=== PATIENT | male | born 1975 | race Caucasian/White ===

== ENCOUNTER 2022-02-08 08:49 | Outpatient (CLI) | payer MEDICAID, SELFPAY ==
[2022-02-08 09:33] LABS: Erythrocyte Sedimentation Rate 15 mm/hr (0-20)
[2022-02-08 09:35] LABS: Absolute Lymphocyte Count 1.56 X10^3/uL (0.83-4.51); Absolute Neutrophil Count 4.5 X10^3/uL (2.0-7.7); Basophil# 0.03 X10^3/uL; Basophil% 0.5 % (0-1); Eosinophil# 0.05 X10^3/uL; Eosinophils% 0.8 % (0-5); Hematocrit 47.1 % (40-54); Hemoglobin 15.6 g/dL (13.0-16.5); Lymphocyte # 1.56 X10^3/ul (0.83-4.51); Lymphocyte % 23.6 % (19-41); Mean Corp Hgb Conc 33.1 g/dL (32-36); Mean Corpuscular Volume 93.6 fL (80-94); Mean Platelet Vol. 11.7 fl (6.2-12.0); Monocyte# 0.45 X10^3/uL; Monocyte% 6.8 % (0-10); NRBC Flagged by Analyzer 0 % (0-5); Neutrophil # 4.51 X10^3/uL (2.7-7.7); Platelet Count 218 K/mm3 (150-450); RBC Distribution Width CV 12.8 % (11.6-14.6); RBC Distribution Width SD 44.3 fl (35.1-43.9); Red Blood Count 5.03 M/mm3 (4.6-6.2); White Blood Count 6.6 K/mm3 (4.4-11.0)
[2022-02-08 09:55] LABS: Hemoglobin A1c 5.5 % (3.8-5.6)
[2022-02-08 10:21] LABS: AST(SGOT) 21 U/L (15-37); Alanine Aminotransfer ALT/SGPT 25 U/L (16-61); Albumin, Serum 3.8 g/dL (3.2-5.0); Alkaline Phosphatase 118 U/L (45-117); Amylase 53 U/L (25-115); Anion Gap 3 (5-15); BUN 17 mg/dL (7-18); BUN/Creat Ratio 17.2 RATIO (10-20); CRP 3.95 mg/L (0.0-3.0); Calcium,Total 8.5 mg/dL (8.5-10.1); Chloride 110 mmol/L (98-107); Creatinine, Serum 0.99 mg/dL (0.70-1.30); EST Glomerular Filtration Rate 86 mL/min (>60); Est Glom Filt Rate - Afr Amer 104 mL/min (>60); Globulin 3.7 g/dL (2.2-4.2); Glucose 96 mg/dL (74-106); Lipase 143 U/L (73-393); Potassium 4.3 mmol/L (3.5-5.1); Protein, Total 7.5 g/dL (6.4-8.2); Sodium Level 140 mmol/L (136-145); Thyroid Stim Hormone (TSH) 2.59 uIU/mL (0.358-3.74)
[2022-02-08 12:03] LABS: Hepatitis C Antibody Non-Reactive (Nonreactive)
[2022-02-09 16:09] LABS: Anti-Centromere B Ab <0.2 AI (0.0-0.9); Anti-Chromatin <0.2 AI (0.0-0.9); Anti-Jo <0.2 AI (0.0-0.9); Anti-Scleroderma-70 AB <0.2 AI (0.0-0.9); RNP Ab 0.3 AI (0.0-0.9); SJOGREN'S Anti-SS-A test < 0.2 AI (0.0-0.9); SJOGREN'S Anti-SS-B test < 0.2 AI (0.0-0.9); Smith Ab <0.2 AI (0.0-0.9)
[2022-02-10 09:39] LABS: Anti-dsDNA Ab 1 IU/mL (0-9)
[2022-02-14 10:09] LABS: Cytoplasmic Ab (C-ANCA) <1:20 titer (Neg:<1:20); Endomysial Antibody IgA Negative (Negative); Immunoglobulin A 155 mg/dL (90-386); Immunoglobulin E 22 IU/mL (6-495); Immunoglobulin G 799 mg/dL (603-1613)
[2022-02-14 18:31] LABS: Immunoglobulin M 216 mg/dL (20-172); Perinuclear Ab (P-ANCA) <1:20 titer (Neg:<1:20); t-Transglutaminase IgA <2 U/mL (0-3)
== END 2022-02-08 23:59 | disposition home or self-care (01) ==
LOC: LAB 08:52
PROVIDERS: PCP Internal Medicine Infectious Disease; Referring Provider Internal Medicine Gastroenterology; Visit Provider Internal Medicine Gastroenterology
DX: Z12.11 Encounter for screening for malignant neoplasm of colon (principal); R10.9 Unspecified abdominal pain; R19.7 Diarrhea, unspecified
CPT/HCPCS: 36415; 80053; 82150; 82784; 82785; 83036; 83516; 83690; 84443; 85025; 85652; 86140; 86225; 86235; 86255; 86256; 86803

== ENCOUNTER 2022-02-09 08:05 | Outpatient (CLI) | payer MEDICAID, SELFPAY ==
[2022-02-12 15:45] LABS: Calprotectin, Stool <16 ug/g (0-120)
== END 2022-02-09 23:59 | disposition home or self-care (01) ==
LOC: LABSPEC 08:06
PROVIDERS: PCP Internal Medicine Infectious Disease; Visit Provider Internal Medicine Gastroenterology
DX: Z12.11 Encounter for screening for malignant neoplasm of colon (principal); R10.9 Unspecified abdominal pain
CPT/HCPCS: 83993; 87329; 87493; 87506

== ENCOUNTER 2022-02-25 07:40 | Outpatient (CLI) | payer MEDICAID, SELFPAY ==
--- NOTE | 2022-02-25 07:43 | CT_ITS ---
STUDY: CT ABDOMEN AND PELVIS WITH CONTRAST REASON FOR EXAM: Male, 46 years old. Diarrhea abdominal pain RADIATION DOSAGE (If Supplied By Facility): CTDIvol = ( 15.76 ) mGy, DLP = ( 400.64 ) mGycm TECHNIQUE: Transaxial images were obtained from the dome of the diaphragm to the symphysis pubis with oral contrast. Oral and amp;amp; IV Readi-CAT and amp;amp; 100mL Isovue-370 was administered. Sagittal and coronal images were reconstructed. Individualized dose optimization techniques were used for this CT. COMPARISON: None. FINDINGS: The visualized lung bases are unremarkable. The visualized portions of the heart are within normal limits. Normal liver. Normal gallbladder and extrahepatic biliary system. Normal spleen. Normal pancreas. Normal bilateral adrenal glands. Normal right kidney. Normal left kidney. There is a small hiatal hernia. There is diffuse gastric wall thickening in the region of the fundal portion and body portion of the stomach. Correlation with the endoscopy is recommended. Normal small intestine. Large amount of fecal material is seen throughout the colon. The appendix is visualized and appears normal. There is scattered atherosclerotic calcification of the abdominal aorta, without a demonstrated aneurysm. Normal inferior vena cava. Normal retroperitoneum. The urinary bladder is not adequately distended although there is evidence of diffuse bladder wall thickening. Heterogeneous appearance of the prostate. Normal abdominal wall. There are mild degenerative changes of the visualized lumbar spine. CT/Abdomen/Pelvis WITH Contrast IMPRESSION: Gastric wall thickening as described. Correlation with endoscopy is recommended. Electronically Signed: Jayme Mejia MD at 12:48 EDT ,
== END 2022-02-25 23:59 | disposition home or self-care (01) ==
LOC: CT 07:41
PROVIDERS: PCP Internal Medicine Infectious Disease; Referring Provider Internal Medicine Gastroenterology; Visit Provider Internal Medicine Gastroenterology
DX: Z12.11 Encounter for screening for malignant neoplasm of colon (principal); R10.9 Unspecified abdominal pain
CPT/HCPCS: 74177; Q9967

== ENCOUNTER 2022-03-04 08:44 | Outpatient (CLI) | payer MEDICAID, SELFPAY ==
[2022-03-06 21:08] LABS: Carcinoembryonic Antigen 2139 14.7 ng/mL (0.0-4.7); Gastrin, Serum 12 pg/mL (0-115)
== END 2022-03-04 23:59 | disposition home or self-care (01) ==
LOC: LAB 08:45
PROVIDERS: PCP Internal Medicine Infectious Disease; Referring Provider Internal Medicine Gastroenterology; Visit Provider Internal Medicine Gastroenterology
DX: R93.5 Abnormal findings on diagnostic imaging of other abdominal regions, including retroperitoneum (principal)
CPT/HCPCS: 36415; 82378; 82941

== ENCOUNTER 2022-03-11 06:28 | Day surgery (SDC) | payer MEDICAID, SELFPAY ==
--- NOTE | 2022-03-11 07:01 | HP.PCM_ITS ---
History and Physical Date of Admission: 03/11/22 46 M who presents to the office today for Initial consultation. Joon established with this clinic 02.08.22 with a referral from his PCP for symptoms of: abdominal/epigastric pain/cramping, nausea and diarrhea. Symptoms occur on a daily basis without identified trigger. Sometimes eating helps pain/cramping PCP started on Carafate with reduction of diarrhea. Reports that he was previously told he has a small hiatal hernia and an ulcer about twenty years ago with some symptoms, but worsened currently symptoms started early 2019. Diet Breakfast: eggs, toast, chaney, pancakes, oatmeal. 2 cups coffee in the AM. Lunch: PB&J, burger, chicken sandwich. Attempts to avoid fast foods. Dinner: meat and vegetable with some bread. Milk. Drinks a couple cans of pop in a day. Water intake is minimal. Gastrointestinal history of GERD, hiatal hernia, IBS. Previously prescribed H2 receptor blockers and PPI, but these made him feel weird so he stopped. Current cigarette smoker of two packs a day. Marijuana intake is minimal. ROS Const Constitutional: No anorexia, fatigue, fever(s), weight change or sleep problems Eyes Eyes: No change in vision ENT ENT: No abnormal hearing, difficulty swallowing, mouth lesions, tongue swelling or throat swelling Resp Respiratory: No cough or shortness of breath Cardio Cardiology: No chest pain at rest, chest pain with exertion, shortness of breath or dyspnea on exertion Gastro GI: No difficulty swallowing Genitourinary Male: No difficulty urinating or burning urination Musc Musculoskeletal: No joint pain, joint swelling, muscle weakness or decreased muscle mass Skin Skin: No hair loss in leg, yellowing of the eye, itchy eyes, rash, skin ulcer or skin swelling Neuro Neurology: No abnormal hearing, abnormal movements, confusion, unsteady gait/balance or memory loss Psych Psychiatric: No anxiety, No confusion and No memory loss Endo Endocrine: No fatigue or weight change Aller/Imm Allergy/Immunologic: No itchy eyes, throat swelling or tongue swelling Lawson/Lymp Hematologic/Lymphatic: No easy bleeding, easy bruising or enlarged lymph nodes Exam Const General: cooperative and comfortable Nutritional Appearance: average body habitus and well nourished HENMT Head: normal to inspection Ears: hearing grossly normal bilaterally Nose: external nose normal Face and sinus: normal facial exam Mouth: oral mucosae normal Throat: posterior oropharynx normal Eyes General: appearance normal, both eyes and all related structures Neck Neck: normal visual inspection Chest Chest palpation & inspection: normal inspection of the chest and normal palpation of entire chest wall Resp Effort & Inspection: normal respiratory effort Auscultation: Bilateral: Clear to Auscultation Cardio Palpation: normal PMI Rate: regular rate Rhythm: regular rhythm GI Inspection: normal to inspection Auscultation: normal bowel sounds Percussion: normal to percussion Palpation: no hepatosplenomegaly Skin General: no rashes or lesions noted Neuro General: patient alert Extrem General: normal to inspection Psych Affect: normal affect Quality Reporting Tobacco Screening ([facility] 138) Smoking Status: Current every day smoker Assessment and Plan Assessment and Plan (1) Irritable bowel syndrome: (2) Abdominal pain: Status: Acute Orders: Orders: CBC W/Diff, Automated Today ANCA Today Celiac Disease Profile Today Hepatitis C Antibody Today Amylase Today Comprehensive Metabolic Profil Today CRP Today Lipase Today Hemoglobin A1c Today Erythrocyte Sed Rate Today Calprotectin, Stool Today Giardia Lamblia, Stool EIA Today Immunoglobulin A Today Immunoglobulin E Today Immunoglobulin G Today Immunoglobulin M Today CDIFF (PCR) Today ENTERIC PATHOGEN PANEL STOOL Today Thyroid Stim Hormone (TSH) Today CHALINO Comprehensive Panel Today Abdomen/Pelvis WITH Contrast Today Plan - Dr. Mauricio Friend, DO: Differential diagnosis for his abdominal pain does include H. pylori associated gastritis, celiac disease, pancreatitis, chronic mesenteric ischemia, peptic ulcer disease. He should undergo an upper endoscopy and also biochemical test celiac disease, hepatitis C, amylase, lipase, ANCA, CHALINO, TSH, hemoglobin A1c, ESR, CRP and he should undergo a CT scan abdomen pelvis. (3) Screening for colon cancer: Status: Acute Orders: Orders: CBC W/Diff, Automated Today ANCA Today Celiac Disease Profile Today Hepatitis C Antibody Today Amylase Today Comprehensive Metabolic Profil Today CRP Today Lipase Today Hemoglobin A1c Today Erythrocyte Sed Rate Today Calprotectin, Stool Today Giardia Lamblia, Stool EIA Today Immunoglobulin A Today Immunoglobulin E Today Immunoglobulin G Today Immunoglobulin M Today CDIFF (PCR) Today ENTERIC PATHOGEN PANEL STOOL Today Thyroid Stim Hormone (TSH) Today CHALINO Comprehensive Panel Today Abdomen/Pelvis WITH Contrast Today Plan - Dr. Hang Mccullough, DO: Colonoscopy should have a screening colonoscopy. He is at high risk due to smoking. He was explained alternatives, risk, benefits including outstanding bleeding, infection, sepsis, perforation, need for emergent surgery . He will have an ASA 2 I have re-examined the patient. There are no clinical changes since date of exam.
[2022-03-11 07:04] VITALS: BP 112/66; PULSE 56; RESP 16; TEMP 37.1; O2SAT 97; BMI 21.2
[2022-03-11] MEDS: Lactated Ringers 1,000 ML 100 ML IV (07:11)
--- NOTE | 2022-03-11 07:45 | EGD_PTH ---
PATIENT: MARIAH MURO LOC: [facility] U#:[id number] AGE/SX: 46/M ROOM: RE03/11/[address]: Dr. Hang Mccullough DO : 1975 BED: DIS: 03/11/2022 SPEC #: [id number] RECD: 03/11/22 13:34 STATUS: MICHAEL MARTHA #: [id number] TATY: 03/11/22 07:[address]: Hang Mccullough DEPT: SURGICAL PATHOLOGY RECD BY: Marcella Eason ENTERED: 03/11/22 14:06 SP TYPE: EGD BIOPSY OT DR: Dr. Olga Mcdaniel MD Tissues: A - Duodenum, NOS B - Esophagus, NOS C - Ileum, NOS D - Sigmoid colon biopsy Procedures: Special Stain Group II Surgery Specimen Level IV Alcian Blue/PAS (control) HEADER OPERATION: Colonoscopy, EGD ([facility] [place], [place]) with biopsies PRE-OP DIAGNOSIS: Irritable bowel syndrome, abdominal pain, screening TISSUE SUBMITTED: A ? Duodenum biopsy, B ? Distal esophagus biopsy, C ? Terminal ileum biopsy, D ? Sigmoid biopsy MICROSCOPIC DIAGNOSIS A. Duodenum, biopsy: Fragments of duodenal mucosa, no pathologic diagnosis. B. Distal esophagus, biopsy: Fragments of gastroesophageal mucosa with moderate chronic inflammation. Intestinal metaplasia (goblet cell metaplasia) not identified. See comment. C. Terminal ileum, biopsy: Fragments of small intestinal mucosa, no pathologic diagnosis. D. Sigmoid colon, biopsy: A fragment of colonic mucosa, no pathologic diagnosis. SJ:pk 03/12/2022 COMMENT B. Alcian blue/PAS stain with matched control is used in the evaluation of the specimen. MICROSCOPIC DESCRIPTION Slides are reviewed. GROSS DESCRIPTION A - Received in fixative is one container labeled with the patient's name and designated duodenum biopsy. The specimen consists of multiple irregular fragments of light pabon soft tissue that in aggregate measure 0.8 x 0.5 x 0.1 cm. The specimen is totally submitted in one cassette. B - Received in fixative is one container labeled with the patient's name and designated distal esophagus biopsy. The specimen consists of multiple irregular fragments of light pabon soft tissue that in aggregate measure 1 x 0.3 x 0.1 cm. The specimen is totally submitted in one cassette. C - Received in fixative is one container labeled with the patient's name and designated terminal ileum biopsy. The specimen consists of multiple irregular fragments of light pabon soft tissue that in aggregate measure 2 x 0.3 x 0.1 cm. The specimen is totally submitted in one cassette. D - Received in fixative is one container labeled with the patient's name and designated sigmoid biopsy. The specimen consists of one irregular fragment of light pabon soft tissue that measures 0.5 x 0.5 x 0.1 cm. The specimen is totally submitted in one cassette. / SJ:rg 03/11/2022 TC:3 CPT: 31067 x4, 33732
[2022-03-11 08:30] VITALS: BP 112/66; BP 91/58; PULSE 56; RESP 16; TEMP 36.2; O2SAT 98
[2022-03-11 08:35] VITALS: BP 112/66; BP 95/67; PULSE 79; RESP 16; O2SAT 98
--- NOTE | 2022-03-11 08:36 | OP.EGD_ITS ---
Patient Name: Joon Stahl Procedure Date: 03/11/2022 7:44 AM Date of : 1975 Age: 46 Procedure: Upper GI endoscopy Indications: Suspected gastritis, Gastro-esophageal reflux disease Providers: Hang Mccullough DO Medicines: See the Anesthesia note for documentation of the administered medications Patient Profile: This is a 46 year old male. Refer to note in patient chart for documentation of history and physical. Patient has symptoms of chronic global abdominal pain and chronic nausea. Complications: No immediate complications. Procedure: Pre-Anesthesia Assessment: - Prior to the procedure, a History and Physical was performed, and patient medications and allergies were reviewed. The patient is competent. The risks and benefits of the procedure and the sedation options and risks were discussed with the patient. All questions were answered and informed consent was obtained. Patient identification and proposed procedure were verified by the physician in the pre-procedure area. Mental Status Examination: alert and oriented. Airway Examination: normal oropharyngeal airway and neck mobility. Respiratory Examination: clear to auscultation. CV Examination: normal. Prophylactic Antibiotics: The patient does not require prophylactic antibiotics. Prior Anticoagulants: The patient has taken no previous anticoagulant or antiplatelet agents. After reviewing the risks and benefits, the patient was deemed in satisfactory condition to undergo the procedure. The anesthesia plan was to use moderate sedation / analgesia (conscious sedation). Immediately prior to administration of medications, the patient was re-assessed for adequacy to receive sedatives. The heart rate, respiratory rate, oxygen saturations, blood pressure, adequacy of pulmonary ventilation, and response to care were monitored throughout the procedure. The physical status of the patient was re-assessed after the procedure. After obtaining informed consent, the endoscope was passed under direct vision. Throughout the procedure, the patient's blood pressure, pulse, and oxygen saturations were monitored continuously. The pediatric colonoscope was introduced through the mouth, and advanced to the second part of duodenum. The upper GI endoscopy was accomplished without difficulty. The patient tolerated the procedure well. Moderate Sedation: Moderate (conscious) sedation was administered by the endoscopy nurse and supervised by the endoscopist. The patient's oxygen saturation, heart rate, blood pressure and response to care were monitored. Total physician intraservice time was 15 minutes. Scope In: 8:00:42 AM Scope Out: 8:06:11 AM Total Procedure Duration Time 0 hours 5 minutes 29 seconds Findings: LA Grade A (one or more mucosal breaks less than 5 mm, not extending between tops of 2 mucosal folds) esophagitis with no bleeding was found 38 to 40 cm from the incisors. Biopsies were taken with a cold forceps for histology. Verification of patient identification for the specimen was done. Estimated blood loss was minimal. A large hiatal hernia was present. A few localized, 5 mm non-bleeding erosions were found in the gastric body. There were no stigmata of recent bleeding. A few diffuse erosions without bleeding were found in the duodenal bulb, in the first portion of the duodenum and in the second portion of the duodenum. Biopsies were taken with a cold forceps for histology. Verification of patient identification for the specimen was done. Estimated blood loss was minimal. Impression: - LA Grade A reflux esophagitis. Biopsied. - Large hiatal hernia. - Non-bleeding erosive gastropathy. - Duodenal erosions without bleeding. Biopsied. Recommendation: - Discharge patient to home. - Resume previous diet. - Continue present medications. - Await pathology results. Procedure Code(s): --- Professional --- 35623, Esophagogastroduodenoscopy, flexible, transoral; with biopsy, single or multiple G0500, Moderate sedation services provided by the same physician or other qualified health spiritual care coordinator performing a gastrointestinal endoscopic service that sedation supports, requiring the presence of an independent trained observer to assist in the monitoring of the patient's level of consciousness and physiological status; initial 15 minutes of intra-service time; patient age 5 years or older (additional time may be reported with 75295, as appropriate) CPT copyright 2017 [employer]. All rights reserved. The codes documented in this report are preliminary and upon site damage prevention technician review may be revised to meet current compliance requirements. Hang Mccullough DO 03/11/2022 8:36:10 AM This report has been signed electronically. Number of Addenda: 1 Note Initiated On: 03/11/2022 7:44 AM Addendum Number: 1 Addendum Date: 08/15/2022 6:26:41 AM MAC was used as sedation for this procedure. Hang Mccullough DO 08/15/2022 6:26:45 AM This report has been signed electronically.
--- NOTE | 2022-03-11 08:37 | OP.CCLET_ITS ---
08/15/2022 Olga Mcdaniel [address] [id number] Re : Upper GI endoscopy procedure for Joon Twilajay Dear Dr. Mcdaniel This procedure was performed on Friday, March 11, 2022. My impressions and recommendations are as follows: Impressions : - LA Grade A reflux esophagitis. Biopsied. - Large hiatal hernia. - Non-bleeding erosive gastropathy. - Duodenal erosions without bleeding. Biopsied. Recommendations : - Discharge patient to home. - Resume previous diet. - Continue present medications. - Await pathology results. My findings are described in the full procedure note, which is enclosed. If I can be of further assistance, please feel free to contact me at . Sincerely, Hang Mccullough, 03/11/2022 8:36:10 AM This report has been signed electronically.
[2022-03-11 08:40] VITALS: BP 100/73; BP 112/66; PULSE 55; RESP 16; O2SAT 100
--- NOTE | 2022-03-11 08:42 | OP.COLON_ITS ---
Patient Name: Joon Stahl Procedure Date: 03/11/2022 8:06 AM Date of : 1975 Age: 46 Procedure: Colonoscopy Indications: Screening for colorectal malignant neoplasm Providers: Hang Mccullough DO Medicines: See the Anesthesia note for documentation of the administered medications Patient Profile: This is a 46 year old male. Refer to note in patient chart for documentation of history and physical. Patient has symptoms of chronic global abdominal pain and chronic nausea. Last Colonoscopy: none. The patient's first colonoscopy is today. Complications: No immediate complications. Procedure: Pre-Anesthesia Assessment: - Prior to the procedure, a History and Physical was performed, and patient medications and allergies were reviewed. The patient is competent. The risks and benefits of the procedure and the sedation options and risks were discussed with the patient. All questions were answered and informed consent was obtained. Patient identification and proposed procedure were verified by the physician in the pre-procedure area. Mental Status Examination: alert and oriented. Airway Examination: normal oropharyngeal airway and neck mobility. Respiratory Examination: clear to auscultation. CV Examination: normal. Prophylactic Antibiotics: The patient does not require prophylactic antibiotics. Prior Anticoagulants: The patient has taken no previous anticoagulant or antiplatelet agents. After reviewing the risks and benefits, the patient was deemed in satisfactory condition to undergo the procedure. The anesthesia plan was to use moderate sedation / analgesia (conscious sedation). Immediately prior to administration of medications, the patient was re-assessed for adequacy to receive sedatives. The heart rate, respiratory rate, oxygen saturations, blood pressure, adequacy of pulmonary ventilation, and response to care were monitored throughout the procedure. The physical status of the patient was re-assessed after the procedure. - Prior to the procedure, a History and Physical was performed, and patient medications and allergies were reviewed. The patient is competent. The risks and benefits of the procedure and the sedation options and risks were discussed with the patient. All questions were answered and informed consent was obtained. Patient identification and proposed procedure were verified by the physician in the pre-procedure area. Mental Status Examination: normal. Prophylactic Antibiotics: The patient does not require prophylactic antibiotics. Prior Anticoagulants: The patient has taken Plavix (clopidogrel), last dose was 1 day prior to procedure. ASA Grade Assessment: II - A patient with mild systemic disease. After reviewing the risks and benefits, the patient was deemed in satisfactory condition to undergo the procedure. The anesthesia plan was to use moderate sedation / analgesia (conscious sedation). Immediately prior to administration of medications, the patient was re-assessed for adequacy to receive sedatives. The heart rate, respiratory rate, oxygen saturations, blood pressure, adequacy of pulmonary ventilation, and response to care were monitored throughout the procedure. The physical status of the patient was re-assessed after the procedure. After I obtained informed consent, the scope was passed under direct vision. Throughout the procedure, the patient's blood pressure, pulse, and oxygen saturations were monitored continuously. The pediatric colonoscope was introduced through the anus and advanced to 9 cm into the ileum. The colonoscopy was performed without difficulty. The patient tolerated the procedure well. The quality of the bowel preparation was good. Moderate Sedation: Moderate (conscious) sedation was administered by the endoscopy nurse and supervised by the endoscopist. The patient's oxygen saturation, heart rate, blood pressure and response to care were monitored. Total physician intraservice time was 15 minutes. Scope In: 8:10:22 AM Scope Withdrawal Time 0 hours 12 minutes 12 seconds Scope Out: 8:26:56 AM Total Procedure Duration Time 0 hours 16 minutes 34 seconds Findings: The perianal and digital rectal examinations were normal. Multiple small-mouthed diverticula were found in the recto-sigmoid colon and sigmoid colon. Localized mild inflammation was found in the sigmoid colon. Biopsies were taken with a cold forceps for histology. Verification of patient identification for the specimen was done. Estimated blood loss was minimal. A patchy area of the distal ileum was congested. Biopsies were taken with a cold forceps for histology. Verification of patient identification for the specimen was done. Estimated blood loss was minimal. Impression: - Diverticulosis in the recto-sigmoid colon and in the sigmoid colon. - Localized mild inflammation was found in the sigmoid colon secondary to colitis. Biopsied. - Congested mucosa in the distal ileum. Biopsied. Recommendation: - Discharge patient to home. - Resume previous diet. - Continue present medications. - Await pathology results. - Repeat colonoscopy in 5 years for surveillance based on pathology results. - Return to GI office. Procedure Code(s): --- Professional --- 46556, Colonoscopy, flexible; with biopsy, single or multiple G0500, Moderate sedation services provided by the same physician or other qualified health career developer performing a gastrointestinal endoscopic service that sedation supports, requiring the presence of an independent trained observer to assist in the monitoring of the patient's level of consciousness and physiological status; initial 15 minutes of intra-service time; patient age 5 years or older (additional time may be reported with 72681, as appropriate) CPT copyright 2017 [employer]. All rights reserved. The codes documented in this report are preliminary and upon hereditary cancer program coordinator review may be revised to meet current compliance requirements. Hang Mccullouhg DO 03/11/2022 8:42:06 AM This report has been signed electronically. Number of Addenda: 1 Note Initiated On: 03/11/2022 8:06 AM Addendum Number: 1 Addendum Date: 08/15/2022 6:26:53 AM MAC was used as sedation for this procedure. Hang Mccullough DO 08/15/2022 6:26:57 AM This report has been signed electronically.
--- NOTE | 2022-03-11 08:43 | OP.CCLET_ITS ---
08/15/2022 Olga Mcdaniel [address] [place] [address] Re : Colonoscopy procedure for Joon Stahl Dear Dr. Mcdaniel This procedure was performed on Friday, March 11, 2022. My impressions and recommendations are as follows: Impressions : - Diverticulosis in the recto-sigmoid colon and in the sigmoid colon. - Localized mild inflammation was found in the sigmoid colon secondary to colitis. Biopsied. - Congested mucosa in the distal ileum. Biopsied. Recommendations : - Discharge patient to home. - Resume previous diet. - Continue present medications. - Await pathology results. - Repeat colonoscopy in 5 years for surveillance based on pathology results. - Return to GI office. My findings are described in the full procedure note, which is enclosed. If I can be of further assistance, please feel free to contact me at . Sincerely, Hang Mccullough, 03/11/2022 8:42:06 AM This report has been signed electronically.
[2022-03-11 08:45] VITALS: BP 112/66; BP 99/65; PULSE 55; RESP 16; TEMP 36.2; O2SAT 99
[2022-03-11 08:58] VITALS: BP 112/66
== END 2022-03-11 09:01 | disposition home or self-care (01) ==
LOC: EN 06:31 → AC 06:31
PROVIDERS: PCP Internal Medicine Infectious Disease; Referring Provider Internal Medicine Infectious Disease; Visit Provider Internal Medicine Gastroenterology
PROC: 0DJD8ZZ Inspection of Lower Intestinal Tract, Via Natural or Artificial Opening Endoscopic (ICD-10-PCS; CPT 45378; principal; 2022-03-11 07:40)
DX: Z12.11 Encounter for screening for malignant neoplasm of colon (principal); K57.30 Diverticulosis of large intestine without perforation or abscess without bleeding; F17.210 Nicotine dependence, cigarettes, uncomplicated; K58.9 Irritable bowel syndrome, unspecified; K44.9 Diaphragmatic hernia without obstruction or gangrene; K31.89 Other diseases of stomach and duodenum; K63.89 Other specified diseases of intestine; K29.70 Gastritis, unspecified, without bleeding; K21.00 Gastro-esophageal reflux disease with esophagitis, without bleeding
CPT/HCPCS: 45380; 43239; 87426; 88305; 88313; J7120; J2405

== ENCOUNTER → 2022-05-30 | Outpatient (CLI) | payer MEDICAID, SELFPAY ==
[2022-05-30 11:00] LABS: ALB/GLOB Ratio 1.1 RATIO (0.9-2.4); AST(SGOT) 16 U/L (15-37); Alanine Aminotransfer ALT/SGPT 19 U/L (16-61); Albumin, Serum 3.5 g/dL (3.2-5.0); Alkaline Phosphatase 103 U/L (45-117); Anion Gap 4 (5-15); BUN 19 mg/dL (7-18); BUN/Creat Ratio 21.2 RATIO (10-20); Calcium,Total 8.7 mg/dL (8.5-10.1); Chloride 111 mmol/L (98-107); EST Glomerular Filtration Rate 96 mL/min (>60); Est Glom Filt Rate - Afr Amer 116 mL/min (>60); Globulin 3.2 g/dL (2.2-4.2); Glucose 101 mg/dL (74-106); Potassium 4.4 mmol/L (3.5-5.1); Protein, Total 6.7 g/dL (6.4-8.2); Sodium Level 141 mmol/L (136-145)
[2022-06-02 09:07] LABS: Immunoglobulin A 137 mg/dL (90-386); Immunoglobulin E 18 IU/mL (6-495); Immunoglobulin G 699 mg/dL (603-1613); Immunoglobulin M 202 mg/dL (20-172)
[2022-06-02 10:35] LABS: Carcinoembryonic Antigen 15.8 ng/mL (0.0-4.7)
[2022-06-02 10:36] LABS: Gastrin, Serum < 10 pg/mL (0-115)
== END | disposition home or self-care (01) ==
LOC: LAB 09:40
PROVIDERS: PCP Internal Medicine Infectious Disease; Visit Provider Internal Medicine Gastroenterology
DX: R97.0 Elevated carcinoembryonic antigen [CEA] (principal); R93.5 Abnormal findings on diagnostic imaging of other abdominal regions, including retroperitoneum; R10.9 Unspecified abdominal pain; K31.9 Disease of stomach and duodenum, unspecified
CPT/HCPCS: 36415; 80053; 82378; 82784; 82785; 82941; 86140

== ENCOUNTER → 2022-08-07 | Outpatient (CLI) | payer MEDICAID, SELFPAY ==
[2022-08-07 09:17] LABS: Absolute Lymphocyte Count 1.78 X10^3/uL (0.83-4.51); Absolute Neutrophil Count 6.7 X10^3/uL (2.0-7.7); Basophil# 0.02 X10^3/uL; Basophil% 0.2 % (0-1); Eosinophils% 1.1 % (0-5); Hematocrit 50.9 % (40-54); Hemoglobin 17.1 g/dL (13.0-16.5); Lymphocyte # 1.78 X10^3/ul (0.83-4.51); Lymphocyte % 19.4 % (19-41); Mean Corp Hgb Conc 33.6 g/dL (32-36); Mean Corpuscular Volume 95.1 fL (80-94); Monocyte% 5.5 % (0-10); NRBC Flagged by Analyzer 0 % (0-5); Neutrophil # 6.73 X10^3/uL (2.7-7.7); Neutrophil % 73.5 % (47-70); Platelet Count 178 K/mm3 (150-450); RBC Distribution Width CV 13.2 % (11.6-14.6); RBC Distribution Width SD 46.8 fl (35.1-43.9); Red Blood Count 5.35 M/mm3 (4.6-6.2); White Blood Count 9.2 K/mm3 (4.4-11.0)
[2022-08-07 09:22] LABS: Erythrocyte Sedimentation Rate 22 mm/hr (0-20)
[2022-08-07 09:30] LABS: Vitamin B12 508 pg/mL (211-911)
[2022-08-07 09:41] LABS: AST(SGOT) 16 U/L (15-37); Alanine Aminotransfer ALT/SGPT 24 U/L (16-61); Albumin, Serum 3.8 g/dL (3.2-5.0); Alkaline Phosphatase 118 U/L (45-117); Amylase 49 U/L (25-115); Anion Gap 6 (5-15); BUN 16 mg/dL (7-18); BUN/Creat Ratio 17.9 RATIO (10-20); CRP 3.85 mg/L (0.0-3.0); Calcium,Total 8.9 mg/dL (8.5-10.1); Chloride 106 mmol/L (98-107); Creatinine, Serum 0.89 mg/dL (0.70-1.30); EST Glomerular Filtration Rate 96 mL/min (>60); Est Glom Filt Rate - Afr Amer 116 mL/min (>60); Globulin 3.8 g/dL (2.2-4.2); Glucose 106 mg/dL (74-106); LDH 197 U/L (87-241); Lipase 135 U/L (73-393); Potassium 4.3 mmol/L (3.5-5.1); Protein, Total 7.6 g/dL (6.4-8.2); Sodium Level 139 mmol/L (136-145); Thyroid Stim Hormone (TSH) 2.83 uIU/mL (0.358-3.74)
[2022-08-14 00:08] LABS: Albumin 3.8 g/dL (2.9-4.4); Alpha-1-Globulins 0.2 g/dL (0.0-0.4); Alpha-2-Globulins 0.8 g/dL (0.4-1.0); Gamma Globulin 0.9 g/dL (0.4-1.8); Immunoglobulin A 155 mg/dL (90-386); Immunoglobulin E 20 IU/mL (6-495); Immunoglobulin G 853 mg/dL (603-1613); Immunoglobulin M 239 mg/dL (20-172); PROEL- TOTAL PROTEIN 6.8 g/dL (6.0-8.5)
[2022-08-14 10:45] LABS: Carcinoembryonic Antigen 16.5 ng/mL (0.0-4.7); Gastrin, Serum 14 pg/mL (0-115)
== END | disposition home or self-care (01) ==
LOC: LAB 08:39
PROVIDERS: PCP Internal Medicine Infectious Disease; Referring Provider Nurse Practitioner Adult Health; Visit Provider Nurse Practitioner Adult Health
DX: R19.7 Diarrhea, unspecified (principal); R10.13 Epigastric pain; R97.0 Elevated carcinoembryonic antigen [CEA]; K31.9 Disease of stomach and duodenum, unspecified
CPT/HCPCS: 36415; 80053; 82150; 82378; 82607; 82746; 82784; 82785; 82941; 83615; 83690; 84165; 84443; 85025; 85652; 86140; 86334

== ENCOUNTER → 2022-08-12 | Outpatient (CLI) | payer MEDICAID, SELFPAY ==
[2022-08-18 09:07] LABS: Fats, Neutral Increased (.); Fats, Total Increased (.)
== END | disposition home or self-care (01) ==
LOC: LABSPEC 08:18
PROVIDERS: PCP Internal Medicine Infectious Disease; Referring Provider Nurse Practitioner Adult Health; Visit Provider Nurse Practitioner Adult Health
DX: R19.7 Diarrhea, unspecified (principal); R10.13 Epigastric pain
CPT/HCPCS: 82653; 82705; 87338

== ENCOUNTER → 2022-08-15 | Outpatient (CLI) | payer MEDICAID, SELFPAY ==
--- NOTE | 2022-08-15 07:48 | US_ITS ---
STUDY: ABDOMINAL ULTRASOUND REASON FOR EXAM: Male, 47 years old. Epigastric pain -- RUQ TECHNIQUE: Transabdominal ultrasound was performed with real-time and static gonzalez scale imaging. TECHNICAL QUALITY: Adequate. COMPARISON: None. FINDINGS: Liver: The liver measures 16 cm. There is normal echogenicity of the liver. The bile ducts are within normal limits. There is hepatic color flow. The direction of portal flow is hepatopetal. There is no demonstrated mass lesion. Gallbladder: Normal distended gallbladder. The gallbladder wall measures 2 mm. There is a negative sonographic Alcaraz''s sign. There is no pericholecystic fluid. There are no gallstones. Common Bile Duct (C.B.D.): The common bile duct measures 6 mm. Pancreas: Normal size of the head, body and tail of the pancreas. There is normal echogenicity of the pancreas. There is no demonstrated pancreatic mass or cyst. Spleen: Normal size of the spleen. The spleen measures 9.6 cm x 3.8 cm x 3.5 cm. Right Kidney: Normal size of the right kidney. The right kidney measures 10.2 cm x 6 cm x 5.1 cm. Normal renal cortex. The right cortex measures 1.1 cm. There is no demonstrated renal mass or cyst. There is no right hydronephrosis. Left Kidney: Normal size of the left kidney. The left kidney measures 10.8 cm x 5.6 cm x 6 cm. Normal renal cortex. The left cortex measures 1.4 cm. There is no demonstrated renal mass or cyst. There is no left hydronephrosis. Aorta: Unremarkable I.V.C.: The IVC is patent. There is no ascites. US/Abdomen Complete IMPRESSION: Normal abdominal ultrasound examination. Electronically Signed: Jayme Mejia MD at 10:18 EDT ,
== END | disposition home or self-care (01) ==
LOC: US 07:48
PROVIDERS: PCP Internal Medicine Infectious Disease; Referring Provider Nurse Practitioner Adult Health; Visit Provider Nurse Practitioner Adult Health
DX: R10.13 Epigastric pain (principal)
CPT/HCPCS: 76700

== ENCOUNTER → 2022-09-19 | Outpatient (CLI) | payer MEDICAID, SELFPAY ==
--- NOTE | 2022-09-19 06:22 | MRI_ITS ---
STUDY: MR MRCP WITHOUT CONTRAST REASON FOR EXAM: Male, 47 years old. chronic pancreatitis TECHNIQUE: Standard MRCP technique was utilized. Three-dimensional reconstruction images of the biliary tree performed. Exam quality diminished by patient motion. COMPARISON: None. FINDINGS: Gall Bladder: Normal with no distention or demonstrated fixed intraluminal filling defect. Cystic duct: Normal with no demonstrated fixed filling defect. Intrahepatic ducts: Normal visualized intrahepatic ducts with no demonstrated fixed filling defect, dilation or stricture. Common hepatic duct: Normal with no demonstrated fixed filling defect, dilation or stricture. Common bile duct: Normal (5.5 mm) with no demonstrated fixed filling defect, dilation or stricture, although the most inferior portion of the common duct is not clearly seen, at level of ampulla. Pancreatic duct: Normal with no demonstrated fixed filling defect, dilation or stricture. MRI/MRCP Abdomen without Contrast IMPRESSION: No demonstrable choledocholithiasis or intrahepatic/extrahepatic bile duct dilation. Electronically Signed: Enrique Gaming (Brooks), at 8:55 EDT ,
== END | disposition home or self-care (01) ==
LOC: MRI 06:22
PROVIDERS: PCP Internal Medicine Infectious Disease; Referring Provider Nurse Practitioner Adult Health; Visit Provider Nurse Practitioner Adult Health
DX: K86.1 Other chronic pancreatitis (principal); K86.81 Exocrine pancreatic insufficiency
CPT/HCPCS: 74181

== ENCOUNTER → 2023-04-01 | Outpatient (CLI) | payer MEDICAID, SELFPAY ==
--- NOTE | 2023-04-02 07:47 | PFT ---
INTRODUCTION: The patient is a 47-year-old male that presents for pulmonary function studies secondary to a diagnosis of lung nodule. Respiratory therapy reported good patient effort. Bronchodilators were used during testing. INTERPRETATION: Forced expiration spirometry demonstrates the presence of a mild large airways obstructive ventilatory defect. There was no significant response to aerosolized bronchodilators. Spirograms are of fair quality but do not plateau indicating slow emptying of the lungs. Body plethysmography was performed and revealed lung volumes to be within normal limits. Diffusing capacity by single breath CO was also within normal limits. IMPRESSION: Irreversible mild large airways obstructive ventilatory impairment with preserved lung volumes and diffusing capacity.
== END | disposition home or self-care (01) ==
LOC: PSN 08:01
PROVIDERS: PCP Internal Medicine Infectious Disease; Referring Provider Internal Medicine; Visit Provider Internal Medicine
DX: R91.1 Solitary pulmonary nodule (principal); J44.9 Chronic obstructive pulmonary disease, unspecified; F17.200 Nicotine dependence, unspecified, uncomplicated
CPT/HCPCS: 94060; 94726; 94729

== ENCOUNTER → 2023-04-07 | Outpatient (CLI) | payer MEDICAID, SELFPAY ==
[2023-04-07 09:23] LABS: Erythrocyte Sedimentation Rate 9 mm/hr (0-20)
[2023-04-07 09:26] LABS: Absolute Lymphocyte Count 1.62 X10^3/uL (0.83-4.51); Absolute Neutrophil Count 5.9 X10^3/uL (2.0-7.7); Basophil# 0.03 X10^3/uL; Basophil% 0.4 % (0-1); Eosinophils% 1.2 % (0-5); Hematocrit 49.2 % (40-54); Hemoglobin 15.8 g/dL (13.0-16.5); Lymphocyte # 1.62 X10^3/ul (0.83-4.51); Lymphocyte % 20.1 % (19-41); Mean Corp Hgb Conc 32.1 g/dL (32-36); Mean Corpuscular Hgb 31.1 pg (27.0-32.0); Mean Corpuscular Volume 96.9 fL (80-94); Mean Platelet Vol. 11.5 fl (6.2-12.0); Monocyte# 0.44 X10^3/uL; Monocyte% 5.5 % (0-10); NRBC Flagged by Analyzer 0 % (0-5); Neutrophil # 5.85 X10^3/uL (2.7-7.7); Neutrophil % 72.4 % (47-70); Platelet Count 215 K/mm3 (150-450); RBC Distribution Width CV 12.7 % (11.6-14.6); RBC Distribution Width SD 45.8 fl (35.1-43.9); Red Blood Count 5.08 M/mm3 (4.6-6.2); White Blood Count 8.1 K/mm3 (4.4-11.0)
[2023-04-07 09:49] LABS: AST(SGOT) 24 U/L (15-37); Alanine Aminotransfer ALT/SGPT 32 U/L (16-61); Albumin, Serum 3.5 g/dL (3.2-5.0); Alkaline Phosphatase 117 U/L (45-117); Anion Gap 4 (5-15); BUN 23 mg/dL (7-18); BUN/Creat Ratio 25.9 RATIO (10-20); Calcium,Total 8.7 mg/dL (8.5-10.1); Chloride 108 mmol/L (98-107); Creatinine, Serum 0.89 mg/dL (0.70-1.30); EST Glomerular Filtration Rate 96 mL/min (>60); Est Glom Filt Rate - Afr Amer 117 mL/min (>60); Globulin 3.5 g/dL (2.2-4.2); Glucose 95 mg/dL (74-106); Lipase 57 U/L (13-75); Potassium 4.5 mmol/L (3.5-5.1); Sodium Level 139 mmol/L (136-145)
[2023-04-08 13:08] LABS: Anti-Mitochondrial AB <20.0 Units (0.0-20.0)
[2023-04-08 14:09] LABS: Anti-Smooth Muscle ABS 4 Units (0-19); Carbohydrate AG 19-9 7 U/mL (0-35); IgG, Quant 740 mg/dL (603-1613); Immunoglobulin G, Subclass 1 312 mg/dL (248-810); Immunoglobulin G, Subclass 2 258 mg/dL (130-555); Immunoglobulin G, Subclass 3 33 mg/dL (15-102); Immunoglobulin G, Subclass 4 15 mg/dL (2-96)
== END | disposition home or self-care (01) ==
LOC: LAB 08:21
PROVIDERS: PCP Internal Medicine Infectious Disease; Referring Provider Nurse Practitioner Adult Health; Visit Provider Nurse Practitioner Adult Health
DX: R10.13 Epigastric pain (principal); K86.81 Exocrine pancreatic insufficiency
CPT/HCPCS: 36415; 80053; 82784; 82787; 83516; 83690; 85025; 85652; 86140; 86301

== ENCOUNTER → 2023-04-17 | Outpatient (CLI) | payer MEDICAID, SELFPAY | END | disposition home or self-care (01) | LOC: SL 11:05 | PROVIDERS: PCP Internal Medicine Infectious Disease; Visit Provider Internal Medicine | DX: R91.1 Solitary pulmonary nodule (principal); J44.9 Chronic obstructive pulmonary disease, unspecified; F17.200 Nicotine dependence, unspecified, uncomplicated | CPT/HCPCS: 94762 ==

== ENCOUNTER → 2023-07-31 | Outpatient (CLI) | payer MEDICAID, SELFPAY ==
--- NOTE | 2023-07-31 06:51 | CT_ITS ---
STUDY: CT CHEST WITHOUT CONTRAST REASON FOR EXAM: Male, 48 years old. Lung nodule -- 5 mm LUCINDA nodule RADIATION DOSAGE (If Supplied By Facility): CTDIvol = ( 3.02 ) mGy, DLP = ( 108.35 ) mGycm TECHNIQUE: Transaxial imaging was performed without the administration of intravenous contrast material. Multiplanar coronal and sagittal images were reformatted. Individualized dose optimization techniques were used for this CT. COMPARISON: Comparison is made with prior study of February 25, 2022. FINDINGS: CHEST Hyperinflation. Emphysematous changes more prominent within the upper lobes. There is a 5 minimal increase in markings in the anterior medial aspect of the lingular segment of the left upper lobe suggestive of atelectasis and/or scarring. Mm well-defined noncalcified nodule in the peripheral lateral aspect of the right upper lobe. There is no demonstrated pleural abnormality. There are minimal calcifications of the coronary arteries. There are small lymph nodes within the mediastinum, which are normal in size and morphology most compatible with reactive lymph hyperplasia. Normal hilar regions. Normal unenhanced pulmonary arteries. Normal aorta arch and descending thoracic aorta. There are degenerative changes of the thoracic spine. There is no demonstrated abnormality of the visualized upper abdomen. CT/Chest without Contrast IMPRESSION: Hyperinflation and emphysematous changes. 5 mm noncalcified nodule in the peripheral lateral aspect of the right upper lobe. Recommended follow-up in 12 months. Electronically Signed: Jayme Mejia MD at 13:59 EDT ,
== END | disposition home or self-care (01) ==
PROVIDERS: PCP Internal Medicine Infectious Disease; Referring Provider Internal Medicine; Visit Provider Internal Medicine
DX: R91.1 Solitary pulmonary nodule (principal); J44.9 Chronic obstructive pulmonary disease, unspecified; F17.200 Nicotine dependence, unspecified, uncomplicated
CPT/HCPCS: 71250

== ENCOUNTER → 2025-04-27 | Outpatient (CLI) | payer MEDICAID, SELFPAY ==
--- NOTE | 2025-04-27 12:32 | NEURO_ITS ---
NCS and/or EMG Patient Report Ordering Doctor: Beronica Cordova DATE OF SERVICE: 04/27/25 Joon presents with complaints of sharp and burning pain from the base of the neck radiating into the right arm. Electrodiagnostic findings: Right median motor nerve demonstrates normal distal latency, amplitude and conduction velocity. Ulnar motor response is within normal limits. Sensory responses are within normal limits. Normal median ulnar F?waves. Needle EMG testing was performed of the right upper limb. 1+ f ibrillations noted in the right triceps, right flexor carpi ulnaris and right lower cervical paraspinals. Motor unit action potentials with normal amplitude and duration. Electrodiagnostic impression: This an abnormal study in the right upper limb. 1. Electrodiagnostic findings suggestive of acute right C7 radiculopathy. Recommend cervical spine MRI to evaluate for underlying disc herniation or stenosis. 2. No electrodiagnostic evidence is noted for peripheral neuropathy, including carpal tunnel syndrome. Multi Select Codes Neurology Neurology Interp Codes: 32314-44 Musc test done w/n test comp (interp) and 31005-15 Nrv cndj test 7-8 studies (interp)
--- OUTSIDE RECORDS SUMMARY | 2025-04-27 19:22 | XMS RPT_ITS | CCD ---
Author Organization [facility] CliniSyfl Care Team Providers Care Fraud Prevention Analyst Name Role Phone Dr. Edis Mayo Primary Care Provider Dr. Edis Mayo Referring Provider Dr. Hang Mccullough Attending Provider [phone] Basilia Lozada Primary Care Provider Dr. Basilia Lozada Referring Provider Dr. Hang Mccullough Other Provider Dr. Edis Mayo Referring Provider Dr. Hang Mccullough Attending Provider Dr. Basilia Lozada Primary Care Provider Dr. Basilia Lozada Referring Provider Shiva DOSHI, GLENDA-Aury Hawthorne Attending Provider Dr. Basilia Lozada Primary Care Provider Dr. Basilia Lozada Referring Provider Dr. Percy Short Attending Provider Dr. Percy Short Referring Provider Dr. Percy Short Other Provider Dr. Manoj Valenzuela Attending Provider Shiva DOSHI, LENNIE Hawthorne Attending Provider Dr. Basilia Lozada Primary Care Provider Dr. Basilia Lozada Referring Provider Dr. Percy Short Attending Provider NEVILLE GREGORY, DR CUI Primary Care Physician MALINDA SANCHEZ Attending Unavailable DR BASILIA LOZADA MD Primary Care Unavailable Basilia Lozada Primary Care Unavailable Devin AESTHETICS INSTRUCTOR, Mary Attending Unavailable Basilia Lozada Referring Unavailable Basilia Lozada Referring Unavailable Basilia Lozada Primary Care Unavailable Devin AESTHETICS INSTRUCTOR, Mary Attending Unavailable Basilia Lozada Primary Care Unavailable Devin AESTHETICS INSTRUCTOR, Mary Referring Unavailable Devin AESTHETICS INSTRUCTOR, Mary Attending Unavailable BASILIA LOZADA MD Attending Unavailable BASILIA LOZADA MD Primary Care Unavailable BASILIA LOZADA MD Admitting Unavailable BASILIA LOZADA MD Attending Unavailable BASILIA LOZADA MD Primary Care Unavailable BASILIA LOZADA MD Admitting Unavailable BASILIA LOZADA MD Attending Unavailable BASILIA LOZADA MD Primary Care Unavailable BASILIA LOZADA MD Admitting Unavailable BASILIA LOZADA MD Attending Unavailable BASILIA LOZADA MD Primary Care Unavailable BASILIA LOZADA MD Admitting Unavailable Allergies Allergy Classification Reported Allergen(s) Allergy Type Date of Onset Reaction(s) Facility (10 sources) Omeprazole; Translations: [omeprazole] Drug Allergy 2 GI Upset, anxiety [facility] (1 source) Omeprazole Drug Allergy [address] [facility] Repository (1 source) Omeprazole Drug Allergy [facility] Repository Medications Current Medications Medication Drug Class(es) Dates Sig (Normalized) Sig (Original) amylase 850724 unt / lipase 71131 unt / protease [id number] unt delayed release oral capsule (1 source) Start: 02-19-2023 take 1 capsule by mouth three times daily at mealtime, then take 1 capsule by mouth once Zenpep 40,000 units-126,000 units-168,000 units oral delayed release capsule Dose = 2 cap(s), Oral, TID, with each meal and 1 with every snack, # 100 cap(s), 0 Refill(s) Start Date: 02/19/23 Status: Ordered Bcaawb-Widxpknh-Hpw lase (Zenpep) 40,000-126,000- 168,000 unit capsule,delayed release(DR/EC) (2 sources) Start: 08-30-2022 Dpicmn-Ycafxbsa-Up ylase (Zenpep) 40,000-126,000- 168,000 unit capsule,delayed release(DR/EC) Active 0 PO .COMPLEX 300 August 30, 2022 12:00am take 1 cap with snack, take 2 caps with meals nicotine 4 mg inhalation solution (2 sources) Cholinergic Nicotinic Agonist Start: 03-18-2023 take 10 mg by inhalation once Nicotine (Nicotrol) 10 mg cartridge Active 1 INH INHALATION ONCE 168 March 18, 2023 12:00am 28 actuat olodaterol 0.0025 mg/actuat / tiotropium 0.0025 mg/actuat inhalation spray (1 source) Anticholinergic, beta2-Adrenergic Agonist Start: 04-28-2023 Tiotropium-Olodate rol (Stiolto Respimat) 2.5-2.5 mcg/actuation mist Active 2 PUFF INHALATION DAILY April 28, 2023 12:00am rosuvastatin calcium 10 mg oral tablet (3 sources) HMG-CoA Reductase Inhibitor Start: 10-03-2023 rosuvastatin 10 mg oral tablet Dose : 10 mg = 1 tab(s), Oral, qDay, # 90 tab(s), 3 Refill(s), Pharmacy: [facility]/pharmacy #[id number], 177.8, cm, 10/03/23 12:51:00 EST, Height, kg, 10/03/23 12:51:00 EST, Dosing Weight Start Date: 10/03/23 Status: Ordered Start: 04-07-2023 take 10 mg by mouth once daily Rosuvastatin Active 10 MG PO DAILY April 07, 2023 12:00am Completed/Discontinued Medications Medication Drug Class(es) Dates Sig (Normalized) Sig (Original) sucralfate 1000 mg oral tablet (9 sources) Aluminum Complex Start: 02-06-2022 End: 08-07-2022 take 1 tablet by mouth twice daily Sucralfate (Carafate) 1 gram tablet Discontinued 1 GM PO TWICE A DAY February 06, 2022 12:00am August 07, 2022 8:16am Problems Active Problems Problem Classification Problem Date Documented Da te Episodic/Chronic Abdominal hernia (2 sources) Gastroesophageal reflux disease with hiatal hernia; Translations: [Diaphragmatic hernia without obstruction or gangrene] 09-04-2022 Episodic Abdominal pain (20 sources) Abdominal pain; Translations: [Unspecified abdominal pain] Episodic Chronic obstructive pulmonary disease and bronchiectasis (4 sources) Chronic obstructive lung disease; Translations: [Chronic obstructive pulmonary disease, unspecified] 03-18-2023 Chronic Disorders of lipid metabolism (4 sources) Dyslipidemia; Translations: [Pure hypercholesterolemia, unspecified] Onset: 4 03-28-2023 Chronic Diverticulosis and diverticulitis (2 sources) Diverticulosis of colon; Translations: [Diverticulosis of large intestine without perforation or abscess without bleeding] 09-04-2022 Chronic Nonspecific chest pain (1 source) Chest pain 03-28-2023 Episodic Other disorders of stomach and duodenum (5 sources) Disorder of stomach; Translations: [Disease of stomach and duodenum, unspecified] 05-27-2022 Episodic Other disorders of stomach and duodenum (2 sources) Disease of stomach and duodenum, unspecified; Translations: [Unspecified disorder of stomach and duodenum] Episodic Other gastrointestinal disorders (1 source) Irritable bowel syndrome without diarrhea; Translations: [Irritable bowel syndrome] Chronic Other gastrointestinal disorders (4 sources) Diarrhea; Translations: [Diarrhea, unspecified] 08-07-2022 Episodic Other gastrointestinal disorders (2 sources) Diarrhea, unspecified; Translations: [Diarrhea] Episodic Other lower respiratory disease (2 sources) Nodule of lung; Translations: [Solitary pulmonary nodule] 03-18-2023 Episodic Other lower respiratory disease (2 sources) Solitary pulmonary nodule; Translations: [Solitary pulmonary nodule] 03-18-2023 Episodic Other screening for suspected conditions (not mental disorders or infectious disease) (20 sources) Patient encounter status; Translations: [Encounter for screening for malignant neoplasm of colon] Episodic Pancreatic disorders (not diabetes) (2 sources) Chronic pancreatitis; Translations: [Other chronic pancreatitis] 08-30-2022 Chronic Pancreatic disorders (not diabetes) (5 sources) Exocrine pancreatic insufficiency; Translations: [Exocrine pancreatic insufficiency] 04-07-2023 Episodic Substance-related disorders (9 sources) Nicotine dependence; Translations: [Nicotine dependence, unspecified, uncomplicated] Onset: 4 03-18-2023 Chronic Past or Other Problems Problem Classification Problem Date Documented Da te Episodic/Chronic Other aftercare (1 source) Other shelter (current) drug therapy; Translations: [Other shelter (current) drug therapy] Onset: 12-24-2024 Episodic Results Test Name Value Interpretation Reference Range Facility CBC (NO DIFF)on 12-24-2024 CBC panel Auto (Bld) Normal [facility] Comment on above: Result Comment: CBC( WITHOUT DIFFERENTIAL) Performed By: #### 2 [id number] #### [facility],[address] [place] [address] 23084 Erythrocyte distribution width (RBC) [Ratio] 13.3 % Normal 12.0 - 15.6 [facility] Comment on above: Performed By: #### 2 69743 #### [facility],[address] [place] [address] 14224 Hematocrit (Bld) [Volume fraction] 49.6 % Normal 40.0 - 52.0 [facility] Comment on above: Performed By: #### 2 50717 #### [facility],[address] [place] [address] 90355 Hemoglobin (Bld) [Mass/Vol] 16.8 g/dL Normal 13.0 - 17.5 [facility] Comment on above: Performed By: #### 2 33712 #### [facility],[address] [place] [address] 05505 MCH (RBC) [Entitic mass] 32 pg Normal 27 - 33 [facility] Comment on above: Performed By: #### 2 83255 #### [facility],[address] [place] [address] 51418 MCHC 34 X10 3 Normal 32 - 36 [facility] Comment on above: Performed By: #### 2 53502 #### [facility],[address] [place] [address] 90581 MCV (RBC) [Entitic vol] 95 fL Normal 81 - 98 [facility] Comment on above: Performed By: #### 2 87409 #### [facility],[address] [place] [address] 06861 PLATELET 216 x10EE3/UL Normal 150 - 450 [facility] Comment on above: Performed By: #### 2 90500 #### [facility],[address] [place] [address] 12189 Platelet mean volume (Bld) [Entitic vol] 9.4 fL Normal 6.4 - 10.5 [facility] Comment on above: Performed By: #### 2 81995 #### [facility],[address] [place] [address] 15450 RBC 5.21 x 10EE6/UL Normal 4.50 - 6.00 [facility] Comment on above: Performed By: #### 2 68431 #### [facility],[address] [place] [address] 34971 WBC 8.2 x 10EE3/UL Normal 4.5 - 10.8 [facility] Comment on above: Performed By: #### 2 62374 #### [facility],[address] [place] [address] 52750 CMP with eGFRon 12-24-2024 AGE 49 years Normal [facility] Comment on above: Performed By: #### 2 80655 #### [facility],[address] [place] [address] 62614 Albumin [Mass/Vol] 3.8 g/dL Normal 3.4 - 5.0 [facility] Comment on above: Performed By: #### 2 98012 #### [facility],[address] [place] [address] 26920 Albumin/Globulin [Mass ratio] 1.2 {ratio} Normal 0.9 - 1.6 [facility] Comment on above: Performed By: #### 2 30682 #### [facility],[address] [place] [address] 13952 ALK PHOS 102 U/L Normal 46 - 116 [facility] Comment on above: Performed By: #### 2 24592 #### [facility],[address] [place] [address] 29097 ALT [Catalytic activity/Vol] 27 U/L Normal 16 - 63 [facility] Comment on above: Performed By: #### 2 34013 #### [facility],[address] [place] [address] 62096 Anion gap [Moles/Vol] 11 mmol/L Normal 10 - 20 [facility] Comment on above: Performed By: #### 2 09712 #### [facility],[address] [place] [address] 31028 AST [Catalytic activity/Vol] 21 U/L Normal 15 - 37 [facility] Comment on above: Performed By: #### 2 77156 #### [facility],[address] [place] [address] 65184 B/C RATIO 22 ratio Normal 0 - 30 [facility] Comment on above: Performed By: #### 2 06073 #### [facility],[address] [place] [address] 75802 Bilirubin [Mass/Vol] 0.4 mg/dL Normal 0.2 - 1.0 [facility] Comment on above: Performed By: #### 2 59770 #### [facility],[address] [place] [address] 17313 Calcium [Mass/Vol] 9.0 mg/dL Normal 8.5 - 10.1 [facility] Comment on above: Performed By: #### 2 13779 #### [facility],[address] [place] [address] 09840 Chloride [Moles/Vol] 105 mmol/L Normal 98 - 107 [facility] Comment on above: Performed By: #### 2 31608 #### [facility],[address] [place] [address] 06684 CMP with eGFR Normal [facility] Comment on above: Result Comment: COMP REHENSIVE METABOLIC PANEL Performed By: #### 2 26180 #### [facility],[address] [place] [address] 78852 CO2 [Moles/Vol] 29.1 mmol/L Normal 21.0 - 32.0 [facility] Comment on above: Performed By: #### 2 79102 #### [facility],[address] [place] [address] 42095 Creatinine [Mass/Vol] 0.86 mg/dL Normal 0.70 - 1.30 [facility] Comment on above: Performed By: #### 2 87249 #### [facility],[address] [place] [address] 18312 GFR/1.73 sq M.predicted among non-blacks MDRD (S/P/Bld) [Vol rate/Area] mL/min/{1.73_m2} Normal 60 - 999 [facility] Comment on above: Performed By: #### 2 39677 #### [facility],[address] [place] [address] 16536 Result Comment: ACCO RDING TO THE NATIONAL KIDNEY DISEASE EDUCATION PROGRAM(NKDE), A NORMAL eGFR IS A VALUE GREATER THAN OR EQUAL TO 60 ML/MIN/1.73 SQ METERS. CHRONIC KIDNEY DISEASE: <60mL/MIN/1.73 SQ METERS KIDNEY FAILURE: <15mL/MIN/1.73 SQ METERS THIS TEST SHOULD ONLY BE USED FOR PATIENTS 18 YEARS OF AGE AND OLDER. Globulin (S) [Mass/Vol] 3.2 g/dL Normal 1.5 - 3.8 [facility] Comment on above: Performed By: #### 2 18991 #### [facility],[address] [place] [address] 24765 Glucose [Mass/Vol] 100 mg/dL Normal 74 - 106 [facility] Comment on above: Performed By: #### 2 57115 #### [facility],[address] [place] [address] 58063 Potassium [Moles/Vol] 4.2 mmol/L Normal 3.5 - 5.1 [facility] Comment on above: Performed By: #### 2 57259 #### [facility],[address] [place] [address] 66522 Protein [Mass/Vol] 7.0 g/dL Normal 6.4 - 8.2 [facility] Comment on above: Performed By: #### 2 38355 #### [facility],[address] [place], [place] [id number] Sodium [Moles/Vol] 141 mmol/L Normal 136 - 145 [facility] Comment on above: Performed By: #### 2 17440 #### [facility],[address] [place], [place] [id number] Urea nitrogen [Mass/Vol] 19 mg/dL High 7 - 18 [facility] Comment on above: Performed By: #### 2 20415 #### [facility],[address] [place], [place] [address] HEMOGLOBIN A1C (POM)on 12-24 Glucose [Mass/Vol] 116.9 mg/dL High 0.0 - 0.0 [facility] Comment on above: Result Comment: BLDo HEMOGLOBIN A1C REFERENCE RANGESBLDo Suggested Diagnosis HbA1c(%) HbA1C (mmol/mol Diabetic >/=6.5 >/=48 Prediabetes 5.7 - 6.4 39 - 47 Normal <5.7 <39 Performed By: #### 2 94197 #### [facility],[address] [place], [place] [address] HbA1c (Bld) [Mass fraction] 5.7 % Normal 0.0 - 6.5 [facility] Comment on above: Performed By: #### 2 20432 #### [facility],[address] [place], [place] [id number] LIPID PROFILEon 12-24-2024 Cholesterol [Mass/Vol] 147 mg/dL Normal 0 - 240 [facility] Comment on above: Performed By: #### 2 40456 #### [facility],[address] [place], [place] [address] Cholesterol in HDL [Mass/Vol] 52 mg/dL Normal 40 - 60 [facility] Comment on above: Performed By: #### 2 78103 #### [facility],[address] [place] [address] Cholesterol in LDL [Mass/Vol] 85 mg/dL Normal 0 - 129 [facility] Comment on above: Performed By: #### 2 50920 #### [facility],[address] [place] [address] 95812 Cholesterol.total/Chol esterol in HDL [Mass ratio] 2.8 {ratio} Normal 0.0 - 5.0 [facility] Comment on above: Performed By: #### 2 25591 #### [facility],[address] [place] [address] 49544 Lipid 1996 panel Normal [facility] Comment on above: Result Comment: LIPI D PROFILE Performed By: #### 2 60776 #### [facility],[address] [place], [place] [address] Triglyceride [Mass/Vol] 51 mg/dL Normal 0 - 150 [facility] Comment on above: Performed By: #### 2 43834 #### [facility],[address] [place] [address] 74360 TSHon 12-24-2024 TSH Qn 2.81 m[IU]/L Normal 0.35 - 3.74 [facility] Comment on above: Performed By: #### 2 16327 #### [facility],[address] [place] [address] 70865 URINALYSISon 12-24-2024 Amorphous NONE Normal [facility] Comment on above: Performed By: #### 2 40659 #### [facility],[address] [place] [address] 06429 Bacteria 2+ Normal [facility] Comment on above: Performed By: #### 2 57957 #### [facility],[address] [place] [address] 60592 Bilirubin Ql (U) Negative Normal NORMAL: NEGATIVE [facility] Comment on above: Performed By: #### 2 83069 #### [facility],[address] [place] [address] 38932 Casts NONE Normal [facility] Comment on above: Performed By: #### 2 65479 #### [facility],[address] [place] [address] 01028 Clarity (U) clear Normal NORMAL: CLEAR [facility] Comment on above: Performed By: #### 2 71435 #### [facility],[address] [place], [place] [address] Color (U) yellow Normal NORMAL: YELLOW [facility] Comment on above: Performed By: #### 2 55818 #### [facility],[address] [place], [place] [address] Crystals LM Nom (Urine sed) NONE Normal [facility] Comment on above: Performed By: #### 2 11942 #### [facility],[address] [place] [address] 15434 Epi Cells NONE Normal [facility] Comment on above: Performed By: #### 2 19889 #### [facility],[address] [place] [address] 28133 Glucose Ql (U) NORM Normal NORMAL: NORMAL [facility] Comment on above: Performed By: #### 2 58367 #### [facility],[address] [place] [address] 28519 Hemoglobin Ql (U) 25 Abnormal NORMAL: NEGATIVE [facility] Comment on above: Performed By: #### 2 26342 #### [facility],[address] [place] [address] 11874 Ketone Negative Normal NORMAL: NEGATIVE [facility] Comment on above: Performed By: #### 2 58507 #### [facility],[address] [place] [address] 92550 Leukocytes Negative Normal NORMAL: NEGATIVE [facility] Comment on above: Performed By: #### 2 93032 #### [facility],[address] [place] [address] 41675 Mucous 1+ Normal [facility] Comment on above: Performed By: #### 2 35685 #### [facility],[address] [place] [address] Nitrite Ql (U) Negative Normal NORMAL: NEGATIVE [facility] Comment on above: Performed By: #### 2 66735 #### [facility],[address] [place] [address] pH (U) 5 [pH] Normal NORMAL: 5.0-8.0 [facility] Comment on above: Performed By: #### 2 89389 #### [facility],[address] [place] [address] Protein Ql (U) Negative Normal NORMAL: NEGATIVE [facility] Comment on above: Performed By: #### 2 02572 #### [facility],[address] [place] [address] Rbc NONE Normal 0-3/hpf [facility] Comment on above: Performed By: #### 2 67103 #### [facility],[address] [place] [address] Sp [place] 1.020 Normal NORMAL: 1.010-1.030 [facility] Comment on above: Performed By: #### 2 44239 #### [facility],[address] [place] [address] Specimen Type R Normal [facility] Comment on above: Performed By: #### 2 04208 #### [facility],[address] [place] [address] Urinalysis dipstick W Reflex Microscopic panel (U) SEE BELOW Normal [facility] Comment on above: Result Comment: MICR OSCOPIC Performed By: #### 2 35118 #### [facility],[address] [place] [address] Urobilinog NORM Normal NORMAL: NORMAL [facility] Comment on above: Performed By: #### 2 56588 #### [facility],[address] [place] [address] Wbc 1-5 Normal 0-5/hpf [facility] Comment on above: Performed By: #### 2 21631 #### [facility],[address] [place] [address] Yeast NONE Normal [facility] Comment on above: Performed By: #### 2 82030 #### [facility],[address] [place] [address] LIPID PROFILEon 10-06-2024 Lipid 1996 panel Normal [facility] Comment on above: Result Comment: LIPI D PROFILE SEE SCANNED REPORT Performed By: #### 2 87491 #### [facility],[address] [place] [address] CBC + DIFFon 10-05-2024 Baso # 0.03 x10EE3/UL Normal 0.00 - 0.10 [facility] Comment on above: Performed By: #### 2 59344 #### [facility],[address] [place] [address] Basophils/100 WBC (Bld) 0.4 % Normal 0.0 - 2.0 [facility] Comment on above: Performed By: #### 2 20111 #### [facility],[address] [place] [address] CBC + DIFF Normal [facility] Comment on above: Result Comment: CBC- COMPLETE BLOOD COUNT Performed By: #### 2 92234 #### [facility],[address] [place] [address] EO # 0.04 x10EE3/UL Normal 0.00 - 0.50 [facility] Comment on above: Performed By: #### 2 19776 #### [facility],[address] [place], [place] [id number] Eosinophils/100 WBC (Bld) 0.5 % Normal 0.0 - 7.0 [facility] Comment on above: Performed By: #### 2 24391 #### [facility],[address] [place], [place] [address] Erythrocyte distribution width (RBC) [Ratio] 13.4 % Normal 12.0 - 15.6 [facility] Comment on above: Performed By: #### 2 70694 #### [facility],[address] [place] [address] Hematocrit (Bld) [Volume fraction] 47.8 % Normal 40.0 - 52.0 [facility] Comment on above: Performed By: #### 2 71320 #### [facility],[address] [place] [address] Hemoglobin (Bld) [Mass/Vol] 16.0 g/dL Normal 13.0 - 17.5 [facility] Comment on above: Performed By: #### 2 41064 #### [facility],[address] [place] [address] Lymph # 1.87 x10EE3/UL Normal 0.80 - 2.80 [facility] Comment on above: Performed By: #### 2 24194 #### [facility],[address] [place] [address] Lymphocytes/100 WBC (Bld) 25.8 % Normal 20.0 - 45.0 [facility] Comment on above: Performed By: #### 2 66683 #### [facility],[address] [place] [address] MANUAL DIFF N/A Normal [facility] Comment on above: Performed By: #### 2 63518 #### [facility],[address] [place], [place] [id number] MCH (RBC) [Entitic mass] 32 pg Normal 27 - 33 [facility] Comment on above: Performed By: #### 2 36693 #### [facility],[address] [place] [address] MCHC 34 X10 3 Normal 32 - 36 [facility] Comment on above: Performed By: #### 2 99391 #### [facility],[address] [place] [address] MCV (RBC) [Entitic vol] 96 fL Normal 81 - 98 [facility] Comment on above: Performed By: #### 2 76764 #### [facility],[address] [place] [address] [place] # 0.48 x10EE3/UL Normal 0.20 - 1.00 [facility] Comment on above: Performed By: #### 2 29598 #### [facility],[address] [place] [address] MONOS % 6.7 % Normal 0.0 - 10.0 [facility] Comment on above: Performed By: #### 2 78390 #### [facility],[address] [place] [address] Morphology Ronaldo (Bld) [Interp] N/A Normal [facility] Comment on above: Performed By: #### 2 23382 #### [facility],[address] [place] [address] Neut # 4.84 x10EE3/UL Normal 1.50 - 7.10 [facility] Comment on above: Performed By: #### 2 42701 #### [facility] [facility] [place], [place] [address] Neutrophils/100 WBC (Bld) 66.7 % Normal 46.0 - 76.0 [facility] Comment on above: Performed By: #### 2 18193 #### [facility],[address] [place] [address] PLATELET 166 x10EE3/UL Normal 150 - 450 [facility] Comment on above: Performed By: #### 2 94736 #### [facility],[address] [place] [address] 06589 Platelet mean volume (Bld) [Entitic vol] 9.4 fL Normal 6.4 - 10.5 [facility] Comment on above: Result Comment: AUTO MATED DIFFERENTIAL Performed By: #### 2 18088 #### [facility],[address] [place] [address] 04001 RBC 4.96 x 10EE6/UL Normal 4.50 - 6.00 [facility] Comment on above: Performed By: #### 2 37581 #### [facility],[address] [place] [address] 44024 WBC 7.3 x 10EE3/UL Normal 4.5 - 10.8 [facility] Comment on above: Performed By: #### 2 53535 #### [facility],[address] [place] [address] 11129 CMP with eGFRon 10-05-2024 AGE 49 years Normal [facility] Comment on above: Performed By: #### 2 66329 #### [facility],[address] [place] [address] 81868 Albumin [Mass/Vol] 3.6 g/dL Normal 3.4 - 5.0 [facility] Comment on above: Performed By: #### 2 18556 #### [facility],[address] [place] [address] 69028 Albumin/Globulin [Mass ratio] 1.1 {ratio} Normal 0.9 - 1.6 [facility] Comment on above: Performed By: #### 2 62234 #### [facility],[address] [place] [address] 11543 ALK PHOS 101 U/L Normal 46 - 116 [facility] Comment on above: Performed By: #### 2 89671 #### [facility],[address] [place] [address] 52146 ALT [Catalytic activity/Vol] 27 U/L Normal 16 - 63 [facility] Comment on above: Performed By: #### 2 41602 #### [facility],[address] [place] [address] 90098 Anion gap [Moles/Vol] 12 mmol/L Normal 10 - 20 [facility] Comment on above: Performed By: #### 2 31809 #### [facility],[address] [place] [address] 02413 AST [Catalytic activity/Vol] 23 U/L Normal 15 - 37 [facility] Comment on above: Performed By: #### 2 68092 #### [facility],[address] [place] [address] 35495 B/C RATIO 17 ratio Normal 0 - 30 [facility] Comment on above: Performed By: #### 2 98293 #### [facility],[address] [place] [address] 82953 Bilirubin [Mass/Vol] 0.3 mg/dL Normal 0.2 - 1.0 [facility] Comment on above: Performed By: #### 2 12757 #### [facility],[address] [place] [address] 39225 Calcium [Mass/Vol] 8.9 mg/dL Normal 8.5 - 10.1 [facility] Comment on above: Performed By: #### 2 84180 #### [facility],[address] [place] [address] 75902 Chloride [Moles/Vol] 107 mmol/L Normal 98 - 107 [facility] Comment on above: Performed By: #### 2 74642 #### [facility],[address] [place] [address] 15128 CMP with eGFR Normal [facility] Comment on above: Result Comment: COMP REHENSIVE METABOLIC PANEL Performed By: #### 2 21759 #### [facility],[address] [place] [address] 88247 CO2 [Moles/Vol] 28.3 mmol/L Normal 21.0 - 32.0 [facility] Comment on above: Performed By: #### 2 49114 #### [facility],[address] [place] [address] 31381 Creatinine [Mass/Vol] 0.87 mg/dL Normal 0.70 - 1.30 [facility] Comment on above: Performed By: #### 2 82372 #### [facility],[address] [place] [address] 91959 GFR/1.73 sq M.predicted among non-blacks MDRD (S/P/Bld) [Vol rate/Area] mL/min/{1.73_m2} Normal 60 - 999 [facility] Comment on above: Performed By: #### 2 68168 #### [facility],[address] [place] [address] 39561 Result Comment: ACCO RDING TO THE NATIONAL KIDNEY DISEASE EDUCATION PROGRAM(NKDE), A NORMAL eGFR IS A VALUE GREATER THAN OR EQUAL TO 60 ML/MIN/1.73 SQ METERS. CHRONIC KIDNEY DISEASE: <60mL/MIN/1.73 SQ METERS KIDNEY FAILURE: <15mL/MIN/1.73 SQ METERS THIS TEST SHOULD ONLY BE USED FOR PATIENTS 18 YEARS OF AGE AND OLDER. Globulin (S) [Mass/Vol] 3.2 g/dL Normal 1.5 - 3.8 [facility] Comment on above: Performed By: #### 2 89396 #### [facility],[address] [place] [address] 79064 Glucose [Mass/Vol] 95 mg/dL Normal 74 - 106 [facility] Comment on above: Performed By: #### 2 80264 #### [facility],[address] [place] [address] 82879 Potassium [Moles/Vol] 4.3 mmol/L Normal 3.5 - 5.1 [facility] Comment on above: Performed By: #### 2 56056 #### [facility],[address] [place] [address] 20698 Protein [Mass/Vol] 6.8 g/dL Normal 6.4 - 8.2 [facility] Comment on above: Performed By: #### 2 50264 #### [facility],[address] [place] [address] 14409 Sodium [Moles/Vol] 143 mmol/L Normal 136 - 145 [facility] Comment on above: Performed By: #### 2 30553 #### [facility],[address] [place], [place] [address] Urea nitrogen [Mass/Vol] 15 mg/dL Normal 7 - 18 [facility] Comment on above: Performed By: #### 2 38747 #### [facility],[address] [place] [address] HEMOGLOBIN A1C (POM)on 10-05 Glucose [Mass/Vol] 102.5 mg/dL High 0.0 - 0.0 [facility] Comment on above: Result Comment: BLDo HEMOGLOBIN A1C REFERENCE RANGESBLDo Suggested Diagnosis HbA1c(%) HbA1C (mmol/mol Diabetic >/=6.5 >/=48 Prediabetes 5.7 - 6.4 39 - 47 Normal <5.7 <39 Performed By: #### 2 66762 #### [facility],[address] [place] [address] HbA1c (Bld) [Mass fraction] 5.2 % Normal 0.0 - 6.5 [facility] Comment on above: Performed By: #### 2 44967 #### [facility],[address] [place], [place] [address] URINALYSISon 10-05-2024 Bilirubin Ql (U) Negative Normal NORMAL: NEGATIVE [facility] Comment on above: Performed By: #### 2 44915 #### [facility],[address] [place], [place] [address] Clarity (U) clear Normal NORMAL: CLEAR [facility] Comment on above: Performed By: #### 2 12896 #### [facility],[address] [place], [place] [address] Color (U) yellow Normal NORMAL: YELLOW [facility] Comment on above: Performed By: #### 2 10184 #### [facility],[address] [place], [place] [address] Glucose Ql (U) NORM Normal NORMAL: NORMAL [facility] Comment on above: Performed By: #### 2 45420 #### [facility],[address] [place] [address] 60625 Hemoglobin Ql (U) Negative Normal NORMAL: NEGATIVE [facility] Comment on above: Performed By: #### 2 07039 #### [facility],[address] [place] [address] 94078 Ketone Negative Normal NORMAL: NEGATIVE [facility] Comment on above: Performed By: #### 2 51527 #### [facility],[address] [place] [address] 17071 Leukocytes Negative Normal NORMAL: NEGATIVE [facility] Comment on above: Performed By: #### 2 50862 #### [facility],[address] [place], [place] [address] Nitrite Ql (U) Negative Normal NORMAL: NEGATIVE [facility] Comment on above: Performed By: #### 2 65607 #### [facility],[address] [place] [address] pH (U) 6 [pH] Normal NORMAL: 5.0-8.0 [facility] Comment on above: Performed By: #### 2 20864 #### [facility],[address] [place], [place] [address] Protein Ql (U) Negative Normal NORMAL: NEGATIVE [facility] Comment on above: Performed By: #### 2 15001 #### [facility],[address] [place], [place] [address] Sp [place] 1.020 Normal NORMAL: 1.010-1.030 [facility] Comment on above: Performed By: #### 2 02731 #### [facility],[address] [place], [place] [address] Specimen Type R Normal [facility] Comment on above: Performed By: #### 2 26463 #### [facility],[address] [place], [place] [address] Urinalysis dipstick W Reflex Microscopic panel (U) NOT INDICATED Normal [facility] Comment on above: Performed By: #### 2 98202 #### [facility],[address] [place] [address] 54693 Urobilinog NORM Normal NORMAL: NORMAL [facility] Comment on above: Performed By: #### 2 23750 #### [facility],[address] [place] [address] 74847 Pulmonary Visit Reporton Pulmonary Visit Report [facility] [address] [place] [address] OFFICE VISIT Date of Service: 09/07/24 MR#: [id number] Acct: [id number] Name: MARIAH MURO Rep #: [id number] : 1975 Provider: LENNIE Beltran Age/Sex: 49/M Location: [facility] Status: Signed Assessment and Plan Assessment and Plan (1) COPD (chronic obstructive pulmonary disease): Status: Chronic Qualifiers: COPD type: emphysema Emphysema type: centrilobular Qualified Code(s): J43.2 - Centrilobular emphysema Plan: Remains asymptomatic at this time. He is not requiring any maintenance medications. He is agreeable to repeating a pulmonary function test before his 1 year follow-up. (2) Smoking greater than 20 pack years: Status: Chronic Comment: Repeat LDCT ordered for June 2025 Plan: Encourage complete smoking cessation. The patient remains appropriate for repeat LDCT in June 2025. Ordered accordingly. Follow-up July 2025 to discuss test results. Orders: Orders Low Dose CT Lung Screening 06/17/25 F17.200 - Nicotine dependence, unspecified, uncomplicated, F17.210 - Nicotine dependence, cigarettes, uncomplicated Pulmonary Function Test (Comp) 06/17/25 J43.2 - Centrilobular emphysema Plan Details Follow Up: 07/18/25 ([facility]) HPI 1 Y FU Chief Complaint: Test results HPI Comments Details: This patient presents to the office today for follow-up of his COPD and to discuss recent test results. He is ambulatory and currently on room air. He has not recently been seen in the ED or urgent care for any respiratory illness. He has not required any antibiotics or prednisone for any breathing problems. He is not currently on any maintenance inhalers. He does not require the use of albuterol. Currently continues to smoke cigarettes and occasionally marijuana. If you recall, he rolls his own cigarettes and likely smokes a couple packs a day. He reports shortness of breath on exertion. He reports a cough that is productive of clear to pale yellow-colored sputum but denies any hemoptysis. He denies any wheezing, chest pain or palpitations. He has not had any fever, chills or body aches. Test results personally viewed with patient: Chest without contrast completed on July 13, 2024. Impression multiple pulmonary nodules. No significant right solid pulmonary nodule within the upper lobe measuring 5 mm. Per Fleischner Society guidelines, a noncontrasted CT in 12 months is optional. There is also a small 2 mm nodule in the right upper lobe. 3 mm nodule in the right lower lobe. Intake Vital Signs 09/12/23 08:17 09/07/24 07:17 Height 5 ft 10 in 5 ft 10 in Weight: 145 lb BMI 20.7 BP 107/61 Blood Pressure Location Lt brachial Position Sitting Respiration 18 Pulse 51 L Pulse Source Monitor Temp 96.3 F L Temperature Source Temporal Artery Pulse Oximetry (%) 97 Oxygen Delivery Method room air Intake Visit Reasons: 1 Y FU Chief Complaint: SOB DME Vendor: N/A Accompanied by: Self Allergies omeprazole (From [employer]) Adverse Reaction (Intermediate, Verified 09/07/24 08:09) GI Upset Medications ???Medication ???Instructions ???Recorded ???Confirmed ???Type nicotine 10 mg inhalation 1 inh inhalation ONCE PRN nicotine 03/18/23 09/07/24 Rx cartridge (Nicotrol) cravings #168 ea rosuvastatin 10 mg tablet 10 mg PO DAILY 04/07/23 09/07/24 History xijvmt-tybhqfva-yoajtkr 2 cap PO TID #100 caps 07/02/24 09/07/24 Rx 40,000-126,000-168,000 unit capsule, delay rel (Zenpep) [facility] Medical History Marijuana abuse, continuous COPD (chronic obstructive pulmonary disease) Lung nodule seen on imaging study Nicotine addiction Diverticula, colon Marijuana use Essential tremor Insomnia Back pain History of ulceration Emphysema, unspecified Shortness of breath on exertion Leg cramps History of stress test Chest pain Hx of [place] spotted fever Injury of left clavicle Hypercholesterolemia Smoker Hiatal hernia with GERD Irritable bowel syndrome with diarrhea Osteoarthritis of spine Mucoid cyst of joint Body mass index [BMI] 23.0-23.9, adult Surgical History H/O inguinal hernia repair Family History Father Diabetes Heart disease Hypertension Kidney disease CVA (cerebral vascular accident) Grandfather Cancer Grandmother Cancer Social History Smoking Status: Current every day smoker tobacco type: cigarettes alcohol intake: current alcohol intake frequency: a few times a month substance use type: marijuana (more content not included)... Normal [facility] CT CORONARY ANGIOGRAPHY W+W/ O CONTRASTon 07-15-2024 CT CORONARY ANGIOGRAPHY W+W/O CONTRAST ORIGINAL CT CORONARY ANGIOGRAPHY W+W/O CONTRAST PATIENT NAME:MARIAH MURO : 1975 GENDER: Male ORDERING PROVIDER:MALINDA SANCHEZ CLINICAL STATEMENT: chest pain pt c/o left chest pain x few years smoker no heart surg no ca PATIENT NAME:MARIAH MURO : 1975 GENDER: Male ORDERING PROVIDER:MALINDA SANCHEZ CLINICAL STATEMENT: chest pain pt c/o left chest pain x few years smoker no heart surg no ca. TECHNIQUE: 1. Noncontrast CT of the heart was obtained for calcium scoring. 2. CTA with 105 c.c Omnipaque 350 IV contrast performed using prospective ECG gating about 1 cm above the AV to the diaphragm. FOV is very small to best evaluate the coronary arteries. Non-coronary chest anatomy is evaluated by Radiologist (Split read). Cumulative dose is mSv 3. 3D postprocessing: MPR, MIP, +/- CPR, and volume rendering were performed. 4. This exam was performed according to our departmental dose optimization program, and includes the following measures where applicable: automated exposure control, adjustment of the mAs and/or kVp according to patient size and/or exam, and an iterative reconstruction algorithm. 5. This report adheres to SCCT / ACR / NASCI 2016 expert consensus document entitled, CAD-RADS(TM) Coronary Artery Disease - Reporting and Data System. MEDS: PO metoprolol (mg): \X09\None IV metoprolol (mg): \X09\None Nitroglycerin (mg): \X09\0.4 SL COMPLICATIONS: None ACQUISITION HR (bpm): \X09\46, regular rhythm. TECHNICAL QUALITY: \X09\Good with minor artifact but good diagnostic quality. LIMITATIONS: \[id number]\None Abbreviations: LM: left main, RCA: right coronary artery, PDA: posterior descending artery, PLB: posterolateral branch, AM: acute marginal, LAD: left anterior descending, LCx: left circumflex artery, OM: obtuse marginal, Dx: diagonal, D1: first diagonal, D2: second diagonal, HR: heart rate, RI: ramus intermedius, PA: pulmonary artery FINDINGS: COMPARISON: None Most of the non-coronary chest anatomy is excluded in the FOV. CARDIAC FINDINGS: NON-CORONARY HEART: \X0909\Not enlarged. PERICARDIUM:\X09\Contour preserved. No effusion. No thickening. No calcifications. AV: \[id number]\Tricuspid. No thickening. No calcifications. MV: \[id number]\No thickening. No calcifications. CORONARY CALCIUM SCORING AGATSTON SCORE \X09\LM:\X09\0 \X09\LAD:\X09\0 \X09\LCx:\X09\0 \X09\RCA:\X09\0 \X09\TOTAL: 0 DOMINANCE:\X09\Right ANATOMY:\X09\Normal origin and course. LM originates from L coronary sinus and RCA originates from R coronary sinus. LM gives rise to the LAD and LCx. . Coronary CTA interpretation utilizes diagonal branches to segment the LAD (prox, mid, distal) rather than the septal branches (as used on conventional angiography) as the latter are too small to visualize on CTA consistently. Left main: Very short, almost two separate ostia for LAD/LCx. LAD and diagonal branches: Mild luminal irregularities of mid LAD, ~20% stenosis. Left circumflex and obtuse marginal branches: Normal. Right coronary artery, PDA, and posterior lateral branches: Normal. Ramus Intermedius: N/A NON-CARDIAC FINDINGS: See separate report from radiologist under CT coronary extracardiac. IMPRESSION: 1. Noncardiac findings were independently reported by Radiologist. See Radiologist interpretation under Noncardiac findings. 2. CAD-RADS 1. 3. Mild luminal irregularities of mid-LAD. 4. Agatston score: 0. CAD-RADS 1 Degree of Maximal Coronary Stenosis = 1-24% - Minimal Stenosis or plaque with no stenosis Interpretation = Minimal non-obstructive CAD Recommendation = None Interpreted By: Ismael Bernal Preliminary Report By: Ismael Bernal Electronically Signed By: Ismael Bernal Dictated Date: 07/15/2024 10:50:24 PM Prelim Date: 07/15/2024 10:50:24 PM Sign Date: 07/15/2024 10:57:20 PM Ordering Provider:Malinda Sanchez [facility] ([place]) CT CORONARY EXTRACARDIACon 0 07-13-2024 CT CORONARY EXTRACARDIAC ORIGINAL EXAMINATION: CT THORAX WITH CONTRAST EXTRACARDIAC 07/13/2024 10:43 am TECHNIQUE: CT of the chest with the administration of intravenous contrast. Multiplanar reformatted images are provided for review. Automated exposure control, iterative reconstruction, and/or weight based adjustment of the mA/kV was utilized to reduce the radiation dose to as low as reasonably achievable. Cardiac images were obtained and reported separately in a report from cardiology. COMPARISON: None. HISTORY: ORDERING SYSTEM PROVIDED HISTORY: Reason for Exam: chest pain pt c/o left chest pain x few years smoker no heart surg no ca FINDINGS: CT heart dictated separately by the cardiology service. Borderline right hilar lymph node on series 305, image 59, likely normal for location. Scattered degenerative changes the spine. No visualized pleural effusion or pneumothorax. No focal consolidation. Moderate emphysema. Slight bronchial wall thickening most pronounced the bilateral lower lobes. There is a 5 mm nodule in the right upper lobe on series 302, image 6. This may be partly calcified. Small 2 mm nodule the right upper lobe on series 302, image 7. There is a 3 mm nodule in the right lower lobe on series 302, image 29. Other scattered small nodules. Linear consolidation within the lingula favor subsegmental atelectasis versus scarring. Limited images of the upper abdomen are unremarkable. IMPRESSION: Please see separately dictated CT heart by the cardiology service for further information. Multiple pulmonary nodules. Most significant: Right solid pulmonary nodule within the upper lobe measuring 5 mm. Per Fleischner Society Guidelines, a non-contrast Chest CT at 12 months is optional. If performed and the nodule is stable at 12 months, no further follow-up is recommended. These guidelines do not apply to immunocompromised patients and patients with cancer. Follow up in patients with significant comorbidities as clinically warranted. For lung cancer screening, adhere to Lung-RADS guidelines. Reference: Radiology. 2017; 284(1):228-43. Moderate emphysema. Bronchial wall thickening, which can be seen in bronchitis. I have personally reviewed the images of this examination, agree with resident's findings and interpretation. Interpreted by: Vern Pereira DO Preliminary Report By: Adonis Becker Electronically signed By Vern Pereira DO Dictated Date: 07/13/2024 1:52:55 PM Prelim Date: 07/13/2024 3:39:59 PM Sign Date: 07/13/2024 3:39:59 PM Ordering Provider: MALINDA SANCHEZ [facility] ([place]) Pulmonary Visit Reporton Pulmonary Visit Report [facility] [address] [place] [address] OFFICE VISIT Date of Service: 09/12/23 MR#: [id number] Acct: [id number] Name: MARIAH MURO Rep #: [id number] : 1975 Provider: LENNIE Beltran Age/Sex: 48/M Location: [facility] Status: Signed Assessment and Plan Assessment and Plan (1) Smoking greater than 20 pack years: Status: Chronic Comment: Repeat LDCT ordered for July 2024 Plan: Encourage complete smoking cessation. The patient remains appropriate for repeat LDCT in July 2024. Ordered accordingly. Follow-up with Dr. Valenzuela in 1 year to discuss test results. (2) COPD (chronic obstructive pulmonary disease): Status: Chronic Qualifiers: COPD type: emphysema Emphysema type: centrilobular Qualified Code(s): J43.2 - Centrilobular emphysema Plan: The patient is fairly asymptomatic at this time. He has not seen me for the use of the Stiolto. I have encouraged him to discontinue the medication if he is not feeling benefit from it. Continue to encourage complete smoking cessation. No repeat testing at this time. Follow-up with Dr. Valenzuela in 1 year. Contact the office with new or worsening symptoms in the meantime. Reviewed sick policy. The patient conveys understanding. Orders: Orders Low Dose CT Lung Screening 07/18/24 F17.200 - Nicotine dependence, unspecified, uncomplicated, F17.210 - Nicotine dependence, cigarettes, uncomplicated Plan Details Follow Up: 1 Year ([facility]) HPI Test results- Prev LAB Chief Complaint: Routine follow-up HPI Comments Details: This patient presents to the office today for follow-up of his COPD and to discuss recent test results. He is ambulatory and currently on room air. He has not recently been seen in the ED or urgent care for any respiratory illness. He has not required any antibiotics or prednisone for any breathing problems. He is not currently compliant with use of Stiolto. He admits I really have not used it much. He reports that occasionally he would use 1 puff. Unfortunately, if he used 2 puffs it made him feel ill. He is not currently on an albuterol rescue inhaler. Currently continues to smoke cigarettes and occasionally marijuana. Believes he is smoking a couple packs a day as he rolls my own. He does have shortness of breath occasionally with exertion, not frequently. He denies any cough, sputum production or hemoptysis. He denies any wheezing, chest tightness, chest pain or palpitations. He has not had any fever, chills or body aches. Test results personally viewed with patient: Chest without contrast completed on July 31, 2023. Impression is hyperinflation with emphysematous changes. A 5 mm noncalcified nodule in the peripheral lateral aspect of the right upper lobe. Recommend follow-up in 12 months. Intake Vital Signs 04/28/23 07:50 09/12/23 08:12 09/12/23 08:17 Height 5 ft 10 in 5 ft 10 in 5 ft 10 in Weight: 147 lb BMI 21.1 BP 109/70 Blood Pressure Location Lt brachial Position Sitting Respiration 18 Pulse 53 L Pulse Source Monitor Temp 97.3 F L Temperature Source Temporal Artery Pulse Oximetry (%) 97 Oxygen Delivery Method room air Intake Visit Reasons: Test results- Prev LAB Chief Complaint: f/u Crm Campaign Manager Required: No DME Vendor: N/A Accompanied by: Self Is patient in pain?: No Allergies omeprazole [From Prilosec] Adverse Reaction (Intermediate, Verified 09/12/23 08:14) GI Upset Medications tcdlbk-mvfrbvlt-mizerwr 40,000-126,000-168,000 unit capsule, delay rel (Zenpep) See Rx Instructions PO .COMPLEX EPI #300 caps 08/30/22 [Rx Confirmed 09/12/23] nicotine 10 mg inhalation cartridge (Nicotrol) 1 inh inhalation ONCE PRN nicotine cravings #168 ea 03/18/23 [Rx Confirmed 09/12/23] rosuvastatin 10 mg tablet 10 mg PO DAILY 04/07/23 [History Confirmed 09/12/23] tiotropium 2.5 mcg-olodaterol 2.5 mcg/actuation mist for inhalation (Stiolto Respimat) 2 puff inhalation DAILY COPD, moderate #4 grams 04/28/23 [Rx Confirmed 09/12/23] PFSH Medical History Back pain Body mass index [BMI] 23.0-23.9, adult Chest pain COPD (chronic obstructive pulmonary disease) Diverticula, colon Emphysema, unspecified Essential tremor Hiatal hernia with GERD History of stress test History of ulceration Hx of [place] spotted fever Hypercholesterolemia Injury of left clavicle Insomnia Irritable bowel syndrome with diarrhea Leg cramps Lung nodule seen on imaging study Marijuana abuse, continuous Marijuana use Mucoid cyst of joint Nicotine addiction Osteoarthritis of spine Shortness of breath on exertion Smoker Surgical History H/O inguinal hernia repair Family History (Reviewed 08/18 (more content not included)... Normal [facility] HbA1c (Bld)on 09-08-2023 Average glucose Estimated from glycated hemoglobin (Bld) [Mass/Vol] 111 mg/dL Normal [facility] Comment on above: Order Comment: Speci men Type: BLOOD SPECIMEN Ordering Facility: [facility] Address: [address] [place] [address], [place] [phone] Result Comment: eAG: (Estimated average glucose) is a calculated value from HgbA1c and is customer assistance representative of the average blood glucose level in the last 2-3 month period. Performed By: #### 5 5454-3 #### [facility] CLIA [id number] [address] [place] [address] [place] HbA1c (Bld) [Mass fraction] 5.5 % Normal 4.3-5.6 [facility] Comment on above: Order Comment: Speci men Type: BLOOD SPECIMEN Ordering Facility: [facility] Address: [address] [place] [address] Result Comment: Amer [place] Diabetes Association guidelines indicate that patients with HgbA1c in the range 5.7-6.4% are at increased risk for development of diabetes, and intervention by lifestyle modification may be beneficial. HgbA1c greater or equal to 6.5% is considered diagnostic of diabetes. Performed By: #### 5 5454-3 #### [facility] CLIA [id number] [address] [place] Absolute lymphocyte countOrd ered By: Christiane Shannon on 04-07-2023 Lymphocytes Auto (Unsp spec) [#/Vol] 1.62 10*3/uL 0.83-4.[address] [facility] Basophil percentageOrdered B y: Christiane Shannon on 04-07-2023 Basophils/100 WBC (Bld) 0.4 % 0-[address] [facility] Bilirubin [Mass/Vol] 0.40 mg/dL 0.20-1.00 [facility] Comment on above: For patients on eltr ombopag therapy, use of Dimension Jewell TBIL is not recommended. Chloride [Moles/Vol] 108 mmol/L 98-107 [facility] Eosinophils/100 WBC (Bld) 1.2 % 0-[address] [facility] Glucose [Mass/Vol] 95 mg/dL 74-106 [facility] Neutrophils (Bld) [#/Vol] 5.9 10*3/uL 2.0-7.[address] [facility] Neutrophils/100 WBC (Bld) 72.4 % 47-[address] [facility] Potassium [Moles/Vol] 4.5 mmol/L 3.5-5.1 [facility] Protein [Mass/Vol] 7.0 g/dL 6.4-8.2 [facility] Sodium [Moles/Vol] 139 mmol/L 136-145 [facility] WBC (Bld) [#/Vol] 8.1 10*3/uL 4.4-11.0 [facility] Blood erythrocytes count (nu mber/volume)Ordered By: Christiane Shannon on 04-07-2023 RBC (Bld) [#/Vol] 5.08 10*6/uL 4.6-6.2 [facility] Blood hemoglobin measurement (mass/volume)Ordered By: Christiane Shannon on 04-07-2023 Hemoglobin (Bld) [Mass/Vol] 15.8 g/dL 13.0-16.[address] [facility] Blood lymphocytes/100 leukoc ytesOrdered By: Christiane Shannon on 04-07-2023 Lymphocytes/100 WBC (Bld) 20.1 % 19-[address] [facility] Blood monocytes/100 leukocyt esOrdered By: Christiane Shannon on 04-07-2023 Monocytes/100 WBC (Bld) 5.5 % 0-[address] [facility] Blood platelet mean volumeOr dered By: Christiane Shannon on 04-07-2023 Platelet mean volume (Bld) [Entitic vol] 11.5 fL 6.2-12.[address] [facility] Determination of erythrocyte mean corpuscular volume (MCV)Ordered By: Christiane Shannon on 04-07-2023 MCV (RBC) [Entitic vol] 96.9 fL 80-[address] [facility] Erythrocyte sedimentation ra teOrdered By: Christiane Shannon on 04-07-2023 ESR (Bld) [Velocity] 9 mm/h 0-20 [facility] Hematocrit Auto (Bld) [Volum e fraction]Ordered By: Christiane Shannon on 04-07-2023 Hematocrit (Bld) [Volume fraction] 49.2 % 40-[address] [facility] Laboratory - Chemistry and C hemistry - challengeOrdered By: Christiane Shannon on 04-07-2023 ALP [Catalytic activity/Vol] 117 U/L 45-[address] [facility] ALT [Catalytic activity/Vol] 32 U/L 16-[address] [facility] CO2 [Moles/Vol] 27.0 mmol/L 21.0-32.[address] [facility] Globulin (S) [Mass/Vol] 3.5 g/dL 2.2-4.[address] [facility] Lipase [Catalytic activity/Vol] 57 U/L 13-[address] [facility] Comment on above: Please note:LIPASE r evised reference range effective 23. New Lipase methodology. Expected to produce lower values than the previous assay method. NEW Reference Range: 13 - 75 U/L Urea nitrogen/Creatinine [Mass ratio] 25.9 mg/mg 10-[address] [facility] Laboratory - Hematology and Cell countsOrdered By: Christiane Shannon on 04-07-2023 Erythrocyte distribution width (RBC) [Entitic vol] 45.8 fL 35.1-43.[address] [facility] Erythrocyte distribution width (RBC) [Ratio] 12.7 % 11.6-14.[address] [facility] Immature granulocytes/100 WBC (Bld) 0.400 % 0.0-0.[address] [facility] Comment on above: IG% - Immature Granu locytes (promyelocytes, myelocytes and metamyelocytes) > 1% indicates that a LEFT SHIFT is Present. MCH (RBC) [Entitic mass] 31.1 pg 27.0-32.[address] [facility] Nucleated RBC/100 WBC (Bld) [Ratio] 0 % 0-[address] [facility] MCHC Auto (RBC) [Mass/Vol]Or dered By: Christiane Shannon on 04-07-2023 MCHC (RBC) [Mass/Vol] 32.1 g/dL 32-36 [facility] No Panel InformationOrdered By: Christiane Shannon on 04-07-2023 CA 19-9 Antigen 7 U/mL 0-[address] [facility] Comment on above: [employer] El ectrochemiluminescence Immunoassay(ECLIA)Values obtained with different assay methods or kits cannotbe used interchangeably. Results cannot be interpreted asabsolute evidence of the presence or absence of malignantdisease. Estimated GFR (MDRD) Amer 117 mL/min >[address] [facility] Comment on above: GFR Calc Estimated GFR (MDRD) Non-Af Amer 96 mL/min >[address] [facility] Comment on above: Non- GFR Calc Immunoglobulin G4 15 mg/dL 2-[address] [facility] Platelets bldOrdered By: Mary Shannon on 04-07-2023 Platelets (Bld) [#/Vol] 215 10*3/uL 150-[address] [facility] Serum IgG subclass 1 measure ment (mass/volume)Ordered By: Christiane Shannon on 04-07-2023 IgG subclass 1 (S) [Mass/Vol] 312 mg/dL 248-[address] [facility] Serum IgG subclass 2 measure ment (mass/volume)Ordered By: Christiane Shannon on 04-07-2023 IgG subclass 2 (S) [Mass/Vol] 258 mg/dL 130-[address] [facility] Serum IgG subclass 3 measure ment (mass/volume)Ordered By: Christiane Shannon on 04-07-2023 IgG subclass 3 (S) [Mass/Vol] 33 mg/dL 15-[address] [facility] Serum mitochondria antibody detectionOrdered By: Christiane Shannon on 04-07-2023 Mitochondria Ab Ql (S) <20.0 Units 0.0-20.0 [facility] Comment on above: Negative 0.0 - 20.0 Equivocal 20.1 - 24.9 Positive >24.9Mitochondrial (M2) Antibodies are found in 90-96% ofpatients with primary biliary cirrhosis.Performed at: [facility] [place] [id number] Director: Alin Ceron PhD, Phone: [phone] Serum or plasma C reactive p rotein measurement (mass/volume)Ordered By: Christiane Shannon on 04-07-2023 CRP [Mass/Vol] 10.90 mg/L 0.0-3.[address] [facility] Comment on above: C-Reactive Protein ( CRP) provides useful information for thediagnosis, therapy and monitoring of inflammatory processesand associated diseases. For the evaluation of Relative Riskfor Cardiovascular Disease, a High Sensitivity CRP (HSCRP)should be ordered. Serum or plasma IgG measurem ent (mass/volume)Ordered By: Christiane Shannon on 04-07-2023 IgG [Mass/Vol] 740 mg/dL 603-[address] [facility] Serum or plasma actin IgG an tibody assay (units/volume)Ordered By: Christiane Shannon on 04-07-2023 Actin IgG Qn 4 Units 0-[address] [facility] Comment on above: Negative 0 - 19 Weak positive 20 - 30 Moderate to strong positive >30 Actin Antibodies are found in 52-85% of patients with autoimmune hepatitis or chronic active hepatitis and in 22% of patients with primary biliary cirrhosis.Performed at: [facility] [id number] Director: Alin Ceron PhD, Phone: [phone] Serum or plasma albumin paige urement (mass/volume)Ordered By: Christiane Shannon on 04-07-2023 Albumin [Mass/Vol] 3.5 g/dL 3.2-5.0 [facility] Serum or plasma albumin/glob ulin mass ratioOrdered By: Christiane Shannon on 04-07-2023 Albumin/Globulin [Mass ratio] 1.0 {ratio} 0.9-2.[address] [facility] Serum or plasma calcium paige urement (mass/volume)Ordered By: Christiane Shannon on 04-07-2023 Calcium [Mass/Vol] 8.7 mg/dL 8.5-10.1 [facility] Serum or plasma creatinine m easurement (mass/volume)Ordered By: Christiane Shannon on 04-07-2023 Creatinine [Mass/Vol] 0.89 mg/dL 0.70-1.30 [facility] Comment on above: The validity of the calculated GFR & GFRAA in patients over 70 years has not been determined. Clinical correlation is essential. Serum or plasma urea nitroge n measurement (mass/volume)Ordered By: Christiane Shannon on 04-07-2023 Urea nitrogen [Mass/Vol] 23 mg/dL 7-[address] [facility] Thin prep Papanicolaou smear with manual screeningOrdered By: Christiane Shannon on 04-07-2023 Thin prep Papanicolaou smear with manual screening 24 U/L 15-[address] [facility] Thin prep Papanicolaou smear with manual screening 4 5-[address] [facility] No Panel Informationon 08-12 Stool Neutral Fats Increased . [facility] Work Phone: Comment on above: Normal (<60 Droplets /HPF) Qualitative fecal fat or lip idson 08-12-2022 Fat Ql (Stl) Increased . [facility] Work Phone: Comment on above: Normal (<100 Droplet s/HPF)Performed at: - [facility] [id number] Director: Alin Ceron PhD, Phone: [phone] Absolute lymphocyte counton 08-07-2022 Lymphocytes Auto (Unsp spec) [#/Vol] 1.78 10*3/uL 0.83-4.[address] [facility] Work Phone: Basophil percentageon 2021 Amylase [Catalytic activity/Vol] 49 U/L 25-[address] [facility] Work Phone: Basophils/100 WBC (Bld) 0.2 % 0-[address] [facility] Work Phone: Bilirubin [Mass/Vol] 0.50 mg/dL 0.20-1.00 [facility] Work Phone: Comment on above: For patients on eltr ombopag therapy, use of Dimension Jewell TBIL is not recommended. Chloride [Moles/Vol] 106 mmol/L 98-107 [facility] Work Phone: Eosinophils/100 WBC (Bld) 1.1 % 0-[address] [facility] Work Phone: Glucose [Mass/Vol] 106 mg/dL 74-106 [facility] Work Phone: Comment on above: Fasting Glucose resu lt from 100 to 125 mg/dL suggests IMPAIRED HOMEOSTASIS per A.D.A. criteria. Neutrophils (Bld) [#/Vol] 6.7 10*3/uL 2.0-7.[address] [facility] Work Phone: Neutrophils/100 WBC (Bld) 73.5 % 47-[address] [facility] Work Phone: Potassium [Moles/Vol] 4.3 mmol/L 3.5-5.1 [facility] Work Phone: Protein [Mass/Vol] 7.6 g/dL 6.4-8.2 [facility] Work Phone: [phone] Sodium [Moles/Vol] 139 mmol/L 136-145 [facility] Work Phone: WBC (Bld) [#/Vol] 9.2 10*3/uL 4.4-11.0 [facility] Work Phone: [phone] Blood erythrocytes count (nu mber/volume)on 08-07-2022 RBC (Bld) [#/Vol] 5.35 10*6/uL 4.6-6.2 [facility] Work Phone: Blood hemoglobin measurement (mass/volume)on 08-07-2022 Hemoglobin (Bld) [Mass/Vol] 17.1 g/dL 13.0-16.[address] [facility] Work Phone: Blood lymphocytes/100 leukoc yteson 08-07-2022 Lymphocytes/100 WBC (Bld) 19.4 % 19-[address] [facility] Work Phone: Blood monocytes/100 leukocyt eson 08-07-2022 Monocytes/100 WBC (Bld) 5.5 % 0-[address] [facility] Work Phone: Blood platelet mean volumeon 08-07-2022 Platelet mean volume (Bld) [Entitic vol] 11.0 fL 6.2-12.[address] [facility] Work Phone: Determination of erythrocyte mean corpuscular volume (MCV)on 08-07-2022 MCV (RBC) [Entitic vol] 95.1 fL 80-[address] [facility] Work Phone: Erythrocyte sedimentation ra lisa 08-07-2022 ESR (Bld) [Velocity] 22 mm/h 0-20 [facility] Work Phone: Hematocrit Auto (Bld) [Volum e fraction]on 08-07-2022 Hematocrit (Bld) [Volume fraction] 50.9 % 40-[address] [facility] Work Phone: Interpretation of serum or p lasma protein pattern by immunofixation (narrative resulton 08-07-2022 Protein Fractions Immunofixation Ronaldo [Interp] See comment [facility] Work Phone: Comment on above: Result: Not Observed Laboratory - Chemistry and C hemistry - challengeon 08-07-2022 ALP [Catalytic activity/Vol] 118 U/L 45-[address] [facility] Work Phone: ALT [Catalytic activity/Vol] 24 U/L 16-[address] [facility] Work Phone: CO2 [Moles/Vol] 27.0 mmol/L 21.0-32.[address] [facility] Work Phone: Cobalamin (Vitamin B12) [Mass/Vol] 508 pg/mL 211-[address] [facility] Work Phone: Lipase [Catalytic activity/Vol] 135 U/L 73-[address] [facility] Work Phone: Urea nitrogen/Creatinine [Mass ratio] 17.9 mg/mg 10-[address] [facility] Work Phone: Laboratory - Hematology and Cell countson 08-07-2022 Erythrocyte distribution width (RBC) [Entitic vol] 46.8 fL 35.1-43.[address] [facility] Work Phone: Erythrocyte distribution width (RBC) [Ratio] 13.2 % 11.6-14.[address] [facility] Work Phone: Immature granulocytes/100 WBC (Bld) 0.300 % 0.0-0.[address] [facility] Work Phone: Comment on above: IG% - Immature Granu locytes (promyelocytes, myelocytes and metamyelocytes) > 1% indicates that a LEFT SHIFT is Present. MCH (RBC) [Entitic mass] 32.0 pg 27.0-32.[address] [facility] Work Phone: Nucleated RBC/100 WBC (Bld) [Ratio] 0 % 0-[address] [facility] Work Phone: MCHC Auto (RBC) [Mass/Vol]on 08-07-2022 MCHC (RBC) [Mass/Vol] 33.6 g/dL 32-36 [facility] Work Phone: No Panel Informationon 08-07 Addendum Document Comment . [facility] Work Phone: Comment on above: Protein electrophore sis scan will follow via computer,mail, or airdrop systems technician delivery. Estimated GFR (MDRD) Amer 116 mL/min >[address] [facility] Work Phone: Comment on above: GFR Calc Estimated GFR (MDRD) Non-Af Amer 96 mL/min >[address] [facility] Work Phone: Comment on above: Non- GFR Calc Immunoglobulin E 20 IU/mL 6-[address] [facility] Work Phone: Thyroid Stimulating Hormone (TSH) 2.83 uIU/mL 0.358-3.[address] [facility] Work Phone: Platelets bldon 08-07-2022 Platelets (Bld) [#/Vol] 178 10*3/uL 150-[address] [facility] Work Phone: Serum fboql-0-gylixfnn measu rement by electrophoresison 08-07-2022 Alpha 1 globulin Elph [Mass/Vol] 0.2 g/dL 0.0-0.[address] [facility] Work Phone: Alpha 1 globulin Elph [Mass/Vol] 0.8 g/dL 0.4-1.[address] [facility] Work Phone: Serum globulin measurement ( mass/volume)on 08-07-2022 Globulin (S) [Mass/Vol] 3.0 g/dL 2.2-3.[address] [facility] Work Phone: Serum or plasma C reactive p rotein measurement (mass/volume)on 08-07-2022 CRP [Mass/Vol] 3.85 mg/L 0.0-3.[address] [facility] Work Phone: Comment on above: C-Reactive Protein ( CRP) provides useful information for thediagnosis, therapy and monitoring of inflammatory processesand associated diseases. For the evaluation of Relative Riskfor Cardiovascular Disease, a High Sensitivity CRP (HSCRP)should be ordered. Serum or plasma IgA measurem ent (mass/volume)on 08-07-2022 IgA [Mass/Vol] 155 mg/dL 90-[address] [facility] Work Phone: Serum or plasma IgG measurem ent (mass/volume)on 08-07-2022 IgG [Mass/Vol] 853 mg/dL 603-[address] [facility] Work Phone: Serum or plasma IgM measurem ent (mass/volume)on 08-07-2022 IgM [Mass/Vol] 239 mg/dL 20-[address] [facility] Work Phone: Serum or plasma albumin paige urement (mass/volume)on 08-07-2022 Albumin [Mass/Vol] 3.8 g/dL 2.9-4.4 [facility] Work Phone: Serum or plasma albumin/glob ulin mass ratioon 08-07-2022 Albumin/Globulin [Mass ratio] 1.0 {ratio} 0.9-2.[address] [facility] Work Phone: Serum or plasma beta globuli n measurement by electrophoresis (mass/volume)on 08-07-2022 Beta globulin Elph [Mass/Vol] 1.0 g/dL 0.7-1.[address] [facility] Work Phone: Serum or plasma calcium paige urement (mass/volume)on 08-07-2022 Calcium [Mass/Vol] 8.9 mg/dL 8.5-10.1 [facility] Work Phone: Serum or plasma carcinoembry onic antigen measurement (mass/volume)on 08-07-2022 Carcinoembryonic Ag [Mass/Vol] 16.5 ng/mL 0.0-4.[address] [facility] Work Phone: Comment on above: Nonsmokers <3.9 Smok ers <5.6[employer] Electrochemiluminescence Immunoassay(ECLIA)Values obtained with different assay methods or kitscannot be used interchangeably. Results cannot beinterpreted as absolute evidence of the presence orabsence of malignant disease. Serum or plasma creatinine m easurement (mass/volume)on 08-07-2022 Creatinine [Mass/Vol] 0.89 mg/dL 0.70-1.30 [facility] Work Phone: Comment on above: The validity of the calculated GFR & GFRAA in patients over 70 years has not been determined. Clinical correlation is essential. Serum or plasma folate measu rement (mass/volume)on 08-07-2022 Folate [Mass/Vol] 11.40 ng/mL 3.1-55.4 [facility] Work Phone: Serum or plasma gamma globul in measurement by electrophoresis (mass/volume)on 08-07-2022 Gamma globulin Elph [Mass/Vol] 0.9 g/dL 0.4-1.[address] [facility] Work Phone: Serum or plasma gastrin paige urement (mass/volume)on 08-07-2022 Gastrin [Mass/Vol] 14 pg/mL 0-115 [facility] Work Phone: Comment on above: Siemens Immulite 200 0 Immunochemiluminometric assay (ICMA)Values obtained with different assay methods or kits cannotbe used interchangeably. Results cannot be interpreted asabsolute evidence of the presence or absence of malignantdisease.Performed at: [facility] [id number] Director: Alin Ceron PhD, Phone: [phone] at: [facility] [id number] Director: Nino Shelton MD, Phone: [phone] Serum or plasma immunoelectr ophoresis interpretation (nominal result)on 08-07-2022 Interpretation IEP [Interp] Comment . [facility] Work Phone: Comment on above: No monoclonality det ected. Serum or plasma urea nitroge n measurement (mass/volume)on 08-07-2022 Urea nitrogen [Mass/Vol] 16 mg/dL 7-[address] [facility] Work Phone: Thin prep Papanicolaou smear with manual screeningon 08-07-2022 Thin prep Papanicolaou smear with manual screening 16 U/L 15-[address] [facility] Work Phone: Thin prep Papanicolaou smear with manual screening 6 5-[address] [facility] Work Phone: Thin prep Papanicolaou smear with manual screening 197 U/L 87-[address] [facility] Work Phone: Thin prep Papanicolaou smear with manual screening 1.3 0.7-1.[address] [facility] Work Phone: Total protein bloodon 2021 Protein [Mass/Vol] 6.8 g/dL 6.0-8.5 [facility] Work Phone: Basophil percentageon 2021 Bilirubin [Mass/Vol] 0.20 mg/dL 0.20-1.00 [facility] Work Phone: Comment on above: For patients on eltr ombopag therapy, use of Dimension [employer]ell TBIL is not recommended. Chloride [Moles/Vol] 111 mmol/L 98-107 [facility] Work Phone: Glucose [Mass/Vol] 101 mg/dL 74-106 [facility] Work Phone: Comment on above: Fasting Glucose resu lt from 100 to 125 mg/dL suggests IMPAIRED HOMEOSTASIS per A.D.A. criteria. Potassium [Moles/Vol] 4.4 mmol/L 3.5-5.1 [facility] Work Phone: Protein [Mass/Vol] 6.7 g/dL 6.4-8.2 [facility] Work Phone: Sodium [Moles/Vol] 141 mmol/L 136-145 [facility] Work Phone: Laboratory - Chemistry and C hemistry - challengeon 05-30-2022 ALP [Catalytic activity/Vol] 103 U/L 45-[address] [facility] Work Phone: ALT [Catalytic activity/Vol] 19 U/L 16-[address] [facility] Work Phone: CO2 [Moles/Vol] 26.0 mmol/L 21.0-32.[address] [facility] Work Phone: Globulin (S) [Mass/Vol] 3.2 g/dL 2.2-4.[address] [facility] Work Phone: Urea nitrogen/Creatinine [Mass ratio] 21.2 mg/mg 10-[address] [facility] Work Phone: No Panel Informationon 05-30 Estimated GFR (MDRD) Amer 116 mL/min >[address] [facility] Work Phone: Comment on above: GFR Calc Estimated GFR (MDRD) Non-Af Amer 96 mL/min >[address] [facility] Work Phone: Comment on above: Non- GFR Calc Immunoglobulin E 18 IU/mL 6-[address] [facility] Work Phone: Serum or plasma C reactive p rotein measurement (mass/volume)on 05-30-2022 CRP [Mass/Vol] 4.30 mg/L 0.0-3.[address] [facility] Work Phone: Comment on above: C-Reactive Protein ( CRP) provides useful information for thediagnosis, therapy and monitoring of inflammatory processesand associated diseases. For the evaluation of Relative Riskfor Cardiovascular Disease, a High Sensitivity CRP (HSCRP)should be ordered. Serum or plasma IgA measurem ent (mass/volume)on 05-30-2022 IgA [Mass/Vol] 137 mg/dL 90-[address] [facility] Work Phone: Serum or plasma IgG measurem ent (mass/volume)on 05-30-2022 IgG [Mass/Vol] 699 mg/dL 603-[address] [facility] Work Phone: Serum or plasma IgM measurem ent (mass/volume)on 05-30-2022 IgM [Mass/Vol] 202 mg/dL 20-[address] [facility] Work Phone: Serum or plasma albumin paige urement (mass/volume)on 05-30-2022 Albumin [Mass/Vol] 3.5 g/dL 3.2-5.0 [facility] Work Phone: Serum or plasma albumin/glob ulin mass ratioon 05-30-2022 Albumin/Globulin [Mass ratio] 1.1 {ratio} 0.9-2.[address] [facility] Work Phone: Serum or plasma calcium paige urement (mass/volume)on 05-30-2022 Calcium [Mass/Vol] 8.7 mg/dL 8.5-10.1 [facility] Work Phone: Serum or plasma carcinoembry onic antigen measurement (mass/volume)on 05-30-2022 Carcinoembryonic Ag [Mass/Vol] 15.8 ng/mL 0.0-4.[address] [facility] Work Phone: Comment on above: Nonsmokers <3.9 Smok ers <5.6[employer] Electrochemiluminescence Immunoassay(ECLIA)Values obtained with different assay methods or kitscannot be used interchangeably. Results cannot beinterpreted as absolute evidence of the presence orabsence of malignant disease. Serum or plasma creatinine m easurement (mass/volume)on 05-30-2022 Creatinine [Mass/Vol] 0.90 mg/dL 0.70-1.30 [facility] Work Phone: Comment on above: The validity of the calculated GFR & GFRAA in patients over 70 years has not been determined. Clinical correlation is essential. Serum or plasma gastrin paige urement (mass/volume)on 05-30-2022 Gastrin [Mass/Vol] < 10 pg/mL 0-115 [facility] Work Phone: Comment on above: Siemens xCloudulite 200 0 Immunochemiluminometric assay (ICMA)Values obtained with different assay methods or kits cannotbe used interchangeably. Results cannot be interpreted asabsolute evidence of the presence or absence of malignantdisease.Performed at: [employer] [id number] Director: Alin Ceron PhD, Phone: [phone] at: [facility] [employer] [id number] Director: Nino Shelton MD, Phone: [phone] Serum or plasma urea nitroge n measurement (mass/volume)on 05-30-2022 Urea nitrogen [Mass/Vol] 19 mg/dL 7-[address] [facility] Work Phone: Thin prep Papanicolaou smear with manual screeningon 05-30-2022 Thin prep Papanicolaou smear with manual screening 16 U/L 15-[address] [facility] Work Phone: Thin prep Papanicolaou smear with manual screening 4 5-[address] [facility] Work Phone: No Panel Informationon 03-04 Carcinoembryonic Ag Serial Monitor Not Reportable [facility] Work Phone: Serum or plasma carcinoembry onic antigen measurement (mass/volume)on 03-04-2022 Carcinoembryonic Ag [Mass/Vol] 14.7 ng/mL 0.0-4.[address] [facility] Work Phone: Comment on above: Nonsmokers <3.9 Smok ers <5.6[employer] Electrochemiluminescence Immunoassay(ECLIA)Values obtained with different assay methods or kitscannot be used interchangeably. Results cannot beinterpreted as absolute evidence of the presence orabsence of malignant disease. Serum or plasma gastrin paige urement (mass/volume)on 03-04-2022 Gastrin [Mass/Vol] 12 pg/mL 0-115 [facility] Work Phone: Comment on above: Siemens Immulite 200 0 Immunochemiluminometric assay (ICMA)Values obtained with different assay methods or kits cannotbe used interchangeably. Results cannot be interpreted asabsolute evidence of the presence or absence of malignantdisease.Performed at: [employer] [id number] Director: Alin Ceron PhD, Phone: [phone] at: [facility] [employer] [id number] Director: Nino Shelton MD, Phone: [phone] Giardia lamblia ag stool EIA on 02-09-2022 G. lamblia Ag IA Ql (Stl) See comment [facility] Work Phone: Comment on above: TEST RESULT LIMITSGi ardia lamblia Ag, EIA Negative Negative __ TESTING PERFORMED AT [facility]. ORIGINAL REPORT ON FILE IN LAB CONTAINS ADDITIONAL TEST SITE INFORMATION. No Panel Informationon 02-09 Enteric Bacteriology [facility] Work Phone: Stool Calprotectin <16 ug/g 0-120 [facility] Work Phone: Comment on above: Concentration Interp retation Follow-Up<16 - 50 ug/g Normal None>50 -120 ug/g Borderline Re-evaluate in 4-6 weeks >120 ug/g Abnormal Repeat as clinically indicatedPerformed at: [facility] Lab[address] [id number] Director: Nino Shelton MD, Phone: [phone] Absolute lymphocyte counton 02-08-2022 Lymphocytes Auto (Unsp spec) [#/Vol] 1.56 10*3/uL 0.83-4.[address] [facility] Work Phone: Atypical perinuclear antineu trophil cytoplasmic antibodies measurementon 02-08-2022 Neutrophil cytoplasmic Ab.perinuclear.atypica l IF (S) [Titer] <1:20 titer Neg:<1:[address] [facility] Work Phone: Comment on above: The atypical pANCA p attern has been observed in asignificant percentage of patients with ulcerative colitis,primary sclerosing cholangitis and autoimmune hepatitis. Basophil percentageon 2021 Amylase [Catalytic activity/Vol] 53 U/L 25-[address] [facility] Work Phone: Basophil percentage < 0.2 AI 0.0-0.9 [facility] Work Phone: [phone] Basophils/100 WBC (Bld) 0.5 % 0-[address] [facility] Work Phone: [phone] Bilirubin [Mass/Vol] 0.30 mg/dL 0.20-1.00 [facility] Work Phone: Comment on above: For patients on eltr ombopag therapy, use of Dimension Jewell TBIL is not recommended. Chloride [Moles/Vol] 110 mmol/L 98-107 [facility] Work Phone: Eosinophils/100 WBC (Bld) 0.8 % 0-[address] [facility] Work Phone: Glucose [Mass/Vol] 96 mg/dL 74-106 [facility] Work Phone: Neutrophils (Bld) [#/Vol] 4.5 10*3/uL 2.0-7.[address] [facility] Work Phone: Neutrophils/100 WBC (Bld) 68.0 % 47-[address] [facility] Work Phone: [phone] Potassium [Moles/Vol] 4.3 mmol/L 3.5-5.1 [facility] Work Phone: Protein [Mass/Vol] 7.5 g/dL 6.4-8.2 [facility] Work Phone: Sodium [Moles/Vol] 140 mmol/L 136-145 [facility] Work Phone: [phone] WBC (Bld) [#/Vol] 6.6 10*3/uL 4.4-11.0 [facility] Work Phone: [phone] Blood erythrocytes count (nu mber/volume)on 02-08-2022 RBC (Bld) [#/Vol] 5.03 10*6/uL 4.6-6.2 [facility] Work Phone: Blood hemoglobin measurement (mass/volume)on 02-08-2022 Hemoglobin (Bld) [Mass/Vol] 15.6 g/dL 13.0-16.[address] [facility] Work Phone: Blood lymphocytes/100 leukoc yteson 02-08-2022 Lymphocytes/100 WBC (Bld) 23.6 % 19-[address] [facility] Work Phone: Blood monocytes/100 leukocyt eson 02-08-2022 Monocytes/100 WBC (Bld) 6.8 % 0-[address] [facility] Work Phone: Blood platelet mean volumeon 02-08-2022 Platelet mean volume (Bld) [Entitic vol] 11.7 fL 6.2-12.[address] [facility] Work Phone: Determination of erythrocyte mean corpuscular volume (MCV)on 02-08-2022 MCV (RBC) [Entitic vol] 93.6 fL 80-[address] [facility] Work Phone: Erythrocyte sedimentation ra lisa 02-08-2022 ESR (Bld) [Velocity] 15 mm/h 0-20 [facility]: Hematocrit Auto (Bld) [Volum e fraction]on 02-08-2022 Hematocrit (Bld) [Volume fraction] 47.1 % 40-[address] [facility] Work Phone: Laboratory - Chemistry and C hemistry - challengeon 02-08-2022 ALP [Catalytic activity/Vol] 118 U/L 45-[address] [facility] Work Phone: ALT [Catalytic activity/Vol] 25 U/L 16-[address] [facility] Work Phone: CO2 [Moles/Vol] 27.0 mmol/L 21.0-32.[address] [facility] Work Phone: Globulin (S) [Mass/Vol] 3.7 g/dL 2.2-4.[address] [facility] Work Phone: Lipase [Catalytic activity/Vol] 143 U/L 73-[address] [facility] Work Phone: Urea nitrogen/Creatinine [Mass ratio] 17.2 mg/mg 10-[address] [facility] Work Phone: Laboratory - Hematology and Cell countson 02-08-2022 Erythrocyte distribution width (RBC) [Entitic vol] 44.3 fL 35.1-43.[address] [facility] Work Phone: Erythrocyte distribution width (RBC) [Ratio] 12.8 % 11.6-14.[address] [facility] Work Phone: Immature granulocytes/100 WBC (Bld) 0.300 % 0.0-0.[address] [facility] Work Phone: Comment on above: IG% - Immature Granu locytes (promyelocytes, myelocytes and metamyelocytes) > 1% indicates that a LEFT SHIFT is Present. MCH (RBC) [Entitic mass] 31.0 pg 27.0-32.[address] [facility] Work Phone: Nucleated RBC/100 WBC (Bld) [Ratio] 0 % 0-[address] [facility] Work Phone: MCHC Auto (RBC) [Mass/Vol]on 02-08-2022 MCHC (RBC) [Mass/Vol] 33.1 g/dL 32-36 [facility] Work Phone: No Panel Informationon 02-08 Centromere B Antibody <0.2 AI 0.0-0.9 [facility] Work Phone: Endomysial IgA Antibody Negative Negative [facility] Work Phone: Estimated GFR (MDRD) Amer 104 mL/min >[address] [facility] Work Phone: Comment on above: GFR Calc Estimated GFR (MDRD) Non-Af Amer 86 mL/min >[address] [facility] Work Phone: Comment on above: Non- GFR Calc Hepatitis C Antibody Non-Reactive Nonreactive [facility] Work Phone: Comment on above: Non Reactive: < 0.8 Equivocal: >/= 0.8 to < 1.0 Reactive: >/= 1.0The CDC recommends that a reactive/equivocal HCV antibody result be followed up by the HCV Nucleic Acid Amplificationtest (016113) Immunoglobulin E 22 IU/mL 6-[address] [facility] Work Phone: CIVIL ENGINEER Antibody 0.3 AI 0.0-0.[address] [facility] Work Phone: Thyroid Stimulating Hormone (TSH) 2.59 uIU/mL 0.358-3.[address] [facility] Work Phone: Platelets bldon 02-08-2022 Platelets (Bld) [#/Vol] 218 10*3/uL 150-[address] [facility] Work Phone: Serum DNA double strand anti body assay (units/volume)on 02-08-2022 DNA double strand Ab Qn (S) 1 [IU]/mL 0-[address] [facility] Work Phone: Comment on above: Negative <5 Equivoca l 5 - 9 Positive >9 Serum Amber-1 antibody assay (u nits/volume)on 02-08-2022 Amber-1 extractable nuclear Ab Qn (S) <0.2 AI 0.0-0.[address] [facility] Work Phone: Serum Scl-70 extractable nuc lear antibody assay (units/volume)on 02-08-2022 SCL-70 extractable nuclear Ab Qn (S) <0.2 AI 0.0-0.[address] [facility] Work Phone: Serum Becker extractable nucl ear antibody detectionon 02-08-2022 Becker extractable nuclear Ab Ql (S) <0.2 AI 0.0-0.[address] [facility] Work Phone: Serum classic neutrophil cyt oplasmic antibody assay (units/volume)on 02-08-2022 Neutrophil cytoplasmic Ab.classic Qn (S) <1:20 titer Neg:<1:[address] [facility] Work Phone: Serum or plasma C reactive p rotein measurement (mass/volume)on 02-08-2022 CRP [Mass/Vol] 3.95 mg/L 0.0-3.[address] [facility] Work Phone: Comment on above: C-Reactive Protein ( CRP) provides useful information for thediagnosis, therapy and monitoring of inflammatory processesand associated diseases. For the evaluation of Relative Riskfor Cardiovascular Disease, a High Sensitivity CRP (HSCRP)should be ordered. Serum or plasma IgA measurem ent (mass/volume)on 02-08-2022 IgA [Mass/Vol] 155 mg/dL 90-[address] [facility] Work Phone: Serum or plasma IgG measurem ent (mass/volume)on 02-08-2022 IgG [Mass/Vol] 799 mg/dL 603-[address] [facility] Work Phone: Serum or plasma IgM measurem ent (mass/volume)on 02-08-2022 IgM [Mass/Vol] 216 mg/dL 20-[address] [facility] Work Phone: Comment on above: Performed at: [email or web address] [address] [id number] Director: Alin Ceron PhD, Phone: [phone] at: - Lab[address] [id number] Director: Nino Shelton MD, Phone: [phone] Serum or plasma albumin paige urement (mass/volume)on 02-08-2022 Albumin [Mass/Vol] 3.8 g/dL 3.2-5.0 [facility] Work Phone: Serum or plasma albumin/glob ulin mass ratioon 02-08-2022 Albumin/Globulin [Mass ratio] 1.0 {ratio} 0.9-2.[address] [facility] Work Phone: Serum or plasma calcium paige urement (mass/volume)on 02-08-2022 Calcium [Mass/Vol] 8.5 mg/dL 8.5-10.1 [facility] Work Phone: Serum or plasma creatinine m easurement (mass/volume)on 02-08-2022 Creatinine [Mass/Vol] 0.99 mg/dL 0.70-1.30 [facility] Work Phone: Comment on above: The validity of the calculated GFR & GFRAA in patients over 70 years has not been determined. Clinical correlation is essential. Serum or plasma urea nitroge n measurement (mass/volume)on 02-08-2022 Urea nitrogen [Mass/Vol] 17 mg/dL 7-[address] [facility] Work Phone: Serum perinuclear neutrophil cytoplasmic antibody titer by immunofluorescenceon 02-08-2022 Neutrophil cytoplasmic Ab.perinuclear IF (S) [Titer] <1:20 titer Neg:<1:[address] [facility] Work Phone: Comment on above: The presence of posi tive fluorescence exhibiting P-ANCA orC-ANCA patterns alone is not specific for the diagnosis ofWegener's Granulomatosis (WG) or microscopic polyangiitis.Decisions about treatment should not be based solely onANCA IFA results. The [employer] ANCA Group Consensusrecommends follow up testing of positive sera with both WV-3 and MPO-ANCA enzyme immunoassays. As many as 5% serumsamples are positive only by EIA. Ref. AM J Clin Gdjcjv1185;111:507-513. Serum tissue transglutaminas e IgA antibody assay (units/volume)on 02-08-2022 tTG IgA Qn (S) <2 U/mL 0-[address] [facility] Work Phone: Comment on above: Negative 0 - 3 Weak Positive 4 - 10 Positive >10 Tissue Transglutaminase (tTG) has been identified as the endomysial antigen. Studies have demonstr- ated that endomysial IgA antibodies have over 99% specificity for gluten sensitive enteropathy. Thin prep Papanicolaou smear with manual screeningon 02-08-2022 Thin prep Papanicolaou smear with manual screening 21 U/L 15-[address] [facility] Work Phone: Thin prep Papanicolaou smear with manual screening 3 5-[address] [facility] Work Phone: Whole blood hemoglobin A1c/t otal hemoglobin ratio (mass fraction)on 02-08-2022 HbA1c (Bld) [Mass fraction] 5.5 % 3.8-5.[address] [facility] Work Phone: Comment on above: Normal < 5.7 % Predi abetic 5.7 - 6.4 % Diabetic >or= 6.5 % Please note range changes. No Panel Information Enteric Bacteriology [facility] Work Phone: Vital Signs Date Time Vital Sign Value Performing Clinician Facility 07-13-2024 10:38-0400 Diastolic Blood Pressure Non-Invasive 74 mm[Hg] MALINDA SANCHEZ MD [address] 07-13-2024 10:38-0400 Heart rate 50 /min MALINDA SANCHEZ MD [address] 07-13-2024 10:38-0400 Systolic Blood Pressure Non-Invasive 115 mm[Hg] MALINDA SANCHEZ MD [address] 07-13-2024 10:34-0400 Diastolic Blood Pressure Non-Invasive 70 mm[Hg] MALINDA SANCHEZ MD [address] 07-13-2024 10:34-0400 Heart rate 54 /min MALINDA SANCHEZ MD [address] 07-13-2024 10:34-0400 Systolic Blood Pressure Non-Invasive 111 mm[Hg] MALINDA SANCHEZ MD [address] 07-13-2024 10:28-0400 Diastolic Blood Pressure Non-Invasive 70 mm[Hg] MALINDA SANCHEZ MD [address] 07-13-2024 10:28-0400 Heart rate 46 /min MALINDA SANCHEZ MD [address] 07-13-2024 10:28-0400 Systolic Blood Pressure Non-Invasive 119 mm[Hg] MALINDA SANCHEZ MD [address] 07-13-2024 08:22-0400 Body temperature 97.52 [degF] MALINDA SANCHEZ MD [address] 07-13-2024 08:22-0400 Respiratory rate 16 /min MALINDA SANCHEZ MD [facility] 04-21-2024 12:58-0400 Body height 177.8 cm MALINDA SANCHEZ MD [facility] 04-21-2024 12:58-0400 Body weight 65.9 kg MALINDA SANCHEZ MD [facility] 04-21-2024 12:58-0400 Body weight 20.85 kg/m2 MALINDA SANCHEZ MD [facility] 04-28-2023 07:50-0400 Body height 177.[address] Basilia Lozada Work Phone: [facility] 04-28-2023 07:42-0400 Body mass index (BMI) [Ratio] 22.3 kg/m2 Dr. Basilia Lozada Work Phone: [facility] 04-28-2023 07:42-0400 Body temperature 97.7 [degF] Dr. Basilia Lozada Work Phone: [facility] 04-28-2023 07:42-0400 Body weight 68.[address] Basilia Lozada Work Phone: [facility] 04-28-2023 07:42-0400 Diastolic blood pressure 66 mm[Hg] Dr. Basilia Lozada Work Phone: [facility] 04-28-2023 07:42-0400 Heart rate 75 /min Dr. Basilia Lozada Work Phone: [facility] 04-28-2023 07:42-0400 Respiratory rate 18 /min Dr. Basilia Lozada Work Phone: [facility] 04-28-2023 07:42-0400 SaO2% (BldA) [Mass fraction] 96 % Dr. Basilia Lozada Work Phone: [facility] 04-28-2023 07:42-0400 Systolic blood pressure 94 mm[Hg] Dr. Basilia Lozada Work Phone: [facility] 04-07-2023 07:56-0400 Body height 177.[address] Basilia Lozada Work Phone: [facility] 04-07-2023 07:56-0400 Body mass index (BMI) [Ratio] 22.5 kg/m2 Dr. Basilia Lozada Work Phone: [facility] 04-07-2023 07:56-0400 Body weight 71.[address] Basilia Lozada Work Phone: [facility] 04-07-2023 07:56-0400 Diastolic blood pressure 79 mm[Hg] Dr. Basilia Lozada Work Phone: [facility] 04-07-2023 07:56-0400 Heart rate 51 /min Dr. Basilia Lozada Work Phone: [facility] 04-07-2023 07:56-0400 SaO2% (BldA) [Mass fraction] 97 % Dr. Basilia Lozada Work Phone: [facility] 04-07-2023 07:56-0400 Systolic blood pressure 122 mm[Hg] Dr. Basilia Lozada Work Phone: [facility] 03-18-2023 07:19-0400 Body mass index (BMI) [Ratio] 22.8 kg/m2 Dr. Basilia Lozada Work Phone: [facility] 03-18-2023 07:19-0400 Body temperature 97.4 [degF] Dr. Basilia Lozada Work Phone: [facility] 03-18-2023 07:19-0400 Body weight 72.[address] Basilia Lozada Work Phone: [facility] 03-18-2023 07:19-0400 Diastolic blood pressure 54 mm[Hg] Dr. Basilia Lozada Work Phone: [facility] 03-18-2023 07:19-0400 Heart rate 64 /min Dr. Basilia Lozada Work Phone: [facility] 03-18-2023 07:19-0400 Respiratory rate 18 /min Dr. Basilia Lozada Work Phone: [facility] 03-18-2023 07:19-0400 SaO2% (BldA) [Mass fraction] 96 % Dr. Basilia Lozada Work Phone: [facility] 03-18-2023 07:19-0400 Systolic blood pressure 95 mm[Hg] Dr. Basilia Lozada Work Phone: [facility] 08-07-2022 07:45-0400 Body height 177.[address] Edis Mayo Work Phone: [facility] Work Phone: 08-07-2022 07:45-0400 Body mass index (BMI) [Ratio] 21.4 kg/m2 Dr. Edis Mayo Work Phone: [facility] Work Phone: 08-07-2022 07:45-0400 Body weight 67.[address] Edis Mayo Work Phone: [facility] Work Phone: 08-07-2022 07:45-0400 Diastolic blood pressure 82 mm[Hg] Dr. Edis Mayo Work Phone: [facility] Work Phone: 08-07-2022 07:45-0400 Heart rate 58 /min Dr. Edis Mayo Work Phone: [facility] Work Phone: 08-07-2022 07:45-0400 SaO2% (BldA) [Mass fraction] 97 % Dr. Edis Mayo Work Phone: [facility] Work Phone: 08-07-2022 07:45-0400 Systolic blood pressure 127 mm[Hg] Dr. Edis Mayo Work Phone: [facility] Work Phone: 03-11-2022 08:45-0400 Body temperature 97.1 [degF] Dr. Edis Mayo Work Phone: [facility] Work Phone: 03-11-2022 08:45-0400 Diastolic blood pressure 65 mm[Hg] Dr. Edis Mayo Work Phone: [facility] Work Phone: 03-11-2022 08:45-0400 Heart rate 55 /min Dr. Edis Mayo Work Phone: [facility] Work Phone: 03-11-2022 08:45-0400 Respiratory rate 16 /min Dr. Edis Mayo Work Phone: [facility] Work Phone: 03-11-2022 08:45-0400 SaO2% (BldA) [Mass fraction] 99 % Dr. Edis Mayo Work Phone: [facility] Work Phone: 03-11-2022 08:45-0400 Systolic blood pressure 99 mm[Hg] Dr. Edis Mayo Work Phone: [facility] Work Phone: 03-11-2022 07:04-0400 Body height 177.[address] Edis Mayo Work Phone: [facility] Work Phone: 03-11-2022 07:04-0400 Body mass index (BMI) [Ratio] 21.2 kg/m2 Dr. Edis Mayo Work Phone: [facility] Work Phone: 03-11-2022 07:04-0400 Body weight [address] Edis Mayo Work Phone: [facility] Work Phone: Encounters Encounter Date Encounter Type Care Provider Facility Start: 04-13-2025 ambulatory BASILIA LOZADA [facility] Start: 12-24-2024 End: 12-24-2024 ambulatory BASILIA GREGORY SHAREE [facility] Start: 12-21-2024 ambulatory BASILIA LOZADA [facility] Start: 10-05-2024 End: 10-05-2024 ambulatory BASILIA GREGORY [facility] Start: 09-07-2024 End: 09-07-2024 ambulatory Lauren Neville Facility:[facility] Start: 08-02-2024 ambulatory Lauren Neville Facility:[facility] Start: 07-13-2024 End: 07-13-2024 ambulatory MALINDA SANCHEZ [facility] Start: 07-13-2024 End: 07-13-2024 Patient encounter procedure MALINDA SANCHEZ [facility] Start: 09-12-2023 End: 09-12-2023 ambulatory Basilia Lozada Facility:[facility] Start: 07-31-2023 End: 07-31-[address] Basilia Lozada Work Phone: [facility] Work Phone: Start: 07-31-2023 End: 07-31-[address] Basilia Lozada Work Phone: [facility] Work Phone: Start: 04-28-2023 End: 04-28-[address] Basilia Lozada Work Phone: [facility]-P[facility] Work Phone: Start: 04-17-2023 End: 04-17-[address] Basilia Lozada Work Phone: [facility] Work Phone: Start: 04-17-2023 End: 04-17-[address] Basilia Lozada Work Phone: [facility]-Sleep Lab Start: 04-07-2023 End: 04-07-[address] Basilia Lozada Work Phone: [facility] Start: 04-02-2023 Non-patient / Non-visit Dr. Basilia Lozada Work Phone: [facility] Start: 04-01-2023 End: 04-01-[address] Basilia Lozada Work Phone: [facility]-Pulmonary Services/Neurology Start: 03-18-2023 End: 03-18-[address] Basilia Lozada Work Phone: [facility]-Pulmonary Medicine [facility] Start: 08-15-2022 End: 08-15-[address] Edis Mayo Work Phone: [facility] Work Phone: Start: 08-15-2022 End: 08-15-[address] Edis Mayo Work Phone: [facility], [facility] Start: 08-12-2022 End: 08-12-[address] Edis Mayo Work Phone: [facility] Work Phone: Start: 08-12-2022 End: 08-12-[address] Edis Mayo Work Phone: [facility]-Laboratory, Specimen Start: 08-07-2022 End: 08-07-[address] Edis Mayo Work Phone: [facility] Start: 05-30-2022 End: 05-30-[address] Edis Mayo Work Phone: [facility]-Laboratory Start: 05-23-2022 End: 05-23-[address] Edis Mayo Work Phone: [facility] Start: 05-07-2022 End: 05-07-[address] Edis Mayo Work Phone: [facility] Start: 03-11-2022 Non-patient / Non-visit Dr. Edis Mayo Work Phone: [facility] Start: 03-11-2022 End: 03-11-2022 Admission to same day surgery center Dr. Edis Mayo Work Phone: [facility]-Endoscopy Start: 03-04-2022 End: 03-04-[address] Edis Mayo Work Phone: [facility]-Laboratory Start: 02-25-2022 End: 02-25-[address] Edis Mayo Work Phone: [facility]-Cat Scan, [facility] Start: 02-09-2022 End: 02-09-[address] Edis Mayo Work Phone: [facility]-Laboratory, Specimen Start: 02-08-2022 End: 02-08-[address] Edis Mayo Work Phone: [facility] Procedures Date Procedure Procedure Detail Performing Clinician Start: 12-24-2024 Urinalysis BASILIA BAR AN Comment on above: Result Comment: URIN ALYSIS Performed By: #### [id number] #### [place] [id number] Start: 10-05-2024 Urinalysis YASSER OMR AN Comment on above: Result Comment: URIN ALYSIS Performed By: #### [id number] #### [place] [id number] Start: 07-31-2023 CT of chest without contrast Dr. Basilia Lozada Work Phone: Start: 02-12-2023 Cardiovascular stres s testing MALINDA SANCHEZ MD Start: 08-15-[address] Edis Mayo Work Phone: Start: 03-11-2022 End: 03-11-[address] Edis Mayo Work Phone: Start: 03-11-[address] Edis Mayo Work Phone: Start: 02-25-2022 Computed tomography of abdomen and pelvis with contrast Dr. Edis Mayo Work Phone: Start: 02-09-2022 End: 02-09-[address] Edis Mayo Work Phone: Start: 02-09-[address] Bryan Mayo Work Phone: Start: 02-08-[address] Edis Mayo Work Phone: Start: 02-08-[address] Bryan Mayo Work Phone: Clostridium difficil e detection Dr. Edis Mayo Work Phone: Enteric Bacteriology Dr. Cordell Graynan Work Phone: Hernia repair MALINDA QUEZADA MD Viral antigen assay Dr. Wally Mayo Work Phone: Plan of Treatment Date Care Activity Detail Author Start: 08-12-2022 Elastase, pancreatic (el-1), fecal; quantitative [facility] Work Phone: Start: 08-12-2022 Fat [Presence] in Stool [facility] Work Phone: Start: 08-12-2022 Helicobacter pylori Ag [Presence] in Stool by Immunoassay [facility] Work Phone: Start: 03-11-2022 Colonoscopy w/biopsy single/multiple COLONOSCOPY AND BIOPSY [facility] Work Phone: Start: 2022 Egd transoral biopsy single/multiple EGD BIOPSY SINGLE/MULTIPLE [facility] Work Phone: CT Chest WO contrast [facility] Fat [Mass/mass] in Stool [facility] Work Phone: Fat.neutral [Presenc e] in Stool [facility] Work Phone: Helicobacter pylori Ag [Presence] in Stool by Immunoassay [facility] Work Phone: Patient referral [facility] Work Phone: Tobacco use cessatio n education [facility] Payers Date Payer Category Payer Self-pay [id number] 2023 Medicaid [id number] 1975 Unknown [id number] 1975 Unknown [id number] [id number] 1975 Unknown [id number] [id number] [id number] Private Health Insurance [id number] Unknown [id number] Unknown [id number] [id number] [id number] Unknown [id number] [id number] [id number] Unknown [id number] [id number] Social History Date Type Detail Facility Start: 02-08-2022 End: 04-28-2023 Tobacco smoking status NHIS Unknown if ever smoked [facility] Start: 1975 Sex Assigned At Male [facility] Start: 03-27-2023 Tobacco smoking status Heavy t obacco smoker (finding) [facility] [place] Goals Date Patient Goal Desired Activity /State Functional Status Date Assessment Result Facility 07-13-2024 Functional Status Assistive Device None A [facility] 07-13-2024 Functional Status Standard Safet y ID band on, Allergy Band on, Bed in low position, Wheels locked, Upper/Half-Length side-rails up, Safety level maintained [facility] 04-21-2024 Functional Status Sensory Deficits None A [facility] Mental Status Date Assessment Result Facility 07-13-2024 Mental Status Orientation Oriented x 4 [facility] 07-13-2024 Mental Status [facility] 03-11-2022 Cognitive function Touch/Shaking [facility] Work Phone: 03-11-2022 Cognitive function Patient Orien tation Person;Place;Time [facility] Work Phone: Clinical Note 07-13-2024 Note Date & Type Note Facility 07-13-2024 Note ORIGINAL EXAMINATION: CT THORAX WITH CONTRAST EXTRACARDIAC 07/13/2024 10:43 am TECHNIQUE: CT of the chest with the administration of intravenous contrast. Multiplanar reformatted images are provided for review. Automated exposure control, iterative reconstruction, and/or weight based adjustment of the mA/kV was utilized to reduce the radiation dose to as low as reasonably achievable. Cardiac images were obtained and reported separately in a report from cardiology. COMPARISON: None. HISTORY: ORDERING SYSTEM PROVIDED HISTORY: Reason for Exam: chest pain pt c/o left chest pain x few years smoker no heart surg no ca FINDINGS: CT heart dictated separately by the cardiology service. Borderline right hilar lymph node on series 305, image 59, likely normal for location. Scattered degenerative changes the spine. No visualized pleural effusion or pneumothorax. No focal consolidation. Moderate emphysema. Slight bronchial wall thickening most pronounced the bilateral lower lobes. There is a 5 mm nodule in the right upper lobe on series 302, image 6. This may be partly calcified. Small 2 mm nodule the right upper lobe on series 302, image 7. There is a 3 mm nodule in the right lower lobe on series 302, image 29. Other scattered small nodules. Linear consolidation within the lingula favor subsegmental atelectasis versus scarring. Limited images of the upper abdomen are unremarkable. IMPRESSION: Please see separately dictated CT heart by the cardiology service for further information. Multiple pulmonary nodules. Most significant: Right solid pulmonary nodule within the upper lobe measuring 5 mm. Per Fleischner Society Guidelines, a non-contrast Chest CT at 12 months is optional. If performed and the nodule is stable at 12 months, no further follow-up is recommended. These guidelines do not apply to immunocompromised patients and patients with cancer. Follow up in patients with significant comorbidities as clinically warranted. For lung cancer screening, adhere to Lung-RADS guidelines. Reference: Radiology. 2017; 284(1):228-43. Moderate emphysema. Bronchial wall thickening, which can be seen in bronchitis. I have personally reviewed the images of this examination, agree with resident's findings and interpretation. Interpreted by: Vern Pereira DO Preliminary Report By: Adonis Becker Electronically signed By Vern Pereira DO Dictated Date: 07/13/2024 1:52:55 PM Prelim Date: 07/13/2024 3:39:59 PM Sign Date: 07/13/2024 3:39:59 PM Ordering Provider: MALINDA SANCHEZ [facility] Discharge instructions 07-13-2024 Note Date & Type Note Facility 07-13-2024 Hospital Discharg e instructions Patient Education 07/13/2024 08:43:02 Radiology- CT Coronary Angiogram(CUSTOM) VALPARAISO Coronary CT Angiogram (Coronary CTA or Cardiac CTA) Discharge Instructions [facility] [address] [place] [address] Today, you had a Coronary CT Angiogram. This procedure was done to look at the anatomy of your heart and the surrounding vessels. The images obtained are to help evaluate the presence of coronary heart disease. These instructions should be followed after your procedure to reduce the chance of experiencing complications. Please follow the instructions below to reduce the chance of experiencing complications. Activity: Rest for the remainder of the day. You may resume your normal activity tomorrow. Avoid alcoholic beverages for 24 hours after your procedure. Do not drive or operate heavy machinery for 24 hours after your procedure. Do not make any legal decisions for 24 hours after your procedure. Diet: Resume your normal diet as tolerated. Medication: Please resume medications today as scheduled . When to seek medical help: Arm, neck or jaw pain Angina (chest pain) or chest discomfort Shortness of breath Dizziness or lightheaded Hives or itching If you experience any of these issues during the first 24 hours, please follow the instruction below or go to the Emergency Department: For the first 24 hours call [phone] After 24 hours, contact the physician who ordered this procedure for you. Obtaining test results: Please make an appointment with your doctor to obtain your test results. They are usually available within 4 to 5 business days. Do not assume everything is normal if you have not heard from your doctor or medical facility. It is important for you to follow up on all of your test results. Follow Up Care 02/16/2024 16:29:04 With:Go to emergency room if symptoms worsen Address:Unknown When: Unknown With:MALINDA SANCHEZ MD Address: [address] [facility] [address] [place] [address] [phone] When: Unknown Comments:Follow-up as scheduled [facility] Summary of episode note 07-13-2024 Note Date & Type Note Facility 07-13-2024 Summary of episod e note Discharge Instructions Thank you for allowing [facility] to assist you with your healthcare needs. The following is important discharge information regarding your hospital visit. Your Care Team BASILIA LOZADA MD What to do next Scheduled Follow-Up Appointments Appointment Type When Where Contact Information StatusyyCT Coronary Extracardiac 07/13/2024 10:[address] Confirmed Follow Up Appointments Follow Up with Go to emergency room if symptoms worsen Follow Up with MALINDA SANCHEZ MD Where:[address] [facility] [address] [place] [address]- [phone] Additional Information: Follow-up as scheduled Allergies PriLOSEC anxiety Medications Please ask your primary doctor or pharmacist before taking any other medication not listed, including over the counter drugs, herbal medications, vitamins and or supplements as they may interact with your home medications. What How Much When Instructions Last Dose Changed pancrelipase (Zenpep 40,000 units-126,000 units-168,000 units oral delayed release capsule) 2 cap by mouth Three (3) times a day with each meal and 1 with every snack Unchanged rosuvastatin (rosuvastatin 10 mg oral tablet) 1 tab(s) by mouth Once a day Please take this list to your next doctor s visit. Bring all medications you take, including over the counter medications, herbals and other supplements with you to your doctor s visit. Patients and families are reminded to discard old lists and to update any records with all medication providers or retail pharmacies. Education Materials VALPARAISO Coronary CT Angiogram (Coronary CTA or Cardiac CTA) Discharge Instructions [facility] [address] [address] Today, you had a Coronary CT Angiogram. This procedure was done to look at the anatomy of your heart and the surrounding vessels. The images obtained are to help evaluate the presence of coronary heart disease. These instructions should be followed after your procedure to reduce the chance of experiencing complications. Please follow the instructions below to reduce the chance of experiencing complications. Activity: Rest for the remainder of the day. You may resume your normal activity tomorrow. Avoid alcoholic beverages for 24 hours after your procedure. Do not drive or operate heavy machinery for 24 hours after your procedure. Do not make any legal decisions for 24 hours after your procedure. Diet: Resume your normal diet as tolerated. Medication: Please resume medications today as scheduled . When to seek medical help: Arm, neck or jaw pain Angina (chest pain) or chest discomfort Shortness of breath Dizziness or lightheaded Hives or itching If you experience any of these issues during the first 24 hours, please follow the instruction below or go to the Emergency Department: For the first 24 hours call [phone] After 24 hours, contact the physician who ordered this procedure for you. Obtaining test results: Please make an appointment with your doctor to obtain your test results. They are usually available within 4 to 5 business days. Do not assume everything is normal if you have not heard from your doctor or medical facility. It is important for you to follow up on all of your test results. Additional Information VACCINATE! IT SAVES LIVES! Members of the community who have not yet received the COVID-19 vaccine and would like to receive it can visit one of [facility] vaccine clinics. There are many vaccine clinic locations within the [facility]. For locations and available times, please visit [email or web address] It is important to note that some COVID mobile vaccine clinics are held outdoors and may be canceled in rainy or stormy conditions. To learn more about pediatric vaccinations (ages 5-11), we invite you to visit the [facility] webpage. [email or web address]/[email or web address]-[email or web address]-Frequently-[email or web address] -Questions.html To learn more about the COVID-19 vaccine, we invite you to visit the CDC website for a list of frequently asked questions.https://www.cdc.gov/coronavi chuy/2019-ncov/vaccines/faq.html [facility] Patient Portal Access Instructions: Stay connected with your healthcare team and access your personal medical information anytime with the [facility] Patient Portal. Please follow the directions below to create your [facility] account: 1.Access the email account you provided upon registration to the hospital/physician office.2.Look for an invitation email from [facility].3.Open the email and access the invitation link: Accept Invitation to [facility].4.Fill in the required velarde to create your account. To access your account, visit [email or web address]. Click the blue button labeled Access Patient Portal and then log in with the username and password that you created in the steps above. You will be able to view your test results, lab results, a summary of your visits, upcoming appointments and more. There is also a convenient messaging option where you can send secure messages to your provider. In addition, you will have the ability to download any documents or summaries to your computer and/or send the information securely to a physician. Remember that your healthcare information is confidential, so carefully consider who you will allow to register on the [facility] Patient Portal for access to your information. You can also access the [facility] Patient Portal on the [facility] ed. Simply click on Patient Portal and then log into your account. If you would like to receive a full copy of your medical records, please contact the [facility] Medical Records Department by calling [phone], Friday through Friday between 8 a.m. and 4:30 p.m. HOW TO SAFELY DISPOSE OF PRESCRIPTION MEDICATIONS Please use one of the following methods to safely dispose of your unused medications. 1.Use a drug disposal kit: the drug disposal pouch allows you to safely discard your old and unused drugs. Ask your nurse to give you one when you are discharged.2.Visit a local take-back location: Many local pharmacies and police departments have programs that collect old and unwanted prescription drugs. Call your local pharmacy or go to http://Rock'n Rover.Sure Chill/5Z4Ys0i to find one close to you.3.Make use of household items: Use cat litter or old coffee grounds to dispose medications if other options are not available. Mix your drugs with these household products, seal them in an airtight container and throw it into the garbage. Call [facility]: [phone] to be sure your drugs can be disposed of in this way. Some medicines may require a different approach.4.Never flush your medications down the toilet. IF YOU HAVE BEEN PRESCRIBED AN OPIOID FOR PAIN If you have been prescribed an opioid (such as hydrocodone, oxycodone or morphine), it is critical to understand the possible side effects and risks of opioid pain medications. Even when taken as directed, opioids can have several side effects including: Tolerance, meaning you might need to take more of a medication for the same pain relief. Nausea, vomiting and/or constipation. Sleepiness, dizziness, dry mouth, confusion, depression or itching. Physical dependence, meaning you have withdrawal symptoms when a medication is stopped, can develop within a few days. KNOW YOUR RESPONSIBILITIES It is important to know exactly how much and how often to take the opioid pain medications you are prescribed. Never take opioids in higher amounts or more often than prescribed. Do not combine opioids with alcohol or other drugs that cause drowsiness, such as benzodiazepines, also known as benzos, including diazepam and alprazolam, muscle relaxants or sleep aids. Never sell or share prescription opioids. This is illegal. Store opioids in a secure place and out of reach of others (including children, family, friends and visitors). The last page of this document has been signed and retained as a CHART COPY. Signatures Patient Education Materials Radiology- CT Coronary Angiogram(CUSTOM) Medication Leaflets My discharge plan and instructions have been reviewed and explained to me and IBHASKAR CARL E understand my current condition and have read and understand these discharge instructions. I have received a written copy of the plan/instructions. If I have questions, I am aware that I should contact my doctor. 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 Work Phone: Evaluation note Note Date & Type Note Facility Evaluation note Diagnosis Onset Date Abdominal pain acute Scre[facility] Irritable bowel syndrome non eactive Abdominal pain acute Elevated CEA acute [facility] Work Phone: Evaluation note Note Date & Type Note Facility Evaluation note Diagnosis Onset Date Abdominal pain acute Elevated CEA acute Abdominal pain acute Diarrhea acute Elevated CEA acute Epigastric pain acute Gastropathy acute [facility] Work Phone: Evaluation note Note Date & Type Note Facility Evaluation note Diagnosis Onset Date Abnormal CT of the abdomen a cute Lung nodule seen on imaging study acute Marijuana abuse, continuous acute Nicotine addiction acute COPD (chronic obstructive pulmonary disease) chronic Exocrine pancreatic insufficiency chronic Epigastric pain chronic Exocrine pancreatic insufficiency [facility] Work Phone: Evaluation note Note Date & Type Note Facility Evaluation note Diagnosis Onset Date Epigastric pain chronic Exocrine pancreatic insufficiency chronic Lung nodule seen on imaging study acute Marijuana abuse, continuous acute Nicotine addiction acute COPD (chronic obstructive pulmonary disease) [facility] Work Phone: Hospital course Narrative Note Date & Type Note Facility Hospital course Narrative No data available for this section [facility] Chief Complaint and Reason for Visit Chief Complaint Irritable bowel synd barbara INT LABS STOOL SAMPLE Reason for Visit Abdominal pain Screening for colon cancer Chief Complaint Irritable bowel synd barbara INT LABS STOOL SAMPLE ABD PAIN CALLED TO DO MORE LABS- EORDER Reason for Visit Abdominal pain Screening for colon cancer Chief Complaint Irritable bowel synd barbara INT LABS STOOL SAMPLE ABD PAIN CALLED TO DO MORE LABS- EORDER 2 WK FU CAP ENDO EORDERS Reason for Visit Abdominal pain Screening for colon cancer Irritable bowel syndrome Abdominal pain Elevated CEA Chief Complaint 2 WK FU CAP ENDO EORDERS 3 MO FU INT LABS INT LABSPEC RUQ Reason for Visit Abdominal pain Elevated CEA Abdominal pain Diarrhea Elevated CEA Epigastric pain Gastropathy Chief Complaint Lung Nodule LUNG NODULE LUNG NODULE 6 M FU INT LAB COPD; NB APPROVED Reason for Visit Abnormal CT of the a bdomen Lung nodule seen on imaging study Marijuana abuse, continuous Nicotine addiction COPD (chronic obstructive pulmonary disease) Exocrine pancreatic insufficiency Epigastric pain Exocrine pancreatic insufficiency Chief Complaint 6 M FU INT LAB COPD; NB APPROVED 1 M FU 5MM LUCINDA LUNG NODULE Reason for Visit Epigastric pain Exocrine pancreatic insufficiency Lung nodule seen on imaging study Marijuana abuse, continuous Nicotine addiction COPD (chronic obstructive pulmonary disease) Family History No Family History Records Found Relationship Condition Age at Onset Recorded Date/T rl father Diabetes mellitus Unknown Cardiac disease Unknown Hypertension Unknown Kidney disorder Unknown grandfather Malignant neoplasm Unknown grandmother Malignant neoplasm Unknown Relationship Condition Age at Onset Recorded Date/T rl father Diabetes mellitus Unknown Cardiac disease Unknown Hypertension Unknown Kidney disorder Unknown Cerebrovascular accident (CVA) Unknown grandfather Malignant neoplasm Unknown grandmother Malignant neoplasm Unknown Advance Directives No Advanced Directives Records Found Advance Directive Response Recorded Date/ Time Living Will No March 08, 2022 10:34am Power of Research Attorney No March 08 10:34am Summary Purpose Additional Source Comments Goals (unrecognized section and content) Goals may be documented in a n alternate sectionGoals may be documented in an alternate sectionGoals may be documented in an alternate sectionGoals may be documented in an alternate sectionGoals may be documented in an alternate sectionGoals may be documented in an alternate sectionGoals may be documented in an alternate sectionGoals may be documented in an alternate section No data available for this section Care Teams (unrecognized sec tion and content) Team Status: Active Member Role Status Dates Dr. Edis Mayo MD Family Provider Active Dr. Basilia Lozada MD Primary Care Provider Active Team Status: Inactive Member Role Status Dates Dr. Basilia Lozada MD Primary Care Provider, Referring Provider Active Christiane Shannon AESTHETICS INSTRUCTOR, AESTHETICS INSTRUCTOR-C Attending Provider Active Team Status: Inactive Member Role Status Dates Dr. Basilia Lozada MD Primary Care Provider, Referring Provider Active Dr. Percy Short MD Attending Provider Active Team Status: Active Member Role Status Dates Dr. Basilia Lozada MD Primary Care Provider Active Dr. Percy Short MD Referring Provider, Other Pro vider Active Dr. Manoj Valenzuela DO Attending Provider Active Team Status: Inactive Member Role Status Dates Dr. Basilia Lozada MD Primary Care Provider Active Dr. Percy Short MD Attending Provider, Referring Provider Active Team Status: Inactive Member Role Status Dates Dr. Basilia Lozada MD Primary Care Provider Active Dr. Percy Short MD Attending Provider Active Team Status: Active Member Role Status Dates Dr. Basilia Lozada MD Primary Care Provider Active Christiane Shannon AESTHETICS INSTRUCTOR, AESTHETICS INSTRUCTOR-C Attending Provider, Referrin g Provider Active Team Status: Inactive Member Role Status Dates Dr. Basilia Lozada MD Primary Care Provider Active Christiane Shannon AESTHETICS INSTRUCTOR, AESTHETICS INSTRUCTOR-C Attending Provider, Referrin g Provider Active Team Status: Inactive Member Role Status Dates Dr. Basilia Lozada MD Primary Care Provider Active Dr. Percy Short MD Attending Provider, Referring Provider Active Dr. Manoj Valenzuela DO Other Provider Active (unrecognized sect ion and content) No Status Records FoundNo Status Records FoundNo Status Records FoundNo Status Records Found INFORMATION SOURCE (unrecogn ized section and content) DATE CREATED AUTHOR 09/10/2023 [facility] DATE CREATED AUTHOR AUTHOR'S ORGANIZ ATION 07/16/2024 [facility] DATE CREATED AUTHOR AUTHOR'S ORGANIZ ATION 09/09/2024 [facility] DATE CREATED AUTHOR AUTHOR'S ORGANIZ ATION 04/15/2025 [facility] FOR RECORDS PERTAINING TO PATIENTS WHO ARE OR HAVE BEEN ENROLLED IN A CHEMICAL DEPENDENCY/SUBSTANCEABUSE PROGRAM, SOME INFORMATION MAY BE OMITTED. This clinical summary was aggregated from multiple sources. Caution should be exercised in using it in the provision of clinical care. This summary normalizes information from multiple sources, and as a consequence, information in this document may materially change the coding, format and clinical context of patient data. In addition, data may be omitted in some cases. CLINICAL DECISIONS SHOULD BE BASED ON THE PRIMARY CLINICAL RECORDS. [facility] [employer] [facility]. provides no warranty or guarantee of the accuracy or completeness of information in this document.
== END | disposition home or self-care (01) ==
LOC: PSN 09:41
PROVIDERS: PCP Internal Medicine Infectious Disease; Referring Provider Physician Assistant; Visit Provider Physician Assistant
DX: M54.12 Radiculopathy, cervical region (principal); R20.2 Paresthesia of skin
CPT/HCPCS: 95886; 95910

== ENCOUNTER → 2025-06-09 | Outpatient (CLI) | payer MEDICAID, SELFPAY ==
--- OUTSIDE RECORDS SUMMARY | 2025-06-09 06:30 | XMS RPT_ITS | CCD ---
Author Organization [facility] CliniSyil Care Team Providers Care Rn Labor And Delivery Name Role Phone Dr. Edis Mayo Primary Care Provider Dr. Edis Mayo Referring Provider Dr. Hang Mccullough Attending Provider [phone] Basilia Lozada Primary Care Provider Neville, Dr. Cui Referring Provider Dr. Hang Mccullough Other Provider Dr. Edis Mayo Referring Provider Dr. Hang Mccullough Attending Provider [phone] Basilia Lozada Primary Care Provider Dr. Basilia Lozada Referring Provider Shiva DOSHI, GLENDA-Aury Hawthorne Attending Provider Dr. Basilia Lozada Primary Care Provider Dr. Basilia Lozada Referring Provider Dr. ePrcy Short Attending Provider Dr. Percy Short Referring Provider Dr. Percy Short Other Provider Dr. Manoj Valenzuela Attending Provider LENNIE Shannon NP Attending Provider Dr. Basilia Lozada Primary Care Provider Dr. Basilia Lozada Referring Provider Dr. Percy Short Attending Provider NEVILLE GREGORY, DR CUI Primary Care Physician MALINDA SANCHEZ Attending Unavailable NEVILLE GREGORY, DR CUI Primary Care Unavailable Neville GREGORY, Dr. Cui Primary Care Provider [phone] Tasha PA, Beronica Attending Provider Tasha PA, Beronica Referring Provider Tasha PA, Beronica Referring Provider [phone] Tasha PA, Beronica Other Provider Jennifer GREGORY, Dr. Huddleston Attending Provider Neville GREGORY, Dr. Cui Referring Provider Telma Lomas Attending Provider Karma GREGORY, Dr. Back Attending Provider BASILIA LOZADA MD Attending Unavailable BASILIA LOZADA MD Primary Care Unavailable BASILIA LOZADA MD Admitting Unavailable BASILIA LOZADA MD Attending Unavailable BASILIA LOZADA MD Primary Care Unavailable BASILIA LOZADA MD Admitting Unavailable BASILIA LOZADA MD Attending Unavailable BASILIA LOZADA MD Primary Care Unavailable BASILIA LOZADA MD Admitting Unavailable PRO, TELMA PA Attending Unavailable PRO, TELMA PA Primary Care Unavailable PRO, TELMA PA Admitting Unavailable BASILIA LOZADA MD Attending Unavailable BASILIA LOZADA MD Primary Care Unavailable BASILIA LOZADA MD Admitting Unavailable Omran, Yasser Primary Care Unavailable Omran, Yasser Referring Unavailable Pro Telma Attending Unavailable Tasha PA, Beronica Referring Unavailable Omran, Yasser Primary Care Unavailable Flaquito Rodriguez Attending Unavailable Tasha PA Beronica Consulting Unavailable Wong Parada Attending Unavailable Omran, Yasser Primary Care Unavailable Omran, Yasser Primary Care Unavailable Pro Telma Attending Unavailable Pro, Telma Referring Unavailable Tasha Cindi VERAe Attending Unavailable Tasha PA, Beronica Referring Unavailable Omran, Yasser Primary Care Unavailable Mary Beltran Attending Unavailable Mary Beltran Referring Unavailable Basilia Lozada Primary Care Unavailable Mary Beltran Attending Unavailable Basilia Lozada Primary Care Unavailable Basilia Lozada Referring Unavailable Allergies Allergy Classification Reported Allergen(s) Allergy Type Date of Onset Reaction(s) Facility (13 sources) Omeprazole; Translations: [omeprazole] Drug Allergy 2 GI Upset, anxiety [facility] (1 source) Omeprazole Drug Allergy [facility] (1 source) Omeprazole Drug Allergy 5 [facility] Medications Current Medications Medication Drug Class(es) Dates Sig (Normalized) Sig (Original) amylase 861898 unt / lipase 24926 unt / protease 985347 unt delayed release oral capsule (1 source) Start: 02-19-2023 take 1 capsule by mouth three times daily at mealtime, then take 1 capsule by mouth once Zenpep 40,000 units-126,000 units-168,000 units oral delayed release capsule Dose = 2 cap(s), Oral, TID, with each meal and 1 with every snack, # 100 cap(s), 0 Refill(s) Start Date: 02/19/23 Status: Ordered Raljuk-Rjhpzdgi-Khk lase (Zenpep) 40,000-126,000- 168,000 unit capsule,delayed release(DR/EC) (14 sources) Start: 07-02-2024 take 59403-562016 capsules by mouth three times daily Srazjn-Gytcenmg-Io ylase (Zenpep) 40,000-126,000- 168,000 unit capsule,delayed release(DR/EC) Active 2 NMA PO THREE TIMES A DAY July 02, 2024 4:01pm Start: 03-30-2024 End: 07-02-2024 Vjfwzt-Ssfvufxe-Softccc (Manpreet pep) 40,000-126,000- 168,000 unit capsule,delayed release(DR/EC) Discontinued 0 PO .COMPLEX March 30, 2024 7:59am July 02, 2024 4:02pm take 1 cap with snack, take 2 caps with meals Start: 01-26-2024 End: 03-30-2024 Scdxdv-Lfenepal-Ruwhedp (Manpreet pep) 40,000-126,000- 168,000 unit capsule,delayed release(DR/EC) Discontinued 0 PO .COMPLEX 100 January 26, 2024 9:49am March 30, 2024 7:59am take 1 cap with snack, take 2 caps with meals Start: 08-30-2022 End: 01-26-2024 Cleqyd-Qlqnsisj-Xuawdfj (Manpreet pep) 40,000-126,000- 168,000 unit capsule,delayed release(DR/EC) Discontinued 0 PO .COMPLEX 300 August 30, 2022 12:00am January 26, 2024 9:49am take 1 cap with snack, take 2 caps with meals Start: 08-30-2022 Lipase-Proteas e-Amylase (Zenpep) 40,000-126,000- 168,000 unit capsule,delayed release(DR/EC) Active 0 PO .COMPLEX 300 August 30, 2022 12:00am take 1 cap with snack, take 2 caps with meals nicotine 4 mg inhalation solution (5 sources) Cholinergic Nicotinic Agonist Start: 03-18-2023 take 10 mg by inhalation once as needed Nicotine (Nicotrol) 10 mg cartridge Active 1 NMA INHALATION ONCE as needed for nicotine cravings March 18, 2023 12:00am Start: 03-18-2023 take 10 mg by inhalation once Nicotine (Nicotrol) 10 mg cartridge Active 1 INH INHALATION ONCE March 18, 2023 12:00am rosuvastatin calcium 10 mg oral tablet (6 sources) HMG-CoA Reductase Inhibitor Start: 04-07-2023 take 1 tablet by mouth once daily Rosuvastatin 10 mg tablet Active 10 mg PO DAILY April 07, 2023 12:00am Completed/Discontinued Medications Medication Drug Class(es) Dates Sig (Normalized) Sig (Original) Tiotropium-Olodate rol (4 sources) Anticholinergic, beta2-Adrenergic Agonist Start: 04-28-2023 End: 09-07-2024 Tiotropium-Olodatero l (Stiolto Respimat) 2.5-2.5 mcg/actuation mist Discontinued 2 NMA INHALATION DAILY April 28, 2023 12:00am September 07, 2024 8:11am Start: 04-28-2023 Tiotropium-Olo daterol (Stiolto Respimat) 2.5-2.5 mcg/actuation mist Active 2 PUFF INHALATION DAILY April 28, 2023 12:00am sucralfate 1000 mg oral tablet (12 sources) Aluminum Complex Start: 02-06-2022 End: 08-07-2022 take 1 tablet by mouth twice daily Sucralfate (Carafate) 1 gram tablet Discontinued 1 g PO TWICE A DAY February 06, 2022 12:00am August 07, 2022 8:16am Problems Active Problems Problem Classification Problem Date Documented Da te Episodic/Chronic Abdominal hernia (5 sources) Gastroesophageal reflux disease with hiatal hernia; Translations: [Diaphragmatic hernia without obstruction or gangrene] 09-04-2022 Episodic Abdominal pain (20 sources) Abdominal pain; Translations: [Unspecified abdominal pain] Episodic Chronic obstructive pulmonary disease and bronchiectasis (7 sources) Chronic obstructive lung disease; Translations: [Chronic obstructive pulmonary disease, unspecified] 03-18-2023 Chronic Disorders of lipid metabolism (4 sources) Dyslipidemia; Translations: [Pure hypercholesterolemia, unspecified] Onset: 4 03-28-2023 Chronic Diverticulosis and diverticulitis (5 sources) Diverticulosis of colon; Translations: [Diverticulosis of large intestine without perforation or abscess without bleeding] 09-04-2022 Chronic Nonspecific chest pain (1 source) Chest pain 03-28-2023 Episodic Other disorders of stomach and duodenum (8 sources) Disorder of stomach; Translations: [Disease of stomach and duodenum, unspecified] 05-27-2022 Episodic Other disorders of stomach and duodenum (2 sources) Disease of stomach and duodenum, unspecified; Translations: [Unspecified disorder of stomach and duodenum] Episodic Other gastrointestinal disorders (1 source) Irritable bowel syndrome without diarrhea; Translations: [Irritable bowel syndrome] Chronic Other gastrointestinal disorders (7 sources) Diarrhea; Translations: [Diarrhea, unspecified] 08-07-2022 Episodic Other gastrointestinal disorders (2 sources) Diarrhea, unspecified; Translations: [Diarrhea] Episodic Other lower respiratory disease (5 sources) Nodule of lung; Translations: [Solitary pulmonary nodule] 03-18-2023 Episodic Other lower respiratory disease (2 sources) Solitary pulmonary nodule; Translations: [Solitary pulmonary nodule] 03-18-2023 Episodic Other nervous system disorders (1 source) Paresthesia of skin; Translations: [Paresthesia of skin] Onset: Episodic Other screening for suspected conditions (not mental disorders or infectious disease) (20 sources) Patient encounter status; Translations: [Encounter for screening for malignant neoplasm of colon] Episodic Comment on above: Patient has severe r eflux, is followed by Hang Mccullough MD of gastroenterology with recent EGD.Medications as noted in EMR Pancreatic disorders (not diabetes) (5 sources) Chronic pancreatitis; Translations: [Other chronic pancreatitis] 08-30-2022 Chronic Pancreatic disorders (not diabetes) (8 sources) Exocrine pancreatic insufficiency; Translations: [Exocrine pancreatic insufficiency] 04-07-2023 Episodic Spondylosis; intervertebral disc disorders; other back problems (3 sources) Radiculopathy, cervical region; Translations: [Cervicalgia] Onset: Episodic Substance-related disorders (18 sources) Nicotine dependence; Translations: [Nicotine dependence, unspecified, uncomplicated] Onset: 4 03-18-2023 Chronic Comment on above: Repeat LDCT ordered for June 2025 Past or Other Problems Problem Classification Problem Date Documented Da te Episodic/Chronic Other aftercare (1 source) Other longterm (current) drug therapy; Translations: [Other longterm (current) drug therapy] Onset: 12-24-2024 Episodic Results Test Name Value Interpretation Reference Range Facility Cerv Spine 4 or 5 Viewson Cerv Spine 4 or 5 Views [facility] Services [address] [place] [id number] Cerv Spine 4 or 5 Views MR#: [id number] Acct: [id number] Name: JOON MURO Rep #: [id number] : 1975 M 50 From: Freeman Polk MD PCP: Dr. Basilia Lozada MD Status: DEP AMB Study: Cerv Spine 4 or 5 Views Date of Exam: 05/09/25 Exam# [id number] Ordering Dr: Telma Mast PROCEDURE: CERV SPINE 4 OR 5 VIEWS 05/09/2025 REASON FOR EXAM: PAIN, NKI, PAIN INTO RIGHT ARM TECHNIQUE: CERV SPINE 4 OR 5 VIEWS COMPARISON: None FINDINGS: Vertebral body heights and alignment are maintained, without significant change in positioning on flexion-extension imaging. Mild multilevel disc height loss and endplate osteophyte formation, worst at C5-6. Prevertebral soft tissues are unremarkable. RAD/Cerv Spine 4 or 5 Views IMPRESSION: Mild multilevel degenerative changes are worst at C5-6. Reading Location: [facility] CC: CHUY Grady; Dr. Basilia Lozada MD [employer] Core Feeder: Signed Normal [facility] Orthopedic Visit Reporton Orthopedic Visit Report [facility] [address] [place] [address] [address] [place] [address] OFFICE VISIT Date of Service: 05/09/25 MR#: [id number] Acct: [id number] Name: JOON MURO Rep #: [id number] : 1975 Provider: CHUY Grady Age/Sex: 50/M Location: [facility] Status: Signed Intake Vital Signs 09/07/24 07:17 05/02/25 08:23 05/09/25 09:03 Height 5 ft 10 in 5 ft 10 in 5 ft 10 in Weight: 144 lb BMI 20.6 Intake Visit Reasons: CERVICAL SPINE Chief Complaint: Cervical spine pain Accompanied by: Self Is patient in pain?: Yes Pain scale (1-10): 6 Allergies omeprazole (From Prilosec) Adverse Reaction (Intermediate, Verified 05/09/25 09:06) GI Upset Medications ???Medication ???Instructions ???Recorded ???Confirmed ???Type nicotine 10 mg inhalation 1 inh inhalation ONCE PRN nicotine 03/18/23 05/09/25 Rx cartridge (Nicotrol) cravings #168 ea rosuvastatin 10 mg tablet 10 mg PO DAILY 04/07/23 05/09/25 H istory ghwgly-pwuoiigl-ekhqaxp 2 cap PO TID #100 caps 07/02/24 Rx 40,000-126,000-168,000 unit capsule, delay rel (Zenpep) Have you fallen in the past year?: No [facility] Medical History Marijuana abuse, continuous COPD (chronic obstructive pulmonary disease) Lung nodule seen on imaging study Nicotine addiction Diverticula, colon Marijuana use Essential tremor Insomnia Back pain History of ulceration Emphysema, unspecified Shortness of breath on exertion Leg cramps History of stress test Chest pain Hx of [place] spotted fever Injury of left clavicle Hypercholesterolemia [...] times a month substance use type: marijuana HPI CERVICAL SPINE Details: This documentation accurately reflects the service provided and the decisions made by me, CHUY Grady 05/09/25 0903. Part of today???s visit was documented by Reg Jeffers MA, acting as scribe. JOON MURO is a 50 year old M here today for cervical spine. Patient is having pain in the back of the neck. This has been going on for the last several months. Patient says that it is worsening. The pain in the back of the neck feels like something is popping. The pain goes down the right arm. He states that he has numbness and tingling down arm and the hands and fingers. He feels like this pain extends down the back of his right arm to the thumb, index, middle finger. This has been going on for a couple months. Patient states that he doesn't really know what he did. He states that he woke up with the pain. Patient denies any surgeries on the neck, or the back. Sitting for a long period of time makes the pain worse. Patient denies any injections in the back. He denies any physical therapy for his back. Patient denies any diabetes, or blood thinners. No heart issues, has emphysema and COPD, sees pulmonary. Patient smokes a couple packs of cigarettes a day, he does smoke marijuana. Patient denies any worsening dexterity or balance. He states that he gets tremors once in a while. Ortho Exam General General: Yes no acute distress Neurologic: Yes alert and Yes oriented x3 Spine SPINE TESTING CERVICAL THORACIC LUMBAR Musculoskeletal Strength 0=absent - 5=normal Details: Neurological exam of the upper extremities shows 5X5 power. Normal sensation across all dermatomes. No hyperreflexia. There is midline and mild right paraspinal tenderness. Meena's negative. Coding Level of Care Code Off vis,new,level 4 Diagnoses Cervical radiculopathy M54.12 Assessment and Plan Assessment and Plan (1) Cervical radiculopathy: Status: Acute Orders: Orders Cerv Spine 4 or 5 Views Today M54.2 - Cervicalgia Spine Cervical (Routine) Today M54.12 - Radiculopathy, cervical region Referrals Physical Therapy Referral M54.12 - Radiculopathy, cervical region Plan Obtained reviewed cervical x-rays today in the clinic. Independent rotation of the x-rays was performed. X-rays show a straightening of the normal cervical lordosis, mild degenerative changes seen at C5-6, no instab (more content not included)... Normal [facility] NCS and/or EMG Patienton NCS and/or EMG Patient [facility] Pulmonary Services/Neurology [address] [place] [address] MR#: [id number] Acct: [id number] Name: JOON MURO Rep #: [id number] : 1975 50 From: Flaquito Rodriguez MD Referring Dr: Beronica Cordova Status: REG CLI Location: [facility] Date: 04/27/25 Sex: M C NCS and/or EMG Patient Report Ordering Doctor: Beronica Cordova DATE OF SERVICE: 04/27/25 Joon presents with complaints of sharp and burning pain from the base of the neck radiating into the right arm. Electrodiagnostic findings: Right median motor nerve demonstrates normal distal latency, amplitude and conduction velocity. Ulnar motor response is within normal limits. Sensory responses are within normal limits. Normal median ulnar F???waves. Needle EMG testing was performed of the right upper limb. 1+ fibrillations noted in the right triceps, right flexor carpi ulnaris and right lower cervical paraspinals. Motor unit action potentials with normal amplitude and duration. Electrodiagnostic impression: This an abnormal study in the right upper limb. 1. Electrodiagnostic findings suggestive of acute right C7 radiculopathy. Recommend cervical spine MRI to evaluate for underlying disc herniation or stenosis. 2. No electrodiagnostic evidence is noted for peripheral neuropathy, including carpal tunnel syndrome. Multi Select Codes Neurology Neurology Interp Codes: 98698-23 Musc test done w/n test comp (interp) and 31148-26 Nrv cndj test 7- 8 studies (interp) 04/27/25 1235 Date Flaquito Rodriguez MD CC: CHUY Hernandez; Dr. Flaquito Rodriguez MD; Dr. Basilia Lozada MD Date Dictated: 04/27/25 1232 Date Transcribed: 04/27/25 123 [employer] Core Feeder: AA Signed Normal [facility] CBC (NO DIFF)on 12-24-2024 CBC panel Auto (Bld) Normal [facility] Comment on above: Result Comment: CBC( WITHOUT DIFFERENTIAL) Performed By: #### 2 99347 #### [place] [address] Erythrocyte distribution width (RBC) [Ratio] 13.3 % Normal 12.0 - 15.6 [facility] Comment on above: Performed By: #### 2 85608 #### [place] [id number] Hematocrit (Bld) [Volume fraction] 49.6 % Normal 40.0 - 52.0 [facility] Comment on above: Performed By: #### 2 23067 #### [place] [id number] Hemoglobin (Bld) [Mass/Vol] 16.8 g/dL Normal 13.0 - 17.5 [facility] Comment on above: Performed By: #### 2 54756 #### [address] [place] [address] MCH (RBC) [Entitic mass] 32 pg Normal 27 - 33 [facility] Comment on above: Performed By: #### 2 01247 #### [facility],[address] [place] [address] MCHC 34 X10 3 Normal 32 - 36 [facility] Comment on above: Performed By: #### 2 82750 #### [facility],[address] [place], [place] [address] MCV (RBC) [Entitic vol] 95 fL Normal 81 - 98 [facility] Comment on above: Performed By: #### 2 02906 #### [facility],[address] [place] [address] PLATELET 216 x10EE3/UL Normal 150 - 450 [facility] Comment on above: Performed By: #### 2 81543 #### [facility],[address] [place] [address] Platelet mean volume (Bld) [Entitic vol] 9.4 fL Normal 6.4 - 10.5 [facility] Comment on above: Performed By: #### 2 78033 #### [facility],[address] [place], [place] [id number] RBC 5.21 x 10EE6/UL Normal 4.50 - 6.00 [facility] Comment on above: Performed By: #### 2 00467 #### [facility],[address] [place] [address] WBC 8.2 x 10EE3/UL Normal 4.5 - 10.8 [facility] Comment on above: Performed By: #### 2 83589 #### [facility],[address] [place], [place] [id number] CMP with eGFRon 12-24-2024 AGE 49 years Normal [facility] Comment on above: Performed By: #### 2 05640 #### [facility],[address] [place] [address]153 Albumin [Mass/Vol] 3.8 g/dL Normal 3.4 - 5.0 [facility] Comment on above: Performed By: #### 2 82805 #### [facility],[address] [place] [address] 19135 Albumin/Globulin [Mass ratio] 1.2 {ratio} Normal 0.9 - 1.6 [facility] Comment on above: Performed By: #### 2 32495 #### [facility],[address] [place] [address] 83400 ALK PHOS 102 U/L Normal 46 - 116 [facility] Comment on above: Performed By: #### 2 31029 #### [facility],[address] [place] [address] 37065 ALT [Catalytic activity/Vol] 27 U/L Normal 16 - 63 [facility] Comment on above: Performed By: #### 2 34345 #### [facility],[address] [place] [address] 34590 Anion gap [Moles/Vol] 11 mmol/L Normal 10 - 20 [facility] Comment on above: Performed By: #### 2 30059 #### [facility],[address] [place] [address] 06254 AST [Catalytic activity/Vol] 21 U/L Normal 15 - 37 [facility] Comment on above: Performed By: #### 2 64486 #### [facility],[address] [place] [address] 59901 B/C RATIO 22 ratio Normal 0 - 30 [facility] Comment on above: Performed By: #### 2 74399 #### [facility],[address] [place] [address] 04824 Bilirubin [Mass/Vol] 0.4 mg/dL Normal 0.2 - 1.0 [facility] Comment on above: Performed By: #### 2 78421 #### [facility],[address] [place] [address] 09970 Calcium [Mass/Vol] 9.0 mg/dL Normal 8.5 - 10.1 [facility] Comment on above: Performed By: #### 2 29221 #### [facility],[address] [place] [address] 50138 Chloride [Moles/Vol] 105 mmol/L Normal 98 - 107 [facility] Comment on above: Performed By: #### 2 20332 #### [facility],[address] [place] [address] 52697 CMP with eGFR Normal [facility] Comment on above: Result Comment: COMP REHENSIVE METABOLIC PANEL Performed By: #### 2 51137 #### [facility],[address] [place] [address] 81551 CO2 [Moles/Vol] 29.1 mmol/L Normal 21.0 - 32.0 [facility] Comment on above: Performed By: #### 2 75032 #### [facility],[address] [place] [address] 10034 Creatinine [Mass/Vol] 0.86 mg/dL Normal 0.70 - 1.30 [facility] Comment on above: Performed By: #### 2 32380 #### [facility],[address] [place] [address] 43964 GFR/1.73 sq M.predicted among non-blacks MDRD (S/P/Bld) [Vol rate/Area] mL/min/{1.73_m2} Normal 60 - 999 [facility] Comment on above: Performed By: #### 2 03419 #### [facility],[address] [place] [address] 21880 Result Comment: ACCO RDING TO THE NATIONAL KIDNEY DISEASE EDUCATION PROGRAM(NKDE), A NORMAL eGFR IS A VALUE GREATER THAN OR EQUAL TO 60 ML/MIN/1.73 SQ METERS. CHRONIC KIDNEY DISEASE: <60mL/MIN/1.73 SQ METERS KIDNEY FAILURE: <15mL/MIN/1.73 SQ METERS THIS TEST SHOULD ONLY BE USED FOR PATIENTS 18 YEARS OF AGE AND OLDER. Globulin (S) [Mass/Vol] 3.2 g/dL Normal 1.5 - 3.8 [facility] Comment on above: Performed By: #### 2 16147 #### [facility],[address] [place] [address]309 Glucose [Mass/Vol] 100 mg/dL Normal 74 - 106 [facility] Comment on above: Performed By: #### 2 86419 #### [facility],[address] [place] [address] 54957 Potassium [Moles/Vol] 4.2 mmol/L Normal 3.5 - 5.1 [facility] Comment on above: Performed By: #### 2 52436 #### [facility],[address] [place] [address] 72761 Protein [Mass/Vol] 7.0 g/dL Normal 6.4 - 8.2 [facility] Comment on above: Performed By: #### 2 96143 #### [facility],[address] [place] [address] 98286 Sodium [Moles/Vol] 141 mmol/L Normal 136 - 145 [facility] Comment on above: Performed By: #### 2 37573 #### [facility],[address] [place] [address] 96436 Urea nitrogen [Mass/Vol] 19 mg/dL High 7 - 18 [facility] Comment on above: Performed By: #### 2 71891 #### [facility],[address] [place] [address] 67659 HEMOGLOBIN A1C (POM)on 12-24 Glucose [Mass/Vol] 116.9 mg/dL High 0.0 - 0.0 [facility] Comment on above: Result Comment: BLDo HEMOGLOBIN A1C REFERENCE RANGESBLDo Suggested Diagnosis HbA1c(%) HbA1C (mmol/mol Diabetic >/=6.5 >/=48 Prediabetes 5.7 - 6.4 39 - 47 Normal <5.7 <39 Performed By: #### 2 50162 #### [facility],[address] [place] [address] 37337 HbA1c (Bld) [Mass fraction] 5.7 % Normal 0.0 - 6.5 [facility] Comment on above: Performed By: #### 2 75097 #### [facility],[address] [place] [address] 46869 LIPID PROFILEon 12-24-2024 Cholesterol [Mass/Vol] 147 mg/dL Normal 0 - 240 [facility] Comment on above: Performed By: #### 2 95296 #### [facility],[address] [place] [address] 53542 Cholesterol in HDL [Mass/Vol] 52 mg/dL Normal 40 - 60 [facility] Comment on above: Performed By: #### 2 81110 #### [facility],[address] [place] [address] 16958 Cholesterol in LDL [Mass/Vol] 85 mg/dL Normal 0 - 129 [facility] Comment on above: Performed By: #### 2 11092 #### [facility],[address] [place] [address] 17576 Cholesterol.total/Chol esterol in HDL [Mass ratio] 2.8 {ratio} Normal 0.0 - 5.0 [facility] Comment on above: Performed By: #### 2 37185 #### [facility] [facility],[address] [place] [address] 06497 Lipid 1996 panel Normal [facility] Comment on above: Result Comment: LIPI D PROFILE Performed By: #### 2 91546 #### [facility],[address] [place] [address] 27996 Triglyceride [Mass/Vol] 51 mg/dL Normal 0 - 150 [facility] Comment on above: Performed By: #### 2 55445 #### [facility],[address] [place] [address] 00151 TSHon 12-24-2024 TSH Qn 2.81 m[IU]/L Normal 0.35 - 3.74 [facility] Comment on above: Performed By: #### 2 43541 #### [facility],[address] [place] [address] 06852 URINALYSISon 12-24-2024 Amorphous NONE Normal [facility] Comment on above: Performed By: #### 2 63680 #### [facility],[address] [place] [address] Bacteria 2+ Normal [facility] Comment on above: Performed By: #### 2 12906 #### [facility],[address] [place] [address] Bilirubin Ql (U) Negative Normal NORMAL: NEGATIVE [facility] Comment on above: Performed By: #### 2 85645 #### [facility],[address] [place] [address] Casts NONE Normal [facility] Comment on above: Performed By: #### 2 57917 #### [facility],[address] [place], [place] [phone] Clarity (U) clear Normal NORMAL: CLEAR [facility] Comment on above: Performed By: #### 2 57496 #### [facility],[address] [place] [address] 37905 Color (U) yellow Normal NORMAL: YELLOW [facility] Comment on above: Performed By: #### 2 64356 #### [facility],[address] [place] [address] 42710 Crystals LM Nom (Urine sed) NONE Normal [facility] Comment on above: Performed By: #### 2 27685 #### [facility],[address] [place] [address] 58614 Epi Cells NONE Normal [facility] Comment on above: Performed By: #### 2 45512 #### [facility],[address] [place], [place] [phone] Glucose Ql (U) NORM Normal NORMAL: NORMAL [facility] Comment on above: Performed By: #### 2 09821 #### [facility],[address] [place] [address] 81087 Hemoglobin Ql (U) 25 Abnormal NORMAL: NEGATIVE [facility] Comment on above: Performed By: #### 2 74849 #### [facility],[address] [place] [address] 85209 Ketone Negative Normal NORMAL: NEGATIVE [facility] Comment on above: Performed By: #### 2 07762 #### [facility],[address] [place] [address] 23047 Leukocytes Negative Normal NORMAL: NEGATIVE [facility] Comment on above: Performed By: #### 2 53114 #### [facility],[address] [place] [address] Mucous 1+ Normal [facility] Comment on above: Performed By: #### 2 55081 #### [facility],[address] [place] [address] 19592 Nitrite Ql (U) Negative Normal NORMAL: NEGATIVE [facility] Comment on above: Performed By: #### 2 63481 #### [facility],[address] [place] [address] 13162 pH (U) 5 [pH] Normal NORMAL: 5.0-8.0 [facility] Comment on above: Performed By: #### 2 17514 #### [facility],[address] [place] [address] 37226 Protein Ql (U) Negative Normal NORMAL: NEGATIVE [facility] Comment on above: Performed By: #### 2 93436 #### [facility],[address] [place] [address] 34773 Rbc NONE Normal 0-3/hpf [facility] Comment on above: Performed By: #### 2 72776 #### [facility],[address] [place] [address] 34716 Sp Dannemora 1.020 Normal NORMAL: 1.010-1.030 [facility] Comment on above: Performed By: #### 2 93878 #### [facility],[address] [place] [address] Specimen Type R Normal [facility] Comment on above: Performed By: #### 2 63650 #### [facility],[address] [place] [address] 02474 Urinalysis dipstick W Reflex Microscopic panel (U) SEE BELOW Normal [facility] Comment on above: Result Comment: MICR OSCOPIC Performed By: #### 2 90099 #### [facility],[address] [place] [address] Urobilinog NORM Normal NORMAL: NORMAL [facility] Comment on above: Performed By: #### 2 06241 #### [facility],[address] [place], [place] [phone] Wbc 1-5 Normal 0-5/hpf [facility] Comment on above: Performed By: #### 2 68464 #### [facility],[address] [place], [place] [phone] Yeast NONE Normal [facility] Comment on above: Performed By: #### 2 35196 #### [facility],[address] [place] [address] 82753 LIPID PROFILEon 10-06-2024 Lipid 1996 panel Normal [facility] Comment on above: Result Comment: LIPI D PROFILE SEE SCANNED REPORT Performed By: #### 2 48855 #### [facility],[address] [place], [place] [phone] CBC + DIFFon 10-05-2024 Baso # 0.03 x10EE3/UL Normal 0.00 - 0.10 [facility] Comment on above: Performed By: #### 2 87291 #### [facility],[address] [place] [address] 97341 Basophils/100 WBC (Bld) 0.4 % Normal 0.0 - 2.0 [facility] Comment on above: Performed By: #### 2 32612 #### [facility],[address] [place], [place] [phone] CBC + DIFF Normal [facility] Comment on above: Result Comment: CBC- COMPLETE BLOOD COUNT Performed By: #### 2 72273 #### [facility],[address] [place] [address] 13937 EO # 0.04 x10EE3/UL Normal 0.00 - 0.50 [facility] Comment on above: Performed By: #### 2 84642 #### [facility],[address] [place], [place] [phone] Eosinophils/100 WBC (Bld) 0.5 % Normal 0.0 - 7.0 [facility] Comment on above: Performed By: #### 2 17449 #### [facility],[address] [place] [address] Erythrocyte distribution width (RBC) [Ratio] 13.4 % Normal 12.0 - 15.6 [facility] Comment on above: Performed By: #### 2 00831 #### [facility],[address] [place] [address] Hematocrit (Bld) [Volume fraction] 47.8 % Normal 40.0 - 52.0 [facility] Comment on above: Performed By: #### 2 63848 #### [facility],[address] [place], [place] [phone] Hemoglobin (Bld) [Mass/Vol] 16.0 g/dL Normal 13.0 - 17.5 [facility] Comment on above: Performed By: #### 2 56326 #### [facility],[address] [place] [address] 79650 Lymph # 1.87 x10EE3/UL Normal 0.80 - 2.80 [facility] Comment on above: Performed By: #### 2 26312 #### [facility],[address],[place] [address] Lymphocytes/100 WBC (Bld) 25.8 % Normal 20.0 - 45.0 [facility] Comment on above: Performed By: #### 2 74950 #### [facility],[address] [place] [address] MANUAL DIFF N/A Normal [facility] Comment on above: Performed By: #### 2 58067 #### [facility],[address] [place] [address] MCH (RBC) [Entitic mass] 32 pg Normal 27 - 33 [facility] Comment on above: Performed By: #### 2 38344 #### [facility],[address] [place] [address] MCHC 34 X10 3 Normal 32 - 36 [facility] Comment on above: Performed By: #### 2 91826 #### [place] [address] MCV (RBC) [Entitic vol] 96 fL Normal 81 - 98 [facility] Comment on above: Performed By: #### 2 41758 #### [facility],[address] [place] [address] [place] # 0.48 x10EE3/UL Normal 0.20 - 1.00 [facility] Comment on above: Performed By: #### 2 70932 #### [facility],[address] [place] [address] MONOS % 6.7 % Normal 0.0 - 10.0 [facility] Comment on above: Performed By: #### 2 05886 #### [facility],[address] [place], [place] [phone] Morphology Ronaldo (Bld) [Interp] N/A Normal [facility] Comment on above: Performed By: #### 2 22287 #### [facility],[address] [place] [address] Neut # 4.84 x10EE3/UL Normal 1.50 - 7.10 [facility] Comment on above: Performed By: #### 2 13864 #### [address] [address] Neutrophils/100 WBC (Bld) 66.7 % Normal 46.0 - 76.0 [facility] Comment on above: Performed By: #### 2 13011 #### [facility],[address] [place], [place] [phone] PLATELET 166 x10EE3/UL Normal 150 - 450 [facility] Comment on above: Performed By: #### 2 26636 #### [place] [address] Platelet mean volume (Bld) [Entitic vol] 9.4 fL Normal 6.4 - 10.5 [facility] Comment on above: Result Comment: AUTO MATED DIFFERENTIAL Performed By: #### 2 99090 #### [place] [address] RBC 4.96 x 10EE6/UL Normal 4.50 - 6.00 [facility] Comment on above: Performed By: #### 2 47934 #### [place] [id number] WBC 7.3 x 10EE3/UL Normal 4.5 - 10.8 [facility] Comment on above: Performed By: #### 2 39685 #### [place] [id number] CMP with eGFRon 10-05-2024 AGE 49 years Normal [facility] Comment on above: Performed By: #### 2 60199 #### [place] [id number] Albumin [Mass/Vol] 3.6 g/dL Normal 3.4 - 5.0 [facility] Comment on above: Performed By: #### 2 95791 #### [place] [id number] Albumin/Globulin [Mass ratio] 1.1 {ratio} Normal 0.9 - 1.6 [facility] Comment on above: Performed By: #### 2 01350 #### [facility],[address] [place] [address] 17598 ALK PHOS 101 U/L Normal 46 - 116 [facility] Comment on above: Performed By: #### 2 89600 #### [facility],[address] [place] [address] 40986 ALT [Catalytic activity/Vol] 27 U/L Normal 16 - 63 [facility] Comment on above: Performed By: #### 2 37572 #### [facility],[address] [place] [address] 18214 Anion gap [Moles/Vol] 12 mmol/L Normal 10 - 20 [facility] Comment on above: Performed By: #### 2 12677 #### [facility],[address] [place] [address] AST [Catalytic activity/Vol] 23 U/L Normal 15 - 37 [facility] Comment on above: Performed By: #### 2 18504 #### [facility],[address] [place] [address] 05901 B/C RATIO 17 ratio Normal 0 - 30 [facility] Comment on above: Performed By: #### 2 88959 #### [facility],[address] [place] [address] 24973 Bilirubin [Mass/Vol] 0.3 mg/dL Normal 0.2 - 1.0 [facility] Comment on above: Performed By: #### 2 25590 #### [address] [address] Calcium [Mass/Vol] 8.9 mg/dL Normal 8.5 - 10.1 [facility] Comment on above: Performed By: #### 2 70743 #### [facility],[address] [place] [address] 10358 Chloride [Moles/Vol] 107 mmol/L Normal 98 - 107 [facility] Comment on above: Performed By: #### 2 41660 #### [facility],[address] [place] [address] CMP with eGFR Normal [facility] Comment on above: Result Comment: COMP REHENSIVE METABOLIC PANEL Performed By: #### 2 95231 #### [facility],[address] [place] [address] CO2 [Moles/Vol] 28.3 mmol/L Normal 21.0 - 32.0 [facility] Comment on above: Performed By: #### 2 88695 #### [facility],[address] [place] [address] Creatinine [Mass/Vol] 0.87 mg/dL Normal 0.70 - 1.30 [facility] Comment on above: Performed By: #### 2 74179 #### [facility],[address] [place] [address] GFR/1.73 sq M.predicted among non-blacks MDRD (S/P/Bld) [Vol rate/Area] mL/min/{1.73_m2} Normal 60 - 999 [facility] Comment on above: Performed By: #### 2 73953 #### [facility],[address] [place] [address] Result Comment: ACCO RDING TO THE NATIONAL KIDNEY DISEASE EDUCATION PROGRAM(NKDE), A NORMAL eGFR IS A VALUE GREATER THAN OR EQUAL TO 60 ML/MIN/1.73 SQ METERS. CHRONIC KIDNEY DISEASE: <60mL/MIN/1.73 SQ METERS KIDNEY FAILURE: <15mL/MIN/1.73 SQ METERS THIS TEST SHOULD ONLY BE USED FOR PATIENTS 18 YEARS OF AGE AND OLDER. Globulin (S) [Mass/Vol] 3.2 g/dL Normal 1.5 - 3.8 [facility] Comment on above: Performed By: #### 2 12137 #### [facility],[address],[place] [address] Glucose [Mass/Vol] 95 mg/dL Normal 74 - 106 [facility] Comment on above: Performed By: #### 2 40450 #### [facility],[address] [place] [address] 74589 Potassium [Moles/Vol] 4.3 mmol/L Normal 3.5 - 5.1 [facility] Comment on above: Performed By: #### 2 77480 #### [facility],[address] [place] [address] 90509 Protein [Mass/Vol] 6.8 g/dL Normal 6.4 - 8.2 [facility] Comment on above: Performed By: #### 2 26820 #### [facility],[address] [place] [address] 23665 Sodium [Moles/Vol] 143 mmol/L Normal 136 - 145 [facility] Comment on above: Performed By: #### 2 53517 #### [facility],[address] [place] [address] 32112 Urea nitrogen [Mass/Vol] 15 mg/dL Normal 7 - 18 [facility] Comment on above: Performed By: #### 2 75714 #### [facility],[address] [place] [address] 44755 HEMOGLOBIN A1C (POM)on 10-05 Glucose [Mass/Vol] 102.5 mg/dL High 0.0 - 0.0 [facility] Comment on above: Result Comment: BLDo HEMOGLOBIN A1C REFERENCE RANGESBLDo Suggested Diagnosis HbA1c(%) HbA1C (mmol/mol Diabetic >/=6.5 >/=48 Prediabetes 5.7 - 6.4 39 - 47 Normal <5.7 <39 Performed By: #### 2 91912 #### [facility],[address] [place] [address] 23245 HbA1c (Bld) [Mass fraction] 5.2 % Normal 0.0 - 6.5 [facility] Comment on above: Performed By: #### 2 00994 #### [facility],[address] [place] [address] 98769 URINALYSISon 10-05-2024 Bilirubin Ql (U) Negative Normal NORMAL: NEGATIVE [facility] Comment on above: Performed By: #### 2 03182 #### [facility],[address] [place] [address] 19250 Clarity (U) clear Normal NORMAL: CLEAR [facility] Comment on above: Performed By: #### 2 85823 #### [facility],[address] [place] [address] 40874 Color (U) yellow Normal NORMAL: YELLOW [facility] Comment on above: Performed By: #### 2 51044 #### [facility],[address] [place] [address] 11295 Glucose Ql (U) NORM Normal NORMAL: NORMAL [facility] Comment on above: Performed By: #### 2 55442 #### [facility],[address] [place] [address] 31714 Hemoglobin Ql (U) Negative Normal NORMAL: NEGATIVE [facility] Comment on above: Performed By: #### 2 74534 #### [facility],[address] [place] [address] 23704 Ketone Negative Normal NORMAL: NEGATIVE [facility] Comment on above: Performed By: #### 2 72392 #### [facility],[address] [place] [address] 26385 Leukocytes Negative Normal NORMAL: NEGATIVE [facility] Comment on above: Performed By: #### 2 74133 #### [facility],[address] [place] [address] 66744 Nitrite Ql (U) Negative Normal NORMAL: NEGATIVE [facility] Comment on above: Performed By: #### 2 26647 #### [facility],[address] [place] [address] 43402 pH (U) 6 [pH] Normal NORMAL: 5.0-8.0 [facility] Comment on above: Performed By: #### 2 44114 #### [facility],[address] [place] [address] 01331 Protein Ql (U) Negative Normal NORMAL: NEGATIVE [facility] Comment on above: Performed By: #### 2 44821 #### [facility],[address] [place] [address] 27142 Sp Dann[place]ora 1.020 Normal NORMAL: 1.010-1.030 [facility] Comment on above: Performed By: #### 2 34253 #### [facility],[address] [place] [address] Specimen Type R Normal [facility] Comment on above: Performed By: #### 2 74210 #### [facility],[address] [place], [place] [phone] Urinalysis dipstick W Reflex Microscopic panel (U) NOT INDICATED Normal [facility] Comment on above: Performed By: #### 2 63080 #### [facility],[address] [place], [place] [phone] Urobilinog NORM Normal NORMAL: NORMAL [facility] Comment on above: Performed By: #### 2 98304 #### [facility],[address] [place], [place] [phone] Pulmonary Visit Reporton Pulmonary Visit Report [facility] [address] [place] [address] OFFICE VISIT Date of Service: 09/07/24 MR#: [id number] Acct: [id number] Name: BHASKARJOON Murali Rep #: [id number] : 1975 Provider: LENNIE Beltran Age/Sex: 49/M Location: [facility] Status: Signed Assessment and Plan Assessment and [...] Centrilobular emphysema Plan Details Follow Up: 07/18/25 ([facility]) HPI 1 Y FU Chief Complaint: Test [...] and occasionally marijuana. If you recall, he "rolls his own" cigarettes and likely smokes "a couple packs a day". He reports shortness of breath on exertion. [...] N/A Accompanied by: Self Allergies omeprazole (From Codexis) Adverse Reaction (Intermediate, Verified 09/07/24 08:09) GI Upset Medications ???Medication ???Instructions ???Recorded ???Confirmed ???Type nicotine 10 mg inhalation 1 inh inhalation ONCE PRN nicotine 03/18/23 09/07/24 Rx cartridge (Nicotrol) cravings #168 ea rosuvastatin 10 mg tablet 10 mg PO DAILY 04/07/23 09/07/24 History oeheql-hldmrzwq-qobnxxr 2 cap PO TID #100 caps 07/02/24 09/07/24 Rx 40,000-126,000-168,000 unit capsule, delay rel (Zenpep) [facility] Medical History Marijuana abuse, continuous COPD (chronic obstructive pulmonary disease) Lung nodule seen on imaging study Nicotine addiction Diverticula, colon Marijuana use Essential tremor Insomnia Back pain History of ulceration Emphysema, unspecified Shortness of breath on exertion Leg cramps History of stress test Chest pain Hx of Washta spotted fever Injury of left clavicle Hypercholesterolemia [...] type: marijuana (more content not included)... Normal [facility] CT CORONARY ANGIOGRAPHY W+W/ O CONTRASTon 07-15-2024 CT CORONARY ANGIOGRAPHY W+W/O CONTRAST ORIGINAL CT CORONARY ANGIOGRAPHY W+W/O CONTRAST PATIENT NAME:JOON MURO : 1975 GENDER: Male ORDERING PROVIDER:MALINDA SANCHEZ CLINICAL STATEMENT: chest pain pt c/o left chest pain x few years smoker no heart surg no ca PATIENT NAME:JOON MURO : 1975 GENDER: Male ORDERING PROVIDER:MALINDA [...] / NASCI 2016 expert consensus document entitled, "CAD-RADS(TM) Coronary Artery Disease - Reporting and Data System." MEDS: PO metoprolol (mg): \\X09\\None IV metoprolol (mg): \\X09\\None Nitroglycerin (mg): \\X09\\0.4 SL COMPLICATIONS: None ACQUISITION HR (bpm): \\X09\\46, regular rhythm. TECHNICAL QUALITY: \\X09\\Good with minor artifact but good diagnostic quality. LIMITATIONS: \\[id number]\\None Abbreviations: LM: left main, RCA: right coronary [...] in the FOV. CARDIAC FINDINGS: NON-CORONARY HEART: \\X0909\\Not enlarged. PERICARDIUM:\\X09\\Contour preserved. No effusion. No thickening. No calcifications. AV: \\[id number]\\Tricuspid. No thickening. No calcifications. MV: \\[id number]\\No thickening. No calcifications. CORONARY CALCIUM SCORING AGATSTON SCORE \\X09\\LM:\\X09\\0 \\X09\\LAD:\\X09\\0 \\X09\\LCx:\\X09\\0 \\X09\\RCA:\\X09\\0 \\X09\\TOTAL: 0 DOMINANCE:\\X09\\Right ANATOMY:\\X09\\Normal origin and course. LM originates from L [...] FINDINGS: See separate report from radiologist under "CT coronary extracardiac." IMPRESSION: 1. Noncardiac findings were independently reported by Radiologist. See Radiologist interpretation under Noncardiac findings. 2. CAD-RADS 1. 3. Mild luminal irregularities of mid-LAD. 4. Agatston score: 0. CAD-RADS 1 Degree of Maximal Coronary Stenosis = 1-24% - Minimal Stenosis or plaque with no stenosis Interpretation = Minimal non-obstructive CAD Recommendation = None Interpreted By: Ismael eBrnal Preliminary Report By: Ismael Bernal Electronically Signed By: Ismael Bernal Dictated Date: 07/15/2024 10:50:24 PM Prelim Date: 07/15/2024 10:50:24 PM Sign Date: 07/15/2024 10:57:20 PM Ordering Provider:Malinda Sanchez [facility] ([place]) CT CORONARY EXTRACARDIACon 0 07-13-2024 CT CORONARY [...] Date: 07/13/2024 3:39:59 PM Ordering Provider: MALINDA Rice [facility] ([place]) HbA1c (Bld)on 09-08-2023 Average glucose Estimated from glycated hemoglobin (Bld) [Mass/Vol] 111 mg/dL Normal [facility] Comment on above: Order Comment: Speci men Type: BLOOD SPECIMEN Ordering Facility: [facility] Address: [address] [place] [id number] Result Comment: eAG: (Estimated average glucose) is a calculated value from HgbA1c and is community health program representative of the average blood glucose level in the last 2-3 month period. Performed By: #### 5 5454-3 #### [facility] CLIA [id number] [address] [place] [address] [place] HbA1c (Bld) [Mass fraction] 5.5 % Normal 4.3-5.6 [facility] Comment on above: Order Comment: Soy sana Type: BLOOD SPECIMEN Ordering Facility: [facility] Address: [facility] [place] [address] Result Comment: Joaquin ican Diabetes Association guidelines indicate that patients with HgbA1c in the range 5.7-6.4% are at increased risk for development of diabetes, and intervention by lifestyle modification may be beneficial. HgbA1c greater or equal to 6.5% is considered diagnostic of diabetes. Performed By: #### 5 5454-3 #### [facility] CLIA [id number] [address] [place] [address] [place] Absolute lymphocyte countOrd ered By: Christiane Shannon on 04-07-2023 Lymphocytes Auto (Unsp spec) [#/Vol] 1.62 10*3/uL 0.83-4.51 [facility] Basophil percentageOrdered B y: Christiane Shannon on 04-07-2023 Basophils/100 WBC (Bld) 0.4 % 0-1 [facility] Bilirubin [Mass/Vol] 0.40 mg/dL 0.20-1.00 [facility] Comment on above: For patients on eltr ombopag therapy, use of Dimension [place] TBIL is not recommended. Chloride [Moles/Vol] 108 mmol/L 98-107 [facility] Eosinophils/100 WBC (Bld) 1.2 % 0-5 [facility] Glucose [Mass/Vol] 95 mg/dL 74-106 [facility] Neutrophils (Bld) [#/Vol] 5.9 10*3/uL 2.0-7.7 [facility] Neutrophils/100 WBC (Bld) 72.4 % 47-70 [facility] Potassium [Moles/Vol] 4.5 mmol/L 3.5-5.1 [facility] Protein [Mass/Vol] 7.0 g/dL 6.4-8.2 [facility] Sodium [Moles/Vol] 139 mmol/L 136-145 [facility] WBC (Bld) [#/Vol] 8.1 10*3/uL 4.4-11.0 [facility] Blood erythrocytes count (nu mber/volume)Ordered By: Christiane Shannon on 04-07-2023 RBC (Bld) [#/Vol] 5.08 10*6/uL 4.6-6.2 [facility] Blood hemoglobin measurement (mass/volume)Ordered By: Christiane Shannon on 04-07-2023 Hemoglobin (Bld) [Mass/Vol] 15.8 g/dL 13.0-16.5 [facility] Blood lymphocytes/100 leukoc ytesOrdered By: Christiane Shannon on 04-07-2023 Lymphocytes/100 WBC (Bld) 20.1 % 19-41 [facility] Blood monocytes/100 leukocyt esOrdered By: Christiane Shannon on 04-07-2023 Monocytes/100 WBC (Bld) 5.5 % 0-10 [facility] Blood platelet mean volumeOr dered By: Christiane Shannon on 04-07-2023 Platelet mean volume (Bld) [Entitic vol] 11.5 fL 6.2-12.0 [facility] Determination of erythrocyte mean corpuscular volume (MCV)Ordered By: Christiane Shannon on 04-07-2023 MCV (RBC) [Entitic vol] 96.9 fL 80-94 [facility] Erythrocyte sedimentation ra teOrdered By: Christiane Shannon on 04-07-2023 ESR (Bld) [Velocity] 9 mm/h 0-20 [facility] Hematocrit Auto (Bld) [Volum e fraction]Ordered By: Christiane Shannon on 04-07-2023 Hematocrit (Bld) [Volume fraction] 49.2 % 40-54 [facility] - Chemistry and C hemistry - challengeOrdered By: Christiane Shannon on 04-07-2023 ALP [Catalytic activity/Vol] 117 U/L 45-117 [facility] ALT [Catalytic activity/Vol] 32 U/L 16-61 [facility] CO2 [Moles/Vol] 27.0 mmol/L 21.0-32.0 [facility] Globulin (S) [Mass/Vol] 3.5 g/dL 2.2-4.2 [facility] Lipase [Catalytic activity/Vol] 57 U/L 13-75 [facility] Comment on above: Please note:LIPASE r evised reference range effective 23. New Lipase methodology. Expected to produce lower values than the previous assay method. NEW Reference Range: 13 - 75 U/L Urea nitrogen/Creatinine [Mass ratio] 25.9 mg/mg 10-20 [facility] Laboratory - Hematology and Cell countsOrdered By: Christiane Shannon on 04-07-2023 Erythrocyte distribution width (RBC) [Entitic vol] 45.8 fL 35.1-43.9 [facility] Erythrocyte distribution width (RBC) [Ratio] 12.7 % 11.6-14.6 [facility] Immature granulocytes/100 WBC (Bld) 0.400 % 0.0-0.9 [facility] Comment on above: IG% - Immature Granu locytes (promyelocytes, myelocytes and metamyelocytes) > 1% indicates that a LEFT SHIFT is Present. MCH (RBC) [Entitic mass] 31.1 pg 27.0-32.0 [facility] Nucleated RBC/100 WBC (Bld) [Ratio] 0 % 0-5 [facility] MCHC Auto (RBC) [Mass/Vol]Or dered By: Christiane Shannon on 04-07-2023 MCHC (RBC) [Mass/Vol] 32.1 g/dL 32-36 [facility] No Panel InformationOrdered By: Christiane Shannon on 04-07-2023 CA 19-9 Antigen 7 U/mL 0-35 [facility] Comment on above: [employer] El ectrochemiluminescence Immunoassay(ECLIA)Values obtained with different assay methods or kits cannotbe used interchangeably. Results cannot be interpreted asabsolute evidence of the presence or absence of malignantdisease. Estimated GFR (MDRD) Amer 117 mL/min >60 [facility] Comment on above: GFR Calc Estimated GFR (MDRD) Non-Af Amer 96 mL/min >60 [facility] Comment on above: Non- GFR Calc Immunoglobulin G4 15 mg/dL 2-96 [facility] Platelets bldOrdered By: Mary Shannon on 04-07-2023 Platelets (Bld) [#/Vol] 215 10*3/uL 150-450 [facility] Serum IgG subclass 1 measure ment (mass/volume)Ordered By: Christiane Shannon on 04-07-2023 IgG subclass 1 (S) [Mass/Vol] 312 mg/dL 248-810 [facility] Serum IgG subclass 2 measure ment (mass/volume)Ordered By: Christiane Shannon on 04-07-2023 IgG subclass 2 (S) [Mass/Vol] 258 mg/dL 130-555 [facility] Serum IgG subclass 3 measure ment (mass/volume)Ordered By: Christiane Shannon on 04-07-2023 IgG subclass 3 (S) [Mass/Vol] 33 mg/dL 15-102 [facility] Serum mitochondria antibody detectionOrdered By: Christiane Shannon on 04-07-2023 Mitochondria Ab Ql (S) <20.0 Units 0.0-20.0 [facility] Comment on above: Negative 0.0 - 20.0 Equivocal 20.1 - 24.9 Positive >24.9Mitochondrial (M2) Antibodies are found in 90-96% ofpatients with primary biliary cirrhosis.Performed at: [facility] [address] [id number] Director: Alin Ceron PhD, Phone: [phone] Serum or plasma C reactive p rotein measurement (mass/volume)Ordered By: Christiane Shannon on 04-07-2023 CRP [Mass/Vol] 10.90 mg/L 0.0-3.0 [facility] Comment on above: C-Reactive Protein ( CRP) provides useful information for thediagnosis, therapy and monitoring of inflammatory processesand associated diseases. For the evaluation of Relative Riskfor Cardiovascular Disease, a High Sensitivity CRP (HSCRP)should be ordered. Serum or plasma IgG measurem ent (mass/volume)Ordered By: Christiane Sahnnon on 04-07-2023 IgG [Mass/Vol] 740 mg/dL [id number] [facility] Serum or plasma actin IgG an tibody assay (units/volume)Ordered By: Christiane Shannon on 04-07-2023 Actin IgG Qn 4 Units 0-19 [facility] Comment on above: Negative 0 - 19 Weak positive 20 - 30 Moderate to strong positive >30 Actin Antibodies are found in 52-85% of patients with autoimmune hepatitis or chronic active hepatitis and in 22% of patients with primary biliary cirrhosis.Performed at: [facility] [address] [id number] Director: Alin Ceron PhD, Phone: [phone] Serum or plasma albumin paige urement (mass/volume)Ordered By: Christiane Shannon on 04-07-2023 Albumin [Mass/Vol] 3.5 g/dL 3.2-5.0 [facility] Serum or plasma albumin/glob ulin mass ratioOrdered By: Christiane Shannon on 04-07-2023 Albumin/Globulin [Mass ratio] 1.0 {ratio} 0.9-2.4 [facility] Serum or plasma calcium paige urement (mass/volume)Ordered By: Christiane Shannon on 04-07-2023 Calcium [Mass/Vol] 8.7 mg/dL 8.5-10.1 [facility] Serum or plasma creatinine m easurement (mass/volume)Ordered By: Christiane Shannon on 04-07-2023 Creatinine [Mass/Vol] 0.89 mg/dL 0.70-1.30 [facility] Comment on above: The validity of the calculated GFR & GFRAA in patients over 70 years has not been determined. Clinical correlation is essential. Serum or plasma urea nitroge n measurement (mass/volume)Ordered By: Christiane Shannon on 04-07-2023 Urea nitrogen [Mass/Vol] 23 mg/dL 7-18 [facility] Thin prep Papanicolaou smear with manual screeningOrdered By: Christiane Shannon on 04-07-2023 Thin prep Papanicolaou smear with manual screening 24 U/L 15-37 [facility] Thin prep Papanicolaou smear with manual screening 4 5-15 [facility] No Panel Informationon 08-12 Stool Neutral Fats Increased . [facility] Work Phone: Comment on above: Normal (<60 Droplets /HPF) Qualitative fecal fat or lip idson 08-12-2022 Fat Ql (Stl) Increased . [facility] Work Phone: Comment on above: Normal (<100 Droplet s/HPF)Performed at: [facility] [address] [id number] Director: Alin Ceron PhD, Phone: [phone] Absolute lymphocyte counton 08-07-2022 Lymphocytes Auto (Unsp spec) [#/Vol] 1.78 10*3/uL 0.83-4.51 [facility] Work Phone: Basophil percentageon 2021 Amylase [Catalytic activity/Vol] 49 U/L 25-115 [facility] Work Phone: Basophils/100 WBC (Bld) 0.2 % 0-1 [facility] Work Phone: Bilirubin [Mass/Vol] 0.50 mg/dL 0.20-1.00 [facility] Work Phone: Comment on above: For patients on eltr ombopag therapy, use of Dimension [place] TBIL is not recommended. Chloride [Moles/Vol] 106 mmol/L 98-107 [facility] Work Phone: Eosinophils/100 WBC (Bld) 1.1 % 0-5 [facility] Work Phone: Glucose [Mass/Vol] 106 mg/dL 74-106 [facility] Work Phone: Comment on above: Fasting Glucose resu lt from 100 to 125 mg/dL suggests IMPAIRED HOMEOSTASIS per A.D.A. criteria. Neutrophils (Bld) [#/Vol] 6.7 10*3/uL 2.0-7.7 [facility] Work Phone: Neutrophils/100 WBC (Bld) 73.5 % 47-70 [facility] Work Phone: Potassium [Moles/Vol] 4.3 mmol/L 3.5-5.1 [facility] Work Phone: Protein [Mass/Vol] 7.6 g/dL 6.4-8.2 [facility] Work Phone: [phone] Sodium [Moles/Vol] 139 mmol/L 136-145 [facility] Work Phone: [phone] WBC (Bld) [#/Vol] 9.2 10*3/uL 4.4-11.0 [facility] Work Phone: Blood erythrocytes count (nu mber/volume)on 08-07-2022 RBC (Bld) [#/Vol] 5.35 10*6/uL 4.6-6.2 [facility] Work Phone: Blood hemoglobin measurement (mass/volume)on 08-07-2022 Hemoglobin (Bld) [Mass/Vol] 17.1 g/dL 13.0-16.5 [facility] Work Phone: [phone] Blood lymphocytes/100 leukoc yteson 08-07-2022 Lymphocytes/100 WBC (Bld) 19.4 % 19-41 [facility] Work Phone: [phone] Blood monocytes/100 leukocyt eson 08-07-2022 Monocytes/100 WBC (Bld) 5.5 % 0-10 [facility] Work Phone: Blood platelet mean volumeon 08-07-2022 Platelet mean volume (Bld) [Entitic vol] 11.0 fL 6.2-12.0 [facility] Work Phone: [phone] Determination of erythrocyte mean corpuscular volume (MCV)on 08-07-2022 MCV (RBC) [Entitic vol] 95.1 fL 80-94 [facility] Work Phone: [phone] Erythrocyte sedimentation ra lisa 08-07-2022 ESR (Bld) [Velocity] 22 mm/h 0-20 [facility] Work Phone: [phone] Hematocrit Auto (Bld) [Volum e fraction]on 08-07-2022 Hematocrit (Bld) [Volume fraction] 50.9 % 40-54 [facility] Work Phone: Interpretation of serum or p lasma protein pattern by immunofixation (narrative resulton 08-07-2022 Protein Fractions Immunofixation Ronaldo [Interp] See comment [facility] Work Phone: Comment on above: Result: Not Observed Laboratory - Chemistry and C hemistry - challengeon 08-07-2022 ALP [Catalytic activity/Vol] 118 U/L 45-117 [facility] Work Phone: ALT [Catalytic activity/Vol] 24 U/L 16-61 [facility] Work Phone: CO2 [Moles/Vol] 27.0 mmol/L 21.0-32.0 [facility] Work Phone: Cobalamin (Vitamin B12) [Mass/Vol] 508 pg/mL 211-911 [facility] Work Phone: Lipase [Catalytic activity/Vol] 135 U/L 73-393 [facility] Work Phone: Urea nitrogen/Creatinine [Mass ratio] 17.9 mg/mg 10-20 [facility] Work Phone: Laboratory - Hematology and Cell countson 08-07-2022 Erythrocyte distribution width (RBC) [Entitic vol] 46.8 fL 35.1-43.9 [facility] Work Phone: Erythrocyte distribution width (RBC) [Ratio] 13.2 % 11.6-14.6 [facility] Work Phone: Immature granulocytes/100 WBC (Bld) 0.300 % 0.0-0.9 [facility] Work Phone: Comment on above: IG% - Immature Granu locytes (promyelocytes, myelocytes and metamyelocytes) > 1% indicates that a LEFT SHIFT is Present. MCH (RBC) [Entitic mass] 32.0 pg 27.0-32.0 [facility] Work Phone: Nucleated RBC/100 WBC (Bld) [Ratio] 0 % 0-5 [facility] Work Phone: MCHC Auto (RBC) [Mass/Vol]on 08-07-2022 MCHC (RBC) [Mass/Vol] 33.6 g/dL 32-36 [facility] Work Phone: No Panel Informationon 08-07 Addendum Document Comment . [facility] Work Phone: Comment on above: Protein electrophore sis scan will follow via computer,mail, or bean snapper delivery. Estimated GFR (MDRD) Amer 116 mL/min >60 [facility] Work Phone: Comment on above: GFR Calc Estimated GFR (MDRD) Non-Af Amer 96 mL/min >60 [facility] Work Phone: Comment on above: Non- GFR Calc Immunoglobulin E 20 IU/mL 6-495 [facility] Work Phone: Thyroid Stimulating Hormone (TSH) 2.83 uIU/mL 0.358-3.74 [facility] Work Phone: Platelets bldon 08-07-2022 Platelets (Bld) [#/Vol] 178 10*3/uL 150-450 [facility] Work Phone: Serum [id number] measu rement by electrophoresison 08-07-2022 Alpha 1 globulin Elph [Mass/Vol] 0.2 g/dL 0.0-0.4 [facility] Work Phone: Alpha 1 globulin Elph [Mass/Vol] 0.8 g/dL 0.4-1.0 [facility] Work Phone: Serum globulin measurement ( mass/volume)on 08-07-2022 Globulin (S) [Mass/Vol] 3.0 g/dL 2.2-3.9 [facility] Work Phone: Serum or plasma C reactive p rotein measurement (mass/volume)on 08-07-2022 CRP [Mass/Vol] 3.85 mg/L 0.0-3.0 [facility] Work Phone: Comment on above: C-Reactive Protein ( CRP) provides useful information for thediagnosis, therapy and monitoring of inflammatory processesand associated diseases. For the evaluation of Relative Riskfor Cardiovascular Disease, a High Sensitivity CRP (HSCRP)should be ordered. Serum or plasma IgA measurem ent (mass/volume)on 08-07-2022 IgA [Mass/Vol] 155 mg/dL 90-386 [facility] Work Phone: Serum or plasma IgG measurem ent (mass/volume)on 08-07-2022 IgG [Mass/Vol] 853 mg/dL [phone] [facility] Work Phone: Serum or plasma IgM measurem ent (mass/volume)on 08-07-2022 IgM [Mass/Vol] 239 mg/dL 20-172 [facility] Work Phone: Serum or plasma albumin paige urement (mass/volume)on 08-07-2022 Albumin [Mass/Vol] 3.8 g/dL 2.9-4.4 [facility] Work Phone: Serum or plasma albumin/glob ulin mass ratioon 08-07-2022 Albumin/Globulin [Mass ratio] 1.0 {ratio} 0.9-2.4 [facility] Work Phone: Serum or plasma beta globuli n measurement by electrophoresis (mass/volume)on 08-07-2022 Beta globulin Elph [Mass/Vol] 1.0 g/dL 0.7-1.3 [facility] Work Phone: Serum or plasma calcium paige urement (mass/volume)on 08-07-2022 Calcium [Mass/Vol] 8.9 mg/dL 8.5-10.1 [facility] Work Phone: Serum or plasma carcinoembry onic antigen measurement (mass/volume)on 08-07-2022 Carcinoembryonic Ag [Mass/Vol] 16.5 ng/mL 0.0-4.7 [facility] Work Phone: Comment on above: Nonsmokers <3.9 Smok ers <5.6[employer] Electrochemiluminescence Immunoassay(ECLIA)Values obtained with different assay methods or kitscannot be used interchangeably. Results cannot beinterpreted as absolute evidence of the presence orabsence of malignant disease. Serum or plasma creatinine m easurement (mass/volume)on 08-07-2022 Creatinine [Mass/Vol] 0.89 mg/dL 0.70-1.30 [facility] Work Phone: Comment on above: The validity of the calculated GFR & GFRAA in patients over 70 years has not been determined. Clinical correlation is essential. Serum or plasma folate measu rement (mass/volume)on 08-07-2022 Folate [Mass/Vol] 11.40 ng/mL 3.1-55.4 [facility] Work Phone: Serum or plasma gamma globul in measurement by electrophoresis (mass/volume)on 08-07-2022 Gamma globulin Elph [Mass/Vol] 0.9 g/dL 0.4-1.8 [facility] Work Phone: Serum or plasma gastrin paige urement (mass/volume)on 08-07-2022 Gastrin [Mass/Vol] 14 pg/mL 0-115 [facility] Work Phone: Comment on above: Siemens Immulite 200 0 Immunochemiluminometric assay (ICMA)Values obtained with different assay methods or kits cannotbe used interchangeably. Results cannot be interpreted asabsolute evidence of the presence or absence of malignantdisease.Performed at: [facility] [id number] Director: Alin Ceron PhD, Phone: [phone] at: [facility] [id number] Director: Nino Shelton MD, Phone: [phone] Serum or plasma immunoelectr ophoresis interpretation (nominal result)on 08-07-2022 Interpretation IEP [Interp] Comment . [facility] Work Phone: Comment on above: No monoclonality det ected. Serum or plasma urea nitroge n measurement (mass/volume)on 08-07-2022 Urea nitrogen [Mass/Vol] 16 mg/dL 7-18 [facility] Work Phone: Thin prep Papanicolaou smear with manual screeningon 08-07-2022 Thin prep Papanicolaou smear with manual screening 16 U/L 15-37 [facility] Work Phone: Thin prep Papanicolaou smear with manual screening 6 5-15 [facility] Work Phone: Thin prep Papanicolaou smear with manual screening 197 U/L 87-241 [facility] Work Phone: Thin prep Papanicolaou smear with manual screening 1.3 0.7-1.7 [facility] Work Phone: Total protein bloodon 2021 Protein [Mass/Vol] 6.8 g/dL 6.0-8.5 [facility] Work Phone: Basophil percentageon 2021 Bilirubin [Mass/Vol] 0.20 mg/dL 0.20-1.00 [facility] Work Phone: Comment on above: For patients on eltr ombopag therapy, use of Dimension [place] TBIL is not recommended. Chloride [Moles/Vol] 111 mmol/L 98-107 [facility] Work Phone: Glucose [Mass/Vol] 101 mg/dL 74-106 [facility] Work Phone: Comment on above: Fasting Glucose resu lt from 100 to 125 mg/dL suggests IMPAIRED HOMEOSTASIS per A.D.A. criteria. Potassium [Moles/Vol] 4.4 mmol/L 3.5-5.1 [facility] Work Phone: Protein [Mass/Vol] 6.7 g/dL 6.4-8.2 [facility] Work Phone: Sodium [Moles/Vol] 141 mmol/L 136-145 [facility] Work Phone: Laboratory - Chemistry and C hemistry - challengeon 05-30-2022 ALP [Catalytic activity/Vol] 103 U/L 45-117 [facility] Work Phone: ALT [Catalytic activity/Vol] 19 U/L 16-61 [facility] Work Phone: CO2 [Moles/Vol] 26.0 mmol/L 21.0-32.0 [facility] Work Phone: Globulin (S) [Mass/Vol] 3.2 g/dL 2.2-4.2 [facility] Work Phone: Urea nitrogen/Creatinine [Mass ratio] 21.2 mg/mg 10-20 [facility] Work Phone: No Panel Informationon 05-30 Estimated GFR (MDRD) Amer 116 mL/min >60 [facility] Work Phone: Comment on above: GFR Calc Estimated GFR (MDRD) Non-Af Amer 96 mL/min >60 [facility] Work Phone: Comment on above: Non- GFR Calc Immunoglobulin E 18 IU/mL 6-495 [facility] Work Phone: Serum or plasma C reactive p rotein measurement (mass/volume)on 05-30-2022 CRP [Mass/Vol] 4.30 mg/L 0.0-3.0 [facility] Work Phone: Comment on above: C-Reactive Protein ( CRP) provides useful information for thediagnosis, therapy and monitoring of inflammatory processesand associated diseases. For the evaluation of Relative Riskfor Cardiovascular Disease, a High Sensitivity CRP (HSCRP)should be ordered. Serum or plasma IgA measurem ent (mass/volume)on 05-30-2022 IgA [Mass/Vol] 137 mg/dL 90-386 [facility] Work Phone: Serum or plasma IgG measurem ent (mass/volume)on 05-30-2022 IgG [Mass/Vol] 699 mg/dL [phone] [facility] Work Phone: Serum or plasma IgM measurem ent (mass/volume)on 05-30-2022 IgM [Mass/Vol] 202 mg/dL 20-172 [facility] Work Phone: Serum or plasma albumin paige urement (mass/volume)on 05-30-2022 Albumin [Mass/Vol] 3.5 g/dL 3.2-5.0 [facility] Work Phone: Serum or plasma albumin/glob ulin mass ratioon 05-30-2022 Albumin/Globulin [Mass ratio] 1.1 {ratio} 0.9-2.4 [facility] Work Phone: Serum or plasma calcium paige urement (mass/volume)on 05-30-2022 Calcium [Mass/Vol] 8.7 mg/dL 8.5-10.1 [facility] Work Phone: Serum or plasma carcinoembry onic antigen measurement (mass/volume)on 05-30-2022 Carcinoembryonic Ag [Mass/Vol] 15.8 ng/mL 0.0-4.7 [facility] Work Phone: Comment on above: Nonsmokers <3.9 Smok ers <5.6[employer] Electrochemiluminescence Immunoassay(ECLIA)Values obtained with different assay methods or kitscannot be used interchangeably. Results cannot beinterpreted as absolute evidence of the presence orabsence of malignant disease. Serum or plasma creatinine m easurement (mass/volume)on 05-30-2022 Creatinine [Mass/Vol] 0.90 mg/dL 0.70-1.30 [facility] Work Phone: Comment on above: The validity of the calculated GFR & GFRAA in patients over 70 years has not been determined. Clinical correlation is essential. Serum or plasma gastrin paige urement (mass/volume)on 05-30-2022 Gastrin [Mass/Vol] < 10 pg/mL 0-115 [facility] Work Phone: Comment on above: Siemens Pepperdataulite 200 0 Immunochemiluminometric assay (ICMA)Values obtained with different assay methods or kits cannotbe used interchangeably. Results cannot be interpreted asabsolute evidence of the presence or absence of malignantdisease.Performed at: [facility] [id number] [place], [place] [id number] Director: Alin Ceron PhD, Phone: [phone] at: [facility] [employer] [id number] Director: Nino Shelton MD, Phone: [phone] Serum or plasma urea nitroge n measurement (mass/volume)on 05-30-2022 Urea nitrogen [Mass/Vol] 19 mg/dL -18 [facility] Work Phone: Thin prep Papanicolaou smear with manual screeningon 05-30-2022 Thin prep Papanicolaou smear with manual screening 16 U/L 15-37 [facility] Work Phone: Thin prep Papanicolaou smear with manual screening 4 5-15 [facility] Work Phone: No Panel Informationon 03-04 Carcinoembryonic Ag Serial Monitor Not Reportable [facility] Work Phone: Serum or plasma carcinoembry onic antigen measurement (mass/volume)on 03-04-2022 Carcinoembryonic Ag [Mass/Vol] 14.7 ng/mL 0.0-4.7 [facility] Work Phone: Comment on above: Nonsmokers <3.9 Smok ers <5.6[facility] Electrochemiluminescence Immunoassay(ECLIA)Values obtained with different assay methods or kitscannot be used interchangeably. Results cannot beinterpreted as absolute evidence of the presence orabsence of malignant disease. Serum or plasma gastrin paige urement (mass/volume)on 03-04-2022 Gastrin [Mass/Vol] 12 pg/mL 0-115 [facility] Work Phone: Comment on above: Siemens Pepperdataulite 200 0 Immunochemiluminometric assay (ICMA)Values obtained with different assay methods or kits cannotbe used interchangeably. Results cannot be interpreted asabsolute evidence of the presence or absence of malignantdisease.Performed at: [facility] [id number] [place], [place] [id number] Director: Alin Ceron PhD, Phone: [phone] at: [employer] [id number] Director: Nino Shelton MD, Phone: [phone] Giardia lamblia ag stool EIA on 02-09-2022 G. lamblia Ag IA Ql (Stl) See comment [facility] Work Phone: Comment on above: TEST RESULT LIMITSGi ardia lamblia Ag, EIA Negative Negative __ TESTING PERFORMED AT [facility]. ORIGINAL REPORT ON FILE IN LAB CONTAINS ADDITIONAL TEST SITE INFORMATION. No Panel Informationon 02-09 Enteric Bacteriology [facility] Work Phone: Stool Calprotectin <16 ug/g 0-120 [facility] Work Phone: Comment on above: Concentration Interp retation Follow-Up<16 - 50 ug/g Normal None>50 -120 ug/g Borderline Re-evaluate in 4-6 weeks >120 ug/g Abnormal Repeat as clinically indicatedPerformed at: [facility] [employer] [id number] Director: Nino Shelton MD, Phone: [phone] Absolute lymphocyte counton 02-08-2022 Lymphocytes Auto (Unsp spec) [#/Vol] 1.56 10*3/uL 0.83-4.51 [facility] Work Phone: Atypical perinuclear antineu trophil cytoplasmic antibodies measurementon 02-08-2022 Neutrophil cytoplasmic Ab.perinuclear.atypica l IF (S) [Titer] <1:20 titer Neg:<1:20 [facility] Work Phone: Comment on above: The atypical pANCA p attern has been observed in asignificant percentage of patients with ulcerative colitis,primary sclerosing cholangitis and autoimmune hepatitis. Basophil percentageon 2021 Amylase [Catalytic activity/Vol] 53 U/L 25-115 [facility] Work Phone: Basophil percentage < 0.2 AI 0.0-0.9 [facility] Work Phone: Basophils/100 WBC (Bld) 0.5 % 0-1 [facility] Work Phone: Bilirubin [Mass/Vol] 0.30 mg/dL 0.20-1.00 [facility] Work Phone: Comment on above: For patients on eltr ombopag therapy, use of Dimension [place] TBIL is not recommended. Chloride [Moles/Vol] 110 mmol/L 98-107 [facility] Work Phone: Eosinophils/100 WBC (Bld) 0.8 % 0-5 [facility] Work Phone: Glucose [Mass/Vol] 96 mg/dL 74-106 [facility] Work Phone: Neutrophils (Bld) [#/Vol] 4.5 10*3/uL 2.0-7.7 [facility] Work Phone: Neutrophils/100 WBC (Bld) 68.0 % 47-70 [facility] Work Phone: Potassium [Moles/Vol] 4.3 mmol/L 3.5-5.1 [facility] Work Phone: Protein [Mass/Vol] 7.5 g/dL 6.4-8.2 [facility] Work Phone: Sodium [Moles/Vol] 140 mmol/L 136-145 [facility] Work Phone: WBC (Bld) [#/Vol] 6.6 10*3/uL 4.4-11.0 [facility] Work Phone: Blood erythrocytes count (nu mber/volume)on 02-08-2022 RBC (Bld) [#/Vol] 5.03 10*6/uL 4.6-6.2 [facility] Work Phone: Blood hemoglobin measurement (mass/volume)on 02-08-2022 Hemoglobin (Bld) [Mass/Vol] 15.6 g/dL 13.0-16.5 [facility] Work Phone: Blood lymphocytes/100 leukoc yteson 02-08-2022 Lymphocytes/100 WBC (Bld) 23.6 % 19-41 [facility] Work Phone: Blood monocytes/100 leukocyt eson 02-08-2022 Monocytes/100 WBC (Bld) 6.8 % 0-10 [facility] Work Phone: Blood platelet mean volumeon 02-08-2022 Platelet mean volume (Bld) [Entitic vol] 11.7 fL 6.2-12.0 [facility] Work Phone: Determination of erythrocyte mean corpuscular volume (MCV)on 02-08-2022 MCV (RBC) [Entitic vol] 93.6 fL 80-94 [facility] Work Phone: Erythrocyte sedimentation ra lisa 02-08-2022 ESR (Bld) [Velocity] 15 mm/h 0-20 [facility] Work Phone: Hematocrit Auto (Bld) [Volum e fraction]on 02-08-2022 Hematocrit (Bld) [Volume fraction] 47.1 % 40-54 [facility] Work Phone: Laboratory - Chemistry and C hemistry - challengeon 02-08-2022 ALP [Catalytic activity/Vol] 118 U/L 45-117 [facility] Work Phone: [phone] ALT [Catalytic activity/Vol] 25 U/L 16-61 [facility] Work Phone: CO2 [Moles/Vol] 27.0 mmol/L 21.0-32.0 [facility] Work Phone: Globulin (S) [Mass/Vol] 3.7 g/dL 2.2-4.2 [facility] Work Phone: Lipase [Catalytic activity/Vol] 143 U/L 73-393 [facility] Work Phone: Urea nitrogen/Creatinine [Mass ratio] 17.2 mg/mg 10-20 [facility] Work Phone: Laboratory - Hematology and Cell countson 02-08-2022 Erythrocyte distribution width (RBC) [Entitic vol] 44.3 fL 35.1-43.9 [facility] Work Phone: Erythrocyte distribution width (RBC) [Ratio] 12.8 % 11.6-14.6 [facility] Work Phone: Immature granulocytes/100 WBC (Bld) 0.300 % 0.0-0.9 [facility] Work Phone: Comment on above: IG% - Immature Granu locytes (promyelocytes, myelocytes and metamyelocytes) > 1% indicates that a LEFT SHIFT is Present. MCH (RBC) [Entitic mass] 31.0 pg 27.0-32.0 [facility] Work Phone: Nucleated RBC/100 WBC (Bld) [Ratio] 0 % 0-5 [facility] Work Phone: MCHC Auto (RBC) [Mass/Vol]on 02-08-2022 MCHC (RBC) [Mass/Vol] 33.1 g/dL 32-36 [facility] Work Phone: No Panel Informationon 02-08 Centromere B Antibody <0.2 AI 0.0-0.9 [facility] Work Phone: Endomysial IgA Antibody Negative Negative [facility] Work Phone: Estimated GFR (MDRD) Amer 104 mL/min >60 [facility] Work Phone: [phone] Comment on above: GFR Calc Estimated GFR (MDRD) Non-Af Amer 86 mL/min >60 [facility] Work Phone: Comment on above: Non- GFR Calc Hepatitis C Antibody Non-Reactive Nonreactive [facility] Work Phone: Comment on above: Non Reactive: < 0.8 Equivocal: >/= 0.8 to < 1.0 Reactive: >/= 1.0The [facility] recommends that a reactive/equivocal HCV antibody result be followed up by the HCV Nucleic Acid Amplificationtest (119899) Immunoglobulin E 22 IU/mL 6-495 [facility] Work Phone: ALLERGIST Antibody 0.3 AI 0.0-0.9 [facility] Work Phone: Thyroid Stimulating Hormone (TSH) 2.59 uIU/mL 0.358-3.74 [facility] Work Phone: Platelets bldon 02-08-2022 Platelets (Bld) [#/Vol] 218 10*3/uL 150-450 [facility] Work Phone: Serum DNA double strand anti body assay (units/volume)on 02-08-2022 DNA double strand Ab Qn (S) 1 [IU]/mL 0-9 [facility] Work Phone: Comment on above: Negative <5 Equivoca l 5 - 9 Positive >9 Serum Amber-1 antibody assay (u nits/volume)on 02-08-2022 Amber-1 extractable nuclear Ab Qn (S) <0.2 AI 0.0-0.9 [facility] Work Phone: Serum Scl-70 extractable nuc lear antibody assay (units/volume)on 02-08-2022 SCL-70 extractable nuclear Ab Qn (S) <0.2 AI 0.0-0.9 [facility] Work Phone: Serum Becker extractable nucl ear antibody detectionon 02-08-2022 Becker extractable nuclear Ab Ql (S) <0.2 AI 0.0-0.9 [facility] Work Phone: Serum classic neutrophil cyt oplasmic antibody assay (units/volume)on 02-08-2022 Neutrophil cytoplasmic Ab.classic Qn (S) <1:20 titer Neg:<1:20 [facility] Work Phone: Serum or plasma C reactive p rotein measurement (mass/volume)on 02-08-2022 CRP [Mass/Vol] 3.95 mg/L 0.0-3.0 [facility] Work Phone: Comment on above: C-Reactive Protein ( CRP) provides useful information for thediagnosis, therapy and monitoring of inflammatory processesand associated diseases. For the evaluation of Relative Riskfor Cardiovascular Disease, a High Sensitivity CRP (HSCRP)should be ordered. Serum or plasma IgA measurem ent (mass/volume)on 02-08-2022 IgA [Mass/Vol] 155 mg/dL 90-386 [facility] Work Phone: Serum or plasma IgG measurem ent (mass/volume)on 02-08-2022 IgG [Mass/Vol] 799 mg/dL 603-1613 [facility] Work Phone: Serum or plasma IgM measurem ent (mass/volume)on 02-08-2022 IgM [Mass/Vol] 216 mg/dL 20-172 [facility] Work Phone: Comment on above: Performed at: [address] [id number] Director: Alin Ceron PhD, Phone: [phone] at: - [facility] [id number] Director: Nino Shelton MD, Phone: [phone] Serum or plasma albumin paige urement (mass/volume)on 02-08-2022 Albumin [Mass/Vol] 3.8 g/dL 3.2-5.0 [facility] Work Phone: Serum or plasma albumin/glob ulin mass ratioon 02-08-2022 Albumin/Globulin [Mass ratio] 1.0 {ratio} 0.9-2.4 [facility] Work Phone: Serum or plasma calcium paige urement (mass/volume)on 02-08-2022 Calcium [Mass/Vol] 8.5 mg/dL 8.5-10.1 [facility] Work Phone: Serum or plasma creatinine m easurement (mass/volume)on 02-08-2022 Creatinine [Mass/Vol] 0.99 mg/dL 0.70-1.30 [facility] Work Phone: Comment on above: The validity of the calculated GFR & GFRAA in patients over 70 years has not been determined. Clinical correlation is essential. Serum or plasma urea nitroge n measurement (mass/volume)on 02-08-2022 Urea nitrogen [Mass/Vol] 17 mg/dL 7-18 [facility] Work Phone: Serum perinuclear neutrophil cytoplasmic antibody titer by immunofluorescenceon 02-08-2022 Neutrophil cytoplasmic Ab.perinuclear IF (S) [Titer] <1:20 titer Neg:<1:20 [facility] Work Phone: Comment on above: The presence of posi tive fluorescence exhibiting P-ANCA orC-ANCA patterns alone is not specific for the diagnosis ofWegener's Granulomatosis (WG) or microscopic polyangiitis.Decisions about treatment should not be based solely onANCA IFA results. The International ANCA Group Consensusrecommends follow up testing of positive sera with both RI-3 and MPO-ANCA enzyme immunoassays. As many as 5% serumsamples are positive only by EIA. Ref. AM J Clin [id number];111:507-513. Serum tissue transglutaminas e IgA antibody assay (units/volume)on 02-08-2022 tTG IgA Qn (S) <2 U/mL 0-3 [facility] Work Phone: Comment on above: Negative 0 - 3 Weak Positive 4 - 10 Positive >10 Tissue Transglutaminase (tTG) has been identified as the endomysial antigen. Studies have demonstr- ated that endomysial IgA antibodies have over 99% specificity for gluten sensitive enteropathy. Thin prep Papanicolaou smear with manual screeningon 02-08-2022 Thin prep Papanicolaou smear with manual screening 21 U/L 15-37 [facility] Work Phone: Thin prep Papanicolaou smear with manual screening 3 5-15 [facility] Work Phone: Whole blood hemoglobin A1c/t otal hemoglobin ratio (mass fraction)on 02-08-2022 HbA1c (Bld) [Mass fraction] 5.5 % 3.8-5.6 [facility] Work Phone: Comment on above: Normal < 5.7 % Predi abetic 5.7 - 6.4 % Diabetic >or= 6.5 % Please note range changes. No Panel Information Enteric Bacteriology [facility] Work Phone: Vital Signs Date Time Vital Sign Value Performing Clinician Facility 05-09-2025 09:03-0400 Body height 177.[address] Basilia Lozada MD Work Phone: [facility] 05-09-2025 09:03-0400 Body mass index (BMI) [Ratio] 20.6 kg/m2 Dr. Basilia Lozada MD Work Phone: [facility] 05-09-2025 09:03-0400 Body weight 65.[address] Basilia Lozada MD Work Phone: [facility] 07-13-2024 10:38-0400 Diastolic Blood Pressure Non-Invasive 74 mm[Hg] MALINDA SANCHEZ MD [facility] 07-13-2024 10:38-0400 Heart rate 50 /min MALINDA SANCHEZ MD [facility] 07-13-2024 10:38-0400 Systolic Blood Pressure Non-Invasive 115 mm[Hg] MALINDA SANCHEZ MD [facility] 07-13-2024 10:34-0400 Diastolic Blood Pressure Non-Invasive 70 mm[Hg] MALINDA SANCHEZ MD [facility] 07-13-2024 10:34-0400 Heart rate 54 /min MALINDA SANCHEZ MD [facility] 07-13-2024 10:34-0400 Systolic Blood Pressure Non-Invasive 111 mm[Hg] MALINDA SANCHEZ MD [address] [place] [address] 07-13-2024 10:28-0400 Diastolic Blood Pressure Non-Invasive 70 mm[Hg] MALINDA SANCHEZ MD [address] [place] [address] 07-13-2024 10:28-0400 Heart rate 46 /min MALINDA SANCHEZ MD [address] [place] [address] 07-13-2024 10:28-0400 Systolic Blood Pressure Non-Invasive 119 mm[Hg] MALINDA SANCHEZ MD [address] [place] [address] 07-13-2024 08:22-0400 Body temperature 97.52 [degF] MALINDA SANCHEZ MD [address] [place] [address] 07-13-2024 08:22-0400 Respiratory rate 16 /min MALINDA SANCHEZ MD [address] [place] [address] 04-21-2024 12:58-0400 Body height 177.8 cm MALINDA SANCHEZ MD [address] [place] [address] 04-21-2024 12:58-0400 Body weight 65.9 kg MALINDA SANCHEZ MD [address] [place] [address] 04-21-2024 12:58-0400 Body weight 20.85 kg/m2 MALINDA SANCHEZ MD [address] [place] [address] 04-28-2023 07:50-0400 Body height 177.[address] Basilia Lozada Work Phone: [facility] 04-28-2023 07:42-0400 Body mass index (BMI) [Ratio] 22.3 kg/m2 Dr. Basilia Lozada Work Phone: [facility] 04-28-2023 07:42-0400 Body temperature 97.7 [degF] Dr. Basilia Lozada Work Phone: [facility] 04-28-2023 07:42-0400 Body weight 68.[address] Basilia Lozada Work Phone: [facility] 04-28-2023 07:42-0400 Diastolic blood pressure 66 mm[Hg] Dr. Basilia Lozada Work Phone: [facility] 04-28-2023 07:42-0400 Heart rate 75 /min Dr. Basilia Lozada Work Phone: [facility] 04-28-2023 07:42-0400 Respiratory rate 18 /min Dr. Basilia Lozada Work Phone: [facility] 04-28-2023 07:42-0400 SaO2% (BldA) [Mass fraction] 96 % Dr. Basilia Lozada Work Phone: [facility] 04-28-2023 07:42-0400 Systolic blood pressure 94 mm[Hg] Dr. Basilia Lozada Work Phone: [facility] 04-07-2023 07:56-0400 Body height 177.[address] Basilia Lozada Work Phone: [facility] 04-07-2023 07:56-0400 Body mass index (BMI) [Ratio] 22.5 kg/m2 Dr. Basilia Lozada Work Phone: [facility] 04-07-2023 07:56-0400 Body weight 71.[address] Basilia Lozada Work Phone: [facility] 04-07-2023 07:56-0400 Diastolic blood pressure 79 mm[Hg] Dr. Basilia Lozada Work Phone: [facility] 04-07-2023 07:56-0400 Heart rate 51 /min Dr. Basilia Lozada Work Phone: [facility] 04-07-2023 07:56-0400 SaO2% (BldA) [Mass fraction] 97 % Dr. Basilia Lozada Work Phone: [facility] 04-07-2023 07:56-0400 Systolic blood pressure 122 mm[Hg] Dr. Basilia Lozada Work Phone: [facility] 03-18-2023 07:19-0400 Body mass index (BMI) [Ratio] 22.8 kg/m2 Dr. Basilia Lozada Work Phone: [facility] 03-18-2023 07:19-0400 Body temperature 97.4 [degF] Dr. Basilia Lozada Work Phone: [facility] 03-18-2023 07:19-0400 Body weight 72.[address] Basilia Lozada Work Phone: [facility] 03-18-2023 07:19-0400 Diastolic blood pressure 54 mm[Hg] Dr. Basilia Lozada Work Phone: [facility] 03-18-2023 07:19-0400 Heart rate 64 /min Dr. Basilia Lozada Work Phone: [facility] 03-18-2023 07:19-0400 Respiratory rate 18 /min Dr. Basilia Lozada Work Phone: [facility] 03-18-2023 07:19-0400 SaO2% (BldA) [Mass fraction] 96 % Dr. Basilia Lozada Work Phone: [facility] 03-18-2023 07:19-0400 Systolic blood pressure 95 mm[Hg] Dr. Basilia Lozada Work Phone: [facility] 08-07-2022 07:45-0400 Body height 177.[address] Edis Mayo Work Phone: [facility] Work Phone: 08-07-2022 07:45-0400 Body mass index (BMI) [Ratio] 21.4 kg/m2 Dr. Edis Mayo Work Phone: [facility] Work Phone: 08-07-2022 07:45-0400 Body weight 67.[address] Edis Mayo Work Phone: [facility] Work Phone: 08-07-2022 07:45-0400 Diastolic blood pressure 82 mm[Hg] Dr. Edis Mayo Work Phone: [facility] Work Phone: 08-07-2022 07:45-0400 Heart rate 58 /min Dr. Edis Mayo Work Phone: [facility] Work Phone: 08-07-2022 07:45-0400 SaO2% (BldA) [Mass fraction] 97 % Dr. Edis Mayo Work Phone: [facility] Work Phone: 08-07-2022 07:45-0400 Systolic blood pressure 127 mm[Hg] Dr. Edis Mayo Work Phone: [facility] Work Phone: 03-11-2022 08:45-0400 Body temperature 97.1 [degF] Dr. Edis Mayo Work Phone: [facility] Work Phone: 03-11-2022 08:45-0400 Diastolic blood pressure 65 mm[Hg] Dr. Edis Mayo Work Phone: [facility] Work Phone: 03-11-2022 08:45-0400 Heart rate 55 /min Dr. Edis Mayo Work Phone: [facility] Work Phone: 03-11-2022 08:45-0400 Respiratory rate 16 /min Dr. Edis Mayo Work Phone: [facility] Work Phone: 03-11-2022 08:45-0400 SaO2% (BldA) [Mass fraction] 99 % Dr. Edis Mayo Work Phone: [facility] Work Phone: 03-11-2022 08:45-0400 Systolic blood pressure 99 mm[Hg] Dr. Edis Mayo Work Phone: [facility] Work Phone: 03-11-2022 07:04-0400 Body height 177.[address] Edis Mayo Work Phone: [facility] Work Phone: 03-11-2022 07:04-0400 Body mass index (BMI) [Ratio] 21.2 kg/m2 Dr. Edis Mayo Work Phone: [facility] Work Phone: 03-11-2022 07:04-0400 Body weight [address] Edis Mayo Work Phone: [facility] Work Phone: Encounters Encounter Date Encounter Type Care Provider Facility Start: 06-09-2025 ambulatory Basilia Lozada Facility:[facility] Start: 05-11-2025 ambulatory TELMA VERA PRO [facility] Start: 05-09-2025 End: 05-09-[address] Wong Parada MD -[facility] Start: 05-09-2025 End: 05-09-[address] Basilia Lozada MD Work Phone: [facility] Work Phone: Start: 04-27-2025 ambulatory Beronica VERA Facil ity:[facility] Start: 04-27-2025 Non-patient / Non-visit Dr. Flaquito Rodriguze MD -[facility]- Start: 04-27-2025 End: 04-27-[address] Basilia Lozada MD Work Phone: [facility] Work Phone: Start: 04-27-2025 End: 04-27-2025 Patient encounter procedure Beronica VERA -Pulmonary Services/Neurology Work Phone: Start: 04-27-2025 End: 04-27-2025 ambulatory Beronica VERA Facility:[facility] Start: 04-13-2025 ambulatory BASILIA GREGORY SHAREE [facility] Start: 12-24-2024 End: 12-24-2024 ambulatory BASILIA GREGORY [facility] Start: 12-21-2024 ambulatory BASILIA GREGORY SHAREE [facility] Start: 10-05-2024 End: 10-05-2024 ambulatory BASILIA GREGORY SHAREE [facility] Start: 09-07-2024 End: 09-07-2024 ambulatory Mary Beltran Facility:[facility] Start: 08-02-2024 ambulatory Mary Beltran Facili ty:[facility] Start: 07-13-2024 End: 07-13-2024 ambulatory MALINDA SANCHEZ Facility[facility] Start: 07-13-2024 End: 07-13-2024 Patient encounter procedure MALINDA SANCHEZ MD [facility] Start: 07-31-2023 End: 07-31-[address] Basilia Lozada Work Phone: [facility] Work Phone: Start: 07-31-2023 End: 07-31-[address] Basilia Lozada Work Phone: [facility] Work Phone: Start: 04-28-2023 End: 04-28-[address] Basilia Lozada Work Phone: [facility] Work Phone: Start: 04-17-2023 End: 04-17-[address] Basilia Lozada Work Phone: [facility] Work Phone: Start: 04-17-2023 End: 04-17-[address] Basilia Lozada Work Phone: [facility]-Sleep Lab Start: 04-07-2023 End: 04-07-[address] Basilia Lozada Work Phone: [facility] Gastroenterology Start: 04-02-2023 Non-patient / Non-visit Dr. Basilia Lozada Work Phone: [facility] Start: 04-01-2023 End: 04-01-[address] Basilia Lozada Work Phone: [facility]-Pulmonary Services/Neurology Start: 03-18-2023 End: 03-18-[address] Basilia Lozada Work Phone: [facility]-Pulmonary Medicine [facility] Start: 08-15-2022 End: 08-15-[address] Edis Mayo Work Phone: [facility] Work Phone: Start: 08-15-2022 End: 08-15-[address] Edis Mayo Work Phone: [facility] Start: 08-12-2022 End: 08-12-[address] Edis Mayo Work Phone: [facility] Work Phone: Start: 08-12-2022 End: 08-12-[address] Edis Mayo Work Phone: [facility]-Laboratory, Specimen Start: 08-07-2022 End: 08-07-[address] Edis Mayo Work Phone: [facility] Gastroenter[facility] Start: 05-30-2022 End: 05-30-[address] Edis Mayo Work Phone: [facility]-Laboratory Start: 05-23-2022 End: 05-23-[address] Edis Mayo Work Phone: [facility] Start: 05-07-2022 End: 05-07-[address] Edsi Mayo Work Phone: [facility] Start: 03-11-2022 Non-patient / Non-visit Dr. Edis Mayo Work Phone: [facility] Start: 03-11-2022 End: 03-11-2022 Admission to same day surgery center Dr. Edis Mayo Work Phone: [facility]-Endoscopy Start: 03-04-2022 End: 03-04-[address] Edis Mayo Work Phone: [facility]-Laboratory Start: 02-25-2022 End: 02-25-[address] Edis Mayo Work Phone: [facility]-Cat Scan, [facility] Start: 02-09-2022 End: 02-09-[address] Edis Mayo Work Phone: [facility]-Laboratory, Specimen Start: 02-08-2022 End: 02-08-[address] Edis Mayo Work Phone: [facility] Gastroenterology Procedures Date Procedure Procedure Detail Performing Clinician Start: 12-24-2024 Urinalysis YASSER OMR AN Comment on above: Result Comment: URIN ALYSIS Performed By: #### [id number] #### [facility],[address] [place] [address] Start: 10-05-2024 Urinalysis YASSER OMR AN Comment on above: Result Comment: URIN ALYSIS Performed By: #### [id number] #### [facility],[address] [place] [address] Start: 07-31-2023 CT of chest without contrast [...] Mayo Work Phone: Enteric Bacteriology Dr. Cordell Mayo Work Phone: Hernia repair MALINDA QUEZADA MD Viral antigen assay Dr. Wally Mayo Work Phone: Plan of Treatment Date Care Activity Detail Author Start: 05-09-2025 X-ray of cervical spine Cerv Spine 4 or 5 Views [facility] Start: 05-09-2025 XR Cervical spine 4 or 5 Views [facility] Start: 08-12-2022 Elastase, pancreatic (el-1), fecal; quantitative [facility] Work Phone: Start: 08-12-2022 Fat [Presence] in Stool [facility] Work Phone: Start: 08-12-2022 Helicobacter pylori Ag [Presence] in Stool by Immunoassay [facility] Work Phone: Start: 03-11-2022 Colonoscopy w/biopsy single/multiple COLONOSCOPY AND BIOPSY [facility] Work Phone: Start: 03-11-2022 Egd transoral biopsy single/multiple EGD BIOPSY SINGLE/MULTIPLE [facility] Work Phone: CT Chest WO contrast [facility] Fat [Mass/mass] in Stool [facility] Work Phone: Fat.neutral [Presenc e] in Stool [facility] Work Phone: Helicobacter pylori Ag [Presence] in Stool by Immunoassay [facility] Work Phone: Patient referral [facility] Work Phone: Tobacco use cessatio n education [facility] Payers Date Payer Category Payer Self-pay [id number] 2023 Medicaid [id number] 1975 Unknown [id number] 2.16.8 [id number] 1973 Unknown [id number] 2.16.8 [id number] 1973 Unknown [id number] 2.16.8 [id number] 1975 Unknown [id number] 2.16.8 [id number] Private Health Insurance [id number] Unknown [id number] Unknown [id number] 2.16.8 [id number] Unknown [id number] 2.16.8 [id number] Unknown [id number] 2.16.8 [id number] Unknown [id number] 2.16.8 [id number] Unknown [id number] 2.16.8 [id number] Unknown [id number] 2.16.8 [id number] Unknown [id number] 2.16.8 [id number] Social History Date Type Detail Facility Start: 02-08-2022 End: 04-28-2023 Tobacco smoking status CTIS Unknown if ever smoked [facility] Start: 1975 Sex Assigned At Male [facility] Start: 03-27-2023 Tobacco smoking status Heavy t obacco smoker (finding) [facility] Start: 05-02-2025 [facility] Goals Date Patient Goal Desired Activity /State Functional Status Date Assessment Result Facility 07-13-2024 Functional Status Assistive Device None A [facility] 07-13-2024 Functional Status Standard Safet y ID band on, Allergy Band on, Bed in low position, Wheels locked, Upper/Half-Length side-rails up, Safety level maintained [facility] 04-21-2024 Functional Status Sensory Deficits None A [facility] Mental Status Date Assessment Result Facility 07-13-2024 Mental Status Orientation Oriented x 4 [facility] 07-13-2024 Mental Status [facility] 03-11-2022 Cognitive function Touch/Shaking [facility] Work Phone: 03-11-2022 Cognitive function Patient Orien tation Person;Place;Time [facility] Work Phone: Clinical Notes 02-06-2024 to 04-27-2025 LaboratoryRadiology Note Date & Type Note Facility 04-27-2025 Procedure note [facility] 07-13-2024 Note ORIGINAL EXAMINATION: CT THORAX WITH [...] Sign Date: 07/13/2024 3:39:59 PM Ordering Provider: [facility] 08-27-2024 Hospital Discharge instructions Patient Education 07/13/2024 08:43:02 Radiology- CT Coronary Angiogram(CUSTOM) RAINELLE Coronary CT Angiogram (Coronary CTA or Cardiac CTA) Discharge Instructions [facility] [address] [facility] [address] Today, you had a Coronary CT Angiogram. [...] Department: For the first 24 hours call [phone] After 24 hours, contact the physician who [...] Address:Unknown When: Unknown With:MALINDA SANCHEZ MD Address: [address] [place] [address] [address] [facility] [place] [address] [phone] When: Unknown Comments:Follow-up as scheduled [facility] 07-13-2024 Summary of episode note Discharge Instructions Thank you for allowing [facility] to assist you with your healthcare needs. [...] worsen Follow Up with MALINDA SANCHEZ MD Where:[facility] [address] [place] [address] [address] [facility] [place] [address] [phone] Additional Information: Follow-up as scheduled Allergies PriLOSEC [...] medication providers or retail pharmacies. Education Materials RAINELLE Coronary CT Angiogram (Coronary CTA or Cardiac CTA) Discharge Instructions [facility] [address] [facility] [address] Today, you had a Coronary CT Angiogram. [...] Department: For the first 24 hours call [phone] After 24 hours, contact the physician who [...] to receive it can visit one of [facility] vaccine clinics. There are many vaccine clinic locations within the [facility]. For locations and available times, please visit [email or web address].[place].gov/. It is important to note that some COVID mobile vaccine clinics are held outdoors and may be canceled in rainy or stormy conditions. To learn more about pediatric vaccinations (ages 5-11), we invite you to visit the [facility] webpage. [email or web address] To learn more about the COVID-19 vaccine, we invite you to visit the CDC website for a list of frequently asked questions.https://www.cdc.gov/cor onavirus/2019-ncov/vaccines/faq.h tml [email or web address] Patient Portal Access Instructions: Stay connected with your healthcare team and access your personal medical information anytime with the [email or web address] Patient Portal. Please follow the directions below to create your [email or web address] account: 1.Access the email account you provided upon registration to the hospital/physician office.2.Look for an invitation email from [facility].3.Open the email and access the invitation link: Accept Invitation to [email or web address].4.Fill in the required velarde to create your account. To access your account, visit [employer]. Click the blue button labeled "Access Patient Portal" and then log in with the username [...] you will allow to register on the [facility] Patient Portal for access to your information. You can also access the [facility] on the [facility] ed. Simply click on "Patient Portal" and then log into your account. If you would like to receive a full copy of your medical records, please contact the [facility] Medical Records Department by calling [phone], Friday through Friday between 8 a.m. and [...] Call your local pharmacy or go to [email or web address] to find one close to you.3.Make use of household items: Use cat litter or old coffee grounds to dispose medications if other options are not available. Mix your drugs with these household products, seal them in an airtight container and throw it into the garbage. Call [facility]: [phone] to be sure your drugs can be [...] aware that I should contact my doctor. 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 Signature: Date/Time: Relationship to Patient: ____ Witness Name/Signature: Date/Time: [facility] 02-06-2024 Evaluation + Plan note Future Scheduled TestsBasic Metabolic Panel 02/06/24Thyroid Stimulating Hormone 02/06/24Lipid Profile 10/28/23CT Coronary Extracardiac 07/13/24 [facility] Evaluation note Diagnosis Onset Date Abdominal pain acute Screening for colon cancer a [facility] Work Phone: Evaluation note* Diagnosis Onset Date Resolution Status Abdominal pain acute Screening for colon cancer a [facility] Irritable bowel syndrome non eactive Abdominal pain acute Elevated CEA acute [facility] Work Phone: Evaluation note* Diagnosis Onset Date Resolution Status Abdominal pain acute Elevated CEA acute Abdominal pain acute Diarrhea acute Elevated CEA acute Epigastric pain acute Gastropathy acute [facility] Work Phone: Evaluation note* Diagnosis Onset Date Resolution Status Abnormal CT of the abdomen a cute Lung nodule seen on imaging study acute Marijuana abuse, continuous acute Nicotine addiction acute COPD (chronic obstructive pulmonary disease) chronic Exocrine pancreatic insufficiency chronic Epigastric pain chronic Exocrine pancreatic insufficiency chronic [facility] Work Phone: Evaluation note* Diagnosis Onset Date Resolution Status Epigastric pain chronic Exocrine pancreatic insufficiency chronic Lung nodule seen on imaging study acute Marijuana abuse, continuous acute Nicotine addiction acute COPD (chronic obstructive pulmonary disease) chronic [facility] Work Phone: Evaluation noteNo assessment information available [facility] Work Phone: Hospital course Narrative No data available for this section [facility] Reason for referral (narrative)No reason for referral [facility] Work Phone: Chief Complaint and Reason for Visit Chief [...] Nicotine addiction COPD (chronic obstructive pulmonary disease) Chief Complaint Admit Date Paresthesia of skin rt arm April 27 9:40am Paresthesia of skin rt arm April 27 12:32pm Chief Complaint Admit Date Paresthesia of skin rt arm April 27 9:40am Paresthesia of skin rt arm April 27 12:32pm CERVICAL SPINE May 09, 2025 8:47 am Room 2 May 09, 2025 9:14 am Family History No Family History Records Found Relationship Condition Age at Onset Recorded Date/T rl father Diabetes mellitus Unknown Cardiac disease Unknown Hypertension Unknown Kidney disorder Unknown grandfather Malignant neoplasm Unknown grandmother Malignant neoplasm Unknown Relationship Condition Age at Onset Recorded Date/T lr father Diabetes mellitus Unknown Cardiac disease Unknown Hypertension Unknown Kidney disorder Unknown Cerebrovascular accident (CVA) Unknown grandfather Malignant neoplasm Unknown grandmother Malignant neoplasm Unknown Advance Directives No Advanced Directives Records Found Advance Directive Response Recorded Date/ Time Living Will No March 08, 2022 10:34am Power of Surveillance Agent No March 08 10:34am Summary Purpose Additional [...] alternate section No data available for this sectionGoals may be documented in an alternate sectionGoals may be documented in an alternate sectionGoals may be documented in an alternate section Care Teams (unrecognized sec tion and content) Team Status: Active Member Role Status Dates Dr. Edis Mayo MD Family Provider Active Dr. Basilia Lozada MD Primary Care Provider Active Team Status: Inactive Member Role Status Dates Dr. Baislia Lozada MD Primary Care Provider, Referring Provider Active Christiane Shannon ACCOUNT ASSISTANT, ACCOUNT ASSISTANT-C Attending Provider Active Team Status: Inactive Member [...] MD Primary Care Provider Active Christiane Shannon ACCOUNT ASSISTANT, ACCOUNT ASSISTANT-C Attending Provider, Referrin g Provider Active Team Status: Inactive Member Role Status Dates Dr. Basilia Lozada MD Primary Care Provider Active Christiane Shannon ACCOUNT ASSISTANT, ACCOUNT ASSISTANT-C Attending Provider, Referrin g Provider Active Team Status: Inactive Member Role Status Dates Dr. Basilia Lozada MD Primary Care Provider Active Dr. Percy Short MD Attending Provider, Referring Provider Active Dr. Manoj Valenzuela DO Other Provider Active Team Status: Active Member Role Status Dates Dr. Basilia Lozada MD Primary Care Provider Active Team Status: Inactive Member Role Status Dates Dr. Basilia Lozada MD Primary Care Provider Active Start: April 27, 2025 End: April 27, 2025 Beronica VERA PA Attending Provider Active Start: April 27, 2025 End: April 27, 2025 Beronica VERA PA Referring Provider Active Start: April 27, 2025 End: April 27, 2025 Team Status: Active Member Role Status Dates Dr. Basilia Lozada MD Primary Care Provider Active Start: April 27, 2025 Beronica VERA PA Referring Provider Active Start: April 27, 2025 Beronica VERA PA Other Provider Active Star t: April 27, 2025 Dr. Flaquito Rodriguez MD Attending Provider Active S tart: April 27, 2025 Team Status: Active Member Role Status Dates Dr. Basilia Lozada MD Primary Care Provider Active Start: May 09, 2025 Dr. Basilia Lozada MD Referring Provider Active Start: May 09, 2025 CHUY Grady Attending Provider Active Star t: May 09, 2025 Team Status: Inactive Member Role Status Dates Dr. Basilia Lozada MD Primary Care Provider Active Start: May 09, 2025 End: May 09, 2025 Dr. Wong Parada MD Attending Provider Active S tart: May 09, 2025 End: May 09, 2025 Team Status: Inactive Member Role Status Dates Dr. Basilia Lozada MD Primary Care Provider Active Start: May 09, 2025 End: May 09, 2025 Dr. Basilia Lozada MD Referring Provider Active Start: May 09, 2025 End: May 09, 2025 CHUY Grady Attending Provider Active Star t: May 09, 2025 End: May 09, 2025 (unrecognized sect ion and content) No Status Records FoundNo Status Records FoundNo Status Records FoundNo Status Records Found INFORMATION SOURCE (unrecogn ized section and content) DATE CREATED AUTHOR 09/10/2023 [facility] DATE CREATED AUTHOR AUTHOR'S ORGANIZ ATION 07/16/2024 [facility] [place] DATE CREATED AUTHOR AUTHOR'S ORGANIZ ATION 06/04/2025 [facility] DATE CREATED AUTHOR AUTHOR'S ORGANIZ ATION 06/08/2025 [facility] FOR RECORDS PERTAINING TO PATIENTS WHO [...] BE BASED ON THE PRIMARY CLINICAL RECORDS. [employer] [facility]. provides no warranty or guarantee of the accuracy or completeness of information in this document.
--- NOTE | 2025-06-09 06:54 | MRI_ITS ---
PROCEDURE: SPINE CERVICAL (ROUTINE) 06/09/2025 REASON FOR EXAM: PAIN, RADICULOPATHY TECHNIQUE: SPINE CERVICAL (ROUTINE) Multiplanar and multisequence images were obtained without IV contrast administration. FINDINGS: Normal vertebral body height and alignment. Normal signal within the cervical spinal cord. No compression deformity. C2-3 is unremarkable. Subtle annular bulging and uncinate spurs at C3-4 produce moderate right C4 foraminal stenosis. At C4-5 no significant central canal narrowing. [id number] Left C5 foraminal narrowing from bony uncinate spur. At C5-6, no central spinal canal narrowing. [id number]-left uncinate spurring producing severe right C6 foraminal stenosis. At C6-7 , No significant central spinal cord encroachment. Mild canal narrowing from degenerative bulge. At C7-T1, mild canal narrowing from degenerative annular bulging. Mild foraminal narrowing. MRI/Spine Cervical (Routine) IMPRESSION: Multilevel foraminal stenosis most significant on the right at C5-6. No spinal cord compression or encroachment. Moderate right C4 foraminal narrowing as well Reading [facility]
== END | disposition home or self-care (01) ==
PROVIDERS: PCP Internal Medicine Infectious Disease; Referring Provider Student in an Organized Health Care Education/Training Program; Visit Provider Student in an Organized Health Care Education/Training Program
DX: M54.12 Radiculopathy, cervical region (principal)
CPT/HCPCS: 72141

== ENCOUNTER → 2025-06-24 | Outpatient (CLI) | payer MEDICAID, SELFPAY ==
--- OUTSIDE RECORDS SUMMARY | 2025-06-24 06:46 | XMS RPT_ITS | CCD ---
Author Organization [facility] Care Team Providers Care Biophysics Scientist Name Role Phone Dr. Edis Mayo Primary [...] GREGORY, DR CUI Primary Care Physician MALINDA GALLAGHER Attending Unavailable DR BASILIA LOZADA MD Primary Care Unavailable Neville GREGORY, Dr. Cui Primary Care Provider TashaBeronica Chavarria Attending Provider Tasha PA, Beronica Referring Provider Tasha PA, Beronica Referring Provider Tasha PA, Beronica Other Provider Jennifer GREGORY, Dr. Huddleston Attending Provider [phone] Neville GREGORY, Dr. Cui Referring Provider Telma Lomas Attending Provider Karma GREGORY, Dr. Back Attending Provider [phone] BASILIA LOZADA MD Attending Unavailable BASILIA LOZADA MD Primary Care Unavailable BASILIA LOZADA MD Admitting Unavailable BASILIA LOZADA MD Attending Unavailable BASILIA LOZADA MD Primary Care Unavailable BASILIA LOZADA MD Admitting Unavailable BASILIA LOZADA MD Attending Unavailable BASILIA LOZADA MD Primary Care Unavailable BASILIA LOZADA MD Admitting Unavailable TELMA MAST Attending Unavailable TELMA MAST Primary Care Unavailable TELMA MAST Admitting Unavailable BASILIA LOZADA MD Attending Unavailable BASILIA LOZADA MD Primary Care Unavailable BASILIA LOZADA MD Admitting Unavailable ProTelma Patel Referring Provider OmranBarbyssslim Primary Care Unavailable Devin CAR SALESMAN, Mary Referring Unavailable Devin CAR SALESMAN, Mary Attending Unavailable Omran, Yasser Primary Care Unavailable Flaquito Rodriguez Attending Unavailable Beronica Coulter Consulting Unavailable Tasha PA, Beronica Referring Unavailable Omran, Yasser Primary Care Unavailable Yajaira Mastyn Attending Unavailable Omran, Yasser Referring Unavailable Wong Parada Attending Unavailable Omran, Yasser Primary Care Unavailable Omran, Yasser Primary Care Unavailable Yajaira Mastyn Attending Unavailable Omran, Yasser Referring Unavailable Devin CAR SALESMANMary Attending Unavailable Omran, Yasser Primary Care Unavailable Omran, Yasser Referring Unavailable Omran, Yasser Primary Care Unavailable Telma Mast Attending Unavailable Telma Mast Referring Unavailable Beronica Coulter Attending Unavailable Beronica Coulter Referring Unavailable Omran, Yasser Primary Care Unavailable Omran, Yasser Primary Care Unavailable Devin CAR SALESMAN, Mary Attending Unavailable Omran, Yasser Referring Unavailable Devin CAR SALESMAN, Mary Attending Unavailable Devin CAR SALESMAN, Mary Referring Unavailable Omran, Yasser Primary Care Unavailable Allergies Allergy Classification Reported Allergen(s) Allergy Type Date of Onset Reaction(s) Facility (15 sources) Omeprazole; Translations: [omeprazole] Drug Allergy 2 GI Upset, anxiety [facility] (1 source) Omeprazole Drug Allergy [facility] (1 source) Omeprazole Drug Allergy 5 [facility] Medications Current Medications Medication Drug Class(es) Dates Sig (Normalized) Sig (Original) amylase 571001 unt / lipase 60751 unt / protease 763937 unt delayed release oral capsule (1 source) Start: 02-19-2023 take 1 capsule by mouth three times daily at mealtime, then take 1 capsule by mouth once Zenpep 40,000 units-126,000 units-168,000 units oral delayed release capsule Dose = 2 cap(s), Oral, TID, with each meal and 1 with every snack, # 100 cap(s), 0 Refill(s) Start Date: 02/19/23 Status: Ordered Wildrose (Nk) (1 source) Start: 06-20-2025 Wildrose (Nk) Active June 20, 2025 12:00am Completed/Discontinued Medications Medication Drug Class(es) Dates Sig (Normalized) Sig (Original) Pmthft-Oekthybs-It ylase (Zenpep) 40,000-126,000- 168,000 unit capsule,delayed release(DR/EC) (20 sources) Start: 07-02-2024 End: 06-20-2025 take 25935-576986 capsules by mouth three times daily Hrnika-Zabkpyrl-Xze lase (Zenpep) 40,000-126,000- 168,000 unit capsule,delayed release(DR/EC) Discontinued 2 NMA PO THREE TIMES A DAY 100 July 02, 2024 4:01pm June 20, 2025 8:27am Start: 07-02-2024 take 47550-447519 ca psules by mouth three times daily Acudpo-Hhygbvlw-Udmboqd (Zenpep) 40,000-126,000- 168,000 unit capsule,delayed release(DR/EC) Active 2 NMA PO THREE TIMES A DAY July 02, 2024 4:01pm Start: 07-02-2024 take 06257-274363 ca psules by mouth three times daily Ymsszz-Yeqsqjbw-Irquhzs (Zenpep) 40,000-126,000- 168,000 unit capsule,delayed release(DR/EC) Active 2 NMA PO THREE TIMES A DAY July 02, 2024 4:01pm Start: 03-30-2024 End: 07-02-2024 Javdft-Tcjquwri-Tayggpx (Manpreet pep) 40,000-126,000- 168,000 unit capsule,delayed release(DR/EC) Discontinued 0 PO .COMPLEX 100 March 30, 2024 7:59am July 02, 2024 4:02pm EPI take 1 cap with snack, take 2 caps with meals Start: 03-30-2024 End: 07-02-2024 Vaeasy-Fnuthqfm-Jitobqb (Manpreet pep) 40,000-126,000- 168,000 unit capsule,delayed release(DR/EC) Discontinued 0 PO .COMPLEX March 30, 2024 7:59am July 02, 2024 4:02pm take 1 cap with snack, take 2 caps with meals Start: 01-26-2024 End: 03-30-2024 Zjckrh-Xmwmzaab-Lomldtx (Manpreet pep) 40,000-126,000- 168,000 unit capsule,delayed release(DR/EC) Discontinued 0 PO .COMPLEX 100 January 26, 2024 9:49am March 30, 2024 7:59am EPI take 1 cap with snack, take 2 caps with meals Start: 01-26-2024 End: 03-30-2024 Tclvaf-Pcjjsiee-Jngbnrp (Manpreet pep) 40,000-126,000- 168,000 unit capsule,delayed release(DR/EC) Discontinued 0 PO .COMPLEX [facility] January 26, 2024 9:49am March 30, 2024 7:59am take 1 cap with snack, take 2 caps with meals Start: 08-30-2022 End: 01-26-2024 Xttcab-Irrphgwi-Dgynaiw (Manpreet pep) 40,000-126,000- 168,000 unit capsule,delayed release(DR/EC) Discontinued 0 PO .COMPLEX 300 2 August 30, 2022 12:00am January 26, 2024 9:49am EPI take 1 cap with snack, take 2 caps with meals Start: 08-30-2022 End: 01-26-2024 Qpmiwg-Ahbslakg-Ftcyjiq (Manpreet pep) 40,000-126,000- 168,000 unit capsule,delayed release(DR/EC) [...] with meals nicotine 4 mg inhalation solution (7 sources) Cholinergic Nicotinic Agonist Start: 03-18-2023 End: 06-20-2025 take 10 mg by inhalation once as needed Nicotine (Nicotrol) 10 mg cartridge Discontinued 1 NMA INHALATION ONCE as needed for nicotine cravings March 18, 2023 12:00am June 20, 2025 8:27am Start: 03-18-2023 take 10 mg by inhalation once Nicotine (Nicotrol) 10 mg cartridge Active 1 INH INHALATION ONCE March 18, 2023 12:00am Tiotropium-Olodaterol (6 sources) Anticholinergic, beta2-Adrenergic Agonist Start: 04-28-2023 End: 09-07-2024 Tiotropium-Olodaterol (Stiolto Respimat) 2.5-2.5 mcg/actuation mist Discontinued 2 NMA INHALATION DAILY 4 April 28, 2023 12:00am September 07, 2024 8:11am Chronic obstructive pulmonary disease Lung nodule seen on imaging study Nicotine dependence Nondependent cannabis abuse, continuous Chronic obstructive pulmonary disease, unspecified Solitary pulmonary nodule Nicotine dependence, unspecified, uncomplicated Cannabis abuse, uncomplicated COPD, moderate Start: 04-28-2023 End: 09-07-2024 Tiotropium-Olodaterol (Stiol to Respimat) 2.5-2.5 mcg/actuation mist Discontinued 2 NMA INHALATION DAILY April 28, 2023 12:00am September 07, 2024 8:11am Start: 04-28-2023 Tiotropium-Olo daterol (Stiolto Respimat) 2.5-2.5 mcg/actuation mist Active 2 PUFF INHALATION DAILY April 28, 2023 12:00am rosuvastatin calcium 10 mg oral tablet (8 sources) HMG-CoA Reductase Inhibitor Start: 04-07-2023 End: 06-20-2025 take 1 tablet by mouth once daily Rosuvastatin 10 mg tablet Discontinued 10 mg PO DAILY April 07, 2023 12:00am June 20, 2025 8:27am sucralfate 1000 mg oral tablet (14 sources) Aluminum Complex Start: 02-06-2022 End: 08-07-2022 take 1 tablet by mouth twice daily Sucralfate (Carafate) 1 gram tablet Discontinued 1 g PO TWICE A DAY February 06, 2022 12:00am August 07, 2022 8:16am Problems Active Problems Problem Classification Problem Date Documented Da te Episodic/Chronic Abdominal hernia (7 sources) Gastroesophageal reflux disease with hiatal hernia; Translations: [Diaphragmatic hernia without obstruction or gangrene] 09-04-2022 Episodic Abdominal pain (20 sources) Abdominal pain; Translations: [Unspecified abdominal pain] Episodic Chronic obstructive pulmonary disease and bronchiectasis (10 sources) Chronic obstructive lung disease; Translations: [Chronic obstructive pulmonary disease, unspecified] Onset: 5 03-18-2023 Chronic Disorders of lipid metabolism (4 sources) Dyslipidemia; Translations: [Pure hypercholesterolemia, unspecified] Onset: 4 03-28-2023 Chronic Diverticulosis and diverticulitis (7 sources) Diverticulosis of colon; Translations: [Diverticulosis of large intestine without perforation or abscess without bleeding] 09-04-2022 Chronic Nonspecific chest pain (1 source) Chest pain 03-28-2023 Episodic Other disorders of stomach and duodenum (10 sources) Disorder of stomach; Translations: [Disease of stomach and duodenum, unspecified] 05-27-2022 Episodic Other disorders of stomach and duodenum (2 sources) Disease of stomach and duodenum, unspecified; Translations: [Unspecified disorder of stomach and duodenum] Episodic Other gastrointestinal disorders (1 source) Irritable bowel syndrome without diarrhea; Translations: [Irritable bowel syndrome] Chronic Other gastrointestinal disorders (9 sources) Diarrhea; Translations: [Diarrhea, unspecified] 08-07-2022 Episodic Other gastrointestinal disorders (2 sources) Diarrhea, unspecified; Translations: [Diarrhea] Episodic Other lower respiratory disease (7 sources) Nodule of lung; Translations: [Solitary pulmonary nodule] 03-18-2023 Episodic Other lower respiratory disease (2 sources) Solitary pulmonary nodule; Translations: [Solitary pulmonary nodule] 03-18-2023 Episodic Other nervous system disorders (1 source) Paresthesia of skin; Translations: [Paresthesia of skin] Onset: 5 Episodic Other screening for suspected conditions (not mental disorders or infectious disease) (20 sources) Patient encounter status; Translations: [Encounter for screening for malignant neoplasm of colon] Episodic Comment on above: Patient has severe r eflux, is followed by Hang Mccullough MD of gastroenterology with recent EGD.Medications as noted in EMR Pancreatic disorders (not diabetes) (7 sources) Chronic pancreatitis; Translations: [Other chronic pancreatitis] 08-30-2022 Chronic Pancreatic disorders (not diabetes) (10 sources) Exocrine pancreatic insufficiency; Translations: [Exocrine pancreatic insufficiency] 04-07-2023 Episodic Spondylosis; intervertebral disc disorders; other back problems (8 sources) Cervical radiculopathy; Translations: [Radiculopathy, cervical region] Onset: 5 Episodic Substance-related disorders (20 sources) Nicotine dependence; Translations: [Nicotine dependence, unspecified, uncomplicated] Onset: 5 03-18-2023 Chronic Comment on above: Repeat LDCT ordered for June 2025 Unclassified (4 sources) M54.12 - Radiculopathy, cervical region Past or Other Problems Problem Classification Problem Date Documented Da te Episodic/Chronic Other aftercare (1 source) 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; Translations: [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] Onset: 12-24-2024 Episodic Results Test Name Value Interpretation Reference Range Facility Orthopedic Visit Reporton Orthopedic Visit Report [facility] [address] [place] [address] OFFICE VISIT Date of Service: 06/20/25 MR#: [id number] Acct: [id number] Name: JOON MURO Rep #: [id number] : 1975 Provider: CHUY Grady Age/Sex: 50/M Location: [facility] [place].FRANCINE Status: Signed Intake Vital Signs 05/09/25 09:03 06/20/25 08:24 Height 5 ft 10 in 5 ft 10 in Weight: 144 lb 145 lb BMI 20.6 20.7 Intake Visit Reasons: CERVICAL SPINE Chief Complaint: Cervical spine MRI review Accompanied by: Self Is patient in pain?: Yes Pain scale (1-10): 7 Allergies omeprazole (From Prilosec) Adverse Reaction (Intermediate, Verified 06/20/25 08:27) GI Upset Medications ???Medication ???Instructions ???Recorded ???Confirmed ???Type NK 06/20/25 06/20/25 History Have you fallen in the past year?: No PFSH Medical History Marijuana abuse, continuous COPD (chronic obstructive pulmonary disease) Lung nodule seen on imaging study Nicotine addiction Diverticula, colon Marijuana use Essential tremor Insomnia Back pain History of ulceration Emphysema, unspecified Shortness of breath on exertion Leg cramps History of stress test Chest pain Hx of Delway spotted fever Injury of left clavicle Hypercholesterolemia [...] the decisions made by me, CHUY Grady 06/20/25 0824. Part of today???s visit was documented by Reg Jeffers MA, acting as scribe. JOON MURO is a 50 year old M here today for cervical spine MRI review. Patient would like to go over the MRI results to discuss what the next step is. He states that the pain in the neck is getting worse. Patient states that when he turns his head from left to right he can feel a crack and a crunch. He states that when he cracks his neck it feels better for about a minute, and then the sharpness comes back. Patient has numbness and tingling in his right arm constant. His finger tips get really numb, and he has noticed that the right hand arm feel colder then the left arm. Patient did physical therapy at [facility] and he did 4 sessions. He states that the physical therapy didn't help the neck pain. Patient states that the exercises didn't improve anything in the neck. He states that he never got any injections in his neck. Patient states that he has gotten injections in other joint areas, but they didn't help. Patient is right hand dominant. He denies any left- sided involvement. HPI from 05/09/25: JOON MURO is a 50 year old [...] all dermatomes. No hyperreflexia. There is midline (more content not included)... Normal [facility] Magnetic resonance imaging r eportOrdered By: Elliott Clancy on 06-11-2025 Study report [facility] [address] [place], [place] [id number] Spine Cervical (Routine) MR#: [id number] Acct: [id number] Name: JOON MURO Rep #: [id number] : 1975 M 50 From: Harry Clancy MD PCP: Dr. Basilia Lozada MD Status: REG C GONZALO Study:Spine Cervical (Routine) Date of Exam: 06/09/25 Exam# [id number] Ordering Dr: Wei Msat PA PROCEDURE: SPINE CERVICAL (ROUTINE) 06/09/2025 REASON FOR EXAM: PAIN, RADICULOPATHY TECHNIQUE: SPINE CERVICAL (ROUTINE) Multiplanar and multisequence images were obtained without IV contrast administration. FINDINGS: Normal vertebral body height and alignment. Normal signal within the cervical spinal cord. No compression deformity. C2-3 is unremarkable. Subtle annular bulging and uncinate spurs at C3-4 produce moderate right C4 foraminal stenosis. At C4-5 no significant central canal narrowing. Ijnz-ew-jvmyobqt Left C5 foraminal narrowing from bony uncinate spur. At C5-6, no central spinal canal narrowing. Iqaav-drayakj-menl-left uncinate spurring producing severe right C6 foraminal stenosis. At C6-7 , No significant central spinal cord encroachment. Mild canal narrowing from degenerative bulge. At C7-T1, mild canal narrowing from degenerative annular bulging. Mild foraminal narrowing. MRI/Spine Cervical (Routine) IMPRESSION: Multilevel foraminal stenosis most significant on the right at C5-6. No spinal cord compression or encroachment. Moderate right C4 foraminal narrowing as well Reading Location: [facility] CC: CHUY Grady; Dr. Basilia Lozada MD ~ Mail Courier: Signed [facility] Spine Cervical (Routine)on 0 06-09-2025 Spine Cervical (Routine) [facility] [address] [place] [address] Spine Cervical (Routine) MR#: [id number] Acct: [id number] Name: JOON MURO Rep #: [id number] : 1975 M 50 From: Elliott Clancy MD PCP: Dr. Basilia Lozada MD Status: REG CLI Study: Spine Cervical (Routine) Date of Exam: Exam# [id number] Ordering Dr: Telma Mast PROCEDURE: SPINE CERVICAL (ROUTINE) 06/09/2025 REASON FOR EXAM: PAIN, RADICULOPATHY TECHNIQUE: SPINE CERVICAL (ROUTINE) Multiplanar and multisequence images were obtained without IV contrast administration. FINDINGS: Normal vertebral body height and alignment. Normal signal within the cervical spinal cord. No compression deformity. C2-3 is unremarkable. Subtle annular bulging and uncinate spurs at C3-4 produce moderate right C4 foraminal stenosis. At C4-5 no significant central canal narrowing. Oyyi-og-hulsrvut Left C5 foraminal narrowing from bony uncinate spur. At C5-6, no central spinal canal narrowing. Demmv-uojbpaq-atqi-left uncinate spurring producing severe right C6 foraminal stenosis. At C6-7 , No significant central spinal cord encroachment. Mild canal narrowing from degenerative bulge. At C7-T1, mild canal narrowing from degenerative annular bulging. Mild foraminal narrowing. MRI/Spine Cervical (Routine) IMPRESSION: Multilevel foraminal stenosis most significant on the right at C5-6. No spinal cord compression or encroachment. Moderate right C4 foraminal narrowing as well Reading Location: [facility] CC: CHUY Grady; Dr. Basilia Lozada MD Mail Courier: Signed Normal [facility] Cerv Spine 4 or 5 Viewson Cerv Spine 4 or 5 Views [facility] [address] [place], [place] [id number] Cerv Spine 4 or 5 Views MR#: [id number] Acct: [id number] Name: JOON MURO Rep #: [id number] : 1975 M 50 From: Freeman Polk MD PCP: Dr. Basilia Lozada MD Status: DEP AMB Study: Cerv Spine 4 or 5 Views Date of Exam: 05/09/25 Exam# [id number] Ordering Dr: Telma Mast PROCEDURE: CERV SPINE [...] changes are worst at C5-6. Reading Location: [facility] CC: CHUY Grady; Dr. Basilia Lozada MD Mail Courier: Signed Normal [facility] Orthopedic Visit Reporton Orthopedic Visit Report [facility] [address] [place] [address] [address] [place], [place] [id number] OFFICE VISIT Date of Service: 05/09/25 MR#: [id number] Acct: [id number] Name: JOON MURO Rep #: [id number] : 1975 Provider: CHUY Grady Age/Sex: 50/M Location: [facility] [place].[facility] Status: Signed Intake Vital Signs 09/07/24 07:17 [...] mg PO DAILY 04/07/23 05/09/25 H istory iktbea-malyieqv-avmmzuv 2 cap PO TID #100 caps 07/02/24 Rx 40,000-126,000-168,000 unit capsule, delay rel (Zenpep) Have you fallen in the past year?: No PFSH Medical History Marijuana abuse, continuous COPD (chronic obstructive pulmonary disease) Lung nodule seen on imaging study Nicotine addiction Diverticula, colon Marijuana use Essential tremor Insomnia Back pain History of ulceration Emphysema, unspecified Shortness of breath on exertion Leg cramps History of stress test Chest pain Hx of Delway spotted fever Injury of left clavicle Hypercholesterolemia [...] service provided and the decisions made by , CHUY Grady 05/09/25 0903. Part of today???s [...] no instab (more content not included)... Normal [facility] NCS and/or EMG Patienton NCS and/or EMG Patient [facility] [address] [place] [address] MR#: [id number] Acct: [id number] Name: JOON MURO Rep #: [id number] : 1975 50 From: Flaquito Rodriguez MD Referring Dr: Beronica Cordova Status: REG CLI Location: [facility] Date: 04/27/25 Sex: M C NCS and/or [...] Multi Select Codes Neurology Neurology Interp Codes: 77423-13 Musc test done w/n test comp (interp) and 90138-30 Nrv cndj test 7- 8 studies (interp) 04/27/25 1235 Date Flaquito Rodriguez MD CC: CHUY Hernandez; Dr. Flaquito Rodriguez MD; Dr. Basilia Lozada MD Date Dictated: 04/27/25 1232 Date Transcribed: 04/27/25 1232 Mail Courier: AA Signed Normal [facility] CBC (NO DIFF)on 12-24-2024 CBC panel Auto (Bld) Normal [facility] Comment on above: Result Comment: CBC( WITHOUT DIFFERENTIAL) Performed By: #### 2 [id number] #### [facility],[address] [place] [address] 94474 Erythrocyte distribution width (RBC) [Ratio] 13.3 % Normal 12.0 - 15.6 [facility] Comment on above: Performed By: #### 2 80990 #### [facility],[address] [place] [address] 94142 Hematocrit (Bld) [Volume fraction] 49.6 % Normal 40.0 - 52.0 [facility] Comment on above: Performed By: #### 2 74736 #### [facility],[address] [place] [address] 38563 Hemoglobin (Bld) [Mass/Vol] 16.8 g/dL Normal 13.0 - 17.5 [facility] Comment on above: Performed By: #### 2 84098 #### [facility],[address] [place] [address] 65872 MCH (RBC) [Entitic mass] 32 pg Normal 27 - 33 [facility] Comment on above: Performed By: #### 2 91435 #### [facility],[address] [place] [address] 49468 MCHC 34 X10 3 Normal 32 - 36 [facility] Comment on above: Performed By: #### 2 09838 #### [facility],[address] [place] [address] 53657 MCV (RBC) [Entitic vol] 95 fL Normal 81 - 98 [facility] Comment on above: Performed By: #### 2 85351 #### [facility],[address] [place] [address] 44443 PLATELET 216 x10EE3/UL Normal 150 - 450 [facility] Comment on above: Performed By: #### 2 75148 #### [facility],[address] [place] [address] 19470 Platelet mean volume (Bld) [Entitic vol] 9.4 fL Normal 6.4 - 10.5 [facility] Comment on above: Performed By: #### 2 73040 #### [facility],[address] [place] [address] 31208 RBC 5.21 x 10EE6/UL Normal 4.50 - 6.00 [facility] Comment on above: Performed By: #### 2 15944 #### [facility],[address] [place] [address] 13964 WBC 8.2 x 10EE3/UL Normal 4.5 - 10.8 [facility] Comment on above: Performed By: #### 2 24670 #### [facility],[address] [place] [address] 52081 CMP with eGFRon 12-24-2024 AGE 49 years Normal [facility] Comment on above: Performed By: #### 2 81237 #### [facility],[address] [place] [address] 94991 Albumin [Mass/Vol] 3.8 g/dL Normal 3.4 - 5.0 [facility] Comment on above: Performed By: #### 2 62494 #### [facility],[address] [place] [address] 97466 Albumin/Globulin [Mass ratio] 1.2 {ratio} Normal 0.9 - 1.6 [facility] Comment on above: Performed By: #### 2 75180 #### [facility],[address] [place] [address] 67106 ALK PHOS 102 U/L Normal 46 - 116 [facility] Comment on above: Performed By: #### 2 09808 #### [facility],[address] [place] [address] 87487 ALT [Catalytic activity/Vol] 27 U/L Normal 16 - 63 [facility] Comment on above: Performed By: #### 2 81501 #### [facility],[address] [place] [address] 66637 Anion gap [Moles/Vol] 11 mmol/L Normal 10 - 20 [facility] Comment on above: Performed By: #### 2 54356 #### [facility],[address] [place] [address] 33216 AST [Catalytic activity/Vol] 21 U/L Normal 15 - 37 [facility] Comment on above: Performed By: #### 2 98102 #### [facility],[address] [place] [address] 28681 B/C RATIO 22 ratio Normal 0 - 30 [facility] Comment on above: Performed By: #### 2 29520 #### [facility],[address] [place] [address] 22807 Bilirubin [Mass/Vol] 0.4 mg/dL Normal 0.2 - 1.0 [facility] Comment on above: Performed By: #### 2 71995 #### [facility],[address] [place] [address] 52421 Calcium [Mass/Vol] 9.0 mg/dL Normal 8.5 - 10.1 [facility] Comment on above: Performed By: #### 2 13846 #### [facility],[address] [place] [address] 85199 Chloride [Moles/Vol] 105 mmol/L Normal 98 - 107 [facility] Comment on above: Performed By: #### 2 17807 #### [facility],[address] [place] [address] 42060 CMP with eGFR Normal [facility] Comment on above: Result Comment: COMP REHENSIVE METABOLIC PANEL Performed By: #### 2 42797 #### [facility],[address] [place] [address] 57303 CO2 [Moles/Vol] 29.1 mmol/L Normal 21.0 - 32.0 [facility] Comment on above: Performed By: #### 2 03583 #### [facility],[address] [place] [address] 44580 Creatinine [Mass/Vol] 0.86 mg/dL Normal 0.70 - 1.30 [facility] Comment on above: Performed By: #### 2 99917 #### [facility],[address] [place] [address] 76537 GFR/1.73 sq M.predicted among non-blacks MDRD (S/P/Bld) [Vol rate/Area] mL/min/{1.73_m2} Normal 60 - 999 [facility] Comment on above: Performed By: #### 2 99060 #### [facility],[address] [place] [address] 91115 Result Comment: ACCO RDING TO THE NATIONAL KIDNEY DISEASE EDUCATION PROGRAM(NKDE), A NORMAL eGFR IS A VALUE GREATER THAN OR EQUAL TO 60 ML/MIN/1.73 SQ METERS. CHRONIC KIDNEY DISEASE: <60mL/MIN/1.73 SQ METERS KIDNEY FAILURE: <15mL/MIN/1.73 SQ METERS THIS TEST SHOULD ONLY BE USED FOR PATIENTS 18 YEARS OF AGE AND OLDER. Globulin (S) [Mass/Vol] 3.2 g/dL Normal 1.5 - 3.8 [facility] Comment on above: Performed By: #### 2 13933 #### [facility],[address] [place] [address] 19583 Glucose [Mass/Vol] 100 mg/dL Normal 74 - 106 [facility] Comment on above: Performed By: #### 2 11535 #### [facility],[address] [place] [address] 89268 Potassium [Moles/Vol] 4.2 mmol/L Normal 3.5 - 5.1 [facility] Comment on above: Performed By: #### 2 06865 #### [address] [address] Protein [Mass/Vol] 7.0 g/dL Normal 6.4 - 8.2 [facility] Comment on above: Performed By: #### 2 87388 #### [facility],[address] [place] [address] 13117 Sodium [Moles/Vol] 141 mmol/L Normal 136 - 145 [facility] Comment on above: Performed By: #### 2 52043 #### [facility],[address] [place] [address] 24869 Urea nitrogen [Mass/Vol] 19 mg/dL High 7 - 18 [facility] Comment on above: Performed By: #### 2 69372 #### [facility],[address] [place] [address] 77032 HEMOGLOBIN A1C (POM)on 12-24 Glucose [Mass/Vol] 116.9 mg/dL High 0.0 - 0.0 [facility] Comment on above: Result Comment: BLDo HEMOGLOBIN A1C REFERENCE RANGESBLDo Suggested Diagnosis HbA1c(%) HbA1C (mmol/mol Diabetic >/=6.5 >/=48 Prediabetes 5.7 - 6.4 39 - 47 Normal <5.7 <39 Performed By: #### 2 80719 #### [facility],[address] [place] [address] 51472 HbA1c (Bld) [Mass fraction] 5.7 % Normal 0.0 - 6.5 [facility] Comment on above: Performed By: #### 2 66396 #### [facility],[address] [place] [address] 31181 LIPID PROFILEon 12-24-2024 Cholesterol [Mass/Vol] 147 mg/dL Normal 0 - 240 [facility] Comment on above: Performed By: #### 2 43262 #### [facility],[address] [place] [address] 86048 Cholesterol in HDL [Mass/Vol] 52 mg/dL Normal 40 - 60 [facility] Comment on above: Performed By: #### 2 85605 #### [facility],[address] [place] [address] 27604 Cholesterol in LDL [Mass/Vol] 85 mg/dL Normal 0 - 129 [facility] Comment on above: Performed By: #### 2 55739 #### [facility],[address] [place] [address] 58583 Cholesterol.total/Chol esterol in HDL [Mass ratio] 2.8 {ratio} Normal 0.0 - 5.0 [facility] Comment on above: Performed By: #### 2 68518 #### [facility],[address] [place] [address] 84522 Lipid 1996 panel Normal [facility] Comment on above: Result Comment: LIPI D PROFILE Performed By: #### 2 61509 #### [facility],[address] [place], [place] [address] Triglyceride [Mass/Vol] 51 mg/dL Normal 0 - 150 [facility] Comment on above: Performed By: #### 2 65349 #### [facility],[address] [place] [address] 05502 TSHon 12-24-2024 TSH Qn 2.81 m[IU]/L Normal 0.35 - 3.74 [facility] Comment on above: Performed By: #### 2 89866 #### [facility],[address] [place] [address] 42388 URINALYSISon 12-24-2024 Amorphous NONE Normal [facility] Comment on above: Performed By: #### 2 69563 #### [facility],[address] [place] [address] 04067 Bacteria 2+ Normal [facility] Comment on above: Performed By: #### 2 53570 #### [facility],[address] [place] [address] 68869 Bilirubin Ql (U) Negative Normal NORMAL: NEGATIVE [facility] Comment on above: Performed By: #### 2 61504 #### [facility],[address] [place] [address] 51759 Casts NONE Normal [facility] Comment on above: Performed By: #### 2 66862 #### [facility],[address] [place] [address] 14826 Clarity (U) clear Normal NORMAL: CLEAR [facility] Comment on above: Performed By: #### 2 89798 #### [facility],[address] [place] [address] 15217 Color (U) yellow Normal NORMAL: YELLOW [facility] Comment on above: Performed By: #### 2 43651 #### [facility],[address] [place] [address] 97930 Crystals LM Nom (Urine sed) NONE Normal [facility] Comment on above: Performed By: #### 2 24060 #### [facility],[address] [place] [address] 55922 Epi Cells NONE Normal [facility] Comment on above: Performed By: #### 2 99740 #### [facility],[address] [place] [address] 85173 Glucose Ql (U) NORM Normal NORMAL: NORMAL [facility] Comment on above: Performed By: #### 2 50516 #### [facility],[address] [place] [address] 39155 Hemoglobin Ql (U) 25 Abnormal NORMAL: NEGATIVE [facility] Comment on above: Performed By: #### 2 89939 #### [facility],[address] [place] [address] 01954 Ketone Negative Normal NORMAL: NEGATIVE [facility] Comment on above: Performed By: #### 2 27060 #### [facility],[address] [place] [address] 91297 Leukocytes Negative Normal NORMAL: NEGATIVE [facility] Comment on above: Performed By: #### 2 25062 #### [facility],[address] [place] [address] 32231 Mucous 1+ Normal [facility] Comment on above: Performed By: #### 2 90999 #### [facility],[address] [place] [address] Nitrite Ql (U) Negative Normal NORMAL: NEGATIVE [facility] Comment on above: Performed By: #### 2 58757 #### [facility],[address] [place] [address] pH (U) 5 [pH] Normal NORMAL: 5.0-8.0 [facility] Comment on above: Performed By: #### 2 70914 #### [facility],[address] [place] [address] Protein Ql (U) Negative Normal NORMAL: NEGATIVE [facility] Comment on above: Performed By: #### 2 17035 #### [facility],[address] [place] [address] Rbc NONE Normal 0-3/hpf [facility] Comment on above: Performed By: #### 2 91930 #### [facility],[address] [place] [address] Sp Bunnlevel 1.020 Normal NORMAL: 1.010-1.030 [facility] Comment on above: Performed By: #### 2 24775 #### [facility],[address] [place] [address] Specimen Type R Normal [facility] Comment on above: Performed By: #### 2 60891 #### [facility],[address] [place] [address] Urinalysis dipstick W Reflex Microscopic panel (U) SEE BELOW Normal [facility] Comment on above: Result Comment: MICR OSCOPIC Performed By: #### 2 43941 #### [facility],[address] [place] [address] Urobilinog NORM Normal NORMAL: NORMAL [facility] Comment on above: Performed By: #### 2 24537 #### [facility],[address] [place] [address] Wbc 1-5 Normal 0-5/hpf [facility] Comment on above: Performed By: #### 2 34907 #### [facility],[address] [place] [address] 20891 Yeast NONE Normal [facility] Comment on above: Performed By: #### 2 63094 #### [facility],[address] [place] [address] 68404 LIPID PROFILEon 10-06-2024 Lipid 1996 panel Normal [facility] Comment on above: Result Comment: LIPI D PROFILE SEE SCANNED REPORT Performed By: #### 2 99675 #### [facility],[address] [place] [address] 24022 CBC + DIFFon 10-05-2024 Baso # 0.03 x10EE3/UL Normal 0.00 - 0.10 [facility] Comment on above: Performed By: #### 2 31264 #### [facility],[address] [place] [address] 29566 Basophils/100 WBC (Bld) 0.4 % Normal 0.0 - 2.0 [facility] Comment on above: Performed By: #### 2 70325 #### [facility],[address] [place], [place] [address] CBC + DIFF Normal [facility] Comment on above: Result Comment: CBC- COMPLETE BLOOD COUNT Performed By: #### 2 88833 #### [facility],[address] [place] [address] 13175 EO # 0.04 x10EE3/UL Normal 0.00 - 0.50 [facility] Comment on above: Performed By: #### 2 52817 #### [facility],[address] [place] [address] 90188 Eosinophils/100 WBC (Bld) 0.5 % Normal 0.0 - 7.0 [facility] Comment on above: Performed By: #### 2 06316 #### [facility],[address] [place], [place] [address] Erythrocyte distribution width (RBC) [Ratio] 13.4 % Normal 12.0 - 15.6 [facility] Comment on above: Performed By: #### 2 36794 #### [facility],[address] [place] [address] Hematocrit (Bld) [Volume fraction] 47.8 % Normal 40.0 - 52.0 [facility] Comment on above: Performed By: #### 2 27075 #### [facility],[address] [place] [address] Hemoglobin (Bld) [Mass/Vol] 16.0 g/dL Normal 13.0 - 17.5 [facility] Comment on above: Performed By: #### 2 50008 #### [facility],[address] [place] [address] Lymph # 1.87 x10EE3/UL Normal 0.80 - 2.80 [facility] Comment on above: Performed By: #### 2 58750 #### [place] [address] Lymphocytes/100 WBC (Bld) 25.8 % Normal 20.0 - 45.0 [facility] Comment on above: Performed By: #### 2 78174 #### [facility],[address] [place] [address] MANUAL DIFF N/A Normal [facility] Comment on above: Performed By: #### 2 46829 #### [facility],[address] [place] [address] MCH (RBC) [Entitic mass] 32 pg Normal 27 - 33 [facility] Comment on above: Performed By: #### 2 93183 #### [place] [address] MCHC 34 X10 3 Normal 32 - 36 [facility] Comment on above: Performed By: #### 2 84590 #### [place] [address] MCV (RBC) [Entitic vol] 96 fL Normal 81 - 98 [facility] Comment on above: Performed By: #### 2 89255 #### [place] [address] Phelps # 0.48 x10EE3/UL Normal 0.20 - 1.00 [facility] Comment on above: Performed By: #### 2 95388 #### [address] [address] MONOS % 6.7 % Normal 0.0 - 10.0 [facility] Comment on above: Performed By: #### 2 23260 #### [place] [id number] Morphology Ronaldo (Bld) [Interp] N/A Normal [facility] Comment on above: Performed By: #### 2 22443 #### [place] [address] Neut # 4.84 x10EE3/UL Normal 1.50 - 7.10 [facility] Comment on above: Performed By: #### 2 65372 #### [place] [id number] Neutrophils/100 WBC (Bld) 66.7 % Normal 46.0 - 76.0 [facility] Comment on above: Performed By: #### 2 58031 #### [place] [address] PLATELET 166 x10EE3/UL Normal 150 - 450 [facility] Comment on above: Performed By: #### 2 36210 #### [address] [address] Platelet mean volume (Bld) [Entitic vol] 9.4 fL Normal 6.4 - 10.5 [facility] Comment on above: Result Comment: AUTO MATED DIFFERENTIAL Performed By: #### 2 53071 #### [facility],[address] [place] [address] 71431 RBC 4.96 x 10EE6/UL Normal 4.50 - 6.00 [facility] Comment on above: Performed By: #### 2 60849 #### [facility],[address] [place] [address] 81763 WBC 7.3 x 10EE3/UL Normal 4.5 - 10.8 [facility] Comment on above: Performed By: #### 2 61913 #### [facility],[address] [place] [address] 70662 CMP with eGFRon 10-05-2024 AGE 49 years Normal [facility] Comment on above: Performed By: #### 2 98404 #### [facility],[address] [place] [address] 71077 Albumin [Mass/Vol] 3.6 g/dL Normal 3.4 - 5.0 [facility] Comment on above: Performed By: #### 2 49606 #### [facility],[address] [place] [address] 80511 Albumin/Globulin [Mass ratio] 1.1 {ratio} Normal 0.9 - 1.6 [facility] Comment on above: Performed By: #### 2 91957 #### [facility],[address] [place] [address] 48712 ALK PHOS 101 U/L Normal 46 - 116 [facility] Comment on above: Performed By: #### 2 33404 #### [facility],[address] [place] [address] 97090 ALT [Catalytic activity/Vol] 27 U/L Normal 16 - 63 [facility] Comment on above: Performed By: #### 2 95822 #### [facility],[address] [place] [address] 35234 Anion gap [Moles/Vol] 12 mmol/L Normal 10 - 20 [facility] Comment on above: Performed By: #### 2 49738 #### [facility],[address] [place] [address] 69298 AST [Catalytic activity/Vol] 23 U/L Normal 15 - 37 [facility] Comment on above: Performed By: #### 2 95376 #### [facility],[address] [place] [address] 65552 B/C RATIO 17 ratio Normal 0 - 30 [facility] Comment on above: Performed By: #### 2 13264 #### [facility],[address] [place] [address] 73709 Bilirubin [Mass/Vol] 0.3 mg/dL Normal 0.2 - 1.0 [facility] Comment on above: Performed By: #### 2 03377 #### [facility],[address] [place] [address] 12344 Calcium [Mass/Vol] 8.9 mg/dL Normal 8.5 - 10.1 [facility] Comment on above: Performed By: #### 2 41392 #### [facility],[address] [place] [address] 02956 Chloride [Moles/Vol] 107 mmol/L Normal 98 - 107 [facility] Comment on above: Performed By: #### 2 01399 #### [facility],[address] [place] [address] 23460 CMP with eGFR Normal [facility] Comment on above: Result Comment: COMP REHENSIVE METABOLIC PANEL Performed By: #### 2 62507 #### [facility],[address] [place] [address] 62340 CO2 [Moles/Vol] 28.3 mmol/L Normal 21.0 - 32.0 [facility] Comment on above: Performed By: #### 2 74743 #### [facility],[address] [place] [address] 61025 Creatinine [Mass/Vol] 0.87 mg/dL Normal 0.70 - 1.30 [facility] Comment on above: Performed By: #### 2 97393 #### [facility],[address] [place] [address] 64273 GFR/1.73 sq M.predicted among non-blacks MDRD (S/P/Bld) [Vol rate/Area] mL/min/{1.73_m2} Normal 60 - 999 [facility] Comment on above: Performed By: #### 2 69404 #### [facility],[address] [place] [address] 95513 Result Comment: ACCO RDING TO THE NATIONAL KIDNEY DISEASE EDUCATION PROGRAM(NKDE), A NORMAL eGFR IS A VALUE GREATER THAN OR EQUAL TO 60 ML/MIN/1.73 SQ METERS. CHRONIC KIDNEY DISEASE: <60mL/MIN/1.73 SQ METERS KIDNEY FAILURE: <15mL/MIN/1.73 SQ METERS THIS TEST SHOULD ONLY BE USED FOR PATIENTS 18 YEARS OF AGE AND OLDER. Globulin (S) [Mass/Vol] 3.2 g/dL Normal 1.5 - 3.8 [facility] Comment on above: Performed By: #### 2 67949 #### [facility],[address] [place] [address] 80903 Glucose [Mass/Vol] 95 mg/dL Normal 74 - 106 [facility] Comment on above: Performed By: #### 2 12016 #### [facility],[address] [place] [address] 58787 Potassium [Moles/Vol] 4.3 mmol/L Normal 3.5 - 5.1 [facility] Comment on above: Performed By: #### 2 81169 #### [facility],[address] [place] [address] 02746 Protein [Mass/Vol] 6.8 g/dL Normal 6.4 - 8.2 [facility] Comment on above: Performed By: #### 2 87260 #### [facility],[address] [place] [address] 92375 Sodium [Moles/Vol] 143 mmol/L Normal 136 - 145 [facility] Comment on above: Performed By: #### 2 16983 #### [facility],[address] [place] [address] 00248 Urea nitrogen [Mass/Vol] 15 mg/dL Normal 7 - 18 [facility] Comment on above: Performed By: #### 2 67073 #### [facility],[address] [place] [address] 03121 HEMOGLOBIN A1C (POM)on 10-05 Glucose [Mass/Vol] 102.5 mg/dL High 0.0 - 0.0 [facility] Comment on above: Result Comment: BLDo HEMOGLOBIN A1C REFERENCE RANGESBLDo Suggested Diagnosis HbA1c(%) HbA1C (mmol/mol Diabetic >/=6.5 >/=48 Prediabetes 5.7 - 6.4 39 - 47 Normal <5.7 <39 Performed By: #### 2 16558 #### [facility],[address] [place] [address] 62043 HbA1c (Bld) [Mass fraction] 5.2 % Normal 0.0 - 6.5 [facility] Comment on above: Performed By: #### 2 04125 #### [facility],[address] [place] [address] 48115 URINALYSISon 10-05-2024 Bilirubin Ql (U) Negative Normal NORMAL: NEGATIVE [facility] Comment on above: Performed By: #### 2 22110 #### [facility],[address] [place] [address] 83761 Clarity (U) clear Normal NORMAL: CLEAR [facility] Comment on above: Performed By: #### 2 42736 #### [facility],[address] [place] [address] 46630 Color (U) yellow Normal NORMAL: YELLOW [facility] Comment on above: Performed By: #### 2 94804 #### [facility],[address] [place] [address] 58840 Glucose Ql (U) NORM Normal NORMAL: NORMAL [facility] Comment on above: Performed By: #### 2 96719 #### [facility],[address] [place] [address] 25501 Hemoglobin Ql (U) Negative Normal NORMAL: NEGATIVE [facility] Comment on above: Performed By: #### 2 59916 #### [facility],[address] [place] [address] 67171 Ketone Negative Normal NORMAL: NEGATIVE [facility] Comment on above: Performed By: #### 2 05794 #### [facility],[address] [place] [address] 10713 Leukocytes Negative Normal NORMAL: NEGATIVE [facility] Comment on above: Performed By: #### 2 93565 #### [facility],[address] [place], [place] [address] Nitrite Ql (U) Negative Normal NORMAL: NEGATIVE [facility] Comment on above: Performed By: #### 2 80048 #### [facility],[address] [place] [address] pH (U) 6 [pH] Normal NORMAL: 5.0-8.0 [facility] Comment on above: Performed By: #### 2 99811 #### [facility],[address] [place], [place] [address] Protein Ql (U) Negative Normal NORMAL: NEGATIVE [facility] Comment on above: Performed By: #### 2 93179 #### [facility],[address] [place] [address] Sp Bunnlevel 1.020 Normal NORMAL: 1.010-1.030 [facility] Comment on above: Performed By: #### 2 64211 #### [facility],[address] [place] [address] Specimen Type R Normal [facility] Comment on above: Performed By: #### 2 88265 #### [facility],[address] [place] [address] Urinalysis dipstick W Reflex Microscopic panel (U) NOT INDICATED Normal [facility] Comment on above: Performed By: #### 2 95641 #### [facility],[address] [facility] [address] Urobilinog NORM Normal NORMAL: NORMAL [facility] Comment on above: Performed By: #### 2 54149 #### [facility],[address] [place] [address] 87554 Pulmonary Visit Reporton Pulmonary Visit Report [facility] [address] [place] [address] OFFICE VISIT Date of Service: 09/07/24 MR#: [id number] Acct: [id number] Name: JOON MURO Rep #: [id number] : 1975 Provider: LENNIE Beltran Age/Sex: 49/M Location: [facility] [place] Status: Signed Assessment and Plan Assessment and [...] Centrilobular emphysema Plan Details Follow Up: 07/18/25 ([facility]) HPI 1 Y FU Chief Complaint: [...] N/A Accompanied by: Self Allergies omeprazole (From Twibingo) Adverse Reaction (Intermediate, Verified 09/07/24 08:09) GI Upset Medications ???Medication ???Instructions ???Recorded ???Confirmed ???Type nicotine 10 mg inhalation 1 inh inhalation ONCE PRN nicotine 03/18/23 09/07/24 Rx cartridge (Nicotrol) cravings #168 ea rosuvastatin 10 mg tablet 10 mg PO DAILY 04/07/23 09/07/24 History [id number] 2 cap PO TID #100 caps 07/02/24 09/07/24 Rx 40,000-126,000-168,000 unit capsule, delay rel (Zenpep) [facility] Medical History Marijuana abuse, continuous COPD (chronic obstructive pulmonary disease) Lung nodule seen on imaging study Nicotine addiction Diverticula, colon Marijuana use Essential tremor Insomnia Back pain History of ulceration Emphysema, unspecified Shortness of breath on exertion Leg cramps History of stress test Chest pain Hx of [place] spotted fever Injury of left clavicle Hypercholesterolemia [...] type: marijuana (more content not included)... Normal [facility] CT CORONARY ANGIOGRAPHY W+W/ O CONTRASTon 07-15-2024 CT CORONARY ANGIOGRAPHY W+W/O CONTRAST ORIGINAL CT CORONARY ANGIOGRAPHY W+W/O CONTRAST PATIENT NAME:JOON MURO : 1975 GENDER: Male ORDERING PROVIDER:MALINDA GALLAGHER CLINICAL STATEMENT: chest pain pt c/o left chest pain x few years smoker no heart surg no ca PATIENT NAME:JOON MURO : 1975 GENDER: Male ORDERING PROVIDER:MALINDA GLALAGHER CLINICAL STATEMENT: chest pain pt c/o left [...] minor artifact but good diagnostic quality. LIMITATIONS: \[id number]\None Abbreviations: LM: left main, RCA: right coronary [...] No effusion. No thickening. No calcifications. AV: \[id number]\Tricuspid. No thickening. No calcifications. MV: \[id number]\No thickening. No calcifications. CORONARY CALCIUM SCORING [place] [...] Sign Date: 07/15/2024 10:57:20 PM Ordering Provider:Malinda Rice [facility] ([place] CT CORONARY EXTRACARDIACon 0 07-13-2024 CT CORONARY [...] Date: 07/13/2024 3:39:59 PM Ordering Provider: MALINDA GALLAGHER [facility] ([place]) HbA1c (Bld)on 09-08-2023 Average glucose Estimated from glycated hemoglobin (Bld) [Mass/Vol] 111 mg/dL Normal [facility] Comment on above: Order Comment: Soy hood Type: BLOOD SPECIMEN Ordering Facility: [facility] Address: [facility] [place] [address] Result Comment: eAG: (Estimated average glucose) is a calculated value from HgbA1c and is field sales representative of the average blood glucose level in the last 2-3 month period. Performed By: #### 5 5454-3 #### [facility] CLIA [id number] [address] [place] [address] [place] HbA1c (Bld) [Mass fraction] 5.5 % Normal 4.3-5.6 [facility] Comment on above: Order Comment: Soy hood Type: BLOOD SPECIMEN Ordering Facility: [facility] Address: [facility] [address] Result Comment: [place] Diabetes Association guidelines indicate that patients with HgbA1c in the range 5.7-6.4% are at increased risk for development of diabetes, and intervention by lifestyle modification may be beneficial. HgbA1c greater or equal to 6.5% is considered diagnostic of diabetes. Performed By: #### 5 5454-3 #### [facility] CLIA [id number] [address] [place] [address] [place] Absolute lymphocyte countOrd ered By: Christiane Shannon on 04-07-2023 Lymphocytes Auto (Unsp spec) [#/Vol] 1.62 10*3/uL 0.83-4.51 [facility] Basophil percentageOrdered B y: Christiane Shannon on 04-07-2023 Basophils/100 WBC (Bld) 0.4 % 0-1 [facility] Bilirubin [Mass/Vol] 0.40 mg/dL 0.20-1.00 [facility] Comment on above: For patients on eltr ombopag therapy, use of Dimension [place] TBIL is not recommended. Chloride [Moles/Vol] 108 mmol/L 98-107 [facility] Eosinophils/100 WBC (Bld) 1.2 % 0-5 [facility] Glucose [Mass/Vol] 95 mg/dL 74-106 [facility] Neutrophils (Bld) [#/Vol] 5.9 10*3/uL 2.0-7.7 [facility] Neutrophils/100 WBC (Bld) 72.4 % 47-70 [facility] Potassium [Moles/Vol] 4.5 mmol/L 3.5-5.1 [facility] Protein [Mass/Vol] 7.0 g/dL 6.4-8.2 [facility] Sodium [Moles/Vol] 139 mmol/L 136-145 [facility] WBC (Bld) [#/Vol] 8.1 10*3/uL 4.4-11.0 [facility] Blood erythrocytes count (nu mber/volume)Ordered By: Christiane Shannon on 04-07-2023 RBC (Bld) [#/Vol] 5.08 10*6/uL 4.6-6.2 [facility] Blood hemoglobin measurement (mass/volume)Ordered By: Christiane Shannon on 04-07-2023 Hemoglobin (Bld) [Mass/Vol] 15.8 g/dL 13.0-16.5 [facility] Blood lymphocytes/100 leukoc ytesOrdered By: Christiane Shannon on 04-07-2023 Lymphocytes/100 WBC (Bld) 20.1 % 19-41 [facility] Blood monocytes/100 leukocyt esOrdered By: Christiane Shannon on 04-07-2023 Monocytes/100 WBC (Bld) 5.5 % 0-10 [facility] Blood platelet mean volumeOr dered By: Christiane Shannon on 04-07-2023 Platelet mean volume (Bld) [Entitic vol] 11.5 fL 6.2-12.0 [facility] Determination of erythrocyte mean corpuscular volume (MCV)Ordered By: Christiane Shannon on 04-07-2023 MCV (RBC) [Entitic vol] 96.9 fL 80-94 [facility] Erythrocyte sedimentation ra teOrdered By: Christiane Shannon on 04-07-2023 ESR (Bld) [Velocity] 9 mm/h 0-20 [facility] Hematocrit Auto (Bld) [Volum e fraction]Ordered By: Christiane Shannon on 04-07-2023 Hematocrit (Bld) [Volume fraction] 49.2 % 40-54 [facility] Laboratory - Chemistry and C hemistry - challengeOrdered By: Christiane Shannon on 04-07-2023 ALP [Catalytic activity/Vol] 117 U/L 45-117 [facility] ALT [Catalytic activity/Vol] 32 U/L 16-61 [facility] CO2 [Moles/Vol] 27.0 mmol/L 21.0-32.0 [facility] Globulin (S) [Mass/Vol] 3.5 g/dL 2.2-4.2 [facility] Lipase [Catalytic activity/Vol] 57 U/L 13-75 [facility] Comment on above: Please note:LIPASE r evised reference range effective 23. New Lipase methodology. Expected to produce lower values than the previous assay method. NEW Reference Range: 13 - 75 U/L Urea nitrogen/Creatinine [Mass ratio] 25.9 mg/mg 10-20 [facility] Laboratory - Hematology and Cell countsOrdered By: Christiane Shannon on 04-07-2023 Erythrocyte distribution width (RBC) [Entitic vol] 45.8 fL 35.1-43.9 [facility] Erythrocyte distribution width (RBC) [Ratio] 12.7 % 11.6-14.6 [facility] Immature granulocytes/100 WBC (Bld) 0.400 % 0.0-0.9 [facility] Comment on above: IG% - Immature Granu locytes (promyelocytes, myelocytes and metamyelocytes) > 1% indicates that a LEFT SHIFT is Present. MCH (RBC) [Entitic mass] 31.1 pg 27.0-32.0 [facility] Nucleated RBC/100 WBC (Bld) [Ratio] 0 % 0-5 [facility] MCHC Auto (RBC) [Mass/Vol]Or dered By: Christiaen Shannon on 04-07-2023 MCHC (RBC) [Mass/Vol] 32.1 g/dL 32-36 [facility] No Panel InformationOrdered By: Christiane Shannon on 04-07-2023 CA 19-9 Antigen 7 U/mL 0-35 [facility] Comment on above: [employer] El ectrochemiluminescence Immunoassay(ECLIA)Values obtained with different assay methods or kits cannotbe used interchangeably. Results cannot be interpreted asabsolute evidence of the presence or absence of malignantdisease. Estimated GFR (MDRD) Amer 117 mL/min >60 [facility] Comment on above: GFR Calc Estimated GFR (MDRD) Non-Af Amer 96 mL/min >60 [facility] Comment on above: Non- GFR Calc Immunoglobulin G4 15 mg/dL 2-96 [facility] Platelets bldOrdered By: Mary Shannon on 04-07-2023 Platelets (Bld) [#/Vol] 215 10*3/uL 150-450 [facility] Serum IgG subclass 1 measure ment (mass/volume)Ordered By: Christiane Shannon on 04-07-2023 IgG subclass 1 (S) [Mass/Vol] 312 mg/dL 248-810 [facility] Serum IgG subclass 2 measure ment (mass/volume)Ordered By: Christiane Shannon on 04-07-2023 IgG subclass 2 (S) [Mass/Vol] 258 mg/dL 130-555 [facility] Serum IgG subclass 3 measure ment (mass/volume)Ordered By: Christiane Shannon on 04-07-2023 IgG subclass 3 (S) [Mass/Vol] 33 mg/dL 15-102 [facility] Serum mitochondria antibody detectionOrdered By: Christiane Shannon on 04-07-2023 Mitochondria Ab Ql (S) <20.0 Units 0.0-20.0 [facility] Comment on above: Negative 0.0 - 20.0 Equivocal 20.1 - 24.9 Positive >24.9Mitochondrial (M2) Antibodies are found in 90-96% ofpatients with primary biliary cirrhosis.Performed at: [facility] [address] [id number] Director: Alin Ceron PhD, Phone: [phone] Serum or plasma C reactive p rotein measurement (mass/volume)Ordered By: Christiane Shannon on 04-07-2023 CRP [Mass/Vol] 10.90 mg/L 0.0-3.0 [facility] Comment on above: C-Reactive Protein ( CRP) provides useful information for thediagnosis, therapy and monitoring of inflammatory processesand associated diseases. For the evaluation of Relative Riskfor Cardiovascular Disease, a High Sensitivity CRP (HSCRP)should be ordered. Serum or plasma IgG measurem ent (mass/volume)Ordered By: Christiane Shannon on 04-07-2023 IgG [Mass/Vol] 740 mg/dL [phone] [facility] Serum or plasma actin IgG an tibody assay (units/volume)Ordered By: Christiane Shannon on 04-07-2023 Actin IgG Qn 4 Units 0-19 [facility] Comment on above: Negative 0 - 19 Weak positive 20 - 30 Moderate to strong positive >30 Actin Antibodies are found in 52-85% of patients with autoimmune hepatitis or chronic active hepatitis and in 22% of patients with primary biliary cirrhosis.Performed at: [facility] [address] [id number] Director: Alin Ceron PhD, Phone: [phone] Serum or plasma albumin paige urement (mass/volume)Ordered By: Christiane Shannon on 04-07-2023 Albumin [Mass/Vol] 3.5 g/dL 3.2-5.0 [facility] Serum or plasma albumin/glob ulin mass ratioOrdered By: Christiane Shannon on 04-07-2023 Albumin/Globulin [Mass ratio] 1.0 {ratio} 0.9-2.4 [facility] Serum or plasma calcium paige urement (mass/volume)Ordered By: Christiane Shannon on 04-07-2023 Calcium [Mass/Vol] 8.7 mg/dL 8.5-10.1 [facility] Serum or plasma creatinine m easurement (mass/volume)Ordered By: Christiane Shannon on 04-07-2023 Creatinine [Mass/Vol] 0.89 mg/dL 0.70-1.30 [facility] Comment on above: The validity of the calculated GFR & GFRAA in patients over 70 years has not been determined. Clinical correlation is essential. Serum or plasma urea nitroge n measurement (mass/volume)Ordered By: Christiane Shannon on 04-07-2023 Urea nitrogen [Mass/Vol] 23 mg/dL 7-18 [facility] Thin prep Papanicolaou smear with manual screeningOrdered By: Christiane Shannon on 04-07-2023 Thin prep Papanicolaou smear with manual screening 24 U/L 15-37 [facility] Thin prep Papanicolaou smear with manual screening 4 5-15 [facility] No Panel Informationon 08-12 Stool Neutral Fats Increased . [facility] Work Phone: Comment on above: Normal (<60 Droplets /HPF) Qualitative fecal fat or lip idson 08-12-2022 Fat Ql (Stl) Increased . [facility] Work Phone: Comment on above: Normal (<100 Droplet s/HPF)Performed at: - [facility] [id number] Director: Alin Ceron PhD, Phone: [phone] Absolute lymphocyte counton 08-07-2022 Lymphocytes Auto (Unsp spec) [#/Vol] 1.78 10*3/uL 0.83-4.51 [facility] Work Phone: Basophil percentageon 2021 Amylase [Catalytic activity/Vol] 49 U/L 25-115 [facility] Work Phone: Basophils/100 WBC (Bld) 0.2 % 0-1 [facility] Work Phone: Bilirubin [Mass/Vol] 0.50 mg/dL 0.20-1.00 [facility] Work Phone: [phone] Comment on above: For patients on eltr ombopag therapy, use of Dimension [place] TBIL is not recommended. Chloride [Moles/Vol] 106 mmol/L 98-107 [facility] Work Phone: Eosinophils/100 WBC (Bld) 1.1 % 0-5 [facility] Work Phone: [phone] Glucose [Mass/Vol] 106 mg/dL 74-106 [facility] Work Phone: Comment on above: Fasting Glucose resu lt from 100 to 125 mg/dL suggests IMPAIRED HOMEOSTASIS per A.D.A. criteria. Neutrophils (Bld) [#/Vol] 6.7 10*3/uL 2.0-7.7 [facility] Work Phone: Neutrophils/100 WBC (Bld) 73.5 % 47-70 [facility] Work Phone: Potassium [Moles/Vol] 4.3 mmol/L 3.5-5.1 [facility] Work Phone: Protein [Mass/Vol] 7.6 g/dL 6.4-8.2 [facility] Work Phone: [phone] Sodium [Moles/Vol] 139 mmol/L 136-145 [facility] Work Phone: WBC (Bld) [#/Vol] 9.2 10*3/uL 4.4-11.0 [facility] Work Phone: [phone] Blood erythrocytes count (nu mber/volume)on 08-07-2022 RBC (Bld) [#/Vol] 5.35 10*6/uL 4.6-6.2 [facility] Work Phone: Blood hemoglobin measurement (mass/volume)on 08-07-2022 Hemoglobin (Bld) [Mass/Vol] 17.1 g/dL 13.0-16.5 [facility] Work Phone: Blood lymphocytes/100 leukoc yteson 08-07-2022 Lymphocytes/100 WBC (Bld) 19.4 % 19-41 [facility] Work Phone: Blood monocytes/100 leukocyt eson 08-07-2022 Monocytes/100 WBC (Bld) 5.5 % 0-10 [facility] Work Phone: Blood platelet mean volumeon 08-07-2022 Platelet mean volume (Bld) [Entitic vol] 11.0 fL 6.2-12.0 [facility] Work Phone: Determination of erythrocyte mean corpuscular volume (MCV)on 08-07-2022 MCV (RBC) [Entitic vol] 95.1 fL 80-94 [facility] Work Phone: Erythrocyte sedimentation ra lisa 08-07-2022 ESR (Bld) [Velocity] 22 mm/h 0-20 [facility] Work Phone: [phone] Hematocrit Auto (Bld) [Volum e fraction]on 08-07-2022 Hematocrit (Bld) [Volume fraction] 50.9 % 40-54 [facility] Work Phone: [phone] Interpretation of serum or p lasma protein pattern by immunofixation (narrative resulton 08-07-2022 Protein Fractions Immunofixation Ronaldo [Interp] See comment [facility] Work Phone: Comment on above: Result: Not Observed Laboratory - Chemistry and C hemistry - challengeon 08-07-2022 ALP [Catalytic activity/Vol] 118 U/L 45-117 [facility] Work Phone: ALT [Catalytic activity/Vol] 24 U/L 16-61 [facility] Work Phone: CO2 [Moles/Vol] 27.0 mmol/L 21.0-32.0 [facility] Work Phone: Cobalamin (Vitamin B12) [Mass/Vol] 508 pg/mL 211-911 [facility] Work Phone: Lipase [Catalytic activity/Vol] 135 U/L 73-393 [facility] Work Phone: Urea nitrogen/Creatinine [Mass ratio] 17.9 mg/mg 10-20 [facility] Work Phone: Laboratory - Hematology and Cell countson 08-07-2022 Erythrocyte distribution width (RBC) [Entitic vol] 46.8 fL 35.1-43.9 [facility] Work Phone: Erythrocyte distribution width (RBC) [Ratio] 13.2 % 11.6-14.6 [facility] Work Phone: Immature granulocytes/100 WBC (Bld) 0.300 % 0.0-0.9 [facility] Work Phone: Comment on above: IG% - Immature Granu locytes (promyelocytes, myelocytes and metamyelocytes) > 1% indicates that a LEFT SHIFT is Present. MCH (RBC) [Entitic mass] 32.0 pg 27.0-32.0 [facility] Work Phone: Nucleated RBC/100 WBC (Bld) [Ratio] 0 % 0-5 [facility] Work Phone: MCHC Auto (RBC) [Mass/Vol]on 08-07-2022 MCHC (RBC) [Mass/Vol] 33.6 g/dL 32-36 [facility] Work Phone: No Panel Informationon 08-07 Addendum Document Comment . [facility] Work Phone: Comment on above: Protein electrophore sis scan will follow via computer,mail, or fire prevention bureau captain delivery. Estimated GFR (MDRD) Amer 116 mL/min >60 [facility] Work Phone: Comment on above: GFR Calc Estimated GFR (MDRD) Non-Af Amer 96 mL/min >60 [facility] Work Phone: Comment on above: Non- GFR Calc Immunoglobulin E 20 IU/mL 6-495 [facility] Work Phone: Thyroid Stimulating Hormone (TSH) 2.83 uIU/mL 0.358-3.74 [facility] Work Phone: Platelets bldon 08-07-2022 Platelets (Bld) [#/Vol] 178 10*3/uL 150-450 [facility] Work Phone: Serum sifwt-5-moeolvmf measu rement by electrophoresison 08-07-2022 Alpha 1 globulin Elph [Mass/Vol] 0.2 g/dL 0.0-0.4 [facility] Work Phone: Alpha 1 globulin Elph [Mass/Vol] 0.8 g/dL 0.4-1.0 [facility] Work Phone: Serum globulin measurement ( mass/volume)on 08-07-2022 Globulin (S) [Mass/Vol] 3.0 g/dL 2.2-3.9 [facility] Work Phone: Serum or plasma C reactive p rotein measurement (mass/volume)on 08-07-2022 CRP [Mass/Vol] 3.85 mg/L 0.0-3.0 [facility] Work Phone: Comment on above: C-Reactive Protein ( CRP) provides useful information for thediagnosis, therapy and monitoring of inflammatory processesand associated diseases. For the evaluation of Relative Riskfor Cardiovascular Disease, a High Sensitivity CRP (HSCRP)should be ordered. Serum or plasma IgA measurem ent (mass/volume)on 08-07-2022 IgA [Mass/Vol] 155 mg/dL 90-386 [facility] Work Phone: Serum or plasma IgG measurem ent (mass/volume)on 08-07-2022 IgG [Mass/Vol] 853 mg/dL 603-1613 [facility] Work Phone: Serum or plasma IgM measurem ent (mass/volume)on 08-07-2022 IgM [Mass/Vol] 239 mg/dL 20-172 [facility] Work Phone: Serum or plasma albumin paige urement (mass/volume)on 08-07-2022 Albumin [Mass/Vol] 3.8 g/dL 2.9-4.4 [facility] Work Phone: Serum or plasma albumin/glob ulin mass ratioon 08-07-2022 Albumin/Globulin [Mass ratio] 1.0 {ratio} 0.9-2.4 [facility] Work Phone: Serum or plasma beta globuli n measurement by electrophoresis (mass/volume)on 08-07-2022 Beta globulin Elph [Mass/Vol] 1.0 g/dL 0.7-1.3 [facility] Work Phone: Serum or plasma calcium paige urement (mass/volume)on 08-07-2022 Calcium [Mass/Vol] 8.9 mg/dL 8.5-10.1 [facility] Work Phone: Serum or plasma carcinoembry onic antigen measurement (mass/volume)on 08-07-2022 Carcinoembryonic Ag [Mass/Vol] 16.5 ng/mL 0.0-4.7 [facility] Work Phone: Comment on above: Nonsmokers <3.9 Smok ers <5.6[employer] Electrochemiluminescence Immunoassay(ECLIA)Values obtained with different assay methods or kitscannot be used interchangeably. Results cannot beinterpreted as absolute evidence of the presence orabsence of malignant disease. Serum or plasma creatinine m easurement (mass/volume)on 08-07-2022 Creatinine [Mass/Vol] 0.89 mg/dL 0.70-1.30 [facility] Work Phone: Comment on above: The validity of the calculated GFR & GFRAA in patients over 70 years has not been determined. Clinical correlation is essential. Serum or plasma folate measu rement (mass/volume)on 08-07-2022 Folate [Mass/Vol] 11.40 ng/mL 3.1-55.4 [facility] Work Phone: Serum or plasma gamma globul in measurement by electrophoresis (mass/volume)on 08-07-2022 Gamma globulin Elph [Mass/Vol] 0.9 g/dL 0.4-1.8 [facility] Work Phone: Serum or plasma gastrin paige urement (mass/volume)on 08-07-2022 Gastrin [Mass/Vol] 14 pg/mL 0-115 [facility] Work Phone: Comment on above: Siemens Immulite 200 0 Immunochemiluminometric assay (ICMA)Values obtained with different assay methods or kits cannotbe used interchangeably. Results cannot be interpreted asabsolute evidence of the presence or absence of malignantdisease.Performed at: [facility] [address] [id number] Director: Alin Ceron PhD, Phone: [phone] at: [employer] [address] [id number] Director: Nino Shelton MD, Phone: [phone] Serum or plasma immunoelectr ophoresis interpretation (nominal result)on 08-07-2022 Interpretation IEP [Interp] Comment . [facility] Work Phone: Comment on above: No monoclonality det ected. Serum or plasma urea nitroge n measurement (mass/volume)on 08-07-2022 Urea nitrogen [Mass/Vol] 16 mg/dL 7-18 [facility] Work Phone: Thin prep Papanicolaou smear with manual screeningon 08-07-2022 Thin prep Papanicolaou smear with manual screening 16 U/L 15-37 [facility] Work Phone: Thin prep Papanicolaou smear with manual screening 6 5-15 [facility] Work Phone: Thin prep Papanicolaou smear with manual screening 197 U/L 87-241 [facility] Work Phone: Thin prep Papanicolaou smear with manual screening 1.3 0.7-1.7 [facility] Work Phone: Total protein bloodon 2021 Protein [Mass/Vol] 6.8 g/dL 6.0-8.5 [facility] Work Phone: Basophil percentageon 2021 Bilirubin [Mass/Vol] 0.20 mg/dL 0.20-1.00 [facility] Work Phone: Comment on above: For patients on eltr ombopag therapy, use of Dimension [place] TBIL is not recommended. Chloride [Moles/Vol] 111 mmol/L 98-107 [facility] Work Phone: Glucose [Mass/Vol] 101 mg/dL 74-106 [facility] Work Phone: Comment on above: Fasting Glucose resu lt from 100 to 125 mg/dL suggests IMPAIRED HOMEOSTASIS per A.D.A. criteria. Potassium [Moles/Vol] 4.4 mmol/L 3.5-5.1 [facility] Work Phone: Protein [Mass/Vol] 6.7 g/dL 6.4-8.2 [facility] Work Phone: Sodium [Moles/Vol] 141 mmol/L 136-145 [facility] Work Phone: Laboratory - Chemistry and C hemistry - challengeon 05-30-2022 ALP [Catalytic activity/Vol] 103 U/L 45-117 [facility] Work Phone: ALT [Catalytic activity/Vol] 19 U/L 16-61 [facility] Work Phone: CO2 [Moles/Vol] 26.0 mmol/L 21.0-32.0 [facility] Work Phone: Globulin (S) [Mass/Vol] 3.2 g/dL 2.2-4.2 [facility] Work Phone: Urea nitrogen/Creatinine [Mass ratio] 21.2 mg/mg 10-20 [facility] Work Phone: No Panel Informationon 05-30 Estimated GFR (MDRD) Amer 116 mL/min >60 [facility] Work Phone: Comment on above: GFR Calc Estimated GFR (MDRD) Non-Af Amer 96 mL/min >60 [facility] Work Phone: Comment on above: Non- GFR Calc Immunoglobulin E 18 IU/mL 6-495 [facility] Work Phone: Serum or plasma C reactive p rotein measurement (mass/volume)on 05-30-2022 CRP [Mass/Vol] 4.30 mg/L 0.0-3.0 [facility] Work Phone: Comment on above: C-Reactive Protein ( CRP) provides useful information for thediagnosis, therapy and monitoring of inflammatory processesand associated diseases. For the evaluation of Relative Riskfor Cardiovascular Disease, a High Sensitivity CRP (HSCRP)should be ordered. Serum or plasma IgA measurem ent (mass/volume)on 05-30-2022 IgA [Mass/Vol] 137 mg/dL 90-386 [facility] Work Phone: Serum or plasma IgG measurem ent (mass/volume)on 05-30-2022 IgG [Mass/Vol] 699 mg/dL 603-1613 [facility] Work Phone: Serum or plasma IgM measurem ent (mass/volume)on 05-30-2022 IgM [Mass/Vol] 202 mg/dL 20-172 [facility] Work Phone: Serum or plasma albumin paige urement (mass/volume)on 05-30-2022 Albumin [Mass/Vol] 3.5 g/dL 3.2-5.0 [facility] Work Phone: Serum or plasma albumin/glob ulin mass ratioon 05-30-2022 Albumin/Globulin [Mass ratio] 1.1 {ratio} 0.9-2.4 [facility] Work Phone: Serum or plasma calcium paige urement (mass/volume)on 05-30-2022 Calcium [Mass/Vol] 8.7 mg/dL 8.5-10.1 [facility] Work Phone: Serum or plasma carcinoembry onic antigen measurement (mass/volume)on 05-30-2022 Carcinoembryonic Ag [Mass/Vol] 15.8 ng/mL 0.0-4.7 [facility] Work Phone: Comment on above: Nonsmokers <3.9 Smok ers <5.6[employer] Electrochemiluminescence Immunoassay(ECLIA)Values obtained with different assay methods or kitscannot be used interchangeably. Results cannot beinterpreted as absolute evidence of the presence orabsence of malignant disease. Serum or plasma creatinine m easurement (mass/volume)on 05-30-2022 Creatinine [Mass/Vol] 0.90 mg/dL 0.70-1.30 [facility] Work Phone: Comment on above: The validity of the calculated GFR & GFRAA in patients over 70 years has not been determined. Clinical correlation is essential. Serum or plasma gastrin paige urement (mass/volume)on 05-30-2022 Gastrin [Mass/Vol] < 10 pg/mL 0-115 [facility] Work Phone: Comment on above: Siemens Brabeion Softwareulite 200 0 Immunochemiluminometric assay (ICMA)Values obtained with different assay methods or kits cannotbe used interchangeably. Results cannot be interpreted asabsolute evidence of the presence or absence of malignantdisease.Performed at: [facility] [id number] Director: Alin Ceron PhD, Phone: [phone] at: [facility] [id number] Director: Nino Shelton MD, Phone: [phone] Serum or plasma urea nitroge n measurement (mass/volume)on 05-30-2022 Urea nitrogen [Mass/Vol] 19 mg/dL 7-18 [facility] Work Phone: Thin prep Papanicolaou smear with manual screeningon 05-30-2022 Thin prep Papanicolaou smear with manual screening 16 U/L 15-37 [facility] Work Phone: Thin prep Papanicolaou smear with manual screening 4 5-15 [facility] Work Phone: No Panel Informationon 03-04 Carcinoembryonic Ag Serial Monitor Not Reportable [facility] Work Phone: Serum or plasma carcinoembry onic antigen measurement (mass/volume)on 03-04-2022 Carcinoembryonic Ag [Mass/Vol] 14.7 ng/mL 0.0-4.7 [facility] Work Phone: Comment on above: Nonsmokers <3.9 Smok ers <5.6[facility] [employer] Electrochemiluminescence Immunoassay(ECLIA)Values obtained with different assay methods or kitscannot be used interchangeably. Results cannot beinterpreted as absolute evidence of the presence orabsence of malignant disease. Serum or plasma gastrin paige urement (mass/volume)on 03-04-2022 Gastrin [Mass/Vol] 12 pg/mL 0-115 [facility] Work Phone: Comment on above: Siemens Immulite 200 0 Immunochemiluminometric assay (ICMA)Values obtained with different assay methods or kits cannotbe used interchangeably. Results cannot be interpreted asabsolute evidence of the presence or absence of malignantdisease.Performed at: [facility] [employer] [id number] Director: Alin Ceron PhD, Phone: [phone] at: [facility] [employer] [id number] Director: Nino Shelton MD, Phone: [phone] Giardia lamblia ag stool EIA on 02-09-2022 G. lamblia Ag IA Ql (Stl) See comment [facility] Work Phone: Comment on above: TEST RESULT LIMITSGi ardia lamblia Ag, EIA Negative Negative __ [facility] ORIGINAL REPORT ON FILE IN LAB CONTAINS ADDITIONAL TEST SITE INFORMATION. No Panel Informationon 02-[address] [facility] Work Phone: Stool Calprotectin <16 ug/g 0-120 [facility] Work Phone: Comment on above: Concentration Interp retation Follow-Up<16 - 50 ug/g Normal None>50 -120 ug/g Borderline Re-evaluate in 4-6 weeks >120 ug/g Abnormal Repeat as clinically indicatedPerformed at: - [facility] [address] [id number] Director: Nino Shelton MD, Phone: [phone] Absolute lymphocyte counton 02-08-2022 Lymphocytes Auto (Unsp spec) [#/Vol] 1.56 10*3/uL 0.83-4.51 [facility] Work Phone: [phone] Atypical perinuclear antineu trophil cytoplasmic antibodies measurementon 02-08-2022 Neutrophil cytoplasmic Ab.perinuclear.atypica l IF (S) [Titer] <1:20 titer Neg:<1:20 [facility] Work Phone: Comment on above: The atypical pANCA p attern has been observed in asignificant percentage of patients with ulcerative colitis,primary sclerosing cholangitis and autoimmune hepatitis. Basophil percentageon 2021 Amylase [Catalytic activity/Vol] 53 U/L 25-115 [facility] Work Phone: Basophil percentage < 0.2 AI 0.0-0.9 [facility] Work Phone: Basophils/100 WBC (Bld) 0.5 % 0-1 [facility] Work Phone: Bilirubin [Mass/Vol] 0.30 mg/dL 0.20-1.00 [facility] Work Phone: Comment on above: For patients on eltr ombopag therapy, use of [employer] [place] TBIL is not recommended. Chloride [Moles/Vol] 110 mmol/L 98-107 [facility] Work Phone: Eosinophils/100 WBC (Bld) 0.8 % 0-5 [facility] Work Phone: [phone] Glucose [Mass/Vol] 96 mg/dL 74-106 [facility] Work Phone: [phone] Neutrophils (Bld) [#/Vol] 4.5 10*3/uL 2.0-7.7 [facility] Work Phone: [phone] Neutrophils/100 WBC (Bld) 68.0 % 47-70 [facility] Work Phone: [phone] Potassium [Moles/Vol] 4.3 mmol/L 3.5-5.1 [facility] Work Phone: [phone] Protein [Mass/Vol] 7.5 g/dL 6.4-8.2 [facility] Work Phone: [phone] Sodium [Moles/Vol] 140 mmol/L 136-145 [facility] Work Phone: WBC (Bld) [#/Vol] 6.6 10*3/uL 4.4-11.0 [facility] Work Phone: [phone] Blood erythrocytes count (nu mber/volume)on 02-08-2022 RBC (Bld) [#/Vol] 5.03 10*6/uL 4.6-6.2 [facility] Work Phone: [phone] Blood hemoglobin measurement (mass/volume)on 02-08-2022 Hemoglobin (Bld) [Mass/Vol] 15.6 g/dL 13.0-16.5 [facility] Work Phone: Blood lymphocytes/100 leukoc yteson 02-08-2022 Lymphocytes/100 WBC (Bld) 23.6 % 19-41 [facility] Work Phone: Blood monocytes/100 leukocyt eson 02-08-2022 Monocytes/100 WBC (Bld) 6.8 % 0-10 [facility] Work Phone: [phone] Blood platelet mean volumeon 02-08-2022 Platelet mean volume (Bld) [Entitic vol] 11.7 fL 6.2-12.0 [facility] Work Phone: Determination of erythrocyte mean corpuscular volume (MCV)on 02-08-2022 MCV (RBC) [Entitic vol] 93.6 fL 80-94 [facility] Work Phone: Erythrocyte sedimentation ra lisa 02-08-2022 ESR (Bld) [Velocity] 15 mm/h 0-20 [facility] Work Phone: Hematocrit Auto (Bld) [Volum e fraction]on 02-08-2022 Hematocrit (Bld) [Volume fraction] 47.1 % 40-54 [facility] Work Phone: Laboratory - Chemistry and C hemistry - challengeon 02-08-2022 ALP [Catalytic activity/Vol] 118 U/L 45-117 [facility] Work Phone: ALT [Catalytic activity/Vol] 25 U/L 16-61 [facility] Work Phone: CO2 [Moles/Vol] 27.0 mmol/L 21.0-32.0 [facility] Work Phone: Globulin (S) [Mass/Vol] 3.7 g/dL 2.2-4.2 [facility] Work Phone: Lipase [Catalytic activity/Vol] 143 U/L 73-393 [facility] Work Phone: Urea nitrogen/Creatinine [Mass ratio] 17.2 mg/mg 10-20 [facility] Work Phone: Laboratory - Hematology and Cell countson 02-08-2022 Erythrocyte distribution width (RBC) [Entitic vol] 44.3 fL 35.1-43.9 [facility] Work Phone: Erythrocyte distribution width (RBC) [Ratio] 12.8 % 11.6-14.6 [facility] Work Phone: Immature granulocytes/100 WBC (Bld) 0.300 % 0.0-0.9 [facility] Work Phone: Comment on above: IG% - Immature Granu locytes (promyelocytes, myelocytes and metamyelocytes) > 1% indicates that a LEFT SHIFT is Present. MCH (RBC) [Entitic mass] 31.0 pg 27.0-32.0 [facility] Work Phone: Nucleated RBC/100 WBC (Bld) [Ratio] 0 % 0-5 [facility] Work Phone: MCHC Auto (RBC) [Mass/Vol]on 02-08-2022 MCHC (RBC) [Mass/Vol] 33.1 g/dL 32-36 [facility] Work Phone: No Panel Informationon 02-08 Centromere B Antibody <0.2 AI 0.0-0.9 [facility] Work Phone: Endomysial IgA Antibody Negative Negative [facility] Work Phone: Estimated GFR (MDRD) Amer 104 mL/min >60 [facility] Work Phone: Comment on above: GFR Calc Estimated GFR (MDRD) Non-Af Amer 86 mL/min >60 [facility] Work Phone: Comment on above: Non- GFR Calc Hepatitis C Antibody Non-Reactive Nonreactive [facility] Work Phone: Comment on above: Non Reactive: < 0.8 Equivocal: >/= 0.8 to < 1.0 Reactive: >/= 1.0The CDC recommends that a reactive/equivocal HCV antibody result be followed up by the HCV Nucleic Acid Amplificationtest (025160) Immunoglobulin E 22 IU/mL 6-495 [facility] Work Phone: HAND CROWN POUNCER Antibody 0.3 AI 0.0-0.9 [facility] Work Phone: Thyroid Stimulating Hormone (TSH) 2.59 uIU/mL 0.358-3.74 [facility] Work Phone: Platelets bldon 02-08-2022 Platelets (Bld) [#/Vol] 218 10*3/uL 150-450 [facility] Work Phone: Serum DNA double strand anti body assay (units/volume)on 02-08-2022 DNA double strand Ab Qn (S) 1 [IU]/mL 0-9 [facility] Work Phone: Comment on above: Negative <5 Equivoca l 5 - 9 Positive >9 Serum Amber-1 antibody assay (u nits/volume)on 02-08-2022 Amber-1 extractable nuclear Ab Qn (S) <0.2 AI 0.0-0.9 [facility] Work Phone: Serum Scl-70 extractable nuc lear antibody assay (units/volume)on 02-08-2022 SCL-70 extractable nuclear Ab Qn (S) <0.2 AI 0.0-0.9 [facility] Work Phone: Serum Becker extractable nucl ear antibody detectionon 02-08-2022 Becker extractable nuclear Ab Ql (S) <0.2 AI 0.0-0.9 [facility] Work Phone: Serum classic neutrophil cyt oplasmic antibody assay (units/volume)on 02-08-2022 Neutrophil cytoplasmic Ab.classic Qn (S) <1:20 titer Neg:<1:20 [facility] Work Phone: Serum or plasma C reactive p rotein measurement (mass/volume)on 02-08-2022 CRP [Mass/Vol] 3.95 mg/L 0.0-3.0 [facility] Work Phone: Comment on above: C-Reactive Protein ( CRP) provides useful information for thediagnosis, therapy and monitoring of inflammatory processesand associated diseases. For the evaluation of Relative Riskfor Cardiovascular Disease, a High Sensitivity CRP (HSCRP)should be ordered. Serum or plasma IgA measurem ent (mass/volume)on 02-08-2022 IgA [Mass/Vol] 155 mg/dL 90-386 [facility] Work Phone: Serum or plasma IgG measurem ent (mass/volume)on 02-08-2022 IgG [Mass/Vol] 799 mg/dL [phone] [facility] Work Phone: Serum or plasma IgM measurem ent (mass/volume)on 02-08-2022 IgM [Mass/Vol] 216 mg/dL 20-172 [facility] Work Phone: Comment on above: Performed at: [address] [id number] Director: Alin Ceron PhD, Phone: [phone] at: - [facility] [id number] Director: Nino Shelton MD, Phone: [phone] Serum or plasma albumin paige urement (mass/volume)on 02-08-2022 Albumin [Mass/Vol] 3.8 g/dL 3.2-5.0 [facility] Work Phone: Serum or plasma albumin/glob ulin mass ratioon 02-08-2022 Albumin/Globulin [Mass ratio] 1.0 {ratio} 0.9-2.4 [facility] Work Phone: Serum or plasma calcium paige urement (mass/volume)on 02-08-2022 Calcium [Mass/Vol] 8.5 mg/dL 8.5-10.1 [facility] Work Phone: Serum or plasma creatinine m easurement (mass/volume)on 02-08-2022 Creatinine [Mass/Vol] 0.99 mg/dL 0.70-1.30 [facility] Work Phone: Comment on above: The validity of the calculated GFR & GFRAA in patients over 70 years has not been determined. Clinical correlation is essential. Serum or plasma urea nitroge n measurement (mass/volume)on 02-08-2022 Urea nitrogen [Mass/Vol] 17 mg/dL 7-18 [facility] Work Phone: Serum perinuclear neutrophil cytoplasmic antibody titer by immunofluorescenceon 02-08-2022 Neutrophil cytoplasmic Ab.perinuclear IF (S) [Titer] <1:20 titer Neg:<1:20 [facility] Work Phone: Comment on above: The presence of posi tive fluorescence exhibiting P-ANCA orC-ANCA patterns alone is not specific for the diagnosis ofWegener's Granulomatosis (WG) or microscopic polyangiitis.Decisions about treatment should not be based solely onANCA IFA results. The [employer] ANCA Group Consensusrecommends follow up testing of positive sera with both PA-3 and MPO-ANCA enzyme immunoassays. As many as 5% serumsamples are positive only by EIA. Ref. AM J Clin [id number];111:507-513. Serum tissue transglutaminas e IgA antibody assay (units/volume)on 02-08-2022 tTG IgA Qn (S) <2 U/mL 0-3 [facility] Work Phone: Comment on above: Negative 0 - 3 Weak Positive 4 - 10 Positive >10 Tissue Transglutaminase (tTG) has been identified as the endomysial antigen. Studies have demonstr- ated that endomysial IgA antibodies have over 99% specificity for gluten sensitive enteropathy. Thin prep Papanicolaou smear with manual screeningon 02-08-2022 Thin prep Papanicolaou smear with manual screening 21 U/L 15-37 [facility] Work Phone: Thin prep Papanicolaou smear with manual screening 3 5-15 [facility] Work Phone: Whole blood hemoglobin A1c/t otal hemoglobin ratio (mass fraction)on 02-08-2022 HbA1c (Bld) [Mass fraction] 5.5 % 3.8-5.6 [facility] Work Phone: Comment on above: Normal < 5.7 % Predi abetic 5.7 - 6.4 % Diabetic >or= 6.5 % Please note range changes. No Panel Information Enteric Bacteriology [facility] Work Phone: Vital Signs Date Time Vital Sign Value Performing Clinician Facility 06-20-2025 08:24-0400 Body height 177.[address] Basilia Lozada MD Work Phone: [facility] 06-20-2025 08:24-0400 Body mass index (BMI) [Ratio] 20.7 kg/m2 Dr. Basilia Lozada MD Work Phone: [facility] 06-20-2025 08:24-0400 Body weight 65.[address] Basilia Lozada MD Work Phone: [facility] 05-09-2025 09:03-0400 Body height 177.[address] Basilia Lozada MD Work Phone: [facility] 05-09-2025 09:03-0400 Body mass index (BMI) [Ratio] 20.6 kg/m2 Dr. Basilia Lozada MD Work Phone: [facility] 05-09-2025 09:03-0400 Body weight 65.[address] Basilia Lozada MD Work Phone: [facility] 07-13-2024 10:38-0400 Diastolic Blood Pressure Non-Invasive 74 mm[Hg] MALINDA GALLAGHER MD [address] 07-13-2024 10:38-0400 Heart rate 50 /min MALINDA GALLAGHER MD [address] 07-13-2024 10:38-0400 Systolic Blood Pressure Non-Invasive 115 mm[Hg] MALINDA GALLAGHER MD [address] 07-13-2024 10:34-0400 Diastolic Blood Pressure Non-Invasive 70 mm[Hg] MALINDA GALLAGHER MD [address] 07-13-2024 10:34-0400 Heart rate 54 /min MALINDA GALLAGHER MD [facility] 07-13-2024 10:34-0400 Systolic Blood Pressure Non-Invasive 111 mm[Hg] MALINDA GALLAGHER MD [address] 07-13-2024 10:28-0400 Diastolic Blood Pressure Non-Invasive 70 mm[Hg] MALINDA GALLAGHER MD [address] 07-13-2024 10:28-0400 Heart rate 46 /min MALINDA GALLAGHER MD [facility] 07-13-2024 10:28-0400 Systolic Blood Pressure Non-Invasive 119 mm[Hg] MALINDA GALLAGHER MD [facility] 07-13-2024 08:22-0400 Body temperature 97.52 [degF] MALINDA GALLAGHER MD [address] [place] [address] 07-13-2024 08:22-0400 Respiratory rate 16 /min MALINDA GALLAGHER MD [address] 04-21-2024 12:58-0400 Body height 177.8 cm MALINDA GALLAGHER MD [address] [place] [address] 04-21-2024 12:58-0400 Body weight 65.9 kg MALINDA GALLAGHER MD [address] 04-21-2024 12:58-0400 Body weight 20.85 kg/m2 MALINDA GALLAGHER MD [facility] 04-28-2023 07:50-0400 Body height 177.[address] Basilia Lozada Work Phone: [facility] 04-28-2023 07:42-0400 Body mass index (BMI) [Ratio] 22.3 kg/m2 Dr. Basilia Lozada Work Phone: [facility] 04-28-2023 07:42-0400 Body temperature 97.7 [degF] Dr. Basilia Lozada Work Phone: [facility] 04-28-2023 07:42-0400 Body weight 68.[address] Basilia Lozada Work Phone: [facility] 04-28-2023 07:42-0400 Diastolic blood pressure 66 mm[Hg] Dr. Basilia Lozada Work Phone: [facility] 04-28-2023 07:42-0400 Heart rate 75 /min Dr. Basilia Lozada Work Phone: [facility] 04-28-2023 07:42-0400 Respiratory rate 18 /min Dr. Basilia Lozada Work Phone: [facility] 04-28-2023 07:42-0400 SaO2% (BldA) [Mass fraction] 96 % Dr. Basilia Lozada Work Phone: [facility] 04-28-2023 07:42-0400 Systolic blood pressure 94 mm[Hg] Dr. Basilia Lozada Work Phone: [facility] 04-07-2023 07:56-0400 Body height 177.[address] Basilia Lozada Work Phone: [facility] 04-07-2023 07:56-0400 Body mass index (BMI) [Ratio] 22.5 kg/m2 Dr. Basilia Lozada Work Phone: [facility] 04-07-2023 07:56-0400 Body weight 71.[address] Basilia Lozada Work Phone: [facility] 04-07-2023 07:56-0400 Diastolic blood pressure 79 mm[Hg] Dr. Basilia Lozada Work Phone: [facility] 04-07-2023 07:56-0400 Heart rate 51 /min Dr. Basilia Lozada Work Phone: [facility] 04-07-2023 07:56-0400 SaO2% (BldA) [Mass fraction] 97 % Dr. Basilia Lozada Work Phone: [facility] 04-07-2023 07:56-0400 Systolic blood pressure 122 mm[Hg] Dr. Basilia Lozada Work Phone: [facility] 03-18-2023 07:19-0400 Body mass index (BMI) [Ratio] 22.8 kg/m2 Dr. Basilia Lozada Work Phone: [facility] 03-18-2023 07:19-0400 Body temperature 97.4 [degF] Dr. Basilia Lozada Work Phone: [facility] 03-18-2023 07:19-0400 Body weight 72.[address] Basilia Lozada Work Phone: [facility] 03-18-2023 07:19-0400 Diastolic blood pressure 54 mm[Hg] Dr. Basilia Lozada Work Phone: [facility] 03-18-2023 07:19-0400 Heart rate 64 /min Dr. Basilia Lozada Work Phone: [facility] 03-18-2023 07:19-0400 Respiratory rate 18 /min Dr. Basilia Lozada Work Phone: [facility] 03-18-2023 07:19-0400 SaO2% (BldA) [Mass fraction] 96 % Dr. Basilia Lozada Work Phone: [facility] 03-18-2023 07:19-0400 Systolic blood pressure 95 mm[Hg] Dr. Basilia Lozada Work Phone: [facility] 08-07-2022 07:45-0400 Body height 177.[address] Edis Mayo Work Phone: [facility] Work Phone: 08-07-2022 07:45-0400 Body mass index (BMI) [Ratio] 21.4 kg/m2 Dr. Edis Mayo Work Phone: [facility] Work Phone: 08-07-2022 07:45-0400 Body weight 67.[address] Edis Mayo Work Phone: [facility] Work Phone: 08-07-2022 07:45-0400 Diastolic blood pressure 82 mm[Hg] Dr. Edis Mayo Work Phone: [facility] Work Phone: 08-07-2022 07:45-0400 Heart rate 58 /min Dr. Edis Mayo Work Phone: [facility] Work Phone: 08-07-2022 07:45-0400 SaO2% (BldA) [Mass fraction] 97 % Dr. Edis Mayo Work Phone: [facility] Work Phone: 08-07-2022 07:45-0400 Systolic blood pressure 127 mm[Hg] Dr. Edis Mayo Work Phone: [facility] Work Phone: 03-11-2022 08:45-0400 Body temperature 97.1 [degF] Dr. Edis Mayo Work Phone: [facility] Work Phone: 03-11-2022 08:45-0400 Diastolic blood pressure 65 mm[Hg] Dr. Edis Mayo Work Phone: [facility] Work Phone: 03-11-2022 08:45-0400 Heart rate 55 /min Dr. Edis Mayo Work Phone: [facility] Work Phone: 03-11-2022 08:45-0400 Respiratory rate 16 /min Dr. Edis Mayo Work Phone: [facility] Work Phone: 03-11-2022 08:45-0400 SaO2% (BldA) [Mass fraction] 99 % Dr. Edis Mayo Work Phone: [facility] Work Phone: 03-11-2022 08:45-0400 Systolic blood pressure 99 mm[Hg] Dr. Edis Mayo Work Phone: [facility] Work Phone: 03-11-2022 07:04-0400 Body height 177.[address] Edis Mayo Work Phone: [facility] Work Phone: 03-11-2022 07:04-0400 Body mass index (BMI) [Ratio] 21.2 kg/m2 Dr. Edis Mayo Work Phone: [facility] Work Phone: 03-11-2022 07:04-0400 Body weight [address] Edis Mayo Work Phone: [facility] Work Phone: Encounters Encounter Date Encounter Type Care Provider Facility Start: 06-20-2025 End: 06-20-2025 Patient encounter procedure Telma VERA -[facility] Work Phone: Start: 06-20-2025 End: 06-20-[address] Basilia Lozada MD Work Phone: -[facility] Start: 06-09-2025 End: 06-09-[address] Basilia Lozada MD Work Phone: -[facility] Start: 06-09-2025 End: 06-09-2025 Patient encounter procedure Telma VERA -[facility] Work Phone: Start: 06-09-2025 End: 06-09-2025 ambulatory Basilia Lozada Facility:[facility] Start: 05-11-2025 ambulatory TELMA MAST [facility] Start: 05-09-2025 End: 05-09-[address] Wong Parada MD -[facility] Start: 05-09-2025 End: 05-09-[address] Basilia Lozada MD Work Phone: [facility] Work Phone: Start: 04-27-2025 ambulatory Basilia Lozada Facility:[facility] Start: 04-27-2025 Non-patient / Non-visit Dr. Flaquito Rodriguez MD -[facility] Start: 04-27-2025 End: 04-27-[address] Basilia Lozada MD Work Phone: [facility] Work Phone: Start: 04-27-2025 End: 04-27-2025 Patient encounter procedure Beronica VERA -Pulmonary Services/Neurology Work Phone: Start: 04-27-2025 End: 04-27-2025 ambulatory Beronica VERA Facility:[facility] Start: 04-13-2025 ambulatory BASILIA GREGORY [facility] Start: 12-24-2024 End: 12-24-2024 ambulatory BASILIA GREGORY [facility] Start: 12-21-2024 ambulatory BASILIA GREGORY [facility] Start: 10-05-2024 End: 10-05-2024 ambulatory BASILIA GREGORY [facility] Start: 09-07-2024 End: 09-07-2024 ambulatory Mary Beltran CAR SALESMAN Facility:[facility] Start: 08-02-2024 ambulatory Mary Beltran CAR SALESMAN Fac ility:[facility] Start: 07-13-2024 End: 07-13-2024 ambulatory MALINDA GALLAGHER Facility:[facility] Start: 07-13-2024 End: 07-13-2024 Patient encounter procedure MALINDA GALLAGHER MD [facility] Start: 07-31-2023 End: 07-31-[address] Basilia Lozada Work Phone: [facility] Work Phone: Start: 07-31-2023 End: 07-31-[address] Basilia Lozada Work Phone: [facility] Work Phone: Start: 04-28-2023 End: 04-28-[address] Basilia Lozada Work Phone: [facility]-Pulmonary Medicine [facility] Work Phone: Start: 04-17-2023 End: 04-17-[address] Basilia Lozada Work Phone: [facility] Work Phone: Start: 04-17-2023 End: 04-17-[address] Basilia Lozada Work Phone: [facility]-Sleep Lab Start: 04-07-2023 End: 04-07-[address] Basilia Lozada Work Phone: [facility] Gastroenter[facility] Start: 04-02-2023 Non-patient / Non-visit Dr. Basilia Lozada Work Phone: [facility] Start: 04-01-2023 End: 04-01-[address] Basilia Lozada Work Phone: [facility]-Pulmonary Services/Neurology Start: 03-18-2023 End: 03-18-[address] Basilia Lozada Work Phone: [facility]-Pulmonary Medicine [facility] Start: 08-15-2022 End: 08-15-[address] Edis Mayo Work Phone: [facility] Work Phone: Start: 08-15-2022 End: 08-15-[address] Edis Mayo Work Phone: [facility] [place] Start: 08-12-2022 End: 08-12-[address] Edis Mayo Work Phone: [facility] Work Phone: Start: 08-12-2022 End: 08-12-[address] Edis Mayo Work Phone: [facility]-Laboratory, Specimen Start: 08-07-2022 End: 08-07-[address] Edis Mayo Work Phone: [facility] Gastroenter[facility] Start: 05-30-2022 End: 05-30-[address] Edis Mayo Work Phone: [facility]-Laboratory Start: 05-23-2022 End: 05-23-[address] Edis Mayo Work Phone: [facility] Start: 05-07-2022 End: 05-07-[address] Edis Mayo Work Phone: [facility] Start: 03-11-2022 Non-patient / Non-visit Dr. Edis Mayo Work Phone: [facility] Start: 03-11-2022 End: 03-11-2022 Admission to same day surgery center Dr. Edis Mayo Work Phone: [facility]-Endoscopy Start: 03-04-2022 End: 03-04-[address] Edis Mayo Work Phone: [facility]-Laboratory Start: 02-25-2022 End: 02-25-[address] Edis Mayo Work Phone: [facility]-Cat [facility] Start: 02-09-2022 End: 02-09-[address] Edis Mayo Work Phone: [facility]-Laboratory, Specimen Start: 02-08-2022 End: 02-08-[address] Edis Mayo Work Phone: [facility] Gastroenterology Procedures Date Procedure Procedure Detail Performing Clinician Start: 06-09-2025 MRI of cervical spine Palmer Lozada MD Work Phone: Start: 05-09-2025 X-ray of cervical spine Dr. Basilia Lozada MD Work Phone: Start: 12-24-2024 Urinalysis YASSER OMR AN Comment on above: Result Comment: URIN ALYSIS Performed By: #### [id number] #### [facility],[address] [place] [address] Start: 10-05-2024 Urinalysis BASILIA BAR AN Comment on above: Result Comment: URIN ALYSIS Performed By: #### [id number] #### [facility],[address] [place] [address] Start: 07-31-2023 CT of chest without contrast Dr. Basilia Lozada Work Phone: Start: 02-12-2023 Cardiovascular stres s testing MALINDA GALLAGHER MD Start: 08-15-[address] [...] Treatment Date Care Activity Detail Author Start: 06-24-2025 ambulatory Ambulatory Facility:[facility] Start: 05-09-2025 X-ray of cervical spine Cerv Spine 4 or 5 Views [facility] Start: 05-09-2025 XR Cervical spine 4 or 5 Views [facility] Start: 08-12-2022 Elastase, pancreatic (el-1), fecal; quantitative [facility] Work Phone: Start: 08-12-2022 Fat [Presence] in Stool [facility] Work Phone: Start: 08-12-2022 Helicobacter pylori Ag [Presence] in Stool by Immunoassay [facility] Work Phone: Start: 03-11-2022 Colonoscopy w/biopsy single/multiple COLONOSCOPY AND BIOPSY [facility] Work Phone: Start: 03-11-2022 Egd transoral biopsy single/multiple EGD BIOPSY SINGLE/MULTIPLE [facility] Work Phone: CT Chest WO contrast [facility] Fat [Mass/mass] in Stool [facility] Work Phone: Fat.neutral [Presenc e] in Stool [facility] Work Phone: Helicobacter pylori Ag [Presence] in Stool by Immunoassay [facility] Work Phone: Patient referral [facility] Work Phone: Tobacco use cessatio n education [facility] Payers Date Payer Category Payer Self-pay [id number] 2023 Medicaid [id number] 1975 Unknown [id number] 2.16.8 [id number] 1973 Unknown [id number] 2.16.8 [id number] 1973 Unknown [id number] 2.16.8 [id number] 1973 Unknown [id number] 2.16.8 [id number] Private Health Insurance [id number] Unknown [id number] Unknown [id number] 2.16.8 [id number] Unknown [id number] 2.16.8 [id number] Unknown [id number] 2.16.8 [id number] Unknown [id number] 2.16.8 [id number] Unknown [id number] 2.16.8 [id number] Unknown [id number] 2.16.8 [id number] Unknown [id number] 2.16.8 [id number] Unknown [id number] 2.16.8 [id number] Unknown [id number] 2.16.8 [id number] Unknown [id number] 2.16.8 [id number] Social History Date Type Detail Facility Start: 02-08-2022 End: 04-28-2023 Tobacco smoking status NHIS Unknown if ever smoked [facility] Start: 1975 Sex Assigned At Male [facility] Start: 03-27-2023 Tobacco smoking status Heavy t obacco smoker (finding) [facility] Start: 05-02-2025 Tobacco smoking stat us NHIS Smokes tobacco daily (finding) [facility] Goals Date Patient Goal Desired Activity /State Functional Status Date Assessment Result Facility 07-13-2024 Functional Status Assistive Device None A [facility] 07-13-2024 Functional Status Standard Safet y ID band on, Allergy Band on, Bed in low position, Wheels locked, Upper/Half-Length side-rails up, Safety level maintained [facility] 04-21-2024 Functional Status Sensory Deficits None A [facility] Mental Status Date Assessment Result Facility 07-13-2024 Mental Status Orientation Oriented x 4 [facility] 07-13-2024 Mental Status [facility] 03-11-2022 Cognitive function Touch/Shaking [facility] Work Phone: 03-11-2022 Cognitive function Patient Orien tation Person;Place;Time [facility] Work Phone: Clinical Notes 02-06-2024 to 05-09-2025 Note Date & Type Note Facility 05-09-2025 Evaluation note Diagnosis Onset Date Resolution Cervical radiculopathy acute Ju ne 2024 8:47am [facility] Work Phone: [phone]) 745-512806-11-2025 Procedure note [facility] Pulmonary Services/Neurology [address] [place] [address] MR#: [id number] Acct: [id number] Name: JOON MURO Rep #:[id number] : 1975 50 From: Flaquito Rodriguez MD Referring Dr: Beronica Cordova Status: REG CLI Location: PSN Date: 04/27/25 Sex: M C NCS and/or [...] responses are within normal limits. Normal median ulnarF?waves. Needle EMG testing was performed of the right upper limb.1+ fibrillations noted in the right triceps, right [...] Multi Select Codes Neurology Neurology Interp Codes: 72834-16 Musc test done w/n test comp (interp) and 82163-82 Nrv cndj test 7-8 studies (interp) 04/27/25 1235 D> Date _ Flaquito Rodriguez MD CC: CHUY Hernandez; Dr. Flaquito Rodriguez MD; Dr. Basilia Lozada MD ~ Date Dictated: 04/27/25 1232 Date Transcribed: 04/27/25 1232 Mail Courier: GEORGE Villalba [facility]08-27-2024 Note ORIGINAL EXAMINATION: CT THORAX WITH CONTRAST [...] Sign Date: 07/13/2024 3:39:59 PM Ordering Provider: [facility]08-27-2024 Hospital Discharge instructions Patient Education 07/13/2024 08:43:02 Radiology- CT Coronary Angiogram(CUSTOM) OPHEIM Coronary CT Angiogram (Coronary CTA or Cardiac CTA) Discharge Instructions [facility] Imaging Services [address] [place] [address] Today, you had a Coronary CT Angiogram. [...] Department: For the first 24 hours call [phone] After 24 hours, contact the physician who ordered this procedure for you. Obtaining test results: Please make an appointment with your doctor to obtain your test results. They are usually availablewithin 4 to 5 business days. Do not assume everything is normal if you have not heard from your doctor or medical facility. It is important for you to follow up on all of your test results. Follow Up Care 02/16/2024 16:29:04 With:Go to emergency room if symptoms worsen Address:Unknown When: Unknown With:MALINDA GALLAGHER MD Address: [address] [facility] [address] [place] [address] [phone] When: Unknown Comments:Follow-up as scheduled [facility] 08-27-2024 Summary of episode note Discharge Instructions Thank you for allowing [facility] to assist you with your healthcare needs. The following is importantdischarge information regarding your hospital visit. Your Care Team BASILIA LOZADA MD What to do next Scheduled Follow-Up Appointments Appointment Type When Where Contact Information StatusyyCT Coronary Extracardiac 07/13/2024 10:[address] Confirmed Follow Up Appointments Follow Up with Go to emergency room if symptoms worsen Follow Up with MALINDA GALLAGHER MD Where:[address] [facility] [address] [place] [address] [phone] Additional Information: Follow-up as scheduled Allergies PriLOSEC anxiety Medications Please ask your primary doctor or pharmacist before taking any other medication not listed, including over the counter drugs, herbal medications, vitamins and or supplements as they may interact withyour home medications. What How Much When Instructions [...] medication providers or retail pharmacies. Education Materials OPHEIM Coronary CT Angiogram (Coronary CTA or Cardiac CTA) Discharge Instructions [facility] Imaging Services [address] [facility] [address] Today, you had a Coronary CT Angiogram. [...] Department: For the first 24 hours call [phone] After 24 hours, contact the physician who ordered this procedure for you. Obtaining test results: Please make an appointment with your doctor to obtain your test results. They are usually availablewithin 4 to 5 business days. Do not [...] to receive it can visit one of [facility] vaccine clinics. There are many vaccine clinic locations within the [facility]. For locations and available times, please visit [email or web address] It is important to note that some COVID mobile vaccine clinics are held outdoors and may be canceled in rainy or stormy conditions. To learn more about pediatric vaccinations (ages 5-11), we invite you to visit the [facility] webpage. [email or web address].[email or web address]/pages/[email or web address]-Cghyf-[email or web address]-[email or web address] stions.htmlTo learn more about the COVID-19 vaccine, we invite you to visit the CDC website for a list of frequently asked questions.https://www.cdc.gov/coronavirus/2019-ncov/vaccines/faq.html [facility] Patient Portal Access Instructions: Stay connected with your healthcare team and access your personal medical information anytime with the [facility] Patient Portal. Please follow the directions below to create your [facility] account: 1.Access the email account you provided upon registration to the hospital/physician office.2.Look for an invitation email from [facility].3.Open the email and access the invitation link: AcceptInvitation to [facility].4.Fill in the required velarde to create your account. To access your account, visit [email or web address]. Click the blue button labeled Access Patient Portal and then log in with the username and password that you created in the steps above. You will be able to view your test results, lab results, a summary of your visits, upcoming appointments and more. There is also a convenient messaging option where you can send secure messages to your p Im[employer]. In addition, you will have the ability to download any documents or summaries to your computer and/or send the information securely to a physician. Remember that your healthcare information is confidential, so carefully consider who you will allowto register on the [facility] Patient Portal for access to your information. You can also access the [facility] Patient Portal on the [facility] ed. Simply click on Patient Portal and then log into your account. If you would like to receive a full copy of your medical records, please contact the [facility] Medical Records Department by calling [phone], Friday through Friday between 8 a.m. and 4:30 p.m. HOW TO SAFELY DISPOSE OF PRESCRIPTION MEDICATIONS Please use one of the following methods to safely dispose of your unused medications. 1.Use a drug disposal kit: the drug disposal pouch allows you to safely discard your old and unuseddrugs. Ask your nurse to give you one when you are discharged.2.Visit a local take-back location: Many local pharmacies and police departments have programs that collect old and unwanted prescriptiondrugs. Call your local pharmacy or go to http://GreenTrapOnline.Peak 10/1A4Da8a to find one close to you.3.Make use of household items: Use cat litter or old coffee grounds to dispose medications if other options arenot available. Mix your drugs with these household products, seal them in an airtight container andthrow it into the garbage. Call [facility]: [phone] to be sure your drugs can be [...] questions, I am aware that I should contactmy doctor. Patient/Marketing Programs Specialist Signature: Date/Time: Relationship to Patient: Witness Name/Signature: Date/Time: [id number] Evaluation + Plan note Future Scheduled Tests Laboratory* Basic Metabolic Panel 02/06/24 * Thyroid Stimulating Hormone 02/06/24 * Lipid Profile 10/28/23 Radiology* CT Coronary Extracardiac 07/13/24 [facility] Evaluation note* Diagnosis Onset Date Resolution Status Abdominal pain acute [facility]ening [facility] colon [facility] Work Phone: Evaluation note* Diagnosis Onset Date Resolution Status Abdominal pain acute Screening for [facility] Irritable bowel syndrome non eactive Abdominal pain acute Elevated CEA acute [facility] Work Phone: Evaluation note* Diagnosis Onset Date Resolution Status Abdominal pain acute Elevated CEA acute Abdominal pain acute Diarrhea acute Elevated CEA acute Epigastric pain acute Gastropathy acute [facility] Work Phone: Evaluation note* Diagnosis Onset Date Resolution Status Abnormal CT of the abdomen a cute Lung nodule seen on imaging study acute Marijuana abuse, continuous acute Nicotine addiction acute COPD (chronic obstructive pulmonary disease) chronic Exocrine pancreatic insufficiency chronic Epigastric pain chronic Exocrine pancreatic insufficiency [facility] Work Phone: Evaluation note* Diagnosis Onset Date Resolution Status Epigastric pain chronic Exocrine pancreatic insufficiency chronic Lung nodule seen on imaging study acute Marijuana abuse, continuous acute Nicotine addiction acute COPD (chronic obstructive pulmonary disease) [facility] Work Phone: Evaluation noteNo assessment information available [facility] Work Phone: Hospital course Narrative No data available for this section [facility] Reason for referral (narrative)No reason for referral information [facility] Work Phone: Chief Complaint and Reason for [...] Room 2 May 09, 2025 9:14 am Chief Complaint Admit Date Paresthesia of skin rt arm April 27 9:40am Paresthesia of skin rt arm April 27 12:32pm CERVICAL SPINE May 09, 2025 8:47 am Room 2 May 09, 2025 9:14 am PAIN, RADICULOPATHY June 09, 2025 6:26 am Reason for Visit Admit Date Cervical radiculopathy May 09, 2025 8 :47am Chief Complaint Admit Date Paresthesia of skin rt arm April 27 9:40am Paresthesia of skin rt arm April 27 12:32pm CERVICAL SPINE Michelle 23rd, 2025 8:47 am Room 2 May 09, 2025 9:14 am PAIN, RADICULOPATHY June 09, 2025 6:26 am CERVICAL SPINE June 20, 2025 8:1 5am Family History No Family History Records Found [...] No March 08, 2022 10:34am Power of Prism Inspector No March 08 10:34am Summary Purpose Additional [...] Care Provider, Referring Provider Active Christiane Shannon CAR SALESMAN, CAR SALESMAN-C Attending Provider Active Team Status: Inactive Member [...] MD Primary Care Provider Active Christiane Shannon CAR SALESMAN, CAR SALESMAN-C Attending Provider, Referrin g Provider Active Team Status: Inactive Member Role Status Dates Dr. Basilia Lozada MD Primary Care Provider Active Christiane Shannon CAR SALESMAN, CAR SALESMAN-C Attending Provider, Referrin g Provider Active Team [...] 27, 2025 End: April 27, 2025 Beronica VERA, PA Referring Provider Active Start: April 27, 2025 End: April 27, 2025 Team Status: Active Member Role Status Dates Dr. Basilia Lozada MD Primary Care Provider Active Start: April 27, 2025 Beronica VERA, PA Referring Provider Active Start: April 27, 2025 Beronica Cordova PA, PA Other Provider Active Star t: April [...] 2025 End: May 09, 2025 Team Status: Active Member Role/Relationship Status Dates Dr. Basilia Lozada MD Primary Care Provider Active Team Status: Inactive Member Role/Relationship Status Dates Dr. Basilia Lozada MD Primary Care Provider Active Start: April 27, 2025 End: April 27, 2025 Beronica Tasha PA, PA Attending Provider Active Start: April 27, 2025 End: April 27, 2025 Beronica Tasha PA, PA Referring Provider Active Start: April 27, 2025 End: April 27, 2025 Team Status: Active Member Role/Relationship Status Dates Dr. Basilia Lozada MD Primary Care Provider Active Start: April 27, 2025 Beronicapernell Cordova PA, PA Referring Provider Active Start: April 27, 2025 Beronicapernell Cordova PA, PA Other Provider Active Star t: April 27, 2025 Dr. Flaquito Rodriguez MD Attending Provider Active S tart: April 27, 2025 Team Status: Inactive Member Role/Relationship Status Dates Dr. Basilia Lozada MD Primary Care Provider Active Start: May 09, 2025 End: May 09, 2025 Dr. Basilia Lozada MD Referring Provider Active Start: May 09, 2025 End: May 09, 2025 CHUY Grady Attending Provider Active Star t: May 09, 2025 End: May 09, 2025 Team Status: Inactive Member Role/Relationship Status Dates Dr. Basilia Lozada MD Primary Care Provider Active Start: May 09, 2025 End: May 09, 2025 Dr. Wong Parada MD Attending Provider Active S tart: May 09, 2025 End: May 09, 2025 Team Status: Inactive Member Role/Relationship Status Dates Dr. Basilia Lozada MD Primary Care Provider Active Start: June 09, 2025 End: June 09, 2025 CHUY Grady Attending Provider Active Star t: June 09, 2025 End: June 09, 2025 CHUY Grady Referring Provider Active Star t: June 09, 2025 End: June 09, 2025 Team Status: Inactive Member Role/Relationship Status Dates Dr. Basilia Lozada MD Primary Care Provider Active Start: June 20, 2025 End: June 20, 2025 Dr. Basilia Lozada MD Referring Provider Active Start: June 20, 2025 End: June 20, 2025 CHUY Grady Attending Provider Active Star t: June 20, 2025 End: June 20, 2025 (unrecognized sect ion and content) No Status Records FoundNo Status Records FoundNo Status Records FoundNo Status Records Found INFORMATION SOURCE (unrecogn ized section and content) DATE CREATED AUTHOR 09/10/2023 [facility] DATE CREATED AUTHOR AUTHOR'S ORGANIZ ATION 07/16/2024 [facility] [place] DATE CREATED AUTHOR AUTHOR'S ORGANIZ ATION 06/04/2025 [facility] DATE CREATED AUTHOR AUTHOR'S ORGANIZ ATION 06/21/2025 [facility] FOR RECORDS PERTAINING TO PATIENTS WHO ARE [...] BE BASED ON THE PRIMARY CLINICAL RECORDS. [facility]. provides no warranty or guarantee of the accuracy or completeness of information in this document.
--- OUTSIDE RECORDS SUMMARY | 2025-06-24 06:46 | XMS RPT_ITS | CCD ---
Author Organization [facility] Care Team Providers Care [employer] Name Role Phone Dr. Edis Mayo Primary [...] Neville GREGORY, Dr. Cui Primary Care Provider [phone] TashaBeronica Chavarria Attending Provider Tasha PA, Beronica Referring Provider Tasha PA, Beronica Referring Provider Tasha PA, Beronica Other Provider Jennifer GREGORY, Dr. Huddleston Attending Provider Neville GREGORY, Dr. Cui Referring Provider Telma Lomas Attending Provider Karma GREGORY, Dr. Back Attending Provider BASILIA LOZADA MD Attending Unavailable BASILIA LOZADA MD Primary Care Unavailable BASILIA LOZAAD MD Admitting Unavailable BASILIA LOZADA MD Attending [...] Referring Provider OmranBarbyssslim Primary Care Unavailable Devin DORMITORY MAID, Mary Referring Unavailable Devin DORMITORY MAID, Mary Attending Unavailable Omran, Yasser Primary Care Unavailable Flaquito Rodriguez Attending Unavailable Beronica Coulter Consulting Unavailable Tasha PA, Beronica Referring Unavailable Omran, Yasser Primary Care Unavailable Yajaira Mastyn Attending Unavailable Omran, Yasser Referring Unavailable Wong Parada Attending Unavailable Omran, Yasser Primary Care Unavailable Omran, Yasser Primary Care Unavailable Yajaira Mastyn Attending Unavailable Omran, Yasser Referring Unavailable Devin DORMITORY MAIDMary Attending Unavailable Omran, Yasser Primary Care Unavailable Omran, Yasser Referring Unavailable Omran, Yasser Primary Care Unavailable Telma Mast Attending Unavailable Telma Mast Referring Unavailable Beronica Coulter Attending Unavailable Beronica Coulter Referring Unavailable Omran, Yasser Primary Care Unavailable Omran, Yasser Primary Care Unavailable Devin DORMITORY MAID, Mary Attending Unavailable Omran, Yasser Referring Unavailable Devin DORMITORY MAID, Mary Attending Unavailable Devin DORMITORY MAID, Mary Referring Unavailable Omran, Yasser Primary Care Unavailable Allergies Allergy Classification Reported Allergen(s) Allergy Type Date of Onset Reaction(s) Facility (15 sources) Omeprazole; Translations: [omeprazole] Drug Allergy 2 GI Upset, anxiety [facility] (1 source) Omeprazole Drug Allergy [facility] (1 source) Omeprazole Drug Allergy 5 [facility] Medications Current Medications Medication Drug Class(es) Dates Sig (Normalized) Sig (Original) amylase 729565 unt / lipase 81448 unt / protease 074249 unt delayed release oral capsule (1 source) Start: 02-19-2023 take 1 capsule by mouth three times daily at mealtime, then take 1 capsule by mouth once Zenpep 40,000 units-126,000 units-168,000 units oral delayed release capsule Dose = 2 cap(s), Oral, TID, with each meal and 1 with every snack, # 100 cap(s), 0 Refill(s) Start Date: 02/19/23 Status: Ordered Meyer (Nk) (1 source) Start: 06-20-2025 Meyer (Nk) Active June 20, 2025 12:00am Completed/Discontinued Medications Medication Drug Class(es) Dates Sig (Normalized) Sig (Original) Pmpuhv-Uvbrdbzd-Ly ylase (Zenpep) 40,000-126,000- 168,000 unit capsule,delayed release(DR/EC) (20 sources) Start: 07-02-2024 End: 06-20-2025 take 06972-989596 capsules by mouth three times daily Giqvdc-Juxbjbaa-Tei lase (Zenpep) 40,000-126,000- 168,000 unit capsule,delayed release(DR/EC) Discontinued 2 NMA PO THREE TIMES A DAY 100 July 02, 2024 4:01pm June 20, 2025 8:27am Start: 07-02-2024 take 06791-006156 ca psules by mouth three times daily Rahhxg-Rgtattqm-Mpafocv (Zenpep) 40,000-126,000- 168,000 unit capsule,delayed release(DR/EC) Active 2 NMA PO THREE TIMES A DAY July 02, 2024 4:01pm Start: 07-02-2024 take 14479-584636 ca psules by mouth three times daily Kywyby-Ekyenlkc-Axjkzdf (Zenpep) 40,000-126,000- 168,000 unit capsule,delayed release(DR/EC) Active 2 NMA PO THREE TIMES A DAY July 02, 2024 4:01pm Start: 03-30-2024 End: 07-02-2024 Qdywyv-Wftrcvds-Vockjvw (Manpreet pep) 40,000-126,000- 168,000 unit capsule,delayed release(DR/EC) Discontinued 0 PO .COMPLEX 100 March 30, 2024 7:59am July 02, 2024 4:02pm EPI take 1 cap with snack, take 2 caps with meals Start: 03-30-2024 End: 07-02-2024 Corsno-Ndkrdwbt-Znhfwem (Manpreet pep) 40,000-126,000- 168,000 unit capsule,delayed release(DR/EC) Discontinued 0 PO .COMPLEX March 30, 2024 7:59am July 02, 2024 4:02pm take 1 cap with snack, take 2 caps with meals Start: 01-26-2024 End: 03-30-2024 Gxspdw-Uocnepyx-Dfkhzab (Manpreet pep) 40,000-126,000- 168,000 unit capsule,delayed release(DR/EC) Discontinued 0 PO .COMPLEX 100 January 26, 2024 9:49am March 30, 2024 7:59am EPI take 1 cap with snack, take 2 caps with meals Start: 01-26-2024 End: 03-30-2024 Zxhjyf-Kooevysp-Whuqhpe (Manpreet pep) 40,000-126,000- 168,000 unit capsule,delayed release(DR/EC) Discontinued 0 PO .COMPLEX [facility] January 26, 2024 9:49am March 30, 2024 7:59am take 1 cap with snack, take 2 caps with meals Start: 08-30-2022 End: 01-26-2024 Sxchrs-Hipkjkbd-Cmsklte (Manpreet pep) 40,000-126,000- 168,000 unit capsule,delayed release(DR/EC) Discontinued 0 PO .COMPLEX 300 2 August 30, 2022 12:00am January 26, 2024 9:49am EPI take 1 cap with snack, take 2 caps with meals Start: 08-30-2022 End: 01-26-2024 Tfhquz-Eiioohhs-Ppbnvjr (Manpreet pep) 40,000-126,000- 168,000 unit capsule,delayed release(DR/EC) [...] te Episodic/Chronic Other aftercare (1 source) Other oysterman (current) drug therapy; Translations: [Other oysterman (current) drug therapy] Onset: 12-24-2024 Episodic Results Test Name Value Interpretation Reference Range Facility Orthopedic Visit Reporton Orthopedic Visit Report [facility] [address] [place] [address] OFFICE VISIT Date of Service: 06/20/25 MR#: [id number] Acct: [id number] Name: JOON MURO Rep #: [id number] : 1975 Provider: CHUY Grady Age/Sex: 50/M [place] [facility] [place]: Signed Intake Vital Signs 05/09/25 09:03 [...] of stress test Chest pain Hx of Lebam spotted fever Injury of left clavicle Hypercholesterolemia [...] left arm. Patient did physical therapy at [place] and he did 4 sessions. He states [...] is midline (more content not included)... Normal [facility] Magnetic resonance imaging r eportOrdered By: Elliott Clancy on 06-11-2025 Study report [facility] Imaging Services [address] [place], [place] [id number] Spine Cervical (Routine) MR#: [id number] Acct: [id number] Name: JOON MURO Rep #: [id number] : 1975 M 50 From: Harry Clancy MD PCP: Dr. Basilia Lozada MD Status: REG C GONZALO Study:Spine Cervical (Routine) Date of Exam: 06/09/25 Exam# [id number] Ordering Dr: Wei Mast PA PROCEDURE: SPINE CERVICAL (ROUTINE) 06/09/2025 REASON [...] At C4-5 no significant central canal narrowing. Kwfy-by-nbapznog Left C5 foraminal narrowing from bony uncinate spur. At C5-6, no central spinal canal narrowing. Ufltj-zitqkec-nxnc-left uncinate spurring producing severe right C6 foraminal [...] CHUY Grady; Dr. Basilia Lozada MD ~ [employer]: Signed [facility] Spine Cervical (Routine)on 0 06-09-2025 Spine Cervical (Routine) [facility] [address] [place] [address] Spine Cervical (Routine) MR#: [id number] Acct: [id number] Name: JOON MURO Rep #: [id number] : 1975 M 50 From: Elliott Clancy MD PCP: Dr. Basilia Lozada MD Status: REG CLI Study: Spine Cervical (Routine) Date of Exam: Exam# [id number] Ordering Dr: Telma Mast PROCEDURE: SPINE CERVICAL [...] At C4-5 no significant central canal narrowing. Lfpt-pd-nqfdcskp Left C5 foraminal narrowing from bony uncinate spur. At C5-6, no central spinal canal narrowing. Peeex-haiswhn-pwyk-left uncinate spurring producing severe right C6 foraminal [...] CC: CHUY Grady; Dr. Basilia Lozada MD [employer]: Signed Normal [facility] Cerv Spine 4 or 5 Viewson Cerv Spine 4 or 5 Views [facility] Services [address] [place], [place] [id number] Cerv Spine 4 or 5 Views MR#: [id number] Acct: [id number] Name: JOON MURO Rep #: [id number] : 1975 M 50 From: Freeman Polk MD PCP: Dr. Basilia Lozada MD Status: DEP AMB Study: Cerv Spine 4 or 5 Views Date of Exam: 05/09/25 Exam# [id number] Ordering Dr: Telma Mast PROCEDURE: CERV SPINE [...] changes are worst at C5-6. Reading Location: [facility] CC: CHUY Grady; Dr. Basilia Lozada MD [employer]: Signed Normal [facility] Orthopedic Visit Reporton Orthopedic Visit Report [facility] [address] [place] [address] [address] [place], [place] [id number] OFFICE VISIT Date of Service: 05/09/25 MR#: [id number] Acct: [id number] Name: JOON MURO Rep #: [id number] : 1975 Provider: CHUY Grady Age/Sex: 50/M [place] [facility] [place] Status: Signed Intake Vital Signs 09/07/24 07:17 [...] mg PO DAILY 04/07/23 05/09/25 H istory bumqhc-efjwvaba-hxaevsx 2 cap PO TID #100 caps 07/02/24 [...] of stress test Chest pain Hx of Lebam spotted fever Injury of left clavicle Hypercholesterolemia [...] no instab (more content not included)... Normal [facility] NCS and/or EMG Patienton NCS and/or EMG Patient [facility]/Neurology [address] [place] [address] MR#: [id number] Acct: [id number] Name: JOON MURO Rep #: [id number] : 1975 50 From: Flaquito Rodriguez MD [...] Multi Select Codes Neurology Neurology Interp Codes: 16204-87 Musc test done w/n test comp (interp) and 07613-91 Nrv cndj test 7- 8 studies (interp) 04/27/25 1235 Date Flaquito Rodriguez MD CC: CHUY Hernandez; Dr. Flaquito Rodriguez MD; Dr. Basilia Lozada MD Date Dictated: 04/27/25 1232 Date Transcribed: 04/27/25 1232 [employer] Driver: AA Signed Normal [facility] CBC (NO DIFF)on 12-24-2024 CBC panel Auto (Bld) Normal [facility] Comment on above: Result Comment: CBC( WITHOUT DIFFERENTIAL) Performed By: #### 2 26594 #### [facility],[address] [place] [address] 67757 Erythrocyte distribution width (RBC) [Ratio] 13.3 % Normal 12.0 - 15.6 [facility] Comment on above: Performed By: #### 2 53035 #### [facility],[address] [place] [address] 04197 Hematocrit (Bld) [Volume fraction] 49.6 % Normal 40.0 - 52.0 [facility] Comment on above: Performed By: #### 2 73628 #### [facility],[address] [place] [address] 52611 Hemoglobin (Bld) [Mass/Vol] 16.8 g/dL Normal 13.0 - 17.5 [facility] Comment on above: Performed By: #### 2 17844 #### [facility],[address] [place] [address] 62369 MCH (RBC) [Entitic mass] 32 pg Normal 27 - 33 [facility] Comment on above: Performed By: #### 2 34007 #### [facility],[address] [place] [address] 73505 MCHC 34 X10 3 Normal 32 - 36 [facility] Comment on above: Performed By: #### 2 71482 #### [facility],[address] [place] [address] 39248 MCV (RBC) [Entitic vol] 95 fL Normal 81 - 98 [facility] Comment on above: Performed By: #### 2 21450 #### [facility],[address] [place] [address] 38140 PLATELET 216 x10EE3/UL Normal 150 - 450 [facility] Comment on above: Performed By: #### 2 50242 #### [facility],[address] [place] [address] 53364 Platelet mean volume (Bld) [Entitic vol] 9.4 fL Normal 6.4 - 10.5 [facility] Comment on above: Performed By: #### 2 22234 #### [facility],[address] [place] [address] 68408 RBC 5.21 x 10EE6/UL Normal 4.50 - 6.00 [facility] Comment on above: Performed By: #### 2 75900 #### [facility],[address] [place] [address] 45735 WBC 8.2 x 10EE3/UL Normal 4.5 - 10.8 [facility] Comment on above: Performed By: #### 2 78899 #### [facility],[address] [place] [address] 31691 CMP with eGFRon 12-24-2024 AGE 49 years Normal [facility] Comment on above: Performed By: #### 2 65249 #### [facility],[address] [place] [address] 15542 Albumin [Mass/Vol] 3.8 g/dL Normal 3.4 - 5.0 [facility] Comment on above: Performed By: #### 2 65356 #### [facility],[address] [place] [address] 43257 Albumin/Globulin [Mass ratio] 1.2 {ratio} Normal 0.9 - 1.6 [facility] Comment on above: Performed By: #### 2 76813 #### [facility],[address] [place] [address] 30465 ALK PHOS 102 U/L Normal 46 - 116 [facility] Comment on above: Performed By: #### 2 44051 #### [facility],[address] [place] [address] 13398 ALT [Catalytic activity/Vol] 27 U/L Normal 16 - 63 [facility] Comment on above: Performed By: #### 2 01869 #### [facility],[address] [place] [address] 17154 Anion gap [Moles/Vol] 11 mmol/L Normal 10 - 20 [facility] Comment on above: Performed By: #### 2 86556 #### [facility],[address] [place] [address] 10660 AST [Catalytic activity/Vol] 21 U/L Normal 15 - 37 [facility] Comment on above: Performed By: #### 2 52562 #### [facility],[address] [place] [address] 69369 B/C RATIO 22 ratio Normal 0 - 30 [facility] Comment on above: Performed By: #### 2 09832 #### [facility],[address] [place] [address] 79255 Bilirubin [Mass/Vol] 0.4 mg/dL Normal 0.2 - 1.0 [facility] Comment on above: Performed By: #### 2 16884 #### [facility],[address] [place] [address] 97322 Calcium [Mass/Vol] 9.0 mg/dL Normal 8.5 - 10.1 [facility] Comment on above: Performed By: #### 2 99422 #### [facility],[address] [place] [address] 92633 Chloride [Moles/Vol] 105 mmol/L Normal 98 - 107 [facility] Comment on above: Performed By: #### 2 60652 #### [facility],[address] [place] [address] 40722 CMP with eGFR Normal [facility] Comment on above: Result Comment: COMP REHENSIVE METABOLIC PANEL Performed By: #### 2 09769 #### [facility],[address] [place] [address] 87716 CO2 [Moles/Vol] 29.1 mmol/L Normal 21.0 - 32.0 [facility] Comment on above: Performed By: #### 2 63332 #### [facility],[address] [place] [address] 75222 Creatinine [Mass/Vol] 0.86 mg/dL Normal 0.70 - 1.30 [facility] Comment on above: Performed By: #### 2 96333 #### [facility],[address] [place] [address] 70364 GFR/1.73 sq M.predicted among non-blacks MDRD (S/P/Bld) [Vol rate/Area] mL/min/{1.73_m2} Normal 60 - 999 [facility] Comment on above: Performed By: #### 2 84007 #### [facility],[address] [place] [address] 95842 Result Comment: ACCO RDING TO THE NATIONAL KIDNEY DISEASE EDUCATION PROGRAM(NKDE), A NORMAL eGFR IS A VALUE GREATER THAN OR EQUAL TO 60 ML/MIN/1.73 SQ METERS. CHRONIC KIDNEY DISEASE: <60mL/MIN/1.73 SQ METERS KIDNEY FAILURE: <15mL/MIN/1.73 SQ METERS THIS TEST SHOULD ONLY BE USED FOR PATIENTS 18 YEARS OF AGE AND OLDER. Globulin (S) [Mass/Vol] 3.2 g/dL Normal 1.5 - 3.8 [facility] Comment on above: Performed By: #### 2 99138 #### [facility],[address] [place] [address] 64339 Glucose [Mass/Vol] 100 mg/dL Normal 74 - 106 [facility] Comment on above: Performed By: #### 2 80510 #### [facility],[address] [place] [address] 86388 Potassium [Moles/Vol] 4.2 mmol/L Normal 3.5 - 5.1 [facility] Comment on above: Performed By: #### 2 98953 #### [address] [address] Protein [Mass/Vol] 7.0 g/dL Normal 6.4 - 8.2 [facility] Comment on above: Performed By: #### 2 16752 #### [facility],[address] [place] [address] 26084 Sodium [Moles/Vol] 141 mmol/L Normal 136 - 145 [facility] Comment on above: Performed By: #### 2 55918 #### [facility],[address] [place] [address] 48869 Urea nitrogen [Mass/Vol] 19 mg/dL High 7 - 18 [facility] Comment on above: Performed By: #### 2 04974 #### [facility],[address] [place] [address] 19450 HEMOGLOBIN A1C (POM)on 12-24 Glucose [Mass/Vol] 116.9 mg/dL High 0.0 - 0.0 [facility] Comment on above: Result Comment: BLDo HEMOGLOBIN A1C REFERENCE RANGESBLDo Suggested Diagnosis HbA1c(%) HbA1C (mmol/mol Diabetic >/=6.5 >/=48 Prediabetes 5.7 - 6.4 39 - 47 Normal <5.7 <39 Performed By: #### 2 78284 #### [facility],[address] [place] [address] 36613 HbA1c (Bld) [Mass fraction] 5.7 % Normal 0.0 - 6.5 [facility] Comment on above: Performed By: #### 2 34182 #### [facility],[address] [place] [address] 22113 LIPID PROFILEon 12-24-2024 Cholesterol [Mass/Vol] 147 mg/dL Normal 0 - 240 [facility] Comment on above: Performed By: #### 2 18435 #### [facility],[address] [place] [address] 80996 Cholesterol in HDL [Mass/Vol] 52 mg/dL Normal 40 - 60 [facility] Comment on above: Performed By: #### 2 51725 #### [facility],[address] [place] [address] 76885 Cholesterol in LDL [Mass/Vol] 85 mg/dL Normal 0 - 129 [facility] Comment on above: Performed By: #### 2 39533 #### [facility],[address] [place] [address] 54506 Cholesterol.total/Chol esterol in HDL [Mass ratio] 2.8 {ratio} Normal 0.0 - 5.0 [facility] Comment on above: Performed By: #### 2 75989 #### [facility],[address] [place] [address] 86700 Lipid 1996 panel Normal [facility] Comment on above: Result Comment: LIPI D PROFILE Performed By: #### 2 73321 #### [facility],[address] [place], [place] [address] Triglyceride [Mass/Vol] 51 mg/dL Normal 0 - 150 [facility] Comment on above: Performed By: #### 2 38104 #### [facility],[address] [place] [address] 43206 TSHon 12-24-2024 TSH Qn 2.81 m[IU]/L Normal 0.35 - 3.74 [facility] Comment on above: Performed By: #### 2 11037 #### [facility],[address] [place] [address] 49449 URINALYSISon 12-24-2024 Amorphous NONE Normal [facility] Comment on above: Performed By: #### 2 62141 #### [facility],[address] [place] [address] 33208 Bacteria 2+ Normal [facility] Comment on above: Performed By: #### 2 80436 #### [facility],[address] [place] [address] 78533 Bilirubin Ql (U) Negative Normal NORMAL: NEGATIVE [facility] Comment on above: Performed By: #### 2 81199 #### [facility],[address] [place] [address] 14023 Casts NONE Normal [facility] Comment on above: Performed By: #### 2 58946 #### [facility],[address] [place] [address] 79040 Clarity (U) clear Normal NORMAL: CLEAR [facility] Comment on above: Performed By: #### 2 10691 #### [facility],[address] [place] [address] 95985 Color (U) yellow Normal NORMAL: YELLOW [facility] Comment on above: Performed By: #### 2 13887 #### [facility],[address] [place] [address] 74731 Crystals LM Nom (Urine sed) NONE Normal [facility] Comment on above: Performed By: #### 2 29340 #### [facility],[address] [place] [address] 99035 Epi Cells NONE Normal [facility] Comment on above: Performed By: #### 2 26283 #### [facility],[address] [place] [address] 99758 Glucose Ql (U) NORM Normal NORMAL: NORMAL [facility] Comment on above: Performed By: #### 2 47681 #### [facility],[address] [place] [address] 72628 Hemoglobin Ql (U) 25 Abnormal NORMAL: NEGATIVE [facility] Comment on above: Performed By: #### 2 75875 #### [facility],[address] [place] [address] 92096 Ketone Negative Normal NORMAL: NEGATIVE [facility] Comment on above: Performed By: #### 2 97885 #### [facility],[address] [place] [address] 63255 Leukocytes Negative Normal NORMAL: NEGATIVE [facility] Comment on above: Performed By: #### 2 14023 #### [facility],[address] [place] [address] 27431 Mucous 1+ Normal [facility] Comment on above: Performed By: #### 2 99725 #### [facility],[address] [place] [address] Nitrite Ql (U) Negative Normal NORMAL: NEGATIVE [facility] Comment on above: Performed By: #### 2 35107 #### [facility],[address] [place] [address] pH (U) 5 [pH] Normal NORMAL: 5.0-8.0 [facility] Comment on above: Performed By: #### 2 84936 #### [facility],[address] [place] [address] Protein Ql (U) Negative Normal NORMAL: NEGATIVE [facility] Comment on above: Performed By: #### 2 56790 #### [facility],[address] [place] [address] Rbc NONE Normal 0-3/hpf [facility] Comment on above: Performed By: #### 2 13723 #### [facility],[address] [place] [address] Sp [place] 1.020 Normal NORMAL: 1.010-1.030 [facility] Comment on above: Performed By: #### 2 21153 #### [facility],[address] [place] [address] Specimen Type R Normal [facility] Comment on above: Performed By: #### 2 41929 #### [facility],[address] [place] [address] Urinalysis dipstick W Reflex Microscopic panel (U) SEE BELOW Normal [facility] Comment on above: Result Comment: MICR OSCOPIC Performed By: #### 2 70682 #### [facility],[address] [place] [address] Urobilinog NORM Normal NORMAL: NORMAL [facility] Comment on above: Performed By: #### 2 92806 #### [facility],[address] [place] [address] Wbc 1-5 Normal 0-5/hpf [facility] Comment on above: Performed By: #### 2 09341 #### [facility],[address] [place] [address] 71347 Yeast NONE Normal [facility] Comment on above: Performed By: #### 2 98173 #### [facility],[address] [place] [address] 52357 LIPID PROFILEon 10-06-2024 Lipid 1996 panel Normal [facility] Comment on above: Result Comment: LIPI D PROFILE SEE SCANNED REPORT Performed By: #### 2 17131 #### [facility],[address] [place] [address] 54257 CBC + DIFFon 10-05-2024 Baso # 0.03 x10EE3/UL Normal 0.00 - 0.10 [facility] Comment on above: Performed By: #### 2 06369 #### [facility],[address] [place] [address] 62905 Basophils/100 WBC (Bld) 0.4 % Normal 0.0 - 2.0 [facility] Comment on above: Performed By: #### 2 78031 #### [facility],[address] [place], [place] [address] CBC + DIFF Normal [facility] Comment on above: Result Comment: CBC- COMPLETE BLOOD COUNT Performed By: #### 2 10316 #### [facility],[address] [place] [address] 98666 EO # 0.04 x10EE3/UL Normal 0.00 - 0.50 [facility] Comment on above: Performed By: #### 2 93931 #### [facility],[address] [place] [address] 59025 Eosinophils/100 WBC (Bld) 0.5 % Normal 0.0 - 7.0 [facility] Comment on above: Performed By: #### 2 93871 #### [facility],[address] [place], [place] [address] Erythrocyte distribution width (RBC) [Ratio] 13.4 % Normal 12.0 - 15.6 [facility] Comment on above: Performed By: #### 2 09036 #### [facility],[address] [place] [address] Hematocrit (Bld) [Volume fraction] 47.8 % Normal 40.0 - 52.0 [facility] Comment on above: Performed By: #### 2 99915 #### [facility],[address] [place] [address] Hemoglobin (Bld) [Mass/Vol] 16.0 g/dL Normal 13.0 - 17.5 [facility] Comment on above: Performed By: #### 2 72049 #### [facility],[address] [place] [address] Lymph # 1.87 x10EE3/UL Normal 0.80 - 2.80 [facility] Comment on above: Performed By: #### 2 42903 #### [place] [address] Lymphocytes/100 WBC (Bld) 25.8 % Normal 20.0 - 45.0 [facility] Comment on above: Performed By: #### 2 12813 #### [facility],[address] [place] [address] MANUAL DIFF N/A Normal [facility] Comment on above: Performed By: #### 2 51798 #### [facility],[address] [place] [address] MCH (RBC) [Entitic mass] 32 pg Normal 27 - 33 [facility] Comment on above: Performed By: #### 2 44248 #### [place] [address] MCHC 34 X10 3 Normal 32 - 36 [facility] Comment on above: Performed By: #### 2 20860 #### [place] [address] MCV (RBC) [Entitic vol] 96 fL Normal 81 - 98 [facility] Comment on above: Performed By: #### 2 88908 #### [place] [address] [place] # 0.48 x10EE3/UL Normal 0.20 - 1.00 [facility] Comment on above: Performed By: #### 2 37240 #### [address] [address] MONOS % 6.7 % Normal 0.0 - 10.0 [facility] Comment on above: Performed By: #### 2 45374 #### [place] [phone] Morphology Ronaldo (Bld) [Interp] N/A Normal [facility] Comment on above: Performed By: #### 2 26198 #### [place] [address] Neut # 4.84 x10EE3/UL Normal 1.50 - 7.10 [facility] Comment on above: Performed By: #### 2 65611 #### [place] [phone] Neutrophils/100 WBC (Bld) 66.7 % Normal 46.0 - 76.0 [facility] Comment on above: Performed By: #### 2 90815 #### [place] [address] PLATELET 166 x10EE3/UL Normal 150 - 450 [facility] Comment on above: Performed By: #### 2 13630 #### [address] [address] Platelet mean volume (Bld) [Entitic vol] 9.4 fL Normal 6.4 - 10.5 [facility] Comment on above: Result Comment: AUTO MATED DIFFERENTIAL Performed By: #### 2 56317 #### [facility],[address] [place] [address] 00335 RBC 4.96 x 10EE6/UL Normal 4.50 - 6.00 [facility] Comment on above: Performed By: #### 2 30607 #### [facility],[address] [place] [address] 35527 WBC 7.3 x 10EE3/UL Normal 4.5 - 10.8 [facility] Comment on above: Performed By: #### 2 19610 #### [facility],[address] [place] [address] 36870 CMP with eGFRon 10-05-2024 AGE 49 years Normal [facility] Comment on above: Performed By: #### 2 57516 #### [facility],[address] [place] [address] 20336 Albumin [Mass/Vol] 3.6 g/dL Normal 3.4 - 5.0 [facility] Comment on above: Performed By: #### 2 58908 #### [facility],[address] [place] [address] 65529 Albumin/Globulin [Mass ratio] 1.1 {ratio} Normal 0.9 - 1.6 [facility] Comment on above: Performed By: #### 2 65430 #### [facility],[address] [place] [address] 63143 ALK PHOS 101 U/L Normal 46 - 116 [facility] Comment on above: Performed By: #### 2 98212 #### [facility],[address] [place] [address] 89851 ALT [Catalytic activity/Vol] 27 U/L Normal 16 - 63 [facility] Comment on above: Performed By: #### 2 79043 #### [facility],[address] [place] [address] 22588 Anion gap [Moles/Vol] 12 mmol/L Normal 10 - 20 [facility] Comment on above: Performed By: #### 2 36082 #### [facility],[address] [place] [address] 87777 AST [Catalytic activity/Vol] 23 U/L Normal 15 - 37 [facility] Comment on above: Performed By: #### 2 41402 #### [facility],[address] [place] [address] 94661 B/C RATIO 17 ratio Normal 0 - 30 [facility] Comment on above: Performed By: #### 2 76298 #### [facility],[address] [place] [address] 52697 Bilirubin [Mass/Vol] 0.3 mg/dL Normal 0.2 - 1.0 [facility] Comment on above: Performed By: #### 2 26829 #### [facility],[address] [place] [address] 71992 Calcium [Mass/Vol] 8.9 mg/dL Normal 8.5 - 10.1 [facility] Comment on above: Performed By: #### 2 07460 #### [facility],[address] [place] [address] 92180 Chloride [Moles/Vol] 107 mmol/L Normal 98 - 107 [facility] Comment on above: Performed By: #### 2 86861 #### [facility],[address] [place] [address] 39315 CMP with eGFR Normal [facility] Comment on above: Result Comment: COMP REHENSIVE METABOLIC PANEL Performed By: #### 2 72913 #### [facility],[address] [place] [address] 94834 CO2 [Moles/Vol] 28.3 mmol/L Normal 21.0 - 32.0 [facility] Comment on above: Performed By: #### 2 90460 #### [facility],[address] [place] [address] 80595 Creatinine [Mass/Vol] 0.87 mg/dL Normal 0.70 - 1.30 [facility] Comment on above: Performed By: #### 2 75055 #### [facility],[address] [place] [address] 82906 GFR/1.73 sq M.predicted among non-blacks MDRD (S/P/Bld) [Vol rate/Area] mL/min/{1.73_m2} Normal 60 - 999 [facility] Comment on above: Performed By: #### 2 23946 #### [facility],[address] [place] [address] Result Comment: ACCO RDING TO THE NATIONAL KIDNEY DISEASE EDUCATION PROGRAM(NKDE), A NORMAL eGFR IS A VALUE GREATER THAN OR EQUAL TO 60 ML/MIN/1.73 SQ METERS. CHRONIC KIDNEY DISEASE: <60mL/MIN/1.73 SQ METERS KIDNEY FAILURE: <15mL/MIN/1.73 SQ METERS THIS TEST SHOULD ONLY BE USED FOR PATIENTS 18 YEARS OF AGE AND OLDER. Globulin (S) [Mass/Vol] 3.2 g/dL Normal 1.5 - 3.8 [facility] Comment on above: Performed By: #### 2 96213 #### [facility],[address] [place] [address] 01769 Glucose [Mass/Vol] 95 mg/dL Normal 74 - 106 [facility] Comment on above: Performed By: #### 2 26240 #### [facility],[address] [place] [address] 22723 Potassium [Moles/Vol] 4.3 mmol/L Normal 3.5 - 5.1 [facility] Comment on above: Performed By: #### 2 82725 #### [facility],[address] [place] [address] 36840 Protein [Mass/Vol] 6.8 g/dL Normal 6.4 - 8.2 [facility] Comment on above: Performed By: #### 2 55264 #### [facility],[address] [place] [address] 64984 Sodium [Moles/Vol] 143 mmol/L Normal 136 - 145 [facility] Comment on above: Performed By: #### 2 19697 #### [facility],[address] [place] [address] 43650 Urea nitrogen [Mass/Vol] 15 mg/dL Normal 7 - 18 [facility] Comment on above: Performed By: #### 2 83073 #### [facility],[address] [place] [address] 08910 HEMOGLOBIN A1C (POM)on 10-05 Glucose [Mass/Vol] 102.5 mg/dL High 0.0 - 0.0 [facility] Comment on above: Result Comment: BLDo HEMOGLOBIN A1C REFERENCE RANGESBLDo Suggested Diagnosis HbA1c(%) HbA1C (mmol/mol Diabetic >/=6.5 >/=48 Prediabetes 5.7 - 6.4 39 - 47 Normal <5.7 <39 Performed By: #### 2 95894 #### [facility],[address] [place] [address] 74018 HbA1c (Bld) [Mass fraction] 5.2 % Normal 0.0 - 6.5 [facility] Comment on above: Performed By: #### 2 85164 #### [facility],[address] [place] [address] 71604 URINALYSISon 10-05-2024 Bilirubin Ql (U) Negative Normal NORMAL: NEGATIVE [facility] Comment on above: Performed By: #### 2 03673 #### [facility],[address] [place] [address] 7[address]31 Clarity (U) clear Normal NORMAL: CLEAR [facility] Comment on above: Performed By: #### 2 17565 #### [facility],[address] [place] [address] 55172 Color (U) yellow Normal NORMAL: YELLOW [facility] Comment on above: Performed By: #### 2 70259 #### [facility],[address] [place] [address] 93239 Glucose Ql (U) NORM Normal NORMAL: NORMAL [facility] Comment on above: Performed By: #### 2 19838 #### [facility],[address] [place] [address] 45745 Hemoglobin Ql (U) Negative Normal NORMAL: NEGATIVE [facility] Comment on above: Performed By: #### 2 28558 #### [facility],[address] [place] [address] 54162 Ketone Negative Normal NORMAL: NEGATIVE [facility] Comment on above: Performed By: #### 2 04371 #### [facility],[address] [place] [address] 78122 Leukocytes Negative Normal NORMAL: NEGATIVE [facility] Comment on above: Performed By: #### 2 74661 #### [facility],[address] [place], [place] [phone] Nitrite Ql (U) Negative Normal NORMAL: NEGATIVE [facility] Comment on above: Performed By: #### 2 05561 #### [facility],[address] [place] [address] pH (U) 6 [pH] Normal NORMAL: 5.0-8.0 [facility] Comment on above: Performed By: #### 2 86151 #### [facility],[address] [place], [place] [phone] Protein Ql (U) Negative Normal NORMAL: NEGATIVE [facility] Comment on above: Performed By: #### 2 73562 #### [facility],[address] [place] [address] Sp [place] 1.020 Normal NORMAL: 1.010-1.030 [facility] Comment on above: Performed By: #### 2 68288 #### [facility],[address] [place] [address] Specimen Type R Normal [facility] Comment on above: Performed By: #### 2 81016 #### [facility],[address] [place] [address] Urinalysis dipstick W Reflex Microscopic panel (U) NOT INDICATED Normal [facility] Comment on above: Performed By: #### 2 08209 #### [facility],[address] [facility] [address] Urobilinog NORM Normal NORMAL: NORMAL [facility] Comment on above: Performed By: #### 2 15091 #### [facility],[address] [place] [address] 26454 Pulmonary Visit Reporton Pulmonary Visit Report [facility] [address] [place] [address] OFFICE VISIT Date of Service: 09/07/24 MR#: [id number] Acct: [id number] Name: JOON MURO Rep #: [id number] : 1975 Provider: LENNIE Beltran Age/Sex: 49/M [place] [facility] [place] Status: Signed Assessment and Plan Assessment and [...] Centrilobular emphysema Plan Details Follow Up: 07/18/25 ([facility]) HPI 1 Y FU Chief Complaint: [...] N/A Accompanied by: Self Allergies omeprazole (From [employer]) Adverse Reaction (Intermediate, Verified 09/07/24 08:09) GI Upset Medications ???Medication ???Instructions ???Recorded ???Confirmed ???Type nicotine 10 mg inhalation 1 inh inhalation ONCE PRN nicotine 03/18/23 09/07/24 Rx cartridge (Nicotrol) cravings #168 ea rosuvastatin 10 mg tablet 10 mg PO DAILY 04/07/23 09/07/24 History imzxyv-ugfahqop-kgofrtv 2 cap PO TID #100 caps 07/02/24 09/07/24 Rx 40,000-126,000-168,000 unit capsule, delay rel (Zenpep) [facility] Medical History Marijuana abuse, continuous COPD (chronic obstructive pulmonary disease) Lung nodule seen on imaging study Nicotine addiction Diverticula, colon Marijuana use Essential tremor Insomnia Back pain History of ulceration Emphysema, unspecified Shortness of breath on exertion Leg cramps History of stress test Chest pain Hx of Lebam spotted fever Injury of left clavicle Hypercholesterolemia [...] type: marijuana (more content not included)... Normal [facility] CT CORONARY ANGIOGRAPHY W+W/ O CONTRASTon 07-15-2024 CT CORONARY ANGIOGRAPHY W+W/O CONTRAST ORIGINAL CT CORONARY ANGIOGRAPHY W+W/O CONTRAST PATIENT NAME:JOON UMRO : 1975 GENDER: Male ORDERING PROVIDER:MALINDA GALLAGHER [...] minor artifact but good diagnostic quality. LIMITATIONS: \[id number]\None Abbreviations: LM: left main, RCA: right coronary [...] No effusion. No thickening. No calcifications. AV: \[id number]\Tricuspid. No thickening. No calcifications. MV: \[id number]\No thickening. No calcifications. CORONARY CALCIUM SCORING AGATSTON [...] Date: 07/15/2024 10:57:20 PM Ordering Provider:Malinda Rice [facility] ([place]) CT CORONARY EXTRACARDIACon 0 07-13-2024 CT CORONARY [...] 07/13/2024 3:39:59 PM Ordering Provider: MALINDA GALLAGHER [facility] ([place]) HbA1c (Bld)on 09-08-2023 Average glucose Estimated from glycated hemoglobin (Bld) [Mass/Vol] 111 mg/dL Normal [facility] Comment on above: Order Comment: Soy hood Type: BLOOD SPECIMEN Ordering Facility: [facility] Address: [facility] [place] [address] Result Comment: eAG: (Estimated average glucose) is a calculated value from HgbA1c and is customer development representative of the average blood glucose level in the last 2-3 month period. Performed By: #### 5 5454-3 #### [facility] CLIA [id number] [address] [place] [address] [place] HbA1c (Bld) [Mass fraction] 5.5 % Normal 4.3-5.6 [facility] Comment on above: Order Comment: Soy hood Type: BLOOD SPECIMEN Ordering Facility: [facility] Address: [facility] [place] [address] Result Comment: Amer [place] Diabetes Association guidelines indicate that patients with HgbA1c in the range 5.7-6.4% are at increased risk for development of diabetes, and intervention by lifestyle modification may be beneficial. HgbA1c greater or equal to 6.5% is considered diagnostic of diabetes. Performed By: #### 5 5454-3 #### [facility] CLIA [id number] [address] [place] [address] [place] Absolute lymphocyte countOrd ered By: Christiane Shannon on 04-07-2023 Lymphocytes Auto (Unsp spec) [#/Vol] 1.62 10*3/uL 0.83-4.51 [facility] Basophil percentageOrdered B y: Christiane Shannon on 04-07-2023 Basophils/100 WBC (Bld) 0.4 % 0-1 [facility] Bilirubin [Mass/Vol] 0.40 mg/dL 0.20-1.00 [facility] Comment on above: For patients on eltr ombopag therapy, use of Dimension [place] TBIL is not recommended. Chloride [Moles/Vol] 108 mmol/L 98-107 [facility] Eosinophils/100 WBC (Bld) 1.2 % 0-5 [facility] Glucose [Mass/Vol] 95 mg/dL 74-106 [facility] Neutrophils (Bld) [#/Vol] 5.9 10*3/uL 2.0-7.7 [facility] Neutrophils/100 WBC (Bld) 72.4 % 47-70 [facility] Potassium [Moles/Vol] 4.5 mmol/L 3.5-5.1 [facility] Protein [Mass/Vol] 7.0 g/dL 6.4-8.2 [facility] Sodium [Moles/Vol] 139 mmol/L 136-145 [facility] WBC (Bld) [#/Vol] 8.1 10*3/uL 4.4-11.0 [facility] Blood erythrocytes count (nu mber/volume)Ordered By: Christiane Shannon on 04-07-2023 RBC (Bld) [#/Vol] 5.08 10*6/uL 4.6-6.2 [facility] Blood hemoglobin measurement (mass/volume)Ordered By: Christiane Shannon on 04-07-2023 Hemoglobin (Bld) [Mass/Vol] 15.8 g/dL 13.0-16.5 [facility] Blood lymphocytes/100 leukoc ytesOrdered By: Christiane Shannon on 04-07-2023 Lymphocytes/100 WBC (Bld) 20.1 % 19-41 [facility] Blood monocytes/100 leukocyt esOrdered By: Christiane Shannon on 04-07-2023 Monocytes/100 WBC (Bld) 5.5 % 0-10 [facility] Blood platelet mean volumeOr dered By: Christiane Shannon on 04-07-2023 Platelet mean volume (Bld) [Entitic vol] 11.5 fL 6.2-12.0 [facility] Determination of erythrocyte mean corpuscular volume (MCV)Ordered By: Christiane Shannon on 04-07-2023 MCV (RBC) [Entitic vol] 96.9 fL 80-94 [facility] Erythrocyte sedimentation ra teOrdered By: Christiane Shannon on 04-07-2023 ESR (Bld) [Velocity] 9 mm/h 0-20 [facility] Hematocrit Auto (Bld) [Volum e fraction]Ordered By: Christiane Shannon on 04-07-2023 Hematocrit (Bld) [Volume fraction] 49.2 % 40-54 [facility] - Chemistry and C hemistry - challengeOrdered By: Christiane Shannon on 04-07-2023 ALP [Catalytic activity/Vol] 117 U/L 45-117 [facility] ALT [Catalytic activity/Vol] 32 U/L 16-61 [facility] CO2 [Moles/Vol] 27.0 mmol/L 21.0-32.0 [facility] Globulin (S) [Mass/Vol] 3.5 g/dL 2.2-4.2 [facility] Lipase [Catalytic activity/Vol] 57 U/L 13-75 [facility] Comment on above: Please note:LIPASE r evised reference range effective 23. New Lipase methodology. Expected to produce lower values than the previous assay method. NEW Reference Range: 13 - 75 U/L Urea nitrogen/Creatinine [Mass ratio] 25.9 mg/mg 10-20 [facility] - Hematology and Cell countsOrdered By: Christiane Shannon on 04-07-2023 Erythrocyte distribution width (RBC) [Entitic vol] 45.8 fL 35.1-43.9 [facility] Erythrocyte distribution width (RBC) [Ratio] 12.7 % 11.6-14.6 [facility] Immature granulocytes/100 WBC (Bld) 0.400 % 0.0-0.9 [facility] Comment on above: IG% - Immature Granu locytes (promyelocytes, myelocytes and metamyelocytes) > 1% indicates that a LEFT SHIFT is Present. MCH (RBC) [Entitic mass] 31.1 pg 27.0-32.0 [facility] Nucleated RBC/100 WBC (Bld) [Ratio] 0 % 0-5 [facility] MCHC Auto (RBC) [Mass/Vol]Or dered By: Christiane Shannon on 04-07-2023 MCHC (RBC) [Mass/Vol] 32.1 g/dL 32-36 [facility] No Panel InformationOrdered By: Christiane Shannon on 04-07-2023 CA 19-9 Antigen 7 U/mL 0-35 [facility] Comment on above: [facility] [employer] El ectrochemiluminescence Immunoassay(ECLIA)Values obtained with different assay methods or kits cannotbe used interchangeably. Results cannot be interpreted asabsolute evidence of the presence or absence of malignantdisease. Estimated GFR (MDRD) Amer 117 mL/min >60 [facility] Comment on above: GFR Calc Estimated GFR (MDRD) Non-Af Amer 96 mL/min >60 [facility] Comment on above: Non- GFR Calc Immunoglobulin G4 15 mg/dL 2-96 [facility] Platelets bldOrdered By: Mary Shannon on 04-07-2023 Platelets (Bld) [#/Vol] 215 10*3/uL 150-450 [facility] Serum IgG subclass 1 measure ment (mass/volume)Ordered By: Christiane Shannon on 04-07-2023 IgG subclass 1 (S) [Mass/Vol] 312 mg/dL 248-810 [facility] Serum IgG subclass 2 measure ment (mass/volume)Ordered By: Christiane Shannon on 04-07-2023 IgG subclass 2 (S) [Mass/Vol] 258 mg/dL 130-555 [facility] Serum IgG subclass 3 measure ment (mass/volume)Ordered By: Christiane Shannon on 04-07-2023 IgG subclass 3 (S) [Mass/Vol] 33 mg/dL 15-102 [facility] Serum mitochondria antibody detectionOrdered By: Christiane Shannon on 04-07-2023 Mitochondria Ab Ql (S) <20.0 Units 0.0-20.0 [facility] Comment on above: Negative 0.0 - 20.0 Equivocal 20.1 - 24.9 Positive >24.9Mitochondrial (M2) Antibodies are found in 90-96% ofpatients with primary biliary cirrhosis.Performed at: [employer] [address] [id number] Director: Alin Ceron PhD, Phone: [phone] Serum or plasma C reactive p rotein measurement (mass/volume)Ordered By: Christiane Shannon on 04-07-2023 CRP [Mass/Vol] 10.90 mg/L 0.0-3.0 [facility] Comment on above: C-Reactive Protein ( CRP) provides useful information for thediagnosis, therapy and monitoring of inflammatory processesand associated diseases. For the evaluation of Relative Riskfor Cardiovascular Disease, a High Sensitivity CRP (HSCRP)should be ordered. Serum or plasma IgG measurem ent (mass/volume)Ordered By: Christiane Shannon on 04-07-2023 IgG [Mass/Vol] 740 mg/dL 603-1613 [facility] Serum or plasma actin IgG an tibody assay (units/volume)Ordered By: Christiane Shannon on 04-07-2023 Actin IgG Qn 4 Units 0-19 [facility] Comment on above: Negative 0 - 19 Weak positive 20 - 30 Moderate to strong positive >30 Actin Antibodies are found in 52-85% of patients with autoimmune hepatitis or chronic active hepatitis and in 22% of patients with primary biliary cirrhosis.Performed at: [employer] [address] [id number] Director: Alin Ceron PhD, Phone: [phone] Serum or plasma albumin paige urement (mass/volume)Ordered By: Christiane Shannon on 04-07-2023 Albumin [Mass/Vol] 3.5 g/dL 3.2-5.0 [facility] Serum or plasma albumin/glob ulin mass ratioOrdered By: Christiane Shannon on 04-07-2023 Albumin/Globulin [Mass ratio] 1.0 {ratio} 0.9-2.4 [facility] Serum or plasma calcium paige urement (mass/volume)Ordered By: Christiane Shannon on 04-07-2023 Calcium [Mass/Vol] 8.7 mg/dL 8.5-10.1 [facility] Serum or plasma creatinine m easurement (mass/volume)Ordered By: Christiane Shannon on 04-07-2023 Creatinine [Mass/Vol] 0.89 mg/dL 0.70-1.30 [facility] Comment on above: The validity of the calculated GFR & GFRAA in patients over 70 years has not been determined. Clinical correlation is essential. Serum or plasma urea nitroge n measurement (mass/volume)Ordered By: Christiane Shannon on 04-07-2023 Urea nitrogen [Mass/Vol] 23 mg/dL 7-18 [facility] Thin prep Papanicolaou smear with manual screeningOrdered By: Christiane Shannon on 04-07-2023 Thin prep Papanicolaou smear with manual screening 24 U/L 15-37 [facility] Thin prep Papanicolaou smear with manual screening 4 5-15 [facility] No Panel Informationon 08-12 Stool Neutral Fats Increased . [facility] Work Phone: Comment on above: Normal (<60 Droplets /HPF) Qualitative fecal fat or lip idson 08-12-2022 Fat Ql (Stl) Increased . [facility] Work Phone: Comment on above: Normal (<100 Droplet s/HPF)Performed at: - [facility] [id number] Director: Alin Ceron PhD, Phone: [phone] Absolute lymphocyte counton 08-07-2022 Lymphocytes Auto (Unsp spec) [#/Vol] 1.78 10*3/uL 0.83-4.51 [facility] Work Phone: Basophil percentageon 2021 Amylase [Catalytic activity/Vol] 49 U/L 25-115 [facility] Work Phone: Basophils/100 WBC (Bld) 0.2 % 0-1 [facility] Work Phone: Bilirubin [Mass/Vol] 0.50 mg/dL 0.20-1.00 [facility] Work Phone: Comment on above: For patients on eltr ombopag therapy, use of Dimension [place] TBIL is not recommended. Chloride [Moles/Vol] 106 mmol/L 98-107 [facility] Work Phone: Eosinophils/100 WBC (Bld) 1.1 % 0-5 [facility] Work Phone: [phone] Glucose [Mass/Vol] 106 mg/dL 74-106 [facility] Work Phone: Comment on above: Fasting Glucose resu lt from 100 to 125 mg/dL suggests IMPAIRED HOMEOSTASIS per A.D.A. criteria. Neutrophils (Bld) [#/Vol] 6.7 10*3/uL 2.0-7.7 [facility] Work Phone: Neutrophils/100 WBC (Bld) 73.5 % 47-70 [facility] Work Phone: Potassium [Moles/Vol] 4.3 mmol/L 3.5-5.1 [facility] Work Phone: Protein [Mass/Vol] 7.6 g/dL 6.4-8.2 [facility] Work Phone: Sodium [Moles/Vol] 139 mmol/L 136-145 [facility] Work Phone: WBC (Bld) [#/Vol] 9.2 10*3/uL 4.4-11.0 [facility] Work Phone: Blood erythrocytes count (nu mber/volume)on 08-07-2022 RBC (Bld) [#/Vol] 5.35 10*6/uL 4.6-6.2 [facility] Work Phone: [phone] Blood hemoglobin measurement (mass/volume)on 08-07-2022 Hemoglobin (Bld) [Mass/Vol] 17.1 g/dL 13.0-16.5 [facility] Work Phone: Blood lymphocytes/100 leukoc yteson 08-07-2022 Lymphocytes/100 WBC (Bld) 19.4 % 19-41 [facility] Work Phone: [phone] Blood monocytes/100 leukocyt eson 08-07-2022 Monocytes/100 WBC (Bld) 5.5 % 0-10 [facility] Work Phone: [phone] Blood platelet mean volumeon 08-07-2022 Platelet mean volume (Bld) [Entitic vol] 11.0 fL 6.2-12.0 [facility] Work Phone: Determination of erythrocyte mean corpuscular volume (MCV)on 08-07-2022 MCV (RBC) [Entitic vol] 95.1 fL 80-94 [facility] Work Phone: Erythrocyte sedimentation ra lisa 08-07-2022 ESR (Bld) [Velocity] 22 mm/h 0-20 [facility] Work Phone: Hematocrit Auto (Bld) [Volum e fraction]on 08-07-2022 Hematocrit (Bld) [Volume fraction] 50.9 % 40-54 [facility] Work Phone: Interpretation of serum or p lasma protein pattern by immunofixation (narrative resulton 08-07-2022 Protein Fractions Immunofixation Ronaldo [Interp] See comment [facility] Work Phone: Comment on above: Result: Not Observed Laboratory - Chemistry and C hemistry - challengeon 08-07-2022 ALP [Catalytic activity/Vol] 118 U/L 45-117 [facility] Work Phone: ALT [Catalytic activity/Vol] 24 U/L 16-61 [facility] Work Phone: CO2 [Moles/Vol] 27.0 mmol/L 21.0-32.0 [facility] Work Phone: Cobalamin (Vitamin B12) [Mass/Vol] 508 pg/mL 211-911 [facility] Work Phone: Lipase [Catalytic activity/Vol] 135 U/L 73-393 [facility] Work Phone: Urea nitrogen/Creatinine [Mass ratio] 17.9 mg/mg 10-20 [facility] Work Phone: Laboratory - Hematology and Cell countson 08-07-2022 Erythrocyte distribution width (RBC) [Entitic vol] 46.8 fL 35.1-43.9 [facility] Work Phone: Erythrocyte distribution width (RBC) [Ratio] 13.2 % 11.6-14.6 [facility] Work Phone: Immature granulocytes/100 WBC (Bld) 0.300 % 0.0-0.9 [facility] Work Phone: Comment on above: IG% - Immature Granu locytes (promyelocytes, myelocytes and metamyelocytes) > 1% indicates that a LEFT SHIFT is Present. MCH (RBC) [Entitic mass] 32.0 pg 27.0-32.0 [facility] Work Phone: Nucleated RBC/100 WBC (Bld) [Ratio] 0 % 0-5 [facility] Work Phone: MCHC Auto (RBC) [Mass/Vol]on 08-07-2022 MCHC (RBC) [Mass/Vol] 33.6 g/dL 32-36 [facility] Work Phone: No Panel Informationon 08-07 Addendum Document Comment . [facility] Work Phone: Comment on above: Protein electrophore sis scan will follow via computer,mail, or electromechanical equipment tester delivery. Estimated GFR (MDRD) Amer 116 mL/min >60 [facility] Work Phone: Comment on above: GFR Calc Estimated GFR (MDRD) Non-Af Amer 96 mL/min >60 [facility] Work Phone: Comment on above: Non- GFR Calc Immunoglobulin E 20 IU/mL 6-495 [facility] Work Phone: Thyroid Stimulating Hormone (TSH) 2.83 uIU/mL 0.358-3.74 [facility] Work Phone: Platelets bldon 08-07-2022 Platelets (Bld) [#/Vol] 178 10*3/uL 150-450 [facility] Work Phone: Serum eighp-7-erpeqyag measu rement by electrophoresison 08-07-2022 Alpha 1 globulin Elph [Mass/Vol] 0.2 g/dL 0.0-0.4 [facility] Work Phone: Alpha 1 globulin Elph [Mass/Vol] 0.8 g/dL 0.4-1.0 [facility] Work Phone: Serum globulin measurement ( mass/volume)on 08-07-2022 Globulin (S) [Mass/Vol] 3.0 g/dL 2.2-3.9 [facility] Work Phone: Serum or plasma C reactive p rotein measurement (mass/volume)on 08-07-2022 CRP [Mass/Vol] 3.85 mg/L 0.0-3.0 [facility] Work Phone: Comment on above: C-Reactive Protein ( CRP) provides useful information for thediagnosis, therapy and monitoring of inflammatory processesand associated diseases. For the evaluation of Relative Riskfor Cardiovascular Disease, a High Sensitivity CRP (HSCRP)should be ordered. Serum or plasma IgA measurem ent (mass/volume)on 08-07-2022 IgA [Mass/Vol] 155 mg/dL 90-386 [facility] Work Phone: Serum or plasma IgG measurem ent (mass/volume)on 08-07-2022 IgG [Mass/Vol] 853 mg/dL 603-1613 [facility] Work Phone: Serum or plasma IgM measurem ent (mass/volume)on 08-07-2022 IgM [Mass/Vol] 239 mg/dL 20-172 [facility] Work Phone: Serum or plasma albumin paige urement (mass/volume)on 08-07-2022 Albumin [Mass/Vol] 3.8 g/dL 2.9-4.4 [facility] Work Phone: Serum or plasma albumin/glob ulin mass ratioon 08-07-2022 Albumin/Globulin [Mass ratio] 1.0 {ratio} 0.9-2.4 [facility] Work Phone: Serum or plasma beta globuli n measurement by electrophoresis (mass/volume)on 08-07-2022 Beta globulin Elph [Mass/Vol] 1.0 g/dL 0.7-1.3 [facility] Work Phone: Serum or plasma calcium paige urement (mass/volume)on 08-07-2022 Calcium [Mass/Vol] 8.9 mg/dL 8.5-10.1 [facility] Work Phone: Serum or plasma carcinoembry onic antigen measurement (mass/volume)on 08-07-2022 Carcinoembryonic Ag [Mass/Vol] 16.5 ng/mL 0.0-4.7 [facility] Work Phone: Comment on above: Nonsmokers <3.9 Smok ers <5.6[employer] Electrochemiluminescence Immunoassay(ECLIA)Values obtained with different assay methods or kitscannot be used interchangeably. Results cannot beinterpreted as absolute evidence of the presence orabsence of malignant disease. Serum or plasma creatinine m easurement (mass/volume)on 08-07-2022 Creatinine [Mass/Vol] 0.89 mg/dL 0.70-1.30 [facility] Work Phone: Comment on above: The validity of the calculated GFR & GFRAA in patients over 70 years has not been determined. Clinical correlation is essential. Serum or plasma folate measu rement (mass/volume)on 08-07-2022 Folate [Mass/Vol] 11.40 ng/mL 3.1-55.4 [facility] Work Phone: Serum or plasma gamma globul in measurement by electrophoresis (mass/volume)on 08-07-2022 Gamma globulin Elph [Mass/Vol] 0.9 g/dL 0.4-1.8 [facility] Work Phone: Serum or plasma gastrin paige urement (mass/volume)on 08-07-2022 Gastrin [Mass/Vol] 14 pg/mL 0-115 [facility] Work Phone: Comment on above: Siemens Immulite 200 0 Immunochemiluminometric assay (ICMA)Values obtained with different assay methods or kits cannotbe used interchangeably. Results cannot be interpreted asabsolute evidence of the presence or absence of malignantdisease.Performed at: [employer] [address] [id number] Director: Alin Ceron PhD, Phone: [phone] at: [employer] [address] [id number] Director: Nino Shelton MD, Phone: [phone] Serum or plasma immunoelectr ophoresis interpretation (nominal result)on 08-07-2022 Interpretation IEP [Interp] Comment . [facility] Work Phone: Comment on above: No monoclonality det ected. Serum or plasma urea nitroge n measurement (mass/volume)on 08-07-2022 Urea nitrogen [Mass/Vol] 16 mg/dL 7-18 [facility] Work Phone: Thin prep Papanicolaou smear with manual screeningon 08-07-2022 Thin prep Papanicolaou smear with manual screening 16 U/L 15-37 [facility] Work Phone: Thin prep Papanicolaou smear with manual screening 6 5-15 [facility] Work Phone: Thin prep Papanicolaou smear with manual screening 197 U/L 87-241 [facility] Work Phone: Thin prep Papanicolaou smear with manual screening 1.3 0.7-1.7 [facility] Work Phone: Total protein bloodon 2021 Protein [Mass/Vol] 6.8 g/dL 6.0-8.5 [facility] Work Phone: Basophil percentageon 2021 Bilirubin [Mass/Vol] 0.20 mg/dL 0.20-1.00 [facility] Work Phone: Comment on above: For patients on eltr ombopag therapy, use of Dimension [place] TBIL is not recommended. Chloride [Moles/Vol] 111 mmol/L 98-107 [facility] Work Phone: Glucose [Mass/Vol] 101 mg/dL 74-106 [facility] Work Phone: Comment on above: Fasting Glucose resu lt from 100 to 125 mg/dL suggests IMPAIRED HOMEOSTASIS per A.D.A. criteria. Potassium [Moles/Vol] 4.4 mmol/L 3.5-5.1 [facility] Work Phone: Protein [Mass/Vol] 6.7 g/dL 6.4-8.2 [facility] Work Phone: Sodium [Moles/Vol] 141 mmol/L 136-145 [facility] Work Phone: Laboratory - Chemistry and C hemistry - challengeon 05-30-2022 ALP [Catalytic activity/Vol] 103 U/L 45-117 [facility] Work Phone: ALT [Catalytic activity/Vol] 19 U/L 16-61 [facility] Work Phone: CO2 [Moles/Vol] 26.0 mmol/L 21.0-32.0 [facility] Work Phone: Globulin (S) [Mass/Vol] 3.2 g/dL 2.2-4.2 [facility] Work Phone: Urea nitrogen/Creatinine [Mass ratio] 21.2 mg/mg 10-20 [facility] Work Phone: No Panel Informationon 05-30 Estimated GFR (MDRD) Amer 116 mL/min >60 [facility] Work Phone: Comment on above: GFR Calc Estimated GFR (MDRD) Non-Af Amer 96 mL/min >60 [facility] Work Phone: Comment on above: Non- GFR Calc Immunoglobulin E 18 IU/mL 6-495 [facility] Work Phone: Serum or plasma C reactive p rotein measurement (mass/volume)on 05-30-2022 CRP [Mass/Vol] 4.30 mg/L 0.0-3.0 [facility] Work Phone: Comment on above: C-Reactive Protein ( CRP) provides useful information for thediagnosis, therapy and monitoring of inflammatory processesand associated diseases. For the evaluation of Relative Riskfor Cardiovascular Disease, a High Sensitivity CRP (HSCRP)should be ordered. Serum or plasma IgA measurem ent (mass/volume)on 05-30-2022 IgA [Mass/Vol] 137 mg/dL 90-386 [facility] Work Phone: Serum or plasma IgG measurem ent (mass/volume)on 05-30-2022 IgG [Mass/Vol] 699 mg/dL 603-1613 [facility] Work Phone: Serum or plasma IgM measurem ent (mass/volume)on 05-30-2022 IgM [Mass/Vol] 202 mg/dL 20-172 [facility] Work Phone: Serum or plasma albumin paige urement (mass/volume)on 05-30-2022 Albumin [Mass/Vol] 3.5 g/dL 3.2-5.0 [facility] Work Phone: Serum or plasma albumin/glob ulin mass ratioon 05-30-2022 Albumin/Globulin [Mass ratio] 1.1 {ratio} 0.9-2.4 [facility] Work Phone: Serum or plasma calcium paige urement (mass/volume)on 05-30-2022 Calcium [Mass/Vol] 8.7 mg/dL 8.5-10.1 [facility] Work Phone: Serum or plasma carcinoembry onic antigen measurement (mass/volume)on 05-30-2022 Carcinoembryonic Ag [Mass/Vol] 15.8 ng/mL 0.0-4.7 [facility] Work Phone: Comment on above: Nonsmokers <3.9 Smok ers <5.6[employer] Electrochemiluminescence Immunoassay(ECLIA)Values obtained with different assay methods or kitscannot be used interchangeably. Results cannot beinterpreted as absolute evidence of the presence orabsence of malignant disease. Serum or plasma creatinine m easurement (mass/volume)on 05-30-2022 Creatinine [Mass/Vol] 0.90 mg/dL 0.70-1.30 [facility] Work Phone: Comment on above: The validity of the calculated GFR & GFRAA in patients over 70 years has not been determined. Clinical correlation is essential. Serum or plasma gastrin paige urement (mass/volume)on 05-30-2022 Gastrin [Mass/Vol] < 10 pg/mL 0-115 [facility] Work Phone: Comment on above: Siemens Pathology Holdingsulite 200 0 Immunochemiluminometric assay (ICMA)Values obtained with different assay methods or kits cannotbe used interchangeably. Results cannot be interpreted asabsolute evidence of the presence or absence of malignantdisease.Performed at: [facility] [id number] Director: Alin Ceron PhD, Phone: [phone] at: [facility] [id number] Director: Nino Shelton MD, Phone: [phone] Serum or plasma urea nitroge n measurement (mass/volume)on 05-30-2022 Urea nitrogen [Mass/Vol] 19 mg/dL 7-18 [facility] Work Phone: Thin prep Papanicolaou smear with manual screeningon 05-30-2022 Thin prep Papanicolaou smear with manual screening 16 U/L 15-37 [facility] Work Phone: Thin prep Papanicolaou smear with manual screening 4 5-15 [facility] Work Phone: No Panel Informationon 03-04 Carcinoembryonic Ag Serial Monitor Not Reportable [facility] Work Phone: Serum or plasma carcinoembry onic antigen measurement (mass/volume)on 03-04-2022 Carcinoembryonic Ag [Mass/Vol] 14.7 ng/mL 0.0-4.7 [facility] Work Phone: Comment on above: Nonsmokers <3.9 Smok ers <5.6[employer] Electrochemiluminescence Immunoassay(ECLIA)Values obtained with different assay methods or kitscannot be used interchangeably. Results cannot beinterpreted as absolute evidence of the presence orabsence of malignant disease. Serum or plasma gastrin paige urement (mass/volume)on 03-04-2022 Gastrin [Mass/Vol] 12 pg/mL 0-115 [facility] Work Phone: Comment on above: Siemens Immulite 200 0 Immunochemiluminometric assay (ICMA)Values obtained with different assay methods or kits cannotbe used interchangeably. Results cannot be interpreted asabsolute evidence of the presence or absence of malignantdisease.Performed at: [facility] [employer] [id number] Director: Alin Ceron PhD, Phone: [phone] at: [facility] [employer] [id number] Director: Nino Shelton MD, Phone: [phone] Giardia lamblia ag stool EIA on 02-09-2022 G. lamblia Ag IA Ql (Stl) See comment [facility] Work Phone: Comment on above: TEST RESULT LIMITSGi ardia lamblia Ag, EIA Negative Negative __ [facility] ORIGINAL REPORT ON FILE IN LAB CONTAINS ADDITIONAL TEST SITE INFORMATION. No Panel Informationon 02-09 Enteric Bacteriology [facility] Work Phone: Stool Calprotectin <16 ug/g 0-120 [facility] Work Phone: Comment on above: Concentration Interp retation Follow-Up<16 - 50 ug/g Normal None>50 -120 ug/g Borderline Re-evaluate in 4-6 weeks >120 ug/g Abnormal Repeat as clinically indicatedPerformed at: - [facility] [address] [id number] Director: Nino Shelton MD, Phone: [phone] Absolute lymphocyte counton 02-08-2022 Lymphocytes Auto (Unsp spec) [#/Vol] 1.56 10*3/uL 0.83-4.51 [facility] Work Phone: Atypical perinuclear antineu trophil cytoplasmic antibodies measurementon 02-08-2022 Neutrophil cytoplasmic Ab.perinuclear.atypica l IF (S) [Titer] <1:20 titer Neg:<1:20 [facility] Work Phone: Comment on above: The atypical pANCA p attern has been observed in asignificant percentage of patients with ulcerative colitis,primary sclerosing cholangitis and autoimmune hepatitis. Basophil percentageon 2021 Amylase [Catalytic activity/Vol] 53 U/L 25-115 [facility] Work Phone: Basophil percentage < 0.2 AI 0.0-0.9 [facility] Work Phone: Basophils/100 WBC (Bld) 0.5 % 0-1 [facility] Work Phone: Bilirubin [Mass/Vol] 0.30 mg/dL 0.20-1.00 [facility] Work Phone: Comment on above: For patients on eltr ombopag therapy, use of Dimension [place] TBIL is not recommended. Chloride [Moles/Vol] 110 mmol/L 98-107 [facility] Work Phone: [phone] Eosinophils/100 WBC (Bld) 0.8 % 0-5 [facility] Work Phone: [phone] Glucose [Mass/Vol] 96 mg/dL 74-106 [facility] Work Phone: [phone] Neutrophils (Bld) [#/Vol] 4.5 10*3/uL 2.0-7.7 [facility] Work Phone: [phone] Neutrophils/100 WBC (Bld) 68.0 % 47-70 [facility] Work Phone: [phone] Potassium [Moles/Vol] 4.3 mmol/L 3.5-5.1 [facility] Work Phone: [phone] Protein [Mass/Vol] 7.5 g/dL 6.4-8.2 [facility] Work Phone: [phone] Sodium [Moles/Vol] 140 mmol/L 136-145 [facility] Work Phone: WBC (Bld) [#/Vol] 6.6 10*3/uL 4.4-11.0 [facility] Work Phone: [phone] Blood erythrocytes count (nu mber/volume)on 02-08-2022 RBC (Bld) [#/Vol] 5.03 10*6/uL 4.6-6.2 [facility] Work Phone: [phone] Blood hemoglobin measurement (mass/volume)on 02-08-2022 Hemoglobin (Bld) [Mass/Vol] 15.6 g/dL 13.0-16.5 [facility] Work Phone: Blood lymphocytes/100 leukoc yteson 02-08-2022 Lymphocytes/100 WBC (Bld) 23.6 % 19-41 [facility] Work Phone: Blood monocytes/100 leukocyt eson 02-08-2022 Monocytes/100 WBC (Bld) 6.8 % 0-10 [facility] Work Phone: [phone] Blood platelet mean volumeon 02-08-2022 Platelet mean volume (Bld) [Entitic vol] 11.7 fL 6.2-12.0 [facility] Work Phone: Determination of erythrocyte mean corpuscular volume (MCV)on 02-08-2022 MCV (RBC) [Entitic vol] 93.6 fL 80-94 [facility] Work Phone: Erythrocyte sedimentation ra ilsa 02-08-2022 ESR (Bld) [Velocity] 15 mm/h 0-20 [facility] Work Phone: Hematocrit Auto (Bld) [Volum e fraction]on 02-08-2022 Hematocrit (Bld) [Volume fraction] 47.1 % 40-54 [facility] Work Phone: Laboratory - Chemistry and C hemistry - challengeon 02-08-2022 ALP [Catalytic activity/Vol] 118 U/L 45-117 [facility] Work Phone: ALT [Catalytic activity/Vol] 25 U/L 16-61 [facility] Work Phone: CO2 [Moles/Vol] 27.0 mmol/L 21.0-32.0 [facility] Work Phone: Globulin (S) [Mass/Vol] 3.7 g/dL 2.2-4.2 [facility] Work Phone: Lipase [Catalytic activity/Vol] 143 U/L 73-393 [facility] Work Phone: Urea nitrogen/Creatinine [Mass ratio] 17.2 mg/mg 10-20 [facility] Work Phone: Laboratory - Hematology and Cell countson 02-08-2022 Erythrocyte distribution width (RBC) [Entitic vol] 44.3 fL 35.1-43.9 [facility] Work Phone: Erythrocyte distribution width (RBC) [Ratio] 12.8 % 11.6-14.6 [facility] Work Phone: Immature granulocytes/100 WBC (Bld) 0.300 % 0.0-0.9 [facility] Work Phone: Comment on above: IG% - Immature Granu locytes (promyelocytes, myelocytes and metamyelocytes) > 1% indicates that a LEFT SHIFT is Present. MCH (RBC) [Entitic mass] 31.0 pg 27.0-32.0 [facility] Work Phone: Nucleated RBC/100 WBC (Bld) [Ratio] 0 % 0-5 [facility] Work Phone: MCHC Auto (RBC) [Mass/Vol]on 02-08-2022 MCHC (RBC) [Mass/Vol] 33.1 g/dL 32-36 [facility] Work Phone: No Panel Informationon 02-08 Centromere B Antibody <0.2 AI 0.0-0.9 [facility] Work Phone: Endomysial IgA Antibody Negative Negative [facility] Work Phone: Estimated GFR (MDRD) Amer 104 mL/min >60 [facility] Work Phone: Comment on above: GFR Calc Estimated GFR (MDRD) Non-Af Amer 86 mL/min >60 [facility] Work Phone: Comment on above: Non- GFR Calc Hepatitis C Antibody Non-Reactive Nonreactive [facility] Work Phone: Comment on above: Non Reactive: < 0.8 Equivocal: >/= 0.8 to < 1.0 Reactive: >/= 1.0The CDC recommends that a reactive/equivocal HCV antibody result be followed up by the HCV Nucleic Acid Amplificationtest (903834) Immunoglobulin E 22 IU/mL 6-495 [facility] Work Phone: TRIMMING CASER Antibody 0.3 AI 0.0-0.9 [facility] Work Phone: Thyroid Stimulating Hormone (TSH) 2.59 uIU/mL 0.358-3.74 [facility] Work Phone: Platelets bldon 02-08-2022 Platelets (Bld) [#/Vol] 218 10*3/uL 150-450 [facility] Work Phone: Serum DNA double strand anti body assay (units/volume)on 02-08-2022 DNA double strand Ab Qn (S) 1 [IU]/mL 0-9 [facility] Work Phone: Comment on above: Negative <5 Equivoca l 5 - 9 Positive >9 Serum Amebr-1 antibody assay (u nits/volume)on 02-08-2022 Amber-1 extractable nuclear Ab Qn (S) <0.2 AI 0.0-0.9 [facility] Work Phone: Serum Scl-70 extractable nuc lear antibody assay (units/volume)on 02-08-2022 SCL-70 extractable nuclear Ab Qn (S) <0.2 AI 0.0-0.9 [facility] Work Phone: Serum Becker extractable nucl ear antibody detectionon 02-08-2022 Becker extractable nuclear Ab Ql (S) <0.2 AI 0.0-0.9 [facility] Work Phone: Serum classic neutrophil cyt oplasmic antibody assay (units/volume)on 02-08-2022 Neutrophil cytoplasmic Ab.classic Qn (S) <1:20 titer Neg:<1:20 [facility] Work Phone: Serum or plasma C reactive p rotein measurement (mass/volume)on 02-08-2022 CRP [Mass/Vol] 3.95 mg/L 0.0-3.0 [facility] Work Phone: Comment on above: C-Reactive Protein ( CRP) provides useful information for thediagnosis, therapy and monitoring of inflammatory processesand associated diseases. For the evaluation of Relative Riskfor Cardiovascular Disease, a High Sensitivity CRP (HSCRP)should be ordered. Serum or plasma IgA measurem ent (mass/volume)on 02-08-2022 IgA [Mass/Vol] 155 mg/dL 90-386 [facility] Work Phone: Serum or plasma IgG measurem ent (mass/volume)on 02-08-2022 IgG [Mass/Vol] 799 mg/dL 603-1613 [facility] Work Phone: Serum or plasma IgM measurem ent (mass/volume)on 02-08-2022 IgM [Mass/Vol] 216 mg/dL 20-172 [facility] Work Phone: Comment on above: Performed at: [address] [id number] Director: Alin Ceron PhD, Phone: [phone] at: - [facility] [id number] Director: Nino Shelton MD, Phone: [phone] Serum or plasma albumin paige urement (mass/volume)on 02-08-2022 Albumin [Mass/Vol] 3.8 g/dL 3.2-5.0 [facility] Work Phone: Serum or plasma albumin/glob ulin mass ratioon 02-08-2022 Albumin/Globulin [Mass ratio] 1.0 {ratio} 0.9-2.4 [facility] Work Phone: Serum or plasma calcium paige urement (mass/volume)on 02-08-2022 Calcium [Mass/Vol] 8.5 mg/dL 8.5-10.1 [facility] Work Phone: Serum or plasma creatinine m easurement (mass/volume)on 02-08-2022 Creatinine [Mass/Vol] 0.99 mg/dL 0.70-1.30 [facility] Work Phone: Comment on above: The validity of the calculated GFR & GFRAA in patients over 70 years has not been determined. Clinical correlation is essential. Serum or plasma urea nitroge n measurement (mass/volume)on 02-08-2022 Urea nitrogen [Mass/Vol] 17 mg/dL 7-18 [facility] Work Phone: Serum perinuclear neutrophil cytoplasmic antibody titer by immunofluorescenceon 02-08-2022 Neutrophil cytoplasmic Ab.perinuclear IF (S) [Titer] <1:20 titer Neg:<1:20 [facility] Work Phone: Comment on above: The presence of posi tive fluorescence exhibiting P-ANCA orC-ANCA patterns alone is not specific for the diagnosis ofWegener's Granulomatosis (WG) or microscopic polyangiitis.Decisions about treatment should not be based solely onANCA IFA results. The [employer] ANCA Group Consensusrecommends follow up testing of positive sera with both LA-3 and MPO-ANCA enzyme immunoassays. As many as 5% serumsamples are positive only by EIA. Ref. AM J Clin Tlinjp8582;111:507-513. Serum tissue transglutaminas e IgA antibody assay (units/volume)on 02-08-2022 tTG IgA Qn (S) <2 U/mL 0-3 [facility] Work Phone: Comment on above: Negative 0 - 3 Weak Positive 4 - 10 Positive >10 Tissue Transglutaminase (tTG) has been identified as the endomysial antigen. Studies have demonstr- ated that endomysial IgA antibodies have over 99% specificity for gluten sensitive enteropathy. Thin prep Papanicolaou smear with manual screeningon 02-08-2022 Thin prep Papanicolaou smear with manual screening 21 U/L 15-37 [facility] Work Phone: Thin prep Papanicolaou smear with manual screening 3 5-15 [facility] Work Phone: Whole blood hemoglobin A1c/t otal hemoglobin ratio (mass fraction)on 02-08-2022 HbA1c (Bld) [Mass fraction] 5.5 % 3.8-5.6 [facility] Work Phone: Comment on above: Normal < 5.7 % Predi abetic 5.7 - 6.4 % Diabetic >or= 6.5 % Please note range changes. No Panel Information Enteric Bacteriology [facility] Work Phone: Vital Signs Date Time Vital Sign Value Performing Clinician Facility 06-20-2025 08:24-0400 Body height 177.[address] Basilia Lozada MD Work Phone: [facility] 06-20-2025 08:24-0400 Body mass index (BMI) [Ratio] 20.7 kg/m2 Dr. Basilia Lozada MD Work Phone: [facility] 06-20-2025 08:24-0400 Body weight 65.[address] Basilia Lozada MD Work Phone: [facility] 05-09-2025 09:03-0400 Body height 177.[address] Basilia Lozada MD Work Phone: [facility] 05-09-2025 09:03-0400 Body mass index (BMI) [Ratio] 20.6 kg/m2 Dr. Basilia Lozada MD Work Phone: [facility] 05-09-2025 09:03-0400 Body weight 65.[address] Basilia Lozada MD Work Phone: [facility] 07-13-2024 10:38-0400 Diastolic Blood Pressure Non-Invasive 74 mm[Hg] MALINDA GALLAGHER MD [address] 07-13-2024 10:38-0400 Heart rate 50 /min MALINDA GALLAGHER MD [address] 07-13-2024 10:38-0400 Systolic Blood Pressure Non-Invasive 115 mm[Hg] MALINDA GALLAGHER MD [address] 07-13-2024 10:34-0400 Diastolic Blood Pressure Non-Invasive 70 mm[Hg] MALINDA GALLAGHER MD [address] 07-13-2024 10:34-0400 Heart rate 54 /min MALINDA GALLAGHER MD [facility] 07-13-2024 10:34-0400 Systolic Blood Pressure Non-Invasive 111 mm[Hg] MALINDA GALLAGHER MD [address] 07-13-2024 10:28-0400 Diastolic Blood Pressure Non-Invasive 70 mm[Hg] MALINDA GALLAGHER MD [address] 07-13-2024 10:28-0400 Heart rate 46 /min MALINDA GALLAGHER MD [facility] 07-13-2024 10:28-0400 Systolic Blood Pressure Non-Invasive 119 mm[Hg] MALINDA GALLAGHER MD [facility] 07-13-2024 08:22-0400 Body temperature 97.52 [degF] MALINDA GALLAGHER MD [address] [place] [address] 07-13-2024 08:22-0400 Respiratory rate 16 /min MALINDA GALLAGHER MD [address] 04-21-2024 12:58-0400 Body height 177.8 cm MALINDA GALLAGHER MD [address] [place] [address] 04-21-2024 12:58-0400 Body weight 65.9 kg MALINDA GALLAGHER MD [address] 04-21-2024 12:58-0400 Body weight 20.85 kg/m2 MALINDA GALLAGHER MD [facility] 04-28-2023 07:50-0400 Body height 177.[address] Basilia Lozada Work Phone: [facility] 04-28-2023 07:42-0400 Body mass index (BMI) [Ratio] 22.3 kg/m2 Dr. Basilia Lozada Work Phone: [facility] 04-28-2023 07:42-0400 Body temperature 97.7 [degF] Dr. Basilia Lozada Work Phone: [facility] 04-28-2023 07:42-0400 Body weight 68.[address] Basilia Lozada Work Phone: [facility] 04-28-2023 07:42-0400 Diastolic blood pressure 66 mm[Hg] Dr. Basilia Lozada Work Phone: [facility] 04-28-2023 07:42-0400 Heart rate 75 /min Dr. Basilia Lozada Work Phone: [facility] 04-28-2023 07:42-0400 Respiratory rate 18 /min Dr. Basilia Lozada Work Phone: [facility] 04-28-2023 07:42-0400 SaO2% (BldA) [Mass fraction] 96 % Dr. Basilia Lozada Work Phone: [facility] 04-28-2023 07:42-0400 Systolic blood pressure 94 mm[Hg] Dr. Basilia Lozada Work Phone: [facility] 04-07-2023 07:56-0400 Body height 177.[address] Basilia Lozada Work Phone: [facility] 04-07-2023 07:56-0400 Body mass index (BMI) [Ratio] 22.5 kg/m2 Dr. Basilia Lozada Work Phone: [facility] 04-07-2023 07:56-0400 Body weight 71.[address] Basilia Lozada Work Phone: [facility] 04-07-2023 07:56-0400 Diastolic blood pressure 79 mm[Hg] Dr. Basilia Lozada Work Phone: [facility] 04-07-2023 07:56-0400 Heart rate 51 /min Dr. Basilia Lozada Work Phone: [facility] 04-07-2023 07:56-0400 SaO2% (BldA) [Mass fraction] 97 % Dr. Basilia Lozada Work Phone: [facility] 04-07-2023 07:56-0400 Systolic blood pressure 122 mm[Hg] Dr. Basilia Lozada Work Phone: [facility] 03-18-2023 07:19-0400 Body mass index (BMI) [Ratio] 22.8 kg/m2 Dr. Basilia Lozada Work Phone: [facility] 03-18-2023 07:19-0400 Body temperature 97.4 [degF] Dr. Basilia Lozada Work Phone: [facility] 03-18-2023 07:19-0400 Body weight 72.[address] Basilia Lozada Work Phone: [facility] 03-18-2023 07:19-0400 Diastolic blood pressure 54 mm[Hg] Dr. Basilia Lozada Work Phone: [facility] 03-18-2023 07:19-0400 Heart rate 64 /min Dr. Basilia Lozada Work Phone: [facility] 03-18-2023 07:19-0400 Respiratory rate 18 /min Dr. Basilia Lozada Work Phone: [facility] 03-18-2023 07:19-0400 SaO2% (BldA) [Mass fraction] 96 % Dr. Basilia Lozada Work Phone: [facility] 03-18-2023 07:19-0400 Systolic blood pressure 95 mm[Hg] Dr. Basilia Lozada Work Phone: [facility] 08-07-2022 07:45-0400 Body height 177.[address] Edis Mayo Work Phone: [facility] Work Phone: 08-07-2022 07:45-0400 Body mass index (BMI) [Ratio] 21.4 kg/m2 Dr. Edis Mayo Work Phone: [facility] Work Phone: 08-07-2022 07:45-0400 Body weight 67.[address] Edis Mayo Work Phone: [facility] Work Phone: 08-07-2022 07:45-0400 Diastolic blood pressure 82 mm[Hg] Dr. Edis Mayo Work Phone: [facility] Work Phone: 08-07-2022 07:45-0400 Heart rate 58 /min Dr. Edis Mayo Work Phone: [facility] Work Phone: 08-07-2022 07:45-0400 SaO2% (BldA) [Mass fraction] 97 % Dr. Edis Mayo Work Phone: [facility] Work Phone: 08-07-2022 07:45-0400 Systolic blood pressure 127 mm[Hg] Dr. Edis Mayo Work Phone: [facility] Work Phone: 03-11-2022 08:45-0400 Body temperature 97.1 [degF] Dr. Edis Mayo Work Phone: [facility] Work Phone: 03-11-2022 08:45-0400 Diastolic blood pressure 65 mm[Hg] Dr. Edis Mayo Work Phone: [facility] Work Phone: 03-11-2022 08:45-0400 Heart rate 55 /min Dr. Edis Mayo Work Phone: [facility] Work Phone: 03-11-2022 08:45-0400 Respiratory rate 16 /min Dr. Edis Mayo Work Phone: [facility] Work Phone: 03-11-2022 08:45-0400 SaO2% (BldA) [Mass fraction] 99 % Dr. Edis Mayo Work Phone: [facility] Work Phone: 03-11-2022 08:45-0400 Systolic blood pressure 99 mm[Hg] Dr. Edis Mayo Work Phone: [facility] Work Phone: 03-11-2022 07:04-0400 Body height 177.[address] Edis Mayo Work Phone: [facility] Work Phone: 03-11-2022 07:04-0400 Body mass index (BMI) [Ratio] 21.2 kg/m2 Dr. Edis Mayo Work Phone: [facility] Work Phone: 03-11-2022 07:04-0400 Body weight [address] Edis Mayo Work Phone: [facility] Work Phone: Encounters Encounter Date Encounter Type Care Provider Facility Start: 06-20-2025 End: 06-20-2025 Patient encounter procedure Telma VERA -[facility] Work Phone: Start: 06-20-2025 End: 06-20-[address] Basilia Lozada MD Work Phone: -[facility] Start: 06-09-2025 End: 06-09-[address] Basilia Lozada MD Work Phone: -[facility] Start: 06-09-2025 End: 06-09-2025 Patient encounter procedure Telma VERA -[facility] Work Phone: Start: 06-09-2025 End: 06-09-2025 ambulatory Basilia Lozada Facility:[facility] Start: 05-11-2025 ambulatory TELMA MAST [facility] Start: 05-09-2025 End: 05-09-[address] Wong Parada MD -[facility] Start: 05-09-2025 End: 05-09-[address] Basilia Lozada MD Work Phone: [facility] Work Phone: Start: 04-27-2025 ambulatory Basilia Lozada Facility:[facility] Start: 04-27-2025 Non-patient / Non-visit Dr. Flaquito Rodriguez MD -[facility] Start: 04-27-2025 End: 04-27-[address] Basilia Lozada MD Work Phone: [facility] Work Phone: Start: 04-27-2025 End: 04-27-2025 Patient encounter procedure Beronica VERA -Pulmonary Services/Neurology Work Phone: Start: 04-27-2025 End: 04-27-2025 ambulatory Beronica VERA Facility:[facility] Start: 04-13-2025 ambulatory BASILIA GREGORY [facility] Start: 12-24-2024 End: 12-24-2024 ambulatory BASILIA GREGORY [facility] Start: 12-21-2024 ambulatory BASILIA GREGORY [facility] Start: 10-05-2024 End: 10-05-2024 ambulatory BASILIA GREGORY [facility] Start: 09-07-2024 End: 09-07-2024 ambulatory Mary Beltran DORMITORY MAID [place] Start: 08-02-2024 ambulatory Mary Beltran DORMITORY MAID Fac ility:[facility] Start: 07-13-2024 End: 07-13-2024 ambulatory MALINDA GALLAGHER Facility:[facility] Start: 07-13-2024 End: 07-13-2024 Patient encounter procedure MALINDA GALLAGHER [facility] Start: 07-31-2023 End: 07-31-[address] Basilia Lozada Work Phone: [facility] Work Phone: Start: 07-31-2023 End: 07-31-[address] Basilia Lozada Work Phone: [facility] Work Phone: Start: 04-28-2023 End: 04-28-[address] Basilia Lozada Work Phone: [facility]-Pulmonary Medicine [facility] Work Phone: Start: 04-17-2023 End: 04-17-[address] Basilia Lozada Work Phone: [facility] Work Phone: Start: 04-17-2023 End: 04-17-[address] Basilia Lozada Work Phone: [facility]-Sleep Lab Start: 04-07-2023 End: 04-07-[address] Basilia Lozada Work Phone: [facility] Start: 04-02-2023 Non-patient / Non-visit Dr. Basilia Lozada Work Phone: [facility] Start: 04-01-2023 End: 04-01-[address] Basilia Lozada Work Phone: [facility]-Pulmonary Services/Neurology Start: 03-18-2023 End: 03-18-[address] Basilia Lozada Work Phone: [facility]-Pulmonary Medicine [facility] Start: 08-15-2022 End: 08-15-[address] Edis Mayo Work Phone: [facility] Work Phone: Start: 08-15-2022 End: 08-15-[address] Edis Mayo Work Phone: [facility] Start: 08-12-2022 End: 08-12-[address] Edis Mayo Work Phone: [facility] Work Phone: Start: 08-12-2022 End: 08-12-[address] Edis Mayo Work Phone: [facility]-Laboratory, Specimen Start: 08-07-2022 End: 08-07-[address] Edis Mayo Work Phone: [facility] Start: 05-30-2022 End: 05-30-[address] Edis Mayo Work Phone: [facility]-Laboratory Start: 05-23-2022 End: 05-23-[address] Edis Mayo Work Phone: [facility] Start: 05-07-2022 End: 05-07-[address] Edis Mayo Work Phone: [facility] Start: 03-11-2022 Non-patient / Non-visit Dr. Edis Mayo Work Phone: [facility] Start: 03-11-2022 End: 03-11-2022 Admission to same day surgery center Dr. Edis Mayo Work Phone: [facility]-Endoscopy Start: 03-04-2022 End: 03-04-[address] Edis Mayo Work Phone: [facility]-Laboratory Start: 02-25-2022 End: 02-25-[address] Edis Mayo Work Phone: [facility]-Cat [facility] Start: 02-09-2022 End: 02-09-[address] Edis Mayo Work Phone: [facility]-Laboratory, Specimen Start: 02-08-2022 End: 02-08-[address] Edis Mayo Work Phone: [facility] Procedures Date Procedure Procedure Detail Performing Clinician Start: 06-09-2025 MRI of cervical spine Palmer Lozada MD Work Phone: Start: 05-09-2025 X-ray of cervical spine Dr. Basilia Lozada MD Work Phone: Start: 12-24-2024 Urinalysis YASSER OMR AN Comment on above: Result Comment: URIN ALYSIS Performed By: #### [id number] #### [facility],[address] [place] [address] Start: 10-05-2024 Urinalysis BASILIA BAR AN Comment on above: Result Comment: URIN ALYSIS Performed By: #### [id number] #### [facility],[address] [place] [address] Start: 07-31-2023 CT of chest without contrast [...] Detail Author Start: 06-24-2025 ambulatory Ambulatory Facility:[facility] Start: 05-09-2025 X-ray of cervical spine Cerv Spine 4 or 5 Views [facility] Start: 05-09-2025 XR Cervical spine 4 or 5 Views [facility] Start: 08-12-2022 Elastase, pancreatic (el-1), fecal; quantitative [facility] Work Phone: Start: 08-12-2022 Fat [Presence] in Stool [facility] Work Phone: Start: 08-12-2022 Helicobacter pylori Ag [Presence] in Stool by Immunoassay [facility] Work Phone: Start: 03-11-2022 Colonoscopy w/biopsy single/multiple COLONOSCOPY AND BIOPSY [facility] Work Phone: Start: 03-11-2022 Egd transoral biopsy single/multiple EGD BIOPSY SINGLE/MULTIPLE [facility] Work Phone: CT Chest WO contrast [facility] Fat [Mass/mass] in Stool [facility] Work Phone: Fat.neutral [Presenc e] in Stool [facility] Work Phone: Helicobacter pylori Ag [Presence] in Stool by Immunoassay [facility] Work Phone: Patient referral [facility] Work Phone: Tobacco use cessatio n education [facility] Payers Date Payer Category Payer Self-pay [id number] 2023 Medicaid [id number] 1975 Unknown [id number] 2.16.8 [id number] 1975 Unknown [id number] 2.16.8 [id number] 1975 Unknown [id number] 2.16.8 [id number] 1975 Unknown [id number] 2.16.8 [id number] Private Health Insurance [id number] Unknown [id number] Unknown [id number] 2.16.8 [id number] Unknown [id number] 2.16.8 [id number] Unknown [id number] 2.16.8 [id number] Unknown [id number] 2.16.8 [id number] Unknown [id number] 2.16.8 [id number] Unknown [id number] 2.16.8 [id number] Unknown [id number] 2.16.8 [id number] Unknown [id number] 2.16.8 [id number] Unknown [id number] 2.16.8 [id number] Unknown [id number] 2.16.8 [id number] Social History Date Type Detail Facility Start: 02-08-2022 End: 04-28-2023 Tobacco smoking status NHIS Unknown if ever smoked [facility] Start: 1975 Sex Assigned At Male [facility] Start: 03-27-2023 Tobacco smoking status Heavy t obacco smoker (finding) [facility] Start: 05-02-2025 Tobacco smoking stat us NHIS Smokes tobacco daily (finding) [facility] Goals Date Patient Goal Desired Activity /State Functional Status Date Assessment Result Facility 07-13-2024 Functional Status Assistive Device None [facility] 07-13-2024 Functional Status Standard Safet y ID band on, Allergy Band on, Bed in low position, Wheels locked, Upper/Half-Length side-rails up, Safety level maintained [facility] 04-21-2024 Functional Status Sensory Deficits None [facility] Mental Status Date Assessment Result Facility 07-13-2024 Mental Status Orientation Oriented x 4 [facility] 07-13-2024 Mental Status [facility] 03-11-2022 Cognitive function Touch/Shaking [facility] Work Phone: 03-11-2022 Cognitive function Patient Orien tation Person;Place;Time [facility] Work Phone: Clinical Notes 02-06-2024 to 05-09-2025 Note Date & Type Note Facility 05-09-2025 Evaluation note Diagnosis Onset Date Resolution Cervical radiculopathy acute Ju ne 2024 8:47am [facility] Work Phone: 1(961) 502-470006-11-2025 Procedure note [facility] Pulmonary Services/Neurology [address] [place] [address] MR#: [id number] Acct: [id number] Name: JOON MURO Rep #:[id number] : 1975 50 From: Flaquito Rodriguez MD [...] Multi Select Codes Neurology Neurology Interp Codes: 82046-11 Musc test done w/n test comp (interp) and 41387-95 Nrv cndj test 7-8 studies (interp) 04/27/25 1235 D> Date _ Flaquito Rodriguez MD CC: CHUY Hernandez; Dr. Flaquito Rodriguez MD; Dr. Basilia Lozada MD ~ Date Dictated: 04/27/25 1232 Date Transcribed: 04/27/25 1232 Auto [place] Driver: GEORGE Villalba [facility]08-27-2024 Note ORIGINAL EXAMINATION: CT THORAX WITH [...] Sign Date: 07/13/2024 3:39:59 PM Ordering Provider: [facility]08-27-2024 Hospital Discharge instructions Patient Education 07/13/2024 08:43:02 Radiology- CT Coronary Angiogram(CUSTOM) [place] Coronary CT Angiogram (Coronary CTA or Cardiac CTA) Discharge Instructions [facility] [address] [place] [address] Today, you had a Coronary CT Angiogram. [...] Department: For the first 24 hours call [phone] After 24 hours, contact the physician who [...] Unknown With:MALINDA GALLAGHER MD Address: [address] [facility] [address] [place] [phone] When: Unknown Comments:Follow-up as scheduled [facility] 08-27-2024 Summary of episode note Discharge Instructions Thank you for allowing [place] to assist you with your healthcare needs. [...] Up with MALINDA GALLAGHER MD Where:[address] [facility] [address] [place] [address] [id number] Additional Information: Follow-up as scheduled Allergies PriLOSEC [...] medication providers or retail pharmacies. Education Materials [place] Coronary CT Angiogram (Coronary CTA or Cardiac CTA) Discharge Instructions [facility] [address] [facility] [address] Today, you had a Coronary CT Angiogram. [...] Department: For the first 24 hours call [phone] After 24 hours, contact the physician who [...] to receive it can visit one of [facility] vaccine clinics. There are many vaccine clinic locations within the [facility]. For locations and available times, please visit [email or web address] It is important to note that some COVID mobile vaccine clinics are held outdoors and may be canceled in rainy or stormy conditions. To learn more about pediatric vaccinations (ages 5-11), we invite you to visit the [facility] webpage. [email or web address].[email or web address]/[email or web address]-[email or web address] stions.htmlTo learn more about the COVID-19 vaccine, we invite you to visit the CDC website for a list of frequently asked questions.https://www.cdc.gov/coronavirus/2019-ncov/vaccines/faq.html [facility] Patient Portal Access Instructions: Stay connected with your healthcare team and access your personal medical information anytime with the [facility] Patient Portal. Please follow the directions below to create your [employer] account: 1.Access the email account you provided upon registration to the hospital/physician office.2.Look for an invitation email from [facility].3.Open the email and access the invitation link: AcceptInvitation to [facility].4.Fill in the required velarde to create your account. To access your account, visit [employer]/[facility]. Click the blue button labeled Access Patient Portal and then log in with the username and password that you created in the steps above. You will be able to view your test results, lab results, a summary of your visits, upcoming appointments and more. There is also a convenient messaging option where you can send secure messages to your p [email or web address]. In addition, you will have the ability to download any documents or summaries to your computer and/or send the information securely to a physician. Remember that your healthcare information is confidential, so carefully consider who you will allowto register on the [facility] Patient Portal for access to your information. You can also access the [facility] Patient Portal on the [facility] ed. Simply click on Patient Portal and then log into your account. If you would like to receive a full copy of your medical records, please contact the [facility] Medical Records Department by calling [phone], Friday through Friday between 8 a.m. and [...] Call your local pharmacy or go to [email or web address] to find one close to you.3.Make use of household items: Use cat litter or old coffee grounds to dispose medications if other options arenot available. Mix your drugs with these household products, seal them in an airtight container andthrow it into the garbage. Call [facility]: [phone] to be sure your drugs can be [...] am aware that I should contactmy doctor. 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 Meters Signature: Date/Time: Relationship to Patient: Witness Name/Signature: Date/Time: [id number] Evaluation + Plan note Future Scheduled Tests Laboratory* Basic Metabolic Panel 02/06/24 * Thyroid Stimulating Hormone 02/06/24 * Lipid Profile 10/28/23 Radiology* CT Coronary Extracardiac 07/13/24 [facility] Evaluation note* Diagnosis Onset Date Resolution Status Abdominal pain acute Screening for colon cancer a [facility] Work Phone: Evaluation note* Diagnosis Onset Date Resolution Status Abdominal pain acute Screening for colon cancer a [facility] Irritable bowel syndrome non eactive Abdominal pain acute Elevated CEA acute [facility] Work Phone: Evaluation note* Diagnosis Onset Date Resolution Status Abdominal pain acute Elevated CEA acute Abdominal pain acute Diarrhea acute Elevated CEA acute Epigastric pain acute Gastropathy acute [facility] Work Phone: Evaluation note* Diagnosis Onset Date Resolution Status Abnormal CT of the abdomen a cute Lung nodule seen on imaging study acute Marijuana abuse, continuous acute Nicotine addiction acute COPD (chronic obstructive pulmonary disease) chronic Exocrine pancreatic insufficiency chronic Epigastric pain chronic Exocrine pancreatic insufficiency [facility] Work Phone: Evaluation note* Diagnosis Onset Date Resolution Status Epigastric pain chronic Exocrine pancreatic insufficiency chronic Lung nodule seen on imaging study acute Marijuana abuse, continuous acute Nicotine addiction acute COPD (chronic obstructive pulmonary disease) [facility] Work Phone: Evaluation noteNo assessment information available [facility] Work Phone: Hospital course Narrative No data available for this section [facility] Reason for referral (narrative)No [facility]: Chief Complaint and Reason [...] No March 08, 2022 10:34am 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 Basilia Lozada MD Primary Care Provider Active Christiane Shannon DORMITORY MAID, DORMITORY MAID-C Attending Provider, Referrin g Provider Active Team [...] section and content) DATE CREATED AUTHOR 09/10/2023 [facility] DATE CREATED AUTHOR AUTHOR'S ORGANIZ ATION 07/16/2024 [facility] DATE CREATED AUTHOR AUTHOR'S ORGANIZ ATION 06/04/2025 [facility] DATE CREATED AUTHOR AUTHOR'S ORGANIZ ATION 06/21/2025 [facility] FOR RECORDS PERTAINING TO PATIENTS WHO ARE [...] BE BASED ON THE PRIMARY CLINICAL RECORDS. [facility] [employer] [facility]. provides no warranty or guarantee of the accuracy or completeness of information in this document.
== END | disposition home or self-care (01) ==
LOC: CT 06:44 → PSN 06:45
PROVIDERS: PCP Internal Medicine Infectious Disease; Referring Provider Nurse Practitioner Acute Care; Visit Provider Nurse Practitioner Acute Care
DX: J43.2 Centrilobular emphysema (principal)
CPT/HCPCS: 94060; 94726; 94729

== ENCOUNTER → 2025-07-05 | Outpatient (CLI) | payer MEDICAID, SELFPAY ==
--- NOTE | 2025-07-05 08:16 | CT_ITS ---
PROCEDURE: LOW DOSE CT LUNG SCREENING 07/05/2025 REASON FOR EXAM: CURRENT SMOKER Patient has smoked 1-1/2 pack per day for 39 years. History of COPD. TECHNIQUE: LOW DOSE CT LUNG SCREENING Coronal and Sagittal reconstruction series were provided. One or more dose reduction techniques were used (e.g., Automated exposure control, adjustment of the mA and/or kV according to patient size, use of iterative reconstruction technique). REFERENCE LINK: Primary Data Lung-RADS RADIATION DOSE SUMMARY: CTDlvol: 2.01 mGy DLP: 68.71 mGycm COMPARISON: Prior study dated July 31, 2023. FINDINGS: PULMONARY NODULES: (Only nodules >3mm are reported) Nodules described below are on series 1 unless otherwise specified. Pulmonary Nodules: Stable 5 mm noncalcified nodule in the peripheral lateral aspect of the right upper lobe as seen on axial image number 104 and coronal image number 97 Hardware:None Lymph Nodes:None Heart and Vasculature:The heart is nonenlarged. Coronary Artery Calcifications: Absent Lungs and Airways: Mild emphysematous changes are present. Pleura:No pleural effusion. Upper Abdomen:Unremarkable Bones:Degenerative changes of the thoracic spine. CT/Low Dose CT Lung Screening IMPRESSION: Stable 5 mm noncalcified nodule in the peripheral lateral aspect of the right u pper lobe. Coronary artery calcification (CAC) is is absent Lung-RADS Category: 2 BENIGN (BASED ON IMAGING FEATURES OR INDOLENT BEHAVIOR). RECOMMEND 12-MONTH SCREENING LDCT. Other Significant Findings: Reading Location: [facility]
== END | disposition home or self-care (01) ==
LOC: CT 08:13
PROVIDERS: PCP Internal Medicine Infectious Disease; Referring Provider Nurse Practitioner Acute Care; Visit Provider Nurse Practitioner Acute Care
DX: F17.210 Nicotine dependence, cigarettes, uncomplicated (principal)
CPT/HCPCS: 71271